=== PATIENT | male | born 1935 | race Caucasian/White ===

== ENCOUNTER 2019-04-10 10:23 | Inpatient (IN) | payer MEDICARE, SELFPAY ==
--- NOTE | ~2019-04-10 | CT_ITS ---
EXAMINATION: CT abdomen pelvis w con DATE: 04/10/2019 11:24 INDICATION: Recurrent acute pancreatitis. TECHNIQUE: Computed tomography (CT) of the abdomen and pelvis was performed with 100 mL Omnipaque-350 intravenous contrast. Automated exposure control and iterative reconstruction technique were employe d. The dose-length product was 642.22 mGy-cm. COMPARISON: 12/15/2018 FINDINGS: Mild dependent atelectasis in the bilateral lower lobes. Calcified left lower lobe nodule consistent with old granulomatous disease. Cardiomegaly. Atherosclerotic coronary artery calcification is. No pe ricardial or pleural effusion. Retained epicardial pacemaker leads. Median sternotomy wires which cou ld be related to prior coronary artery bypass grafting. Multiple small hepatic and splenic calcifications consistent with old granulomatous disease. Subcenti meter cyst in the small left hepatic lobe. Minimal intrahepatic biliary ductal dilation. Multiple sma ll calcified gallstones at the dependent aspect of the gallbladder. The gallbladder is distended to 4 cm with mild gallbladder wall thickening and small amount of pericholecystic fluid. There is more pr ominent peripancreatic inflammatory stranding and fluid consistent with acute interstitial pancreatit is. Aside from the edema the pancreatic parenchyma demonstrates relatively homogeneous enhancement wi th no evident hemorrhage, walled off necrosis or other organized loculated peripancreatic fluid colle ctions. Small low-attenuation likely splenic cyst. Bilateral adrenal glands are normal. Mild bilateral renal atrophy with scattered cortical scarring. 3.0 x 1.7 cm heterogeneously enhancing mass at the interpol ar region of the right kidney consistent with renal cell carcinoma. Bilateral nonobstructing renal st ones the largest on the left measuring up to 7 mm. No hydronephrosis. No abnormal bowel wall thickeni ng or obstruction. Appendix is normal. Diffuse mild bladder wall thickening likely related to partial ly decompressed state. No intraperitoneal abscess or free intraperitoneal gas. No pathologically enla rged abdominal or pelvic lymphadenopathy. There is calcified atherosclerosis of the aorta and many of the other arteries. Severe lumbar spondylosis. IMPRESSION: 1. Radiograph. Uncomplicated acute interstitial pancreatitis. 2. Cholelithiasis with mild wall gallbladder wall thickening and small amount of pericholecystic flui d but without significant inflammatory stranding. This could be related to acute pancreatitis or pote ntially reactive change related to the adjacent acute pancreatitis. 3. Minimal intrahepatic biliary ductal dilation but with normal caliber common bile duct. Correlate w ith liver function tests. No obstructing stones seen along the common bile duct or main pancreatic du ct. 4. 2.0 x 1.7 cm heterogeneously enhancing right renal mass consistent with renal cell carcinoma. 5. Cardiomegaly. Reviewed, dictated and finalized at location A. [facility] IMPRESSION: 1. Radiograph. Uncomplicated acute interstitial pancreatitis. 2. Cholelithiasis with mild wall gallbladder wall thickening and small amount o f pericholecystic fluid but without significant inflammatory stranding. This co uld be related to acute pancreatitis or potentially reactive change related to the adjacent acute pancreatitis. 3. Minimal intrahepatic biliary ductal dilation but with normal caliber common bile duct. Correlate with liver function tests. No obstructing stones seen anthony g the common bile duct or main pancreatic duct. 4. 2.0 x 1.7 cm heterogeneously enhancing right renal mass consistent with madeline l cell carcinoma. 5. Cardiomegaly.
--- NOTE | ~2019-04-10 | XR_ITS ---
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 13 seconds of fluoroscopy. 79 images. FINDINGS: There is cannulation and contrast administration into the cystic duct remnant. There is no discrete filling defect in the common bile duct to suggest common bile duct stone. Contrast flows fr eely into the duodenum. IMPRESSION: 1. Patent cystic duct remnant and common bile duct, without common bile duct stone. Reviewed, dictated and finalized at location A. MACHINE OPERATOR IMPRESSION: 1. Patent cystic duct remnant and common bile duct, without common bile duct s tone.
[2019-04-10 10:22] VITALS: BP 137/64; PULSE 68; RESP 16; TEMP 36.4; O2SAT 100
--- NOTE | 2019-04-10 10:31 | ED.ABDPAIN ---
HPI - Abdominal Pain General Chief Complaint: Abdominal Pain Stated Complaint: Abd Pain Time Seen by Provider: 04/10/19 10:28 Source: patient and family Mode of arrival: ambulatory Limitations: no limitations History of Present Illness HPI narrative: An 83 y/o male pt presents to the ED, with c/o RUQ ABD pain that woke him out of his sleep this morning. Pt reports having a hx of pancreatitis that he has been hospitalized for twice in the past year, and notes that the pain feels similar to previous episodes. He reports nausea and vomiting, but denies any fever, diarrhea or constipation. Pt denies a PSHx of any ABD surgeries. Family at bedside states that the pt was told he needed a cholecystecomy, but the pt refused to have this procedure done. Pt notes taking Warfarin as his anticoagulation therapy, but is unsure why he was prescribed this. MD elicited complaint: abdominal pain Pertinent past history: other (pancreatitis) Onset (ago): hour(s) Pain Consistency: constant Location: RUQ Context: confirms history of similar episodes (pancreatitis) Associated symptoms: nausea and vomiting Related Data Home Medications Medication Instructions Recorded Confirmed aspirin 81 mg tablet,delayed 81 mg PO DAILY 01/10/19 04/10/19 release blood sugar diagnostic #10 each 01/10/19 04/10/19 finasteride 5 mg tablet 5 mg PO DAILY 01/10/19 04/10/19 glipizide 5 mg tablet 5 mg PO DAILY 01/10/19 04/10/19 lancets 33 gauge #100 each 01/10/19 04/10/19 lisinopril 20 mg tablet 20 mg PO QPM 01/10/19 04/10/19 metoprolol tartrate 25 mg tablet 12.5 mg PO BID 01/10/19 04/10/19 pravastatin 40 mg tablet 40 mg PO DAILY 01/10/19 04/10/19 warfarin 4 mg PO 2XW 04/10/19 04/10/19 warfarin 6 mg PO 5XW 04/10/19 04/10/19 Allergies Allergy/AdvReac Type Severity Reaction Status Date / Time No Known Allergies Allergy Verified 04/13/19 13:36 Review of Systems Review of Systems: All systems reviewed & are unremarkable except as noted in HPI and below Constitutional: Constitutional: Denies fever(s) Gastrointestinal: Gastrointestinal: Reports abdominal pain (RUQ), Denies constipation, Denies diarrhea, Reports nausea and Reports vomiting PMFSH Past Medical History Medical History Anemia Atrial fibrillation Chronic kidney disease, stage 3 (moderate) Coronary artery disease Last Echocardiogram 12/2018 showed EF 56%, mild tricuspid regurgitation, mild pulmonary hypertension. Diabetes mellitus Home oral medications only. DM renal manif type II Enlarged prostate Hypercholesteremia Hypertension Kidney stones Left renal mass Pancreatitis In 2016, November 2018, and March 2019. With confirmed cholelithiasis. Pure hypercholesterolemia Surgical History Surgical History H/O removal of cyst Benign History of cardiac cath In 2013 prior to CABG. Hx of CABG 2-vessel CABG in 2012. Tracheostomy status When he is to in had diptheria. Family History Family History Mother Cerebrovascular accident, Onset Age: 80 Patient's mother is Sibling Family history of diabetes mellitus in first degree relative Father Family history of lung cancer Patient's father is Sibling Gallbladder disease His brother just a couple days after having gallbladder surgery Social History Social History Social History: He is to Aileen. She is a durable power bank reconciliator for healthcare. The patient is a full code. 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 He has 1 daughter. He is a smoker pack a cigarettes a day for 10 years. He quit 50 years ago. No alcohol or illicit drugs. Smoking status: Former smoker Tobacco type: cigarettes Smoking end date: 02/22/1960 Additional smoking
[2019-04-10 10:48] LABS: Basophils Percent Auto 0.3 % (0.2-1.2); Eosinophils Percent Auto 0.2 % (0-4.4); Hematocrit 33.4 % (42.0-52.0); Hemoglobin 10.5 g/dL (14.0-18.0); Immature Granulocyte Absolute 0.04 K/mm3 (0.00-0.031); Immature Granulocyte Percent A 0.4 % (0-0.5); Lymphocytes Absolute Auto 0.77 K/mm3 (0.9-3.2); Lymphocytes Percent Auto 6.9 % (18.3-44.2); Mean Corpuscular HGB Conc 31.4 g/dl (32-36); Mean Corpuscular Hemoglobin 27.1 pg (26-34); Mean Corpuscular Volume 86.1 fl (80-100); Mean Platelet Volume 8.9 fl (7.4-10.4); Neutrophils Absolute Auto 9.3 K/mm3 (1.3-6.7); Neutrophils Percent Auto 83.2 % (45.5-73.1); Platelet Count Result 347 k/mm3 (150-375); Red Blood Count 3.88 M/mm3 (4.6-6.20); White Blood Count 11.1 K/mm3 (4.5-10.0)
[2019-04-10] MEDS: SODIUM CHLORIDE 0.9% IV 1,000 ML 999 ML IV CONT (11:00)
[2019-04-10 11:01] LABS: Alanine Aminotransferase 47 U/L (4-50); Alkaline Phosphatase 147 U/L (38-126); Aspartate Amino Transferase 118 U/L (17-59); Bilirubin,Total 1.2 mg/dL (0.2-1.3); Blood Urea Nitrogen 25 mg/dL (9-20); Calcium 8.4 mg/dL (8.4-10.2); Carbon Dioxide 22 mmol/L (22-30); Chloride 105 mmol/L (98-107); Estimated CRCL calculation 32 ml/min; Estimated Glomerular Filt Rate 39; Glucose 204 mg/dL (75-110); Potassium 3.8 mmol/L (3.4-5.0); Sodium 139 mmol/L (137-145)
[2019-04-10] MEDS: ONDANSETRON INJ 4 MG/2 ML VIAL IV PUSH (11:01)
[2019-04-10] MEDS: HYDROMORPHONE HCL 1 MG/ML INJ 0.5 MG IV PUSH ×3 (11:03→15:28)
[2019-04-10 11:57] LABS: Add Urine Microscopic? YES; Appearance Urine Clear (Clear); Bacteria Urine Trace /hpf; Bilirubin Urine Negative (Negative); Blood Urine 1+ (Negative); Color Urine Yellow (Yellow); Glucose Urine UA Negative (Negative); Ketones Urine Negative (Negative); Leukocyte Esterase Ur Trace LEU/UL (Negative); Mucus Urine Rare /lpf; Nitrate Urine Negative (Negative); Protein Urine 1+ mg/dL (Negative); Specific Grav Ur 1.026 (1.001-1.035); Squamous Epithelial Cell Urine Few /hpf (Few)
[2019-04-10 13:00] VITALS: BP 142/71; PULSE 76; RESP 16; O2SAT 99
[2019-04-10 13:30] VITALS: BP 170/63; PULSE 70; RESP 16; TEMP 36.8; O2SAT 98
--- NOTE | 2019-04-10 14:03 | ADMGEN ---
This patient, Alex Baker, was admitted to [facility] Surg Room 302-01. Patient/family oriented to hospital policies and general routines including ID bracelet, bed and alarms, visiting hours, pain management, procedures, bathroom and other care routines, personal items, smoking policy, room service/diet, and visiting hours. Valuables list has been completed. Information on how to activate the Rapid Response Team has been discussed. Patient/Family are encouraged to report perceived risks to care and to ask questions if they do not understand what they are told or what they should do.
[2019-04-10] MEDS: LACTATED RINGERS 1,000 ML 250 ML IV CONT (14:46)
--- NOTE | 2019-04-10 15:07 | WPDGICN ---
Assessment and Plan Additional Plan This is an 83-year-old white male patient I am asked to see for acute pancreatitis. Patient in usual state of health till severe abdominal pain awoke him at 4:00 a.m. this morning. He states pain is diffuse across the mid abdomen. He denies back pain. He is only had some nausea no vomiting. He denies a fever. His bowel function has continued without difficulty. Patient presented to the emergency room. He was found to have markedly elevated lipase. CT scan consistent with gallstones and pancreatitis. Patient has had several prior episodes of pancreatitis. Most recent episode was November of 2018. Patient has previously refused surgical intervention. Patient's past medical history is significant for atherosclerotic heart disease. He has a history of coronary artery bypass grafting. He has been treated for hypertension hyperlipidemia. He is known to have a descending thoracic aortic aneurysm. Medications at home include aspirin, finasteride, glipizide, lisinopril, metoprolol, pravastatin, warfarin, Patient reports allergy to tamsulosin. Physical exam reveals patient to be alert. Vital signs stable. HEENT exam unremarkable. Lungs are clear to auscultation and percussion. Heart is without murmur or extra sounds. Abdominal exam bowel sounds are present soft he notes discomfort the midepigastric area. Minimal discomfort at this time having received recent pain injection. Laboratory work reveals CBC WBC 11.1, hemoglobin 10.5, BUN 25 creatinine 1.7. Glucose 204. Total bilirubin 1.2, AST of 118, ALT 47, alk-phos 147. Albumin 3.0. Lipase 52566. Urinalysis is negative for bilirubin. CT scan of the abdomen performed in the emergency room reveals gallstones and pancreatitis. Impression 1. Acute pancreatitis. [place] to be related to gallstones. This is recurrent. Plan is for supportive care present surgery consult for ultimate cholecystectomy is advised. Patient should initially start with liquid diet be advanced slowly. Pain control as required. 2. Gallstones. Plan is for surgical evaluation. This appears to be etiology of his recurrent pancreatitis. Surgery is strongly advised. 3. Atherosclerotic heart disease. GI Consult Note Consult date/time: 04/10/19 15:07 HPI: Alex Baker is a 83 year old male [facility] Past Medical History Medical History Atrial fibrillation Coronary artery disease Diabetes mellitus Enlarged prostate Hypercholesteremia Hypertension Kidney stones Pancreatitis Surgical History Surgical History (Updated 04/10/19 @ 11:34 by ROMAIN Bustamante) History of cardiac cath Hx of CABG Social History Social History Smoking status: Former smoker Smoking end date: 02/22/1960 Alcohol intake: never Substance use: never Substance use type: does not use Gender identity (if verbalized by the patient): Male Spiritual care concerns: No Agree to blood products: Yes Meds Home Medications and Allergies Home Medications Medication Instructions Recorded Confirmed Type aspirin 81 mg tablet,delayed 81 mg PO DAILY 01/10/19 04/10/19 History release blood sugar diagnostic #10 each 01/10/19 04/10/19 History finasteride 5 mg tablet 5 mg PO DAILY 01/10/19 04/10/19 History glipizide 5 mg tablet 5 mg PO DAILY 01/10/19 04/10/19 History lancets 33 gauge #100 each 01/10/19 04/10/19 History lisinopril 20 mg tablet 20 mg PO QPM 01/10/19 04/10/19 History metoprolol tartrate 25 mg tablet 12.5 mg PO BID 01/10/19 04/10/19 History pravastatin 40 mg tablet 40 mg PO DAILY 01/10/19 04/10/19 History warfarin 4 mg PO 2XW 04/10/19 04/10/19 History warfarin 6 mg PO 5XW 04/10/19 04/10/19 History Allergies Allergy/AdvReac Type Severity Reaction Status Date / Time tamsulosin Allergy Mild unknown Verified 04/10/19 12:54 Vital Signs Vital Signs -
--- NOTE | 2019-04-10 17:10 | PM.CNGS ---
Assessment and Plan Assessment and plan (1) Cholelithiasis: Qualifiers: Cholelithiasis location: gallbladder Cholecystitis presence: without cholecystitis Biliary obstruction: without biliary obstruction Qualified Code(s): K80.20 - Calculus of gallbladder without cholecystitis without obstruction Code(s): K80.20 - Calculus of gallbladder without cholecystitis without obstruction Status: Acute Assessment and Plan: CT scan reviewed and discussed with the patient. He has evidence of cholelithiasis and acute intersitial pancreatitis that is likely biliary. WBC 11,000, alk phos is barely elevated, and total bilirubin is normal. Gastroenterology has been consulted. Could consider MRCP if LFTs become elevated or patient is worsening. Would agree with continuing IV fluids, bowel rest, analgesics, and antiemetics. Continue to trend his lipase, which is currently 35,000, and monitor him clinically. The patient already has a significant improvement in his pain. This is the second occurrence of acute pancreatitis in the past 6 months. I discussed treatment options with the patient and the pathophysiology of gallbladder disease, pancreatitis, and possible complications that can arise with cholelithiasis. Considering the possible complications that could occur without having a cholecystectomy, we would recommend proceeding with a laparoscopic cholecystectomy, possible open, possible IOC, by Dr. Antoine, after resolution of the pancreatitis. Description of the procedure, risks, benefits, indications, and expected outcomes were discussed with the patient in detail, which includes the increased risk of surgery and general anesthesia due to his multiple co-morbidities including cardiovascular disease. I also discussed the expected recovery of surgery as well as low fat diet restrictions and provided the patient with our cholecystectomy information packet. All questions were answered and patient is agreeable with proceeding with surgery on this admission. Surgery will further be discussed with Dr. Antoine separately on his evaluation. We will continue to trend his labs and follow him with serial abdominal exams. Will also order PT/INR panel and hold his Coumadin at this time pending surgical plan. Depending on how the patient progresses and responds to current treatment, will decipher timing on surgery. Thank you for allowing me to evaluate the patient in consultation and we will continue to follow along with you. 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 (4) Right renal mass: Code(s): N28.89 - Other specified disorders of kidney and ureter Status: Acute Assessment and Plan: Newly found right renal mass concerning for renal cell carcinoma. I did discuss this finding on the CT scan with the patient. Management per Hospitalist. (5) Coronary artery disease: Code(s): I25.10 - Atherosclerotic heart disease of [place] coronary artery without angina pectoris Status: Acute Assessment and Plan: Increases risk for surgery. (6) Chronic kidney disease, stage 3 (moderate): Code(s): N18.3 - Chronic kidney disease, stage 3 (moderate) Status: Acute (7) Paroxysmal A-fib: Code(s): I48.0 - Paroxysmal atrial fibrillation Status: Acute (8) Type 2 diabetes mellitus with hyperglycemia: Code(s): E11.65 - Type 2 diabetes mellitus with hyperglycemia Status: Acute (9) Anemia: Code(s): D64.9 - Anemi
--- NOTE | 2019-04-10 17:57 | PM.IMHP ---
H&P: HPI History of Present Illness Chief complaint: Acute Pancreatitis/DARLEEN Narrative: Alex Baker is a 83 year old male who woke up this morning with severe abdominal pain. Patient tells me that he has been admitted to the hospital at least twice this past year and he had a similar episode. The patient was here in 2017 for pancreatitis and again here last year for pancreatitis. The patient would not undergo removal of the gallbladder for fear that he would because his brother shortly after his gallbladder was removed. The patient was here December 15, 2018 for cholecystitis and was treated back then. Patient stated this feels similar to that episode. He saw Dr. Weber back then and then saw Dr. Weber today as well. White count was noted to be 11.1 today's H&H 10.5 and 33.4. His creatinine is 1.7. CT of the abdomen shows acute interstitial pancreatitis. Minimal intrahepatic biliary duct dilatation but the normal caliber common bile duct. Correlate with liver function test. No obstructing stone seen along common bile duct our main pancreatic duct. 2.0 x 1.7 cm heterogenously enhancing right renal mass consistent with renal cell carcinoma. Cardiomegaly. Patient was started on IV fluids and given Dilaudid for discomfort. Surgery has been consulted and has seen the patient already. There is no current PT INR so I did order 1 now. Date of service 04/10/2019 Review of Systems Review of Systems: Narrative: Nausea and pain to the right upper quadrant tenderness. All systems reviewed & are unremarkable except as noted in HPI and below Constitutional: Constitutional: Reports as per HPI and Reports no additional constitutional complaints Eyes: Eyes: Reports as per HPI and Reports no additional eye complaints ENT: Reports system reviewed and no additional complaints, except as documented and Reports Normal hearing present Cardiovascular: Cardiovascular: Reports no additional cardiovascular complaints Respiratory: Respiratory: Reports no additional respiratory complaints and Reports no additional respiratory complaints Gastrointestinal: Gastrointestinal: Reports as per HPI and Reports no additional gastrointestinal complaints Musculoskeletal: Musculoskeletal: Reports no additional musculoskeletal complaints Integumentary/Breasts: Skin/Breast: Reports system reviewed and no additional complaints, except as docu and Reports as per HPI Neurologic: Reports system reviewed and no additional complaints, except as documented, Reports as per HPI and Reports Normal hearing present Psychiatric: Psychiatric: Reports no additional psychiatric complaints and Reports as per HPI Endocrine: Endocrine: Reports no additional endocrine complaints Hematologic/Lymphatic: Hematologic/Lymphatic: Reports no additional hematologic/lymphatic complaints Allergic/Immunologic: Allergic/Immunologic: Reports no additional allergic/immunologic complaints [facility] Past Medical History Medical History (Updated 04/10/19 @ 18:22 by Heidi Rosa NP) Anemia Atrial fibrillation Chronic kidney disease, stage 3 (moderate) Coronary artery disease Last Echocardiogram 12/2018 showed EF 56%, mild tricuspid regurgitation, mild pulmonary hypertension. Diabetes mellitus Home oral medications only. DM renal manif type II Enlarged prostate Hypercholesteremia Hypertension Kidney stones Left renal mass Pancreatitis In 2016, November 2018, and March 2019. With confirmed cholelithiasis. Pure hypercholesterolemia Surgical History Surgical History (Updated 04/10/19 @ 18:11 by Heidi Rosa NP) H/O removal of cyst Benign History of cardiac cath In 2012 prior to CABG. Hx of CABG 2-vessel CABG in 2012. Tracheostomy status When he is to in had diptheria. Family History Family History (Updated 04/10/19 @ 18:11 by Heidi Rosa NP) Mother Cerebrovascular accident, Onset Age: 80 Patient's mother is Sibling Family hist
[2019-04-10 18:35] LABS: INR 4.1; Prothrombin Time 39.1 Seconds (11.1-14.7)
[2019-04-10] MEDS: ACETAMINOPHEN 325 MG TABLET 650 MG PO (19:53)
[2019-04-10 19:58] VITALS: PULSE 80
[2019-04-10] MEDS: METOPROLOL TARTRATE INJ 5 MG/5 ML VIAL 2.5 MG IV PUSH (19:58)
[2019-04-10 22:00] VITALS: BP 134/77; PULSE 66; RESP 20; TEMP 36.9; O2SAT 99
[2019-04-10] MEDS: HYDROMORPHONE HCL 1 MG/ML INJ IV PUSH (22:00)
[2019-04-10 22:38] LABS: Glucose Point of Care 127 (65-105)
[2019-04-11] MEDS: LACTATED RINGERS 1,000 ML 125 ML IV CONT ×4 (00:01→16:00)
[2019-04-11 00:06] LABS: Glucose Point of Care 103 (65-105)
[2019-04-11] MEDS: HYDROMORPHONE HCL 1 MG/ML INJ IV PUSH ×3 (02:46→15:52)
[2019-04-11 02:48] VITALS: PULSE 80
[2019-04-11] MEDS: METOPROLOL TARTRATE INJ 5 MG/5 ML VIAL 2.5 MG IV PUSH ×3 (02:48→17:48)
[2019-04-11 06:00] VITALS: BP 131/84; PULSE 60; RESP 16; TEMP 36.2; O2SAT 97
[2019-04-11 06:28] LABS: Alanine Aminotransferase 38 U/L (4-50); Albumin Level 2.7 g/dL (3.5-5.1); Alkaline Phosphatase 109 U/L (38-126); Aspartate Amino Transferase 38 U/L (17-59); Bilirubin,Total 0.8 mg/dL (0.2-1.3)
[2019-04-11 06:31] LABS: Glucose Point of Care 84 (65-105)
[2019-04-11 06:33] LABS: Cholesterol 101 mg/dL (0-200); HDL Direct 19 mg/dL; Triglycerides 70 mg/dL (<150)
[2019-04-11 06:35] LABS: Hemoglobin A1C 7.1 % (<5.7)
[2019-04-11 06:36] LABS: LDL Cholesterol Direct 62 mg/dL
[2019-04-11 06:38] LABS: Lipase 2538 U/L (23-300)
[2019-04-11 08:00] VITALS: PULSE 60; RESP 16; O2SAT 97
--- NOTE | 2019-04-11 09:10 | WPDGIPROGNO ---
Progress Note: A&P Additional Plan Patient reports ongoing mid abdominal pain. Physical exam reveals him to be alert. Vital signs stable. HEENT exam is anicteric. Lungs are clear. Heart without murmur. Abdomen is modestly distended. Bowel sounds diminished. Tender predominantly in mid abdomen. No masses of appreciated. Laboratory work. Lipase 2538. LFTs now normal. Albumin 2.7. WBC 11.1, hemoglobin 10.5, Impression 1. Acute pancreatitis. 2. Cholelithiasis. Gallstones appear to be etiology for recurrent pancreatitis. LFTs are improving. Suggesting passage of common bile duct gallstone. Agree with cholecystectomy when pancreatitis Improves. On plan is to slowly allow liquid diet and advance slowly. He may not yet be able to maintain any significant liquid intake. Pain control to continue. Continue supportive care. Monitor labs. Subjective Date/time seen: 04/11/19 09:10 Objective Data Vital Signs Vital Signs: Vital Signs - 24 hr 04/10/19 10:22 04/10/19 13:00 04/10/19 13:30 Temperature 36.4 C 36.8 C Pulse Rate 68 76 70 Respiratory Rate 16 16 16 Blood Pressure 137/64 142/71 H 170/63 H Pulse Oximetry 100 99 98 04/10/19 19:58 04/10/19 22:00 04/11/19 02:48 Temperature 36.9 C Pulse Rate 80 66 80 Respiratory Rate 20 Blood Pressure 134/77 Pulse Oximetry 99 04/11/19 06:00 Temperature 36.2 C L Pulse Rate 60 Respiratory Rate 16 Blood Pressure 131/84 Pulse Oximetry 97 Intake/Output Intake/Output: Intake & Output 04/08/19 04/09/19 04/10/19 04/11/19 23:59 23:59 23:59 23:59 Intake Total 1000 1000 Output Total 200 Balance 1000 800 Meds/Results Medications: Active Medications Generic Name Dose Route Start Last Admin Trade Name Freq PRN Reason Stop Dose Admin Acetaminophen 650 mg 04/10/19 12:01 04/10/19 19:53 Tylenol Tablet PO 650 mg Q4H PRN Administration Mild Pain (1-3) or Fever Dextrose 12.5 gm 04/10/19 18:41 Dextrose 50% Syringe IV PUSH PRN PRN Hypoglycemia Protocol Glucagon 1 mg 04/10/19 18:41 Glucagon For Inj IM PRN PRN Hypoglycemia Protocol Glucose 15 gm 04/10/19 18:41 Glutose 15 PO PRN PRN Hypoglycemia Protocol Hydralazine HCl 10 mg 04/10/19 18:35 Apresoline Hcl Inj IV PUSH Q8H PRN Blood Pressure - High Hydromorphone HCl 1 mg 04/10/19 14:58 04/11/19 08:15 Dilaudid Inj IV PUSH 1 mg Q4H PRN Administration Pain Rated 7-10 Lactated Ringer's 1,000 mls @ 125 mls/hr 04/10/19 15:00 04/11/19 08:10 Lr - Lactated Ringers Iv IV CONT 125 mls/hr .Q8H SUSIE Administration Dextrose 1,000 mls @ 100 mls/hr 04/10/19 18:41 Dextrose 5% 1,000 Ml IVPB PRN PRN Hypoglycemia Protocol Insulin Aspart 2 - 5 units 04/10/19 18:00 04/11/19 06:36 Novolog SUB-Q Not Given Q6HR SUSIE Protocol Metoprolol Tartrate 2.5 mg 04/10/19 18:00 04/11/19 02:48 Lopressor Inj IV PUSH 2.5 mg Q8H SUSIE Administration Ondansetron HCl 4 mg 04/10/19 12:01 Zofran Inj IV PUSH Q4H PRN Nausea Radiology Results: ITS Impressions Abdomen/Pelvis CT 04/10/19 11:42 IMPRESSION: 1. Radiograph. Uncomplicated acute interstitial pancreatitis. 2. Cholelithiasis with mild wall gallbladder wall thickening and small amount of pericholecystic fluid but without significant inflammatory stranding. This could be related to acute pancreatitis or potentially reactive change related to the adjacent acute pancreatitis. 3. Minimal intrahepatic biliary ductal dilation but with normal caliber common bile duct. Correlate with liver function tests. No obstructing stones seen along the common bile duct or main pancreatic duct. 4. 2.0 x 1.7 cm heterogeneously enhancing right renal mass consistent with renal cell carcinoma. 5. Cardiomegaly. Labs Labs: Laboratory Results - last 24 hr 04/10/19 04/10/19 04/10/19 10:39 10:39 11:46 WBC 11.1
--- NOTE | 2019-04-11 10:08 | PM.PNGS ---
Progress Note: A&P Assessment and Plan (1) Cholelithiasis: Qualifiers: Biliary obstruction: without biliary obstruction Cholecystitis presence: without cholecystitis Cholelithiasis location: gallbladder Qualified Code(s): K80.20 - Calculus of gallbladder without cholecystitis without obstruction Code(s): K80.20 - Calculus of gallbladder without cholecystitis without obstruction Status: Acute Assessment and Plan: Lipase trending down to 2,538 today. LFTs normal. Patient is slowly improving. Continue IV fluids, bowel rest, and analgesics. May be able to try clear liquids if his pain improves more. Cholelithiasis is thought to be the cause of the recurrent pancreatitis. We will still plan for laparoscopic cholecystectomy, possible open, by Dr. Antoine once the Acute Pancreatitis has resolved. Continue to trend labs and follow him clinically. (2) Acute pancreatitis: Qualifiers: Acute pancreatitis complication: unspecified Pancreatitis type: unspecified pancreatitis type Qualified Code(s): K85.90 - Acute pancreatitis without necrosis or infection, unspecified Code(s): K85.90 - Acute pancreatitis without necrosis or infection, unspecified Status: Acute Assessment and Plan: See plan above. (3) Anticoagulated on warfarin: Code(s): Z79.01 - [employer] agent (current) use of anticoagulants Status: Acute Assessment and Plan: Coumadin on hold. INR 4.1 yesterday. Will continue to monitor. (4) Right renal mass: Code(s): N28.89 - Other specified disorders of kidney and ureter Status: Acute Assessment and Plan: Newly found right renal mass concerning for renal cell carcinoma. Management per Hospitalist. (5) Coronary artery disease: Code(s): I25.10 - Atherosclerotic heart disease of [place] coronary artery without angina pectoris Status: Chronic (6) Chronic kidney disease, stage 3 (moderate): Code(s): N18.3 - Chronic kidney disease, stage 3 (moderate) Status: Chronic (7) Paroxysmal A-fib: Code(s): I48.0 - Paroxysmal atrial fibrillation Status: Chronic (8) Type 2 diabetes mellitus with hyperglycemia: Code(s): E11.65 - Type 2 diabetes mellitus with hyperglycemia Status: Acute (9) Anemia: Code(s): D64.9 - Anemia, unspecified Status: Chronic (10) Enlarged prostate with lower urinary tract symptoms (LUTS): Code(s): N40.1 - Benign prostatic hyperplasia with lower urinary tract symptoms Status: Acute Additional Plan Discussed the patient's case and plan of care with Dr. Antoine. Subjective Subjective Date/Time Seen: 04/11/19 09:30 Patient reports: no new complaints and pain is less Interval history: Patient seen and examined. Reports pain has improved and is now intermittent. He reports it is still mid upper abdominal pain and it is currently being controlled with PRN pain medication. Denies nausea, vomiting, or bloating. No other complaints at this time. Review of Systems Review of Systems: All systems reviewed & are unremarkable except as noted in HPI and below Exam Const: General: comfortable, no acute distress, alert and awake GI: Inspection: normal to inspection and non-distended GI Palp: Yes Soft to palpation, Yes Tenderness to palpation present (GI) (upper abdomen and RLQ), No Guarding due to palpation present (GI), No Rigid due to palpation and No Rebound tenderness present Auscultation: normal bowel sounds Rectal Exam: deferred Neuro: General: no focal motor deficits Psych: Mental Status: mental status grossly normal Affect: normal affect Attitude: cooperative Objective Data Vital Signs Vital Signs: Vital Signs - 24 hr 04/10/19 10:22 04/10/19 13:00 04/10/19 13:30 Temperature 36.4 C 36.8 C Pulse Rate 68 76 70 Respiratory Rate 16 16 16 Blood Pressure 137/64 142/71 H 170/63 H Pulse Oximetry 100 99 98 04/10/19 19:58 04/10/19 22:00 04/11/19
[2019-04-11 11:27] LABS: Hematocrit 36.3 % (42.0-52.0); Hemoglobin 11.3 g/dL (14.0-18.0); Mean Corpuscular HGB Conc 31.1 g/dl (32-36); Mean Corpuscular Volume 86.6 fl (80-100); Mean Platelet Volume 8.8 fl (7.4-10.4); Platelet Count Result 286 k/mm3 (150-375); Red Blood Count 4.19 M/mm3 (4.6-6.20); Red Cell Distribution Width 14.1 % (11.5-14.5); White Blood Count 8.9 K/mm3 (4.5-10.0)
[2019-04-11 11:41] LABS: Blood Urea Nitrogen 30 mg/dL (9-20); Calcium 8.4 mg/dL (8.4-10.2); Carbon Dioxide 24 mmol/L (22-30); Chloride 105 mmol/L (98-107); Estimated CRCL calculation 36 ml/min; Estimated Glomerular Filt Rate 45; Glucose 89 mg/dL (75-110); Potassium 4.4 mmol/L (3.4-5.0); Sodium 141 mmol/L (137-145)
[2019-04-11 13:50] LABS: Prothrombin Time 47.5 Seconds (11.1-14.7)
[2019-04-11 14:18] LABS: INR 5.2
[2019-04-11 15:18] VITALS: BP 158/77; PULSE 75; RESP 16; TEMP 36.7; O2SAT 100
--- NOTE | 2019-04-11 16:44 | PM.IMPN ---
Progress Note: A&P Assessment and Plan (1) Pancreatitis: Code(s): K85.90 - Acute pancreatitis without necrosis or infection, unspecified Status: Chronic Assessment and Plan: ------The patient is NPO at this time and is still having pain. His lipase is trending done. Continue to monitor lipase. Most likely related to his gallstones. Liver enzymes are normal today--likely passed a stone. INR elevated today and spoke with Dr. Antoine who recommends some Vit K. Will monitor again tomorrow. Possible sx tuesday? (2) Cholelithiasis: Qualifiers: Cholelithiasis location: gallbladder Cholecystitis presence: without cholecystitis Biliary obstruction: without biliary obstruction Qualified Code(s): K80.20 - Calculus of gallbladder without cholecystitis without obstruction Code(s): K80.20 - Calculus of gallbladder without cholecystitis without obstruction Status: Acute Assessment and Plan: -----Likely cholecystecomy tuesday depending on pts symptoms and labs. await sx recommendations. EKG changes appear chronic and are present on EKG from 2017. Echo from 12/2018 reviewed. (3) Hypertension: Code(s): I10 - Essential (primary) hypertension Status: Chronic Assessment and Plan: -----Blood pressure 158/77. Continue lopressor IV scheduled with PRN hydralazine. (4) Right renal mass: Code(s): N28.89 - Other specified disorders of kidney and ureter Status: Acute Assessment and Plan: Will need to f/u with Dr. conley who he has seen before. Concerning for RCC. Family aware. (5) Anemia: Code(s): D64.9 - Anemia, unspecified Status: Chronic Assessment and Plan: -----Stable at baseline normocytic. (6) Paroxysmal A-fib: Code(s): I48.0 - Paroxysmal atrial fibrillation Status: Chronic Assessment and Plan: ------continue IV lopressor. Rate 75 today with NSR on EKG. (7) Type 2 diabetes mellitus with hyperglycemia: Code(s): E11.65 - Type 2 diabetes mellitus with hyperglycemia Status: Acute Assessment and Plan: -----last glucose 89. A1c is 7.1. monitor (8) DARLEEN (acute kidney injury): Code(s): N17.9 - Acute kidney failure, unspecified Status: Acute Assessment and Plan: ------unchanged today which is a bit surprising. continue IV fluids and redraw tomorrow. May need renal u/s if persistently abnormal. 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 Recheck INR tomorrow. Spoke with Dr. Antoine about heaprin after checking INR tomorrow. Small dose of vit k given today. (10) Renal cell carcinoma: Code(s): C64.9 - Malignant neoplasm of unspecified kidney, except renal pelvis Status: Acute Assessment and Plan: -----possible RCC on imaging. Needs to f/u with urology. Time Spent With Patient Time with patient: 25 - 35 minutes Subjective Date/time seen: 04/11/19 16:44 Interval history: Pt is a 83-year-old male here for pancreatitis. Patient was seen today with family at bedside and plan discussed. Patient states he still having epigastric pain and has not had anything to eat. He has not been passing gas nor has he had a bowel movement. He has occasional nausea but his complaint is mostly pain. Patient denies shortness of breath, chest pain, leg swelling, fevers or chills. He says that he has seen Dr. Conley in the past and he was told he had something on his kidney but not to worry about it. I encouraged him to follow-up with Dr. conley about his CT findings. Daughter at bedside understood. He says that he has right arm pain and was told he has osteoarthritis. The states that he mostly complains of pain all over. He has been on a statin medication for a long time and I told th
--- NOTE | 2019-04-11 17:37 | ECG_ITS ---
Measurements Intervals [place] Rate: 75 P: 20 AR: 156 QRS: -75 QRSD: 162 T: 20 QT: 437 QTc: 491 Interpretive Statements SINUS RHYTHM ATRIAL COUPLET AND ATRIAL PREMATURE COMPLEX RIGHT BUNDLE BRANCH BLOCK LEFT ANTERIOR FASCICULAR BLOCK BASELINE ARTIFACT- I, III, AVR, AVL, AVF, V3 ABNORMAL ECG Electronically Signed On 04-12-2019 15:20:17 [employer] by Beck Lopez D.O.
[2019-04-11] MEDS: PHYTONADIONE INJ 10 MG/ML AMP 5 MG SUB-Q (17:46)
[2019-04-11 18:21] LABS: Glucose Point of Care 74 (65-105)
[2019-04-11 21:46] VITALS: BP 154/77; PULSE 81; RESP 16; TEMP 37; O2SAT 97
[2019-04-12 00:33] LABS: Glucose Point of Care 72 (65-105)
[2019-04-12 02:37] VITALS: PULSE 81
[2019-04-12] MEDS: METOPROLOL TARTRATE INJ 5 MG/5 ML VIAL 2.5 MG IV PUSH (02:37)
[2019-04-12] MEDS: LACTATED RINGERS 1,000 ML 100 ML IV CONT ×3 (02:37→23:02)
[2019-04-12 06:00] VITALS: BP 175/94; PULSE 87; RESP 16; TEMP 36.8; O2SAT 97
[2019-04-12 06:08] LABS: Eosinophils Percent Auto 0.1 % (0-4.4); Hematocrit 32.3 % (42.0-52.0); Hemoglobin 10.3 g/dL (14.0-18.0); Immature Granulocyte Absolute 0.05 K/mm3 (0.00-0.031); Immature Granulocyte Percent A 0.6 % (0-0.5); Lymphocytes Absolute Auto 0.53 K/mm3 (0.9-3.2); Lymphocytes Percent Auto 6.4 % (18.3-44.2); Mean Corpuscular HGB Conc 31.9 g/dl (32-36); Mean Corpuscular Hemoglobin 27.3 pg (26-34); Mean Corpuscular Volume 85.7 fl (80-100); Mean Platelet Volume 8.9 fl (7.4-10.4); Monocytes Absolute Auto 0.7 K/mm3 (0.1-0.6); Monocytes Percent Auto 8.1 % (2.6-8.5); Neutrophils Percent Auto 84.8 % (45.5-73.1); Platelet Count Result 240 k/mm3 (150-375); Red Blood Count 3.77 M/mm3 (4.6-6.20); Red Cell Distribution Width 14.3 % (11.5-14.5); White Blood Count 8.2 K/mm3 (4.5-10.0)
[2019-04-12 06:35] LABS: Alanine Aminotransferase 23 U/L (4-50); Albumin Level 2.6 g/dL (3.5-5.1); Alkaline Phosphatase 99 U/L (38-126); Aspartate Amino Transferase 19 U/L (17-59); Bilirubin,Total 0.9 mg/dL (0.2-1.3); Blood Urea Nitrogen 28 mg/dL (9-20); Calcium 8.2 mg/dL (8.4-10.2); Carbon Dioxide 25 mmol/L (22-30); Chloride 107 mmol/L (98-107); Estimated CRCL calculation 38 ml/min; Estimated Glomerular Filt Rate 48; Glucose 77 mg/dL (75-110); Lipase 377 U/L (23-300); Potassium 4.2 mmol/L (3.4-5.0); Sodium 140 mmol/L (137-145)
[2019-04-12 06:36] LABS: Glucose Point of Care 73 (65-105)
[2019-04-12 07:04] LABS: Prostate Specific Antigen 4.3 ng/mL (< OR = 4.0)
--- NOTE | 2019-04-12 09:06 | WPDGIPROGNO ---
Progress Note: A&P Additional Plan Patient complains of ongoing abdominal pain. He states pain abdomen is tender, and reports basically the whole abdomen. He states he has had a bowel movement recently. Physical exam reveals him to be afebrile. Lungs are clear. Heart is irregularly irregular. Abdomen bowel sounds are present. Abdomen is soft. Mild tenderness in the mid abdomen appreciated. Labs reveal normal LFTs. Lipase has normalized. Currently 377. Protime 47.5, INR 5.2. Impression 1. Cholelithiasis. 2. Acute pancreatitis. Clinically improving. Gallstones appear to be the etiology of recurrent pancreatitis. Plan is for surgery when his condition allows. Continue pain control. May start diet as per Dr. Antoine. Advanced slowly to low-fat diet. 3. Coagulopathy. Patient has been treated with warfarin for atrial fibrillation. Protime will need to be lower prior to surgery. 4. Atrial fibrillation. Warfarin on hold at present time. Plan is for surgery over the next few days as pancreatitis improves. I discussed case with Dr. Antoine who agrees. Intraoperative cholangiogram anticipated. Subjective Date/time seen: 04/12/19 09:06 Objective Data Vital Signs Vital Signs: Vital Signs - 24 hr 04/11/19 15:18 04/11/19 21:46 04/12/19 02:37 Temperature 36.7 C 37.0 C Pulse Rate 75 81 81 Respiratory Rate 16 16 Blood Pressure 158/77 H 154/77 H Pulse Oximetry 100 97 04/12/19 06:00 Temperature 36.8 C Pulse Rate 87 Respiratory Rate 16 Blood Pressure 175/94 H Pulse Oximetry 97 Intake/Output Intake/Output: Intake & Output 04/09/19 04/10/19 04/11/19 04/12/19 23:59 23:59 23:59 23:59 Intake Total 1000 3000 1000 Output Total 1160 400 Balance 1000 1840 600 Meds/Results Medications: Active Medications Generic Name Dose Route Start Last Admin Trade Name Freq PRN Reason Stop Dose Admin Acetaminophen 650 mg 04/10/19 12:01 04/10/19 19:53 Tylenol Tablet PO 650 mg Q4H PRN Administration Mild Pain (1-3) or Fever Dextrose 12.5 gm 04/10/19 18:41 Dextrose 50% Syringe IV PUSH PRN PRN Hypoglycemia Protocol Glucagon 1 mg 04/10/19 18:41 Glucagon For Inj IM PRN PRN Hypoglycemia Protocol Glucose 15 gm 04/10/19 18:41 Glutose 15 PO PRN PRN Hypoglycemia Protocol Hydralazine HCl 10 mg 04/10/19 18:35 Apresoline Hcl Inj IV PUSH Q8H PRN Blood Pressure - High Hydromorphone HCl 1 mg 04/10/19 14:58 04/11/19 15:52 Dilaudid Inj IV PUSH 1 mg Q4H PRN Administration Pain Rated 7-10 Lactated Ringer's 1,000 mls @ 100 mls/hr 04/10/19 15:00 04/12/19 02:37 Lr - Lactated Ringers Iv IV CONT 100 mls/hr .Q10H SUSIE Administration Dextrose 1,000 mls @ 100 mls/hr 04/10/19 18:41 Dextrose 5% 1,000 Ml IVPB PRN PRN Hypoglycemia Protocol Insulin Aspart 2 - 5 units 04/10/19 18:00 04/12/19 06:51 Novolog SUB-Q Not Given Q6HR SUSIE Protocol Metoprolol Tartrate 5 mg 04/12/19 09:00 Lopressor Inj IV PUSH Q8H SUSIE Ondansetron HCl 4 mg 04/10/19 12:01 Zofran Inj IV PUSH Q4H PRN Nausea Radiology Results: ITS Impressions Abdomen/Pelvis CT 04/10/19 11:42 IMPRESSION: 1. Radiograph. Uncomplicated acute interstitial pancreatitis. 2. Cholelithiasis with mild wall gallbladder wall thickening and small amount of pericholecystic fluid but without significant inflammatory stranding. This could be related to acute pancreatitis or potentially reactive change related to the adjacent acute pancreatitis. 3. Minimal intrahepatic biliary ductal dilation but with normal caliber common bile duct. Correlate with liver function tests. No obstructing stones seen along the common bile duct or main pancreatic duct. 4. 2.0 x 1.7 cm heterogeneously enhancing right renal mass consistent with renal cell carcinoma. 5. Cardiomegaly. Labs Labs: Laboratory Results - last 24
[2019-04-12 09:50] LABS: INR 4.3; Prothrombin Time 40.7 Seconds (11.1-14.7)
--- NOTE | 2019-04-12 10:07 | PM.PNGS ---
Progress Note: A&P Assessment and Plan (1) Cholelithiasis: Qualifiers: Cholelithiasis location: gallbladder Cholecystitis presence: without cholecystitis Biliary obstruction: without biliary obstruction Qualified Code(s): K80.20 - Calculus of gallbladder without cholecystitis without obstruction Code(s): K80.20 - Calculus of gallbladder without cholecystitis without obstruction Status: Acute Assessment and Plan: Lipase trending down to 377 today. LFTs normal. Patient continues to clinically improve. Will allow clear liquids today and make him NPO at midnight. Ordered a dulcolax suppository to stimulate his bowels. With the lipase down to nearly normal and the patient showing overall improvement. We will schedule the patient for laparoscopic cholecystectomy, possible open, by Dr. Antoine tomorrow. Surgery has been discussed and no new questions today. INR 4.3 today. We discussed the patient's high INR with the Hospitalist today, who will be giving him Vitamin K to bring this down. (2) Acute pancreatitis: Qualifiers: Acute pancreatitis complication: unspecified Pancreatitis type: unspecified pancreatitis type Qualified Code(s): K85.90 - Acute pancreatitis without necrosis or infection, unspecified Code(s): K85.90 - Acute pancreatitis without necrosis or infection, unspecified Status: Acute Assessment and Plan: See plan above. (3) Anticoagulated on warfarin: Code(s): Z79.01 - [facility] (current) use of anticoagulants Status: Acute Assessment and Plan: Coumadin on hold. INR 4.3 today. Hospitalist giving Vitamin K today to bring this down. (4) Right renal mass: Code(s): N28.89 - Other specified disorders of kidney and ureter Status: Acute Assessment and Plan: Newly found right renal mass concerning for renal cell carcinoma. Management per Hospitalist. Planning outpatiet follow-up with Urology. (5) Coronary artery disease: Code(s): I25.10 - Atherosclerotic heart disease of [place] coronary artery without angina pectoris Status: Chronic (6) Chronic kidney disease, stage 3 (moderate): Code(s): N18.3 - Chronic kidney disease, stage 3 (moderate) Status: Chronic (7) Paroxysmal A-fib: Code(s): I48.0 - Paroxysmal atrial fibrillation Status: Chronic (8) Type 2 diabetes mellitus with hyperglycemia: Code(s): E11.65 - Type 2 diabetes mellitus with hyperglycemia Status: Acute (9) Anemia: Code(s): D64.9 - Anemia, unspecified Status: Chronic (10) Enlarged prostate with lower urinary tract symptoms (LUTS): Code(s): N40.1 - Benign prostatic hyperplasia with lower urinary tract symptoms Status: Acute Additional Plan Discussed the patient's case and plan of care with Dr. Antoine. Subjective Subjective Date/Time Seen: 04/12/19 10:07 Patient reports: no new complaints, feels better, pain is less and no bowel movement Interval history: Patient seen and examined. Denies nausea or vomiting. Reports some mild bloating but has not had a BM since prior to admission. Reports abdominal pain is less severe but still intermittent throughout the day in his mid upper abdomen. No other complaints at this time. Review of Systems Review of Systems: All systems reviewed & are unremarkable except as noted in HPI and below Exam Const: General: no acute distress, alert and awake GI: Inspection: normal to inspection and non-distended GI Palp: Yes Soft to palpation, Yes Tenderness to palpation present (GI) (mild lower abdominal tendernes and LUQ), No Guarding due to palpation present (GI) and No Rebound tenderness present Percussion: Yes normal to percussion Auscultation: normal bowel sounds Rectal Exam: deferred Skin: General skin exam: normal color Neuro: General: no focal motor deficits Psych: Mental Status: mental status grossly normal Attitude: cooperative Objective Data
[2019-04-12 10:59] VITALS: PULSE 88
[2019-04-12] MEDS: METOPROLOL TARTRATE INJ 5 MG/5 ML VIAL IV PUSH ×2 (10:59→17:49)
[2019-04-12] MEDS: PHYTONADIONE ADULT INJ 10 MG in DEXTROSE 5% IN WATER 50 ML 100 MG IVPB (11:06)
[2019-04-12 12:15] LABS: Glucose Point of Care 262 (65-105)
--- NOTE | 2019-04-12 12:25 | PM.IMPN ---
Progress Note: A&P Assessment and Plan (1) Pancreatitis: Code(s): K85.90 - Acute pancreatitis without necrosis or infection, unspecified Status: Chronic Assessment and Plan: ------Clear liquids were started today and will be NPO at midnight. His lipase is trending down and almost normal. Continue to monitor lipase. Most likely related to his gallstones. Liver enzymes are normal today--likely passed a stone. Plan to do sx tomorrow so we are working to get his INR down. Will redraw later today. May need FFP so I typed and crossed him. Elevated d/t not eating and since he is eating will give oral vit K as well. (2) Cholelithiasis: Qualifiers: Biliary obstruction: without biliary obstruction Cholecystitis presence: without cholecystitis Cholelithiasis location: gallbladder Qualified Code(s): K80.20 - Calculus of gallbladder without cholecystitis without obstruction Code(s): K80.20 - Calculus of gallbladder without cholecystitis without obstruction Status: Acute Assessment and Plan: -----Likely cholecystecomy tomorrow as discussed above. EKG changes appear chronic and are present on EKG from 2017. Echo from 12/2018 reviewed. (3) Hypertension: Code(s): I10 - Essential (primary) hypertension Status: Chronic Assessment and Plan: -----Blood pressure 175/94 this morning and his IV lopressor was increased. Awaiting new bp. PRN hydraliazine has been ordered for systolic >175 (4) Right renal mass: Code(s): N28.89 - Other specified disorders of kidney and ureter Status: Acute Assessment and Plan: Will need to f/u with Dr. conley who he has seen before for an abnormality on his kidney . Concerning for RCC on recent imaging. Family aware. (5) Anemia: Code(s): D64.9 - Anemia, unspecified Status: Chronic Assessment and Plan: -----Stable at baseline normocytic. (6) Paroxysmal A-fib: Code(s): I48.0 - Paroxysmal atrial fibrillation Status: Chronic Assessment and Plan: ------continue IV lopressor. Rate 88 today with NSR (7) Type 2 diabetes mellitus with hyperglycemia: Code(s): E11.65 - Type 2 diabetes mellitus with hyperglycemia Status: Acute Assessment and Plan: -----last glucose 262. Pt now eating. Continue SSI. A1c is 7.1. monitor (8) DARLEEN (acute kidney injury): Code(s): N17.9 - Acute kidney failure, unspecified Status: Acute Assessment and Plan: ------1.4 today and his baseline is 1.3. No acute problems. 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 5mg subq Vit K given yesterday but pt is not eating. gave 10mg IV today and since his diet was changed he was able to take 5mg oral. Recheck later today and early tomorrow. May need FFP if it does not come down. Type and screened. Discussed with Dr. Antoine. (10) Renal cell carcinoma: Code(s): C64.9 - Malignant neoplasm of unspecified kidney, except renal pelvis Status: Acute Assessment and Plan: -----possible RCC on imaging. Needs to f/u with urology. Subjective Date/time seen: 04/12/19 12:25 Interval history: Pt is a 83-year-old male here for pancreatitis. Patient was seen today and states that he has not eaten very much but has been trying some clear liquids. He does have some abdominal pain in the epigastric area but much better than yesterday. He said he got up and walked to the nurse and felt very weak which is not usual for him. He has not had any nausea, vomiting, fevers, chills, chest pain or shortness of breath. He denies any shortness of breath or chest pain on exertion prior to coming into the hospital. He is a bit nervous for the surgery but I reassured him that he is in good hands. Exam Narrative: Exam Narrative:
[2019-04-12] MEDS: INSULIN ASPART (*BKC) 100 UNITS/ML SUB-Q (12:56)
[2019-04-12 14:00] VITALS: BP 144/61; PULSE 71; RESP 18; TEMP 36.7; O2SAT 97
[2019-04-12] MEDS: PHYTONADIONE 5 MG TABLET PO (14:02)
[2019-04-12 16:40] LABS: Alanine Aminotransferase 23 U/L (4-50); Albumin Level 2.7 g/dL (3.5-5.1); Alkaline Phosphatase 94 U/L (38-126); Aspartate Amino Transferase 18 U/L (17-59); Bilirubin,Total 1.1 mg/dL (0.2-1.3)
[2019-04-12 16:42] LABS: INR 2.6; Prothrombin Time 27.7 Seconds (11.1-14.7)
[2019-04-12 17:49] VITALS: PULSE 72
[2019-04-12 18:24] LABS: Glucose Point of Care 166 (65-105)
[2019-04-12 22:00] VITALS: BP 156/93; PULSE 70; RESP 18; TEMP 36.9; O2SAT 98
[2019-04-13] VITALS (20 sets, daily range): BP systolic 122–185; BP diastolic 54–98; PULSE 58–112; RESP 16–20; TEMP 36.1–37.6; O2SAT 93–100
[2019-04-13] MEDS: METOPROLOL TARTRATE INJ 5 MG/5 ML VIAL IV PUSH ×3 (00:03→19:19)
[2019-04-13 01:51] LABS: Glucose Point of Care 159 (65-105)
[2019-04-13 06:12] LABS: Glucose Point of Care 126 (65-105)
[2019-04-13 06:28] LABS: INR 1.9; Prothrombin Time 21.2 Seconds (11.1-14.7)
[2019-04-13 06:37] LABS: Alanine Aminotransferase 17 U/L (4-50); Albumin Level 2.4 g/dL (3.5-5.1); Alkaline Phosphatase 88 U/L (38-126); Aspartate Amino Transferase 15 U/L (17-59); Bilirubin,Total 1.7 mg/dL (0.2-1.3); Blood Urea Nitrogen 25 mg/dL (9-20); Calcium 8.1 mg/dL (8.4-10.2); Carbon Dioxide 28 mmol/L (22-30); Chloride 104 mmol/L (98-107); Estimated CRCL calculation 44 ml/min; Estimated Glomerular Filt Rate 58; Glucose 126 mg/dL (75-110); Lipase 89 U/L (23-300); Potassium 3.9 mmol/L (3.4-5.0); Sodium 139 mmol/L (137-145)
[2019-04-13] MEDS: CHLORHEXIDINE GLUCONATE 4% SOL 120 ML BTL 1 APPLIC TOPICAL (08:56)
[2019-04-13] MEDS: SODIUM CHLORIDE 0.9% IV 250 ML 30 ML IV CONT (08:56)
--- NOTE | 2019-04-13 10:25 | PM.IMPN ---
Progress Note: A&P Assessment and Plan (1) Pancreatitis: Code(s): K85.90 - Acute pancreatitis without necrosis or infection, unspecified Status: Chronic Assessment and Plan: ------likely due to gallstones. Lipase is now normal. INR is 1.9 and he has been given FFP. Will check another INR after this is done. Likely going for a cholecystectomy today with possible intraoperative cholangiogram. Liver enzymes are normal today--but bilirubin increased to 1.7. (2) Cholelithiasis: Qualifiers: Cholelithiasis location: gallbladder Cholecystitis presence: without cholecystitis Biliary obstruction: without biliary obstruction Qualified Code(s): K80.20 - Calculus of gallbladder without cholecystitis without obstruction Code(s): K80.20 - Calculus of gallbladder without cholecystitis without obstruction Status: Acute Assessment and Plan: -----Likely cholecystecomy as stated above. EKG changes appear chronic and are present on EKG from 2017. Echo from 12/2018 reviewed. Okay to proceed with surgery. Low to moderate risk (3) Hypertension: Code(s): I10 - Essential (primary) hypertension Status: Chronic Assessment and Plan: -----Blood pressure 165/70 this morning and his IV lopressor was increased 2/20. PRN hydraliazine has been ordered for systolic >175 . Once he is eating again we can restart his home blood pressure medications. (4) Right renal mass: Code(s): N28.89 - Other specified disorders of kidney and ureter Status: Acute Assessment and Plan: Will need to f/u with Dr. conley who he has seen before for an abnormality on his kidney . Concerning for RCC on recent imaging. Family aware. (5) Anemia: Code(s): D64.9 - Anemia, unspecified Status: Chronic Assessment and Plan: -----Stable at baseline normocytic. (6) Paroxysmal A-fib: Code(s): I48.0 - Paroxysmal atrial fibrillation Status: Chronic Assessment and Plan: ------continue IV lopressor. Rate 64 today with NSR (7) Type 2 diabetes mellitus with hyperglycemia: Code(s): E11.65 - Type 2 diabetes mellitus with hyperglycemia Status: Acute Assessment and Plan: -----last glucose 126. Continue SSI. A1c is 7.1. monitor (8) DARLEEN (acute kidney injury): Code(s): N17.9 - Acute kidney failure, unspecified Status: Acute Assessment and Plan: ------1.2 today and his baseline is 1.3. No acute problems. (9) Anticoagulated on warfarin: Code(s): Z79.01 - halfway (current) use of anticoagulants Status: Acute Assessment and Plan: -----see above. FFP given. Awaiting that to be finished recheck INR. Goal INR is 1.5 or less (10) Renal cell carcinoma: Code(s): C64.9 - Malignant neoplasm of unspecified kidney, except renal pelvis Status: Acute Assessment and Plan: -----possible RCC on imaging. Needs to f/u with urology. Subjective Date/time seen: 04/13/19 10:25 Interval history: Patient is an 83-year-old male here for pancreatitis likely going for cholecystectomy today. Patient was seen today and states his abdominal pain has improved. He ate clear liquids yesterday without any issue. He had a bowel movement this morning which did not have any diarrhea or blood. He says he got out of bed twice yesterday and still feels a little weak. He has not had any nausea, vomiting, fevers, chills, chest pain or shortness of breath. Exam Narrative: Exam Narrative: General: Well developed well nourished patient resting comfortably in bed in NAD HEENT: normocephalic Neck: supple Neuro: Alert and oriented x4 CV:RRR on my exam Resp:CTA Abd: Soft, nondistended. No pain to palpation to the abdomen. Positive bowel sounds Extremities: No edema, erythema, pain to lower extremities. Objective Data Vital Signs Vital Signs: Vital Signs - 24 hr
--- NOTE | 2019-04-13 11:32 | WPDGIPROGNO ---
Progress Note: A&P Additional Plan Patient alert this morning. Mild residual diffuse abdominal discomfort. Tolerated diet yesterday. Physical exam reveals patient to be alert. He is anicteric. Lungs are clear. Heart without murmur. Abdomen is soft. Bowel sounds present. Mild diffuse mid abdominal tenderness noted. No masses evident. Labs reveal LFTs remain normal. Protime 21. INR 1.9. Now corrected. Impression 1. Cholelithiasis. 2. Acute pancreatitis. Clinically improving. Plan is for surgical cholecystectomy today. 3. Coagulopathy. Related to Coumadin anticoagulation for atrial fibrillation. Coumadin now on hold. 3. Four. Atrial fibrillation. Warfarin on hold Subjective Date/time seen: 04/13/19 11:32 Objective Data Vital Signs Vital Signs: Vital Signs - 24 hr 04/12/19 14:00 04/12/19 17:49 04/12/19 22:00 Temperature 36.7 C 36.9 C Pulse Rate 71 72 70 Respiratory Rate 18 18 Blood Pressure 144/61 H 156/93 H Pulse Oximetry 97 98 04/13/19 00:03 04/13/19 06:00 04/13/19 09:43 Temperature 36.8 C 36.1 C L Pulse Rate 70 71 66 Respiratory Rate 16 20 Blood Pressure 149/75 H 166/72 H Pulse Oximetry 97 96 04/13/19 10:02 Temperature 36.6 C Pulse Rate 64 Respiratory Rate 20 Blood Pressure 165/70 H Pulse Oximetry 98 Intake/Output Intake/Output: Intake & Output 04/10/19 04/11/19 04/12/19 04/13/19 23:59 23:59 23:59 23:59 Intake Total 1000 3000 3660 100 Output Total 1160 750 325 Balance 1000 1840 2910 -225 Meds/Results Medications: Active Medications Generic Name Dose Route Start Last Admin Trade Name Freq PRN Reason Stop Dose Admin Acetaminophen 650 mg 04/10/19 12:01 04/10/19 19:53 Tylenol Tablet PO 650 mg Q4H PRN Administration Mild Pain (1-3) or Fever Dextrose 12.5 gm 04/10/19 18:41 Dextrose 50% Syringe IV PUSH PRN PRN Hypoglycemia Protocol Glucagon 1 mg 04/10/19 18:41 Glucagon For Inj IM PRN PRN Hypoglycemia Protocol Glucose 15 gm 04/10/19 18:41 Glutose 15 PO PRN PRN Hypoglycemia Protocol Hydralazine HCl 10 mg 04/10/19 18:35 Apresoline Hcl Inj IV PUSH Q8H PRN Blood Pressure - High Hydromorphone HCl 1 mg 04/10/19 14:58 04/11/19 15:52 Dilaudid Inj IV PUSH 1 mg Q4H PRN Administration Pain Rated 7-10 Lactated Ringer's 1,000 mls @ 100 mls/hr 04/10/19 15:00 04/12/19 23:02 Lr - Lactated Ringers Iv IV CONT 100 mls/hr .Q10H SUSIE Administration Dextrose 1,000 mls @ 100 mls/hr 04/10/19 18:41 Dextrose 5% 1,000 Ml IVPB PRN PRN Hypoglycemia Protocol Sodium Chloride 250 mls @ 30 mls/hr 04/13/19 06:58 04/13/19 08:56 Normal Saline Iv IV CONT 04/13/19 15:17 30 mls/hr .Q8H20M STA Administration Insulin Aspart 2 - 5 units 04/10/19 18:00 04/13/19 06:09 Novolog SUB-Q Not Given Q6HR SUSIE Protocol Metoprolol Tartrate 5 mg 04/12/19 09:00 04/13/19 08:55 Lopressor Inj IV PUSH 5 mg Q8H SUSIE Administration Ondansetron HCl 4 mg 04/10/19 12:01 Zofran Inj IV PUSH Q4H PRN Nausea Radiology Results: ITS Impressions Abdomen/Pelvis CT 04/10/19 11:42 IMPRESSION: 1. Radiograph. Uncomplicated acute interstitial pancreatitis. 2. Cholelithiasis with mild wall gallbladder wall thickening and small amount of pericholecystic fluid but without significant inflammatory stranding. This could be related to acute pancreatitis or potentially reactive change related to the adjacent acute pancreatitis. 3. Minimal intrahepatic biliary ductal dilation but with normal caliber common bile duct. Correlate with liver function tests. No obstructing stones seen along the common bile duct or main pancreatic duct. 4. 2.0 x 1.7 cm heterogeneously enhancing right renal mass consistent with renal cell carcinoma. 5. Cardiomegaly. Labs Labs: Laboratory Results - last 24 hr 04/12/19 04/12/19 04/12/19 11:21 12:12 16:2
[2019-04-13] MEDS: TUBING, BLOOD PLUM PUMP TUBING 1 EACH XX (12:07)
[2019-04-13 12:46] LABS: INR 1.7; Prothrombin Time 19.3 Seconds (11.1-14.7)
--- NOTE | 2019-04-13 12:56 | WPDANESEPPF ---
Anes - Initial Pre Proc Eval Procedure: Operation Date: 04/13/19 13:00 Proposed Procedures p Laparoscopic Cholecystectomy With Intraoperative Cholangiograms,Possible Open - Julio Cesar Antoine MD Date/Time: 04/13/19 12:56 Surgeon: Yissel Hazel MD Pre Op Diagnosis: Acute Pancreatitis/DARLEEN Patient Data Age: 83 Gender: M Height: 5 ft 11 in Weight: 86.5 kg Last Vital Signs Temp 36.8 C 04/13/19 11:50 Pulse 78 04/13/19 11:50 Resp 18 04/13/19 11:50 BP 185/78 H 04/13/19 11:50 Pulse Ox 100 04/13/19 11:50 Allergies Allergy/AdvReac Type Severity Reaction Status Date / Time tamsulosin Allergy Mild unknown Verified 04/10/19 12:54 Home Medications Medication Instructions Recorded Confirmed Type aspirin 81 mg tablet,delayed 81 mg PO DAILY 01/10/19 04/10/19 History release blood sugar diagnostic #10 each 01/10/19 04/10/19 History finasteride 5 mg tablet 5 mg PO DAILY 01/10/19 04/10/19 History glipizide 5 mg tablet 5 mg PO DAILY 01/10/19 04/10/19 History lancets 33 gauge #100 each 01/10/19 04/10/19 History lisinopril 20 mg tablet 20 mg PO QPM 01/10/19 04/10/19 History metoprolol tartrate 25 mg tablet 12.5 mg PO BID 01/10/19 04/10/19 History pravastatin 40 mg tablet 40 mg PO DAILY 01/10/19 04/10/19 History warfarin 4 mg PO 2XW 04/10/19 04/10/19 History warfarin 6 mg PO 5XW 04/10/19 04/10/19 History Laboratory Tests 04/12/19 04/12/19 04/12/19 11:21 16:22 16:22 PT 27.7 Seconds H D Seconds (11.1-14.7) INR 2.6 Sodium Potassium Chloride Carbon Dioxide BUN Creatinine Estim Creat Clear Calc Estimated GFR Glucose POC Capillary Glucose Calcium Total Bilirubin 1.1 mg/dL mg/dL (0.2-1.3) Direct Bilirubin 0.0 mg/dL mg/dL (0-0.3) AST 18 U/L U/L (17-59) ALT 23 U/L U/L (4-50) Alkaline Phosphatase 94 U/L U/L (38-126) Total Protein 6.0 g/dL L g/dL (6.3-8.2) Albumin 2.7 g/dL L g/dL (3.5-5.1) Lipase Blood Type A Positive Antibody Screen Negative 04/12/19 04/13/19 04/13/19 17:52 00:04 05:45 PT 21.2 Seconds H D Seconds (11.1-14.7) INR 1.9 Sodium Potassium Chloride Carbon Dioxide BUN Creatinine Estim Creat Clear Calc Estimated GFR Glucose POC Capillary Glucose 166 mg/dl H mg/dl 159 mg/dl H mg/dl (65-105) (65-105) Calcium Total Bilirubin Direct Bilirubin AST ALT Alkaline Phosphatase Total Protein Albumin Lipase Blood Type Antibody Screen 04/13/19 04/13/19 04/13/19 05:45 06:08 12:27 PT 19.3 Seconds H Seconds (11.1-14.7) INR 1.7 Sodium 139 mmol/L mmol/L (137-145) Potassium 3.9 mmol/L mmol/L (3.4-5.0) Chloride 104 mmol/L mmol/L (98-107) Carbon Dioxide 28 mmol/L mmol/L (22-30) BUN 25 mg/dL H mg/dL (9-20) Creatinine 1.20 mg/dL mg/dL (0.7-1.3) Estim Creat Clear Calc 44 ml/min ml/min Estimated GFR 58 L (59 - ) Glucose 126 mg/dL H mg/dL (75-110) POC Capillary Glucose 126 mg/dl H mg/dl (65-105) Calcium 8.1 mg/dL L mg/dL (8.4-10.2) Total Bilirubin 1.7 mg/dL H mg/dL (0.2-1.3) Direct Bilirubin AST 15 U/L L U/L (17-59) ALT 17 U/L U/L (4-50) Alkaline Phosphatase 88 U/L U/L (38-126) Total Protein 6.0 g/dL L g/dL (6.3-8.2) Albumin 2.4 g/dL L g/dL (3.5-5.1) Lipase 89 U/L U/L (23-300) Blood Type Antibody
--- NOTE | 2019-04-13 13:08 | PCOTNOTE ---
Attempted OT evaluation, pt is currently off the unit for surgery, will attempt OT evaluation at later time.
[2019-04-13] MEDS: LACTATED RINGERS 1,000 ML 30 ML IV CONT (13:15)
[2019-04-13] MEDS: ceFAZolin 2 GM/D5W 50 ML 2 GM/50 ML BAG IVPB (13:34)
--- NOTE | 2019-04-13 13:38 | PC.NURSE ---
To OR per [ ], IV [ ]IV INFUSING WITHOUT DIFFICULTY INR 1.7 FAMILY AT [facility]
[2019-04-13] MEDS: BUPIVACAINE/EPINEPHRINE 0.5% 30 ML VIAL INFILTRATE (14:34)
--- NOTE | 2019-04-13 15:44 | P.OP_ITS ---
Procedure Note - Detailed Date of procedure: 04/13/19 Pre-op diagnosis: Acute Pancreatitis/DARLEEN 1. 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 Recent choledocholithiasis 3. Recent acute pancreatitis secondary to above (now resolved). Post-op diagnosis: other (Chronic cholecystitis with cholelithiasis) Procedure performed: Laparoscopic cholecystectomy with intraoperative cholangiogram. Description of procedure: Procedure Details: Patient was seen preoperatively in the holding area and risks, benefits and alternatives confirmed. Patient was taken to the operating room and general anesthesia was induced. A time out was then preformed with the surgery team confirming patient and site of surgery. The abdomen was prepped and draped in the usual sterile fashion. Incision was made just below the umbilicus. Two stay sutures of O- Vicryl were used to elevate the mid-line fascia beneath the umbilicus and a small incision was made under direct vision. The peritoneum was entered. The 12 mm James cannula was introduced under direct vision. First under low flow and then under high flow the abdomen was insufflated with carbon dioxide never exceeding a pressure of 14. Three 5 mm tro cars were then introduced under direct vision. The following trocars were introduced under direct vision: a 5 mm in the epigastrium and two 5 mm trocars along the right costal margin. Gallbladder appeared slightly edematous and CIS discolored toward the yellow spectrum. A few adhesions to the omentum were taken down so that we could see the triangle of colo. The gall bladder was grasped and the cystic duct and artery were dissected free and clipped with an 5 mm endo-clip corncob pipe supervisor. We did dissect enough to see a window of safety. Then a small hole was made in the cystic duct with endoshears and a cholagio-cath introduced. A cholangiogram was obtained revealing free flow into the cystic duct, common bile duct, common hepatic, right and left hepatic ducts with free flow into the duodenum with no filling defects in the intra nor extrahepatic biliary tree and no dilation. The catheter was removed and the cystic duct was clipped with a 5 mm endoclip-corncob pipe supervisor. The cystic duct was then transected. The cystic artery was also transected at this point. Along 1 edge of the liver we got into a bigger draining vein that bled about 20 cc. Cautery was able to be used to stop this bleeding. The liver was in generally slightly chaudhary in color perhaps due to age or mild cirrhosis. The gall bladder was removed using electrocautery and then removed using a large 10 mm grasper via the umbilical incision. The trocars were removed visualizing hemostasis and the remaining gas evacuated. The large trocar site at the umbilicus was closed with an 0 vicryl figure of 8 suture. The 2 stay sutures mentioned above on either side of the fascia were also tied together to help approximate this midline fascia. Further local anesthetic was placed into each incision for postop pain control. The skin incisions were closed with a subcuticular of 4-0 Monocryl. Surgical glue then was applied to all the incisions. Patient tolerated the procedure well was taken to the recovery room in good condition. Anesthesia: GETA Surgeon: Julio Cesar Antoine MD Sewing Teacher: SHAKEEL Mendoza, OR 1st assist Estimated blood loss (mL): 35 Urine output (mL): 250 Drains: No Packing: No Pathology: yes (The gallbladder) Complications: No immediate complications Condition: stable Disposition: PACU Findings: Gallbladder was quite large, distended and yellowish in color with edema and its wall. Cholangiogram showed good flow into the duodenum without any filling defects.
[2019-04-13 18:48] LABS: Glucose Point of Care 170 (65-105)
[2019-04-13] MEDS: LACTATED RINGERS 1,000 ML 100 ML IV CONT (19:21)
[2019-04-13 20:48] LABS: Glucose Point of Care 199 (65-105)
--- NOTE | 2019-04-13 21:27 | PC.NURSE ---
Returned from OR per BED AT 1730 INCISION LIVE OUT NANNY AND GLUED ABDOMEN IS SOFT AND DISTENDED DENIES THE NEED FOR PAIN MEDS AT PRESENT TIME FAMILY AT BEDSIDE IV INFUSING WITHOUT DIFFICUTLY. [ ]
[2019-04-14] VITALS (11 sets, daily range): BP systolic 153–176; BP diastolic 69–74; PULSE 55–73; RESP 16–18; TEMP 36.3–36.7; O2SAT 96–98
[2019-04-14] MEDS: METOPROLOL TARTRATE INJ 5 MG/5 ML VIAL IV PUSH ×2 (00:16→09:43)
[2019-04-14 00:23] LABS: Glucose Point of Care 193 (65-105)
[2019-04-14 06:29] LABS: Hematocrit 29.7 % (42.0-52.0); Hemoglobin 9.2 g/dL (14.0-18.0); Mean Corpuscular Hemoglobin 26.7 pg (26-34); Mean Corpuscular Volume 86.1 fl (80-100); Mean Platelet Volume 9.6 fl (7.4-10.4); Platelet Count Result 224 k/mm3 (150-375); Red Blood Count 3.45 M/mm3 (4.6-6.20); White Blood Count 7.2 K/mm3 (4.5-10.0)
[2019-04-14 06:44] LABS: INR 1.6; Prothrombin Time 18.7 Seconds (11.1-14.7)
[2019-04-14 06:45] LABS: Alanine Aminotransferase 19 U/L (4-50); Albumin Level 2.4 g/dL (3.5-5.1); Alkaline Phosphatase 82 U/L (38-126); Aspartate Amino Transferase 27 U/L (17-59); Bilirubin,Total 0.9 mg/dL (0.2-1.3); Blood Urea Nitrogen 23 mg/dL (9-20); Carbon Dioxide 26 mmol/L (22-30); Chloride 104 mmol/L (98-107); Estimated CRCL calculation 44 ml/min; Estimated Glomerular Filt Rate 58; Glucose 167 mg/dL (75-110); Lipase 41 U/L (23-300); Potassium 4.2 mmol/L (3.4-5.0); Sodium 139 mmol/L (137-145)
[2019-04-14 06:49] LABS: Glucose Point of Care 160 (65-105)
[2019-04-14] MEDS: ENOXAPARIN 40 MG/0.4 ML SYRINGE SUB-Q (09:39)
--- NOTE | 2019-04-14 10:06 | WPDANESPN ---
Anes - Prog Note Post-Op Date/Time: 04/14/19 10:06 Cardiovascular status: normal Respiratory status: normal Airway patency: baseline Mental status: baseline Post-Op hydration status: normal Vital Signs: Last Vital Signs Temp 36.3 C L 04/14/19 06:00 Pulse 73 04/14/19 08:00 Resp 16 04/14/19 08:00 BP 176/69 H 04/14/19 06:00 Pulse Ox 98 04/14/19 08:00 I/O: Intake & Output 04/13/19 04/14/19 04/14/19 23:59 07:59 15:59 Intake Total 50 340 Output Total 300 Balance 50 40 Laboratory Tests 04/14/19 05:53 04/14/19 05:53 04/13/19 04/13/19 04/13/19 12:27 18:25 20:46 WBC RBC Hgb Hct MCV MCH MCHC RDW Plt Count MPV PT 19.3 H INR 1.7 Sodium Potassium Chloride Carbon Dioxide BUN Creatinine Estim Creat Clear Calc Estimated GFR Glucose POC Capillary Glucose 170 H 199 H Calcium Total Bilirubin Direct Bilirubin AST ALT Alkaline Phosphatase Total Protein Albumin Lipase 04/14/19 04/14/19 04/14/19 00:20 05:53 05:53 WBC 7.2 RBC 3.45 L Hgb 9.2 L Hct 29.7 L MCV 86.1 MCH 26.7 MCHC 31.0 L RDW 14.0 Plt Count 224 MPV 9.6 PT 18.7 H INR 1.6 Sodium Potassium Chloride Carbon Dioxide BUN Creatinine Estim Creat Clear Calc Estimated GFR Glucose POC Capillary Glucose 193 H Calcium Total Bilirubin Direct Bilirubin AST ALT Alkaline Phosphatase Total Protein Albumin Lipase 04/14/19 04/14/19 05:53 06:20 WBC RBC Hgb Hct MCV MCH MCHC RDW Plt Count MPV PT INR Sodium 139 Potassium 4.2 Chloride 104 Carbon Dioxide 26 BUN 23 H Creatinine 1.20 Estim Creat Clear Calc 44 Estimated GFR 58 L Glucose 167 H POC Capillary Glucose 160 H Calcium 8.0 L Total Bilirubin 0.9 Direct Bilirubin 0.0 AST 27 ALT 19 Alkaline Phosphatase 82 Total Protein 6.0 L Albumin 2.4 L Lipase 41 Post-procedural complaints: none Patient Feedback: Patient satisfied with anesthetic care.
[2019-04-14 11:37] LABS: Glucose Point of Care 150 (65-105)
--- NOTE | 2019-04-14 15:14 | PM.PNGS ---
Progress Note: A&P Assessment and Plan (1) Cholelithiasis: Qualifiers: Cholelithiasis location: gallbladder Cholecystitis presence: without cholecystitis Biliary obstruction: without biliary obstruction Qualified Code(s): K80.20 - Calculus of gallbladder without cholecystitis without obstruction Code(s): K80.20 - Calculus of gallbladder without cholecystitis without obstruction Status: Acute Assessment and Plan: Increase activity as tolerated Advance diet to low fat As long as hear rate stays stable, could possibly discharge tomorrow (2) Acute pancreatitis: Qualifiers: Acute pancreatitis complication: unspecified Pancreatitis type: unspecified pancreatitis type Qualified Code(s): K85.90 - Acute pancreatitis without necrosis or infection, unspecified Code(s): K85.90 - Acute pancreatitis without necrosis or infection, unspecified Status: Acute (3) Paroxysmal A-fib: Code(s): I48.0 - Paroxysmal atrial fibrillation Status: Chronic Subjective Subjective Date/Time Seen: 04/14/19 15:14 Doing well on POD#1. Feeling short of breath, but pain controlled and tolerating diet. HR seems to be controlled so far after surgery. Exam GI: Inspection: incision (C/D/I) GI Palp: Yes Soft to palpation and Yes Tenderness to palpation present (GI) (incisional) Auscultation: normal bowel sounds Objective Data Vital Signs Vital Signs: Vital Signs - 24 hr 04/13/19 15:45 04/13/19 16:00 04/13/19 16:15 Temperature 36.4 C Pulse Rate 112 H 75 58 L Respiratory Rate 18 18 18 Blood Pressure 142/98 H 147/71 H 128/54 L Pulse Oximetry 100 96 98 04/13/19 16:30 04/13/19 16:45 04/13/19 17:00 Temperature Pulse Rate 58 L 60 65 Respiratory Rate 18 18 18 Blood Pressure 122/61 138/62 132/63 Pulse Oximetry 93 93 94 04/13/19 17:15 04/13/19 17:30 04/13/19 17:45 Temperature Pulse Rate 59 L 62 63 Respiratory Rate 18 16 16 Blood Pressure 142/68 H 140/62 144/60 H Pulse Oximetry 96 93 95 04/13/19 18:15 04/13/19 22:00 04/14/19 00:00 Temperature 36.6 C Pulse Rate 60 61 63 Respiratory Rate 18 16 Blood Pressure 140/57 L 162/65 H Pulse Oximetry 96 97 04/14/19 00:16 04/14/19 02:07 04/14/19 04:00 Temperature 36.3 C L Pulse Rate 70 59 L 55 L Respiratory Rate 18 Blood Pressure 156/73 H Pulse Oximetry 96 04/14/19 06:00 04/14/19 08:00 Temperature 36.3 C L Pulse Rate 59 L 73 Respiratory Rate 16 16 Blood Pressure 176/69 H Pulse Oximetry 98 98 Intake/Output Intake/Output: Intake & Output 04/11/19 04/12/19 04/13/19 04/14/19 23:59 23:59 23:59 23:59 Intake Total 3000 3660 606 340 Output Total 1160 750 575 300 Balance 1840 2910 31 40 Meds/Results Medications: Active Medications Generic Name Dose Route Start Last Admin Trade Name Freq PRN Reason Stop Dose Admin Acetaminophen 500 mg 04/13/19 17:22 Tylenol Tablet PO Q6H PRN Mild Pain (1-3) or Fever Hydrocodone Bitart/Acetaminophen 1 tab 04/13/19 17:22 [place] 7.5-325 Mg PO Q6H PRN Pain Rated 7-10 Hydrocodone Bitart/Acetaminophen 1 tab 04/13/19 17:22 [place] 5-325 Mg PO Q6H PRN Pain Rated 4-6 Dextrose 12.5 gm 04/10/19 18:41 Dextrose 50% Syringe IV PUSH PRN PRN Hypoglycemia Protocol Enoxaparin Sodium 40 mg 04/14/19 09:00 04/14/19 09:39 Lovenox SUB-Q 40 mg DAILY SUSIE Administration Glucagon 1 mg 04/10/19 18:41 Glucagon For Inj IM PRN PRN Hypoglycemia Protocol Glucose 15 gm 04/10/19 18:41 Glutose 15 PO PRN PRN Hypoglycemia Protocol Hydralazine HCl 10 mg 04/10/19 18:35 Apresoline Hcl Inj IV PUSH Q8H PRN Blood Pressure - High Dextrose 1,000 mls @ 100 mls/hr 04/10/19 18:41 Dextrose 5% 1,000 Ml IVPB PRN PRN Hypoglycemia Protocol Insulin Aspart 2 - 5 units 04/10/19 18:00 04/14/19 06:21 Novolog SUB-Q Not Given Q6HR S
--- NOTE | 2019-04-14 15:43 | PM.IMPN ---
Progress Note: A&P Assessment and Plan (1) Pancreatitis: Code(s): K85.90 - Acute pancreatitis without necrosis or infection, unspecified Status: Chronic Assessment and Plan: ------Resolved. likely due to gallstones. Lipase is now normal and pt is eating. S/P cholecystectomy POD 1 and doing well. (2) Cholelithiasis: Qualifiers: Cholelithiasis location: gallbladder Cholecystitis presence: without cholecystitis Biliary obstruction: without biliary obstruction Qualified Code(s): K80.20 - Calculus of gallbladder without cholecystitis without obstruction Code(s): K80.20 - Calculus of gallbladder without cholecystitis without obstruction Status: Acute Assessment and Plan: -----S/P cholecystecomy as stated above. (3) Hypertension: Code(s): I10 - Essential (primary) hypertension Status: Chronic Assessment and Plan: -----Blood pressure 171/74 this afternoon. Will restart home medications and follow. Adjust as needed. PRN hydraliazine has been ordered for systolic >175 (4) Right renal mass: Code(s): N28.89 - Other specified disorders of kidney and ureter Status: Acute Assessment and Plan: Will need to f/u with Dr. conley who he has seen before for an abnormality on his kidney . Concerning for RCC on recent imaging. Family aware. (5) Anemia: Code(s): D64.9 - Anemia, unspecified Status: Chronic Assessment and Plan: -----Stable at baseline normocytic. (6) Paroxysmal A-fib: Code(s): I48.0 - Paroxysmal atrial fibrillation Status: Chronic Assessment and Plan: ------continue IV lopressor. Rate 64 today with NSR . Patient will need an INR check on Tuesday. Dr. Martin follows this (7) Type 2 diabetes mellitus with hyperglycemia: Code(s): E11.65 - Type 2 diabetes mellitus with hyperglycemia Status: Acute Assessment and Plan: -----last glucose 150 Continue SSI. A1c is 7.1. monitor (8) DARLEEN (acute kidney injury): Code(s): N17.9 - Acute kidney failure, unspecified Status: Acute Assessment and Plan: ------1.2 today and his baseline is 1.3. No acute problems. (9) Anticoagulated on warfarin: Code(s): Z79.01 - longterm (current) use of anticoagulants Status: Acute Assessment and Plan: -----see above. (10) Renal cell carcinoma: Code(s): C64.9 - Malignant neoplasm of unspecified kidney, except renal pelvis Status: Acute Assessment and Plan: -----possible RCC on imaging. Needs to f/u with urology. Subjective Date/time seen: 04/14/19 15:43 Interval history: Patient is an 83-year-old male here for pancreatitis s/p cholecystectomy. Patient was seen today and states his pain is well controlled. He has had a bowel movement today. He has been eating and drinking okay and had a big breakfast but no lunch yet. He said that he feels like he can't take very big breaths at times and that he is not necessarily short of breath but feels little uncomfortable. Once we got him to the chair he said he was feeling little better. He denies chest pain, fevers, chills, leg swelling, nausea or vomiting at this time. Abdominal pain has improved. Exam Narrative: Exam Narrative: General: Well developed well nourished patient resting comfortably in bed in NAD. Patient transfered to the chair and did just fine HEENT: normocephalic Neck: supple Neuro: Alert and oriented x4 CV:RRR on my exam. Telemetry reviewed which showed normal sinus rhythm with occasional bradycardia around 60 Resp:CTA--some decreased breath sounds in the lower bases Abd: Soft, mildly distended. Some mild pain to palpation around the incision sites. Incision sites clean and dry without significant discharge. No pain to palpation to the abdomen. Positive bowel sounds Extremities: No edema, erythema, pain to lower extremiti
[2019-04-14] MEDS: WARFARIN (*PBKC) 3 MG TABLET 6 MG PO (16:58)
[2019-04-14 18:53] LABS: Glucose Point of Care 168 (65-105)
[2019-04-14] MEDS: METOPROLOL TARTRATE 12.5 MG TABLET PO (20:20)
[2019-04-14 21:31] LABS: Glucose Point of Care 184 (65-105)
[2019-04-15] VITALS: PULSE 70
[2019-04-15 04:00] VITALS: PULSE 65
[2019-04-15 06:00] VITALS: BP 166/65; PULSE 71; RESP 18; TEMP 36.4; O2SAT 96
[2019-04-15 06:17] LABS: Hematocrit 29.8 % (42.0-52.0); Hemoglobin 9.5 g/dL (14.0-18.0); Mean Corpuscular HGB Conc 31.9 g/dl (32-36); Mean Corpuscular Hemoglobin 26.9 pg (26-34); Mean Corpuscular Volume 84.4 fl (80-100); Mean Platelet Volume 9.5 fl (7.4-10.4); Platelet Count Result 245 k/mm3 (150-375); Red Blood Count 3.53 M/mm3 (4.6-6.20); Red Cell Distribution Width 14.1 % (11.5-14.5); White Blood Count 6.2 K/mm3 (4.5-10.0)
[2019-04-15 06:27] LABS: INR 1.4; Prothrombin Time 16.8 Seconds (11.1-14.7)
[2019-04-15 06:34] LABS: Alanine Aminotransferase 19 U/L (4-50); Albumin Level 2.5 g/dL (3.5-5.1); Alkaline Phosphatase 90 U/L (38-126); Aspartate Amino Transferase 23 U/L (17-59); Bilirubin,Total 0.8 mg/dL (0.2-1.3); Blood Urea Nitrogen 20 mg/dL (9-20); Calcium 7.6 mg/dL (8.4-10.2); Carbon Dioxide 26 mmol/L (22-30); Chloride 103 mmol/L (98-107); Estimated CRCL calculation 44 ml/min; Estimated Glomerular Filt Rate 58; Glucose 153 mg/dL (75-110); Potassium 3.8 mmol/L (3.4-5.0); Sodium 138 mmol/L (137-145)
[2019-04-15 07:43] LABS: Glucose Point of Care 151 (65-105)
[2019-04-15 07:50] VITALS: O2SAT 96
[2019-04-15 07:51] VITALS: PULSE 71; PULSE 84; RESP 18; O2SAT 96
[2019-04-15 08:00] VITALS: PULSE 84
[2019-04-15] MEDS: ENOXAPARIN 40 MG/0.4 ML SYRINGE SUB-Q (09:51)
[2019-04-15] MEDS: lisinopriL 20 MG TABLET PO (09:51)
[2019-04-15] MEDS: ASPIRIN 81 MG ENTERIC TABLET PO (09:51)
[2019-04-15] MEDS: METOPROLOL TARTRATE 12.5 MG TABLET PO (09:52)
--- NOTE | 2019-04-15 11:11 | PM.DS ---
DS: Diagnosis Admitting Diagnosis Admitting Diagnosis: Calculus of gallbladder without cholecystitis without obstruction Discharge Diagnosis (1) Pancreatitis: Code(s): K85.90 - Acute pancreatitis without necrosis or infection, unspecified Status: Chronic Assessment and Plan: ------Resolved. likely due to gallstones. Lipase is now normal and pt is eating. S/P cholecystectomy and doing well. (2) Cholelithiasis: Qualifiers: Cholelithiasis location: gallbladder Cholecystitis presence: without cholecystitis Biliary obstruction: without biliary obstruction Qualified Code(s): K80.20 - Calculus of gallbladder without cholecystitis without obstruction Code(s): K80.20 - Calculus of gallbladder without cholecystitis without obstruction Status: Acute Assessment and Plan: -----S/P cholecystecomy as stated above. (3) Hypertension: Code(s): I10 - Essential (primary) hypertension Status: Chronic Assessment and Plan: -----Blood pressure 166/65 this afternoon. restart home meds at discharge. (4) Right renal mass: Code(s): N28.89 - Other specified disorders of kidney and ureter Status: Acute Assessment and Plan: Will need to f/u with Dr. conley who he has seen before for an abnormality on his kidney . Concerning for RCC on recent imaging. Family aware. (5) Anemia: Code(s): D64.9 - Anemia, unspecified Status: Chronic Assessment and Plan: -----Stable at baseline normocytic. (6) Paroxysmal A-fib: Code(s): I48.0 - Paroxysmal atrial fibrillation Status: Chronic Assessment and Plan: ------rate controlled in NSR. Patient will need an INR check on Tuesday. Dr. Martin follows this (7) Type 2 diabetes mellitus with hyperglycemia: Code(s): E11.65 - Type 2 diabetes mellitus with hyperglycemia Status: Acute Assessment and Plan: -----last glucose 180 Continue SSI. A1c is 7.1. monitor (8) DARLEEN (acute kidney injury): Code(s): N17.9 - Acute kidney failure, unspecified Status: Acute Assessment and Plan: ------1.2 today and his baseline is 1.3. No acute problems. (9) Anticoagulated on warfarin: Code(s): Z79.01 - exterminator helper termite (current) use of anticoagulants Status: Acute Assessment and Plan: -----see above. (10) Renal cell carcinoma: Code(s): C64.9 - Malignant neoplasm of unspecified kidney, except renal pelvis Status: Acute Assessment and Plan: -----possible RCC on imaging. Needs to f/u with urology. Spoke to pt and family about this. DS: Summary Hospital Course Reason for hospitalization: Acute pancreatitis Hospital Course: Patient is an 83-year-old male who presented emergency room for severe abdominal pain found to have pancreatitis secondary to cholelithiasis. Temp 36.4, pulse 68, rr 16, bp 137/64, pulse o2 100 on RA in the ER. Inital WBC 11.[address] showed acute pancreatitis with cholelithasis and mild gallbladder thickening. There was also an incidental finding of a 2.0 x 1.7 heterogneously enhancing right renal mass consistent with renal cell carcinoma. Pt was admitted to the hospitalist service and was made NPO. His liver enzymes and lipase improved. He was on coumadi and his INR peaked at 5.2 so this was reversed before sx. He underwent a cholecystectomy and did well with the procedure. After the procedure the pt was able to eat and drink without pain. he did go into rapid afib during the roosevelt-operative but improved with medication. I had a long talk with the patient and family about the possible RCC finding on his imaging and he sees dr. conley and is going to f/u with him. he is also going to follow up with his INR on tuesday. The patient was educated on the worrisome signs and symptoms to come back to the ER for and was discharged in stable condition. Status at Discharge [facility]
--- NOTE | 2019-04-15 11:59 | PM.PNGS ---
Progress Note: A&P Assessment and Plan (1) Acute pancreatitis: Qualifiers: Acute pancreatitis complication: unspecified Pancreatitis type: unspecified pancreatitis type Qualified Code(s): K85.90 - Acute pancreatitis without necrosis or infection, unspecified Code(s): K85.90 - Acute pancreatitis without necrosis or infection, unspecified Status: Acute Assessment and Plan: OK to discharge today D/C instructions discussed with patient and granddaughter Follow up with Dr. Antoine in 2 weeks (2) Cholelithiasis: Qualifiers: Cholelithiasis location: gallbladder Cholecystitis presence: without cholecystitis Biliary obstruction: without biliary obstruction Qualified Code(s): K80.20 - Calculus of gallbladder without cholecystitis without obstruction Code(s): K80.20 - Calculus of gallbladder without cholecystitis without obstruction Status: Acute Subjective Subjective Date/Time Seen: 04/15/19 11:59 Doing well today. Tolerating low fat diet. Ambulating well. No more tachycardia. Exam GI: Inspection: incision (C/D/I) GI Palp: Yes Soft to palpation and No Tenderness to palpation present (GI) Objective Data Vital Signs Vital Signs: Vital Signs - 24 hr 04/14/19 15:18 04/14/19 16:00 04/14/19 20:00 Temperature 36.7 C Pulse Rate 64 65 69 Respiratory Rate 18 Blood Pressure 171/74 H Pulse Oximetry 98 04/14/19 20:20 04/14/19 21:51 04/15/19 00:00 Temperature 36.6 C Pulse Rate 69 66 70 Respiratory Rate 16 Blood Pressure 153/73 H Pulse Oximetry 97 04/15/19 04:00 04/15/19 06:00 04/15/19 07:50 Temperature 36.4 C Pulse Rate 65 71 Respiratory Rate 18 Blood Pressure 166/65 H Pulse Oximetry 96 96 04/15/19 07:51 04/15/19 08:00 Temperature Pulse Rate 71 84 Respiratory Rate 18 Blood Pressure Pulse Oximetry 96 Intake/Output Intake/Output: Intake & Output 04/12/19 04/13/19 04/14/19 04/15/19 23:59 23:59 23:59 23:59 Intake Total 3660 606 940 620 Output Total 750 575 300 200 Balance 2910 31 640 420 Meds/Results Medications: Active Medications Generic Name Dose Route Start Last Admin Trade Name Freq PRN Reason Stop Dose Admin Acetaminophen 500 mg 04/13/19 17:22 Tylenol Tablet PO Q6H PRN Mild Pain (1-3) or Fever Hydrocodone Bitart/Acetaminophen 1 tab 04/13/19 17:22 [place] 7.5-325 Mg PO Q6H PRN Pain Rated 7-10 Hydrocodone Bitart/Acetaminophen 1 tab 04/13/19 17:22 04/15/19 05:13 [place] 5-325 Mg PO 1 tab Q6H PRN Administration Pain Rated 4-6 Aspirin 81 mg 04/15/19 09:00 04/15/19 09:51 Aspirin Ec PO 81 mg QAM SUSIE Administration Dextrose 12.5 gm 04/10/19 18:41 Dextrose 50% Syringe IV PUSH PRN PRN Hypoglycemia Protocol Enoxaparin Sodium 40 mg 04/14/19 09:00 04/15/19 09:51 Lovenox SUB-Q 40 mg DAILY SUSIE Administration Glucagon 1 mg 04/10/19 18:41 Glucagon For Inj IM PRN PRN Hypoglycemia Protocol Glucose 15 gm 04/10/19 18:41 Glutose 15 PO PRN PRN Hypoglycemia Protocol Hydralazine HCl 10 mg 04/10/19 18:35 Apresoline Hcl Inj IV PUSH Q8H PRN Blood Pressure - High Dextrose 1,000 mls @ 100 mls/hr 04/10/19 18:41 Dextrose 5% 1,000 Ml IVPB PRN PRN Hypoglycemia Protocol Insulin Aspart 2 - 5 units 04/14/19 17:00 04/15/19 09:49 Novolog SUB-Q Not Given [facility] Protocol Lisinopril 20 mg 04/15/19 09:00 04/15/19 09:51 Prinivil PO 20 mg QAM SUSIE Administration Metoprolol Tartrate 12.5 mg 04/14/19 21:00 04/15/19 09:52 Lopressor PO 12.5 mg Q12HR SUSIE Administration Morphine Sulfate 2 mg 04/13/19 17:22 Morphine Sulfate Inj IV PUSH Q2H PRN Pain Rated 4-6 Warfarin Sodium 6 mg 04/14/19 17:00 04/14/19 16:58 Coumadin PO 6 mg [id number] SUSIE Administration Warfarin Sodium 4 mg 04/17/19 17:00
[2019-04-15 12:00] LABS: Glucose Point of Care 180 (65-105)
--- NOTE | 2019-04-15 14:11 | PC.NURSE ---
TALIKED WITH DR SIMS STATES THAT PT CAN SEE DR MEJIA ON A NEEDED BASES OTHERWISE CAN GO HOME
== END 2019-04-15 13:05 | disposition home or self-care (01) | DRG 418 ==
LOC: ANHED 12:03 → ANH3MEDSUR 13:57
PROVIDERS: Nurse Practitioner; Nurse Practitioner Family; Physician Assistant; Surgery; Admitting Provider Family Medicine; Emergency Provider Emergency Medicine; PCP Family Medicine; Visit Provider Internal Medicine
PROC: 0FT44ZZ Resection of Gallbladder, Percutaneous Endoscopic Approach (ICD-10-PCS; CPT 47562; principal; 2019-04-13 13:00)
DX: K85.10 Biliary acute pancreatitis without necrosis or infection (principal); N17.9 Acute kidney failure, unspecified; K80.11 Calculus of gallbladder with chronic cholecystitis with obstruction; N18.3 Chronic kidney disease, stage 3 (moderate); I25.10 Atherosclerotic heart disease of native coronary artery without angina pectoris; E78.00 Pure hypercholesterolemia, unspecified; I12.9 Hypertensive chronic kidney disease with stage 1 through stage 4 chronic kidney disease, or unspecified chronic kidney disease; I48.0 Paroxysmal atrial fibrillation; E11.65 Type 2 diabetes mellitus with hyperglycemia; Z79.01 Long term (current) use of anticoagulants; Z95.1 Presence of aortocoronary bypass graft; N28.89 Other specified disorders of kidney and ureter; N40.1 Benign prostatic hyperplasia with lower urinary tract symptoms; E78.5 Hyperlipidemia, unspecified; E11.22 Type 2 diabetes mellitus with diabetic chronic kidney disease; Z87.891 Personal history of nicotine dependence
CPT/HCPCS: 36415; 36430; 74177; 74300; 80048; 80053; 80061; 80076; 81001; 83036; 83690; 83735; 84153; 85025; 85027; 85610; 86850; 86900; 86901; 88304; 93005; 96361; 96374; 96375; 96376; 97161; 97165; 99285; A9270; G0103; G0378; J0131; J0690; J1100; J1170; J1650; J1815; J2370; J2405; J2704; J2710; J3010; J3430; J7030; J7050; J7120; P9017; Q9966; Q9967

== ENCOUNTER 2019-10-20 10:59 | Observation (INO) | payer MEDICARE, SELFPAY ==
[2019-10-20] VITALS (9 sets, daily range): BP systolic 147–165; BP diastolic 79–101; PULSE 65–84; RESP 16–20; TEMP 36.2–36.7; O2SAT 95–100; BMI 25.9
--- NOTE | ~2019-10-20 | XR_ITS ---
EXAMINATION: XR chest 1V portable DATE: 10/20/2019 11:17 INDICATION: Shortness of breath TECHNIQUE: frontal view of the chest was obtained. COMPARISON: Chest radiograph dated 05/13/2013 FINDINGS: Increased interstitial pattern with peripheral Ang B-lines in the bilateral mid to lower lung zone s. Additional airspace opacities in the bilateral lower lung zones. Small bilateral pleural effusions . No pneumothorax. Cardiomegaly. Median sternotomy wires and mediastinal surgical clips are seen, lik yadiel from prior coronary artery bypass grafting. Retained epicardial pacemaker lead along the base of the right heart. IMPRESSION: 1. Congestive heart failure with cardiomegaly, central pulmonary edema and small bilateral pleural ef fusions. 2. Mild airspace opacities in the bilateral lower lung zones most likely related to more focal alveol ar edema although differential includes pneumonia. Reviewed, dictated and finalized at location A. IMPRESSION: 1. Congestive heart failure with cardiomegaly, central pulmonary edema and smal l bilateral pleural effusions. 2. Mild airspace opacities in the bilateral lower lung zones most likely relate d to more focal alveolar edema although differential includes pneumonia.
--- NOTE | ~2019-10-20 | US_ITS ---
US renal BI 10/21/2019 09:31 Procedure: Realtime transabdominal ultrasound of the kidneys and bladder. Indication: Follow-up renal mass Comparison: CT dated 04/10/2019 Findings: There is a stable solid vascular right renal mass measuring 1.6 x 1.2 x 1.6 cm without sign ificant change allowing for differences of technique or this mass must be presumed malignant until pr oven otherwise. There is bilateral renal cortical thinning. There is a 3.6 cm left renal cyst. Bladde r not visualized. Spleen enlarged measuring 14.5 cm. The right kidney measures 11.3 cm and left kidne y measures 11.3 cm. Bladder within normal limits. Impression: 1: No significant change to solid vascular 1.6 cm right renal mass allowing for differences of techni que, presumably renal cell carcinoma until proven otherwise. 2: Bilateral renal cortical thinning with increased cortical echogenicity, consistent with chronic re nal disease. 3: Splenomegaly. Reviewed, dictated and finalized at location A. Impression: 1: No significant change to solid vascular 1.6 cm right renal mass allowing for differences of technique, presumably renal cell carcinoma until proven otherwi se. 2: Bilateral renal cortical thinning with increased cortical echogenicity, cons istent with chronic renal disease. 3: Splenomegaly.
--- NOTE | 2019-10-20 11:04 | ECG_ITS ---
Measurements Intervals Mason Rate: 74 P: 41 VT: 150 QRS: -73 QRSD: 162 T: 65 QT: 455 QTc: 506 Interpretive Statements SINUS RHYTHM ATRIAL PREMATURE COMPLEXES RIGHT BUNDLE BRANCH BLOCK LEFT ANTERIOR FASCICULAR BLOCK ABNORMAL ECG Electronically Signed On 10-20-2019 11:58:01 CDT by Beck Lopez D.O.
--- NOTE | 2019-10-20 11:17 | ED.SOB ---
HPI - SOB/Dyspnea General Chief Complaint: Shortness of Breath/Dyspnea Stated Complaint: sob Time Seen by Provider: 10/20/19 11:09 Source: patient, family and EMS Mode of arrival: EMS Limitations: no limitations History of Present Illness HPI Narrative: Patient is an 84-year-old male with a history of hypertension, hyperlipidemia, two-vessel CABG who presents for evaluation of shortness of breath. Patient reports worsening shortness of breath with exertion over the past 2 weeks, patient had increased difficulty breathing this morning thus called an ambulance. Patient also reports a 2-week history of increased bilateral lower extremity edema. No redness or calf pain. Patient denies recent surgery. He states he is quite mobile at home, no history of blood clot. Patient's metal slitter is Dr. Martin. He denies any chest pain. Patient denies any fever, cough, rhinorrhea, congestion, loss of taste of sense or smell. No recent sick contacts. Related Data Home Medications Medication Instructions Recorded Confirmed aspirin 81 mg tablet,delayed 81 mg PO DAILY 01/10/19 04/10/19 release blood sugar diagnostic #10 each 01/10/19 04/10/19 lancets 33 gauge #100 each 01/10/19 04/10/19 metoprolol tartrate 25 mg tablet 12.5 mg PO BID 01/10/19 04/10/19 hydrochlorothiazide 12.5 mg capsule 12.5 mg PO DAILY 08/31/19 warfarin 4 mg PO DAILY 10/20/19 Allergies Allergy/AdvReac Type Severity Reaction Status Date / Time No Known Allergies Allergy Verified 10/20/19 11:02 Review of Systems Review of Systems: Narrative: CONSTITUTIONAL: Denies fever, chills, or sweats. EYES: Denies visual changes, redness, or discharge. ENT: Denies rhinorrhea, congestion, sore throat, or otalgia. CARDIOVASCULAR: Denies chest pain, palpitations, reports bilateral lower extremity edema RESPIRATORY: Denies cough, reports shortness of breath GASTROINTESTINAL: Denies abdominal pain, nausea, vomiting, or diarrhea. GENITOURINARY: Denies dysuria or hematuria. SKIN: Denies rash or itching. MUSCULOSKELETAL: Denies back pain, joint pain, or myalgia. NEUROLOGIC: Denies headache, numbness, or weakness. [facility] Past Medical History Medical History Anemia Arthritis Atrial fibrillation Chronic kidney disease, stage 3 (moderate) Coronary artery disease Last Echocardiogram 12/2018 showed EF 56%, mild tricuspid regurgitation, mild pulmonary hypertension. Diabetes mellitus Home oral medications only. DM renal manif type II Enlarged prostate Hypercholesteremia Hypertension Kidney stones Left renal mass Pancreatitis In 2016, November 2018, and March 2019. With confirmed cholelithiasis. Pure hypercholesterolemia Shortness of breath Urinary frequency Vision abnormalities Weight loss Surgical History Surgical History H/O removal of cyst Benign History of cardiac cath In 2013 prior to CABG. Hx of CABG 2-vessel CABG in 2012. Tracheostomy status When he is to in had diptheria. Family History Family History Mother Cerebrovascular accident, Onset Age: 80 Patient's mother is Sibling Family history of diabetes mellitus in first degree relative Father Family history of lung cancer Patient's father is Sibling Gallbladder disease His brother just a couple days after having gallbladder surgery Social History Social History Social History: He is to Aileen. She is a durable power smearer for healthcare. The patient is a full code. 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 He has 1 daughter. He is a smoker pack a cigarettes a day for 10 years. He quit 50 years ago. No alcohol or illicit drugs. Smoking status: Former smoker Tobacco type: cigarettes Smoking end raheem
[2019-10-20 11:25] LABS: Basophils Percent Auto 0.4 % (0.2-1.2); Eosinophils Percent Auto 0.4 % (0-4.4); Hemoglobin 8.7 g/dL (14.0-18.0); Immature Granulocyte Absolute 0.01 K/mm3 (0.00-0.031); Immature Granulocyte Percent A 0.2 % (0-0.5); Lymphocytes Absolute Auto 0.65 K/mm3 (0.9-3.2); Lymphocytes Percent Auto 13.8 % (18.3-44.2); Mean Corpuscular Hemoglobin 23.8 pg (26-34); Mean Corpuscular Volume 79.2 fl (80-100); Mean Platelet Volume 9.4 fl (7.4-10.4); Monocytes Absolute Auto 0.4 K/mm3 (0.1-0.6); Monocytes Percent Auto 8.7 % (2.6-8.5); Neutrophils Absolute Auto 3.6 K/mm3 (1.3-6.7); Neutrophils Percent Auto 76.5 % (45.5-73.1); Platelet Count Result 317 k/mm3 (150-375); Red Blood Count 3.66 M/mm3 (4.6-6.20); Red Cell Distribution Width 18.6 % (11.5-14.5); White Blood Count 4.7 K/mm3 (4.5-10.0)
[2019-10-20 11:36] LABS: INR 4.2; Prothrombin Time 39.9 Seconds (11.1-14.7)
[2019-10-20 11:37] LABS: Partial Thromboplastin Time 61.5 SECONDS (22.3-36.8)
[2019-10-20 11:43] LABS: Anion Gap 6 mmol/L (8-16); Blood Urea Nitrogen 21 mg/dL (9-20); Calcium 8.1 mg/dL (8.4-10.2); Carbon Dioxide 25 mmol/L (22-30); Chloride 108 mmol/L (98-107); Estimated CRCL calculation 52 ml/min; Estimated Glomerular Filt Rate > 60; Glucose 119 mg/dL (75-110); Potassium 4.5 mmol/L (3.4-5.0); Sodium 139 mmol/L (137-145)
[2019-10-20 11:51] LABS: NT Pro B Type Natriuretic Pept 28400 PG/ML (5-100); Troponin I < 0.012 ng/mL (0.000-0.034)
[2019-10-20 12:03] LABS: Alveolar/Arterial O2 Gradient 36.6 mmHg; Base Excess ABG -0.2 mEq/l (+/-2.0); Carboxyhemoglobin 0.7 % THb (0-2.0); Fractional Inspired Oxygen 21 %; HCO3 ABG 23.2 mEq/l (22.0-26.0); Oxygen Saturation ABG 95.8 % (95.0-100.0); Oxyhemoglobin 93.3 % THb (90.0-100.0); PCO2 ABG 32.8 mmHg (35.0-45.0); PO2 ABG 73.9 mmHg (80.0-100.0); PO2 FiO2 Ratio Arterial Blood 3.52 %; Total Hemoglobin 9.1 g/dL (12.0-18.0); pH ABG 7.467 (7.350-7.450)
[2019-10-20 12:04] LABS: Device ROOM AIR; Modified Allen's Test Pass; Site Drawn RIGHT RADIAL
[2019-10-20] MEDS: FUROSEMIDE INJ 40 MG/4 ML VIAL IV PUSH (13:15)
--- NOTE | 2019-10-20 14:45 | ADMGEN ---
This patient, Alex Baker, was admitted to Medical Room 349-01. Patient/family oriented to hospital policies and general routines including ID bracelet, bed and alarms, visiting hours, pain management, procedures, bathroom and other care routines, personal items, smoking policy, room service/diet, and visiting hours. Valuables list has been completed. Information on how to activate the Rapid Response Team has been discussed. Patient/Family are encouraged to report perceived risks to care and to ask questions if they do not understand what they are told or what they should do.
[2019-10-20 16:40] LABS: Glucose Point of Care 147 (65-105)
--- NOTE | 2019-10-20 17:06 | WPDCN ---
Assessment and Plan Assessment and plan (1) Congestive heart failure: Qualifiers: Heart failure type: other Qualified Code(s): I50.9 - Heart failure, unspecified Code(s): I50.9 - Heart failure, unspecified Status: Acute Assessment and Plan: New onset of CHF, not requiring O2. Probably diastolic although he does have cardiomegaly on his chest x-ray. Echo 1 year ago showed EF 56% with mild valve disease. Will evaluate further with an echo either inpatient or outpatient, to see if there has been a change. Continue IV Lasix Patient already on metoprolol 12.5 mg b.i.d.; was taking lisinopril 20 mg daily which is no longer on his medication list. We will resume a low dose of lisinopril. Patient is eager to get home to his who has early Alzheimer's. Hopefully can be discharged in the next 1-2 days and continue with outpatient diuresis using oral furosemide. (2) CAD (coronary artery disease): Code(s): I25.10 - Atherosclerotic heart disease of [place] coronary artery without angina pectoris Status: Acute Assessment and Plan: CAD, history of CABG, no angina and no ischemic changes. Troponin negative. Appears stable. (3) Paroxysmal A-fib: Code(s): I48.0 - Paroxysmal atrial fibrillation Status: Chronic Assessment and Plan: History of paroxysmal AFib, in normal sinus rhythm currently. Patient does note occasionally his heart rate will jump up to 100-120 beats per minute so he may be having episodes of AFib at home. However it appears controlled and he is on warfarin (4) Over-anticoagulated: Status: Acute Assessment and Plan: INR was 4.2; he may have become over anticoagulated as a result of his CHF and change in hepatic metabolism. Holding warfarin, recheck INR tomorrow. (5) Microcytic anemia: Code(s): D50.9 - Iron deficiency anemia, unspecified Status: Acute Assessment and Plan: Patient has a A mild anemia for while, but getting progressively microcytic. May have occult blood loss secondary to warfarin. Check iron studies (6) Hypertension: Code(s): I10 - Essential (primary) hypertension Status: Chronic Assessment and Plan: Blood pressure a bit high but will need to be cautious since he has a history of orthostasis. (7) Renal cell carcinoma: Code(s): C64.9 - Malignant neoplasm of unspecified kidney, except renal pelvis Status: Acute Assessment and Plan: Has a right renal mass consistent with carcinoma; was supposed to follow-up with Dr. Hutchison as read did not ask him if he had done this. HPI Data of Consult Date/Time: 10/20/19 17:06 Requesting Physician: Yissel Hazel MD Primary Care Provider: Ernst Stinson MD Consult Narrative Narrative: Date of service 10/20/2019 Alex Baker is a 84 year old male we were asked to see at the request of the hospitalist for advice and opinion regarding his new onset of heart failure, in consultation. He has history of some CAD and CABG as well as paroxysmal atrial fibrillation. The patient reports he has had edema for the past 2 months and shortness of breath for the past 2 weeks. he had orthopnea and PND last night so this morning that he called an ambulance and came to our ER. He appeared to be in heart failure, with a chest x-ray showing bilateral pleural effusions and pulmonary edema, and a proBNP of 28,400. He has been started on IV Lasix, and is feeling better. Sometimes at rest the patient notes his heart rate is 100-120 beats per minute but he has not felt any palpitations. He denies any chest pain or anginal symptoms. The patient has not had any new medications. He
--- NOTE | 2019-10-20 18:18 | PM.IMHP ---
H&P: HPI History of Present Illness Date/Time: 10/20/19 18:18 Chief complaint: CHF exacerbation Narrative: Alex Baker is a 84 year old male who resides at home along. Patient a past medical history of having diastolic congestive heart failure with his last echo being on 01/03/2019 he was found to have an ejection fraction of 56 %. Patient had mild pulmonary hypertension on his last echo. Mild tricuspid regurgitation. The patient stated that he has just been having some edema and shortness of breath over the last couple weeks however the patient's daughters at the bedside she states it has been couple months since he has had this edema and shortness of breath with exertion. Patient has a history of paroxysmal atrial fibrillation. He is chronically on warfarin. His INR is 4.2 today. His heart rates 70s. The patient denies any chest pain. The patient stated that he believes it was late last year when he saw his unit manager Dr. garcias and has been unable to follow-up with his unit manager since COVID started. He was said that he was supposed to have seen his unit manager March of this year. Chest x-ray today was read per radiologist as congestive heart failure with cardiomegaly, central pulmonary edema and small bilateral pleural effusions. Mild airspace opacities in the zones most likely related to or focal alveolar edema although differential includes pneumonia. The patient has not had any fever or chills. He is not a posterior COVID-19. The patient has had increased edema to his lower extremities as well. He has not had any history of any DVTs and is currently supratherapeutic with his Coumadin. The patient was given IV Lasix in the emergency room and he states that he is feeling much better now. The patient was seen by Cardiology. He also has chronic anemia. However his hemoglobin is lower today at 8.7 than his baseline is somewhere between 9.2 and 12.1. The patient has not noticed any bleeding in his stool or any excessive bleeding anywhere else. Date of service 10/20/2019 Review of Systems Review of Systems: All systems reviewed & are unremarkable except as noted in HPI and below Constitutional: Constitutional: Reports as per HPI and Reports no additional constitutional complaints Eyes: Eyes: Reports as per HPI and Reports no additional eye complaints ENT: Reports system reviewed and no additional complaints, except as documented and Reports Normal hearing present Cardiovascular: Cardiovascular: Reports no additional cardiovascular complaints Respiratory: Respiratory: Reports no additional respiratory complaints and Reports no additional respiratory complaints Gastrointestinal: Gastrointestinal: Reports as per HPI and Reports no additional gastrointestinal complaints Musculoskeletal: Musculoskeletal: Reports no additional musculoskeletal complaints Integumentary/Breasts: Skin/Breast: Reports system reviewed and no additional complaints, except as docu and Reports as per HPI Neurologic: Reports system reviewed and no additional complaints, except as documented, Reports as per HPI and Reports Normal hearing present Psychiatric: Psychiatric: Reports no additional psychiatric complaints and Reports as per HPI Endocrine: Endocrine: Reports no additional endocrine complaints Hematologic/Lymphatic: Hematologic/Lymphatic: Reports no additional hematologic/lymphatic complaints Allergic/Immunologic: Allergic/Immunologic: Reports no additional allergic/immunologic complaints [facility] Past Medical History Medical History (Updated 10/20/19 @ 18:36 by Heidi Rosa NP) Acute pancreatitis DARLEEN (acute kidney injury) Anemia Arthritis Atrial fibrillation paroxysmal Cholelithiasis Chronic kidney disease, stage 3 (moderate) Coronary artery disease Last Echocardiogram 12/2018 showed EF 56%, mild tricuspid regurgitation, mild pulmonary hypertension. Diabetes mellitus Home oral medications only. DM renal manif type II En
[2019-10-20] MEDS: METOPROLOL TARTRATE 12.5 MG TABLET PO (21:20)
[2019-10-20 21:23] LABS: Glucose Point of Care 167 (65-105)
[2019-10-21] VITALS (11 sets, daily range): BP systolic 148–155; BP diastolic 69–92; PULSE 62–90; RESP 14–18; TEMP 36.4–36.6; O2SAT 97–99
[2019-10-21 07:21] LABS: INR 3.5; Prothrombin Time 34.2 Seconds (11.1-14.7)
[2019-10-21 07:38] LABS: Alanine Aminotransferase 9 U/L (4-50); Albumin Level 2.7 g/dL (3.5-5.1); Alkaline Phosphatase 98 U/L (38-126); Anion Gap 6 mmol/L (8-16); Aspartate Amino Transferase 14 U/L (17-59); Bilirubin,Total 0.8 mg/dL (0.2-1.3); Blood Urea Nitrogen 21 mg/dL (9-20); Calcium 8.1 mg/dL (8.4-10.2); Carbon Dioxide 29 mmol/L (22-30); Chloride 105 mmol/L (98-107); Estimated CRCL calculation 44 ml/min; Estimated Glomerular Filt Rate 58; Glucose 121 mg/dL (75-110); Potassium 4.1 mmol/L (3.4-5.0); Sodium 140 mmol/L (137-145)
[2019-10-21 07:43] LABS: Basophils Percent Auto 0.5 % (0.2-1.2); Eosinophils Absolute Auto 0.1 K/mm3 (0-0.3); Eosinophils Percent Auto 1.1 % (0-4.4); Hematocrit 29.6 % (42.0-52.0); Hemoglobin 8.9 g/dL (14.0-18.0); Immature Granulocyte Absolute 0.02 K/mm3 (0.00-0.031); Immature Granulocyte Percent A 0.3 % (0-0.5); Lymphocytes Absolute Auto 0.94 K/mm3 (0.9-3.2); Lymphocytes Percent Auto 14.9 % (18.3-44.2); Mean Corpuscular HGB Conc 30.1 g/dl (32-36); Mean Corpuscular Hemoglobin 23.5 pg (26-34); Mean Corpuscular Volume 78.3 fl (80-100); Mean Platelet Volume 9.4 fl (7.4-10.4); Monocytes Absolute Auto 0.6 K/mm3 (0.1-0.6); Monocytes Percent Auto 9.7 % (2.6-8.5); Neutrophils Absolute Auto 4.6 K/mm3 (1.3-6.7); Neutrophils Percent Auto 73.5 % (45.5-73.1); Platelet Count Result 360 k/mm3 (150-375); Red Blood Count 3.78 M/mm3 (4.6-6.20); Red Cell Distribution Width 18.5 % (11.5-14.5); White Blood Count 6.3 K/mm3 (4.5-10.0)
[2019-10-21 07:47] LABS: Glucose Point of Care 115 (65-105)
[2019-10-21] MEDS: POTASSIUM CHLORIDE 20 MEQ TABLET.ER PO (07:54)
[2019-10-21] MEDS: glipiZIDE 5 MG TABLET PO (07:55)
[2019-10-21] MEDS: lisinopriL 10 MG TABLET PO (09:31)
[2019-10-21] MEDS: FUROSEMIDE INJ 40 MG/4 ML VIAL IV PUSH (09:31)
[2019-10-21] MEDS: PRAVASTATIN SODIUM 20 MG TABLET 40 MG PO (09:32)
[2019-10-21] MEDS: METOPROLOL TARTRATE 12.5 MG TABLET PO ×2 (09:32→20:41)
[2019-10-21] MEDS: FINASTERIDE 5 MG TABLET PO (09:33)
[2019-10-21] MEDS: ASPIRIN 81 MG ENTERIC TABLET PO (09:33)
[2019-10-21 10:10] LABS: Iron 34 ug/dL (49-181)
[2019-10-21 10:20] LABS: Percent Iron Saturation 15 % (20-50)
--- NOTE | 2019-10-21 10:20 | P.PNIM_ITS ---
Progress Note: A&P Assessment and Plan (1) Congestive heart failure: Qualifiers: Heart failure type: other Qualified Code(s): I50.9 - Heart failure, unspecified Code(s): I50.9 - Heart failure, unspecified Status: Chronic Assessment and Plan: Exacerbation of CHF. Echo ordered but awaiting to be done. Cardiology consulted and appreciate recommendation. Patient notes improvement from yesterday since diuretics were initiated. * Await further rec from Cardiology * Continue metoprolol, lisinopril and lasix per Cardiology rec * Monitor for clinical improvement * Anticipate Echo to be done Tuesday (2) Paroxysmal A-fib: Code(s): I48.0 - Paroxysmal atrial fibrillation Status: Chronic Assessment and Plan: On a/c with warfarin with supratherapeutic INR. Cardiology following. Warfarin held. INR 3.5 today; improvement. On metoprolol as well. HR into 120s at times. Patient asymptomatic * Continue metoprolol for now * Warfarin held; will defer to Cardiology on when to resume * Monitor (3) Type 2 diabetes mellitus with hyperglycemia: Code(s): E11.65 - Type 2 diabetes mellitus with hyperglycemia Status: Acute Assessment and Plan: BGL 100s today * Accuchecks ACHS, hypoglycemia protocol, correctional insulin, diabetic diet * Hold glipizide while inpatient. (4) Enlarged prostate with lower urinary tract symptoms (LUTS): Code(s): N40.1 - Benign prostatic hyperplasia with lower urinary tract symptoms Status: Acute Assessment and Plan: Patient unaware of diagnosis but is on finasteride at home * Continue home medication for now * f/u with Urology as op (5) Atherosclerotic heart disease of [place] coronary artery with angina pectoris: Code(s): I25.119 - Atherosclerotic heart disease of [place] coronary artery with unspecified angina pectoris Status: Acute Assessment and Plan: No acute issues. Cardiology following. Asymptomatic. Negative troponin * Continue home medications. 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 INR 3.5 today. * Continue holding warfarin for now; will defer to cardiology on when to resume * Monitor INR daily (7) Microcytic anemia: Code(s): D50.9 - Iron deficiency anemia, unspecified Status: Acute Assessment and Plan: Iron panel low iron/TIBC/%sat. Hgb stable. Suspect anemia of chronic disease, possible iron deficiency component * IV venofer once now * Will add ferritin lab * Continue to monitor H&H (8) Pure hypercholesterolemia: Code(s): E78.00 - Pure hypercholesterolemia, unspecified Status: Chronic Assessment and Plan: LFTs WNL * continue with pravastatin. (9) Renal mass: Code(s): N28.89 - Other specified disorders of kidney and ureter Status: Acute Assessment and Plan: Patient unable to follow up with Urology given COVID pandemic; he believes this was benign. Renal US ordered for reassessment; pending results * F/u with Urology as op Subjective Date/time seen: 10/21/19 10:20 Interval history: Patient is a 84 yo M with his
--- NOTE | 2019-10-21 10:20 | PM.IMPN ---
Progress Note: A&P Assessment and Plan (1) Congestive heart failure: Qualifiers: Heart failure type: other Qualified Code(s): I50.9 - Heart failure, unspecified Code(s): I50.9 - Heart failure, unspecified Status: Chronic Assessment and Plan: Exacerbation of CHF. Echo ordered but awaiting to be done. Cardiology consulted and appreciate recommendation. Patient notes improvement from yesterday since diuretics were initiated. Await further rec from Cardiology Continue metoprolol, lisinopril and lasix per Cardiology rec Monitor for clinical improvement Anticipate Echo to be done Tuesday (2) Paroxysmal A-fib: Code(s): I48.0 - Paroxysmal atrial fibrillation Status: Chronic Assessment and Plan: On a/c with warfarin with supratherapeutic INR. Cardiology following. Warfarin held. INR 3.5 today; improvement. On metoprolol as well. HR into 120s at times. Patient asymptomatic Continue metoprolol for now Warfarin held; will defer to Cardiology on when to resume Monitor (3) Type 2 diabetes mellitus with hyperglycemia: Code(s): E11.65 - Type 2 diabetes mellitus with hyperglycemia Status: Acute Assessment and Plan: BGL 100s today Accuchecks ACHS, hypoglycemia protocol, correctional insulin, diabetic diet Hold glipizide while inpatient. (4) Enlarged prostate with lower urinary tract symptoms (LUTS): Code(s): N40.1 - Benign prostatic hyperplasia with lower urinary tract symptoms Status: Acute Assessment and Plan: Patient unaware of diagnosis but is on finasteride at home Continue home medication for now f/u with Urology as op (5) Atherosclerotic heart disease of [place] coronary artery with angina pectoris: Code(s): I25.119 - Atherosclerotic heart disease of [place] coronary artery with unspecified angina pectoris Status: Acute Assessment and Plan: No acute issues. Cardiology following. Asymptomatic. Negative troponin Continue home medications. (6) Anticoagulated on warfarin: Code(s): Z79.01 - FDC (current) use of anticoagulants Status: Acute Assessment and Plan: Supratherapeutic. INR 3.5 today. Continue holding warfarin for now; will defer to cardiology on when to resume Monitor INR daily (7) Microcytic anemia: Code(s): D50.9 - Iron deficiency anemia, unspecified Status: Acute Assessment and Plan: Iron panel low iron/TIBC/%sat. Hgb stable. Suspect anemia of chronic disease, possible iron deficiency component IV venofer once now Will add ferritin lab Continue to monitor H&H (8) Pure hypercholesterolemia: Code(s): E78.00 - Pure hypercholesterolemia, unspecified Status: Chronic Assessment and Plan: LFTs WNL continue with pravastatin. (9) Renal mass: Code(s): N28.89 - Other specified disorders of kidney and ureter Status: Acute Assessment and Plan: Patient unable to follow up with Urology given COVID pandemic; he believes this was benign. Renal US ordered for reassessment; pending results F/u with Urology as op Subjective Date/time seen: 10/21/19 10:20 Interval history: Patient is a 84 yo M with history of paroxysmal a. fib (on a/c, metoprolol), CKDIII, CAD, DMII, HTN among other comorbid conditions who is here for treatment/management of likely CHF exacerbation. Patient notes that his SOB and LE swelling are still present, but much improved since yesterday. He has no other complaints other than frequent urination from diuretics. Denies f/c/s, headaches, dizziness, lightheadedness, cp/palpitations, cou
[2019-10-21] MEDS: IRON SUCROSE COMPLEX 100 MG in SODIUM CHLORIDE 0.9% IV 50 ML 220 MG IVPB (10:58)
[2019-10-21 11:35] LABS: Glucose Point of Care 175 (65-105)
--- NOTE | 2019-10-21 14:38 | PM.PNCARD ---
Progress Note: A&P Assessment and Plan (1) Congestive heart failure: Qualifiers: Heart failure type: other Qualified Code(s): I50.9 - Heart failure, unspecified Code(s): I50.9 - Heart failure, unspecified Status: Chronic Assessment and Plan: New onset of CHF, not requiring O2. Probably diastolic although he does have cardiomegaly on his chest x-ray. Echo 1 year ago showed EF 56% with mild valve disease. Echo on Tuesday Continue IV Lasix Patient already on metoprolol 12.5 mg b.i.d.; resumed his lisinopril at a low dose Hopefully can be discharged Tuesday and continue with outpatient diuresis using oral furosemide. (2) CAD (coronary artery disease): Code(s): I25.10 - Atherosclerotic heart disease of [place] coronary artery without angina pectoris Status: Acute Assessment and Plan: CAD, history of CABG, no angina and no ischemic changes. Troponin negative. Appears stable. (3) Paroxysmal A-fib: Code(s): I48.0 - Paroxysmal atrial fibrillation Status: Chronic Assessment and Plan: History of paroxysmal AFib, in normal sinus rhythm currently. Patient does note occasionally his heart rate will jump up to 100-120 beats per minute so he may be having episodes of AFib at home. However it appears controlled and he is on warfarin (4) Over-anticoagulated: Status: Acute Assessment and Plan: INR was 4.2 on Tuesday, 3.5 on Tuesday. Was taking warfarin 4 mg daily at home He may have become over anticoagulated as a result of his CHF and change in hepatic metabolism. Holding warfarin, recheck INR tomorrow. Will give 2 mg today; prob increase tmr. (5) Microcytic anemia: Code(s): D50.9 - Iron deficiency anemia, unspecified Status: Acute Assessment and Plan: Patient has a mild anemia for while, but getting progressively microcytic. May have occult blood loss secondary to warfarin. Irons studies showed Fe+-deficient. Will get an iron infusion. (6) Hypertension: Code(s): I10 - Essential (primary) hypertension Status: Chronic Assessment and Plan: Blood pressure a bit high but will need to be cautious since he has a history of orthostasis. Lisinopril resumed. (7) Renal cell carcinoma: Code(s): C64.9 - Malignant neoplasm of unspecified kidney, except renal pelvis Status: Acute Assessment and Plan: Has a right renal mass consistent with carcinoma; was supposed to follow-up with Dr. Hutchison, has not done so. Repeat renal US pending. Subjective Date/time seen: 10/21/19 14:38 Interval history: Follow-up for new onset of diastolic CHF. History of CAD and CABG, paroxysmal atrial fibrillation, normally followed by Dr. Martin in our office. Date of service: 10/21/2019 Diuresing, feeling better, The still breathless at times. Edema is improving. Eager to get home to his who has early Alzheimer's. Review of Systems Constitutional: Constitutional: Reports no additional constitutional complaints ENT: Denies nasal congestion Cardiovascular: Cardiovascular: Denies chest pain, Reports pedal edema, Reports leg edema and Denies lightheadedness Respiratory: Respiratory: Denies cough and Reports dyspnea on exertion Gastrointestinal: Gastrointestinal: Denies abdominal pain Genitourinary: Genitourinary: Denies dysuria Musculoskeletal: Musculoskeletal: Reports no additional musculoskeletal complaints Integumentary/Breasts: Skin/Breast: Denies rash Neurologic: Reports system reviewed and no additional complaints, except as documented Psychiatric: Psychiatric: Reports no additional psychiatric complaints Objective Data Vital Signs
[2019-10-21 16:35] LABS: Glucose Point of Care 177 (65-105)
[2019-10-21] MEDS: WARFARIN (*PBKC) 2 MG TABLET PO (17:22)
[2019-10-21 22:12] LABS: Glucose Point of Care 204 (65-105)
[2019-10-22] VITALS (7 sets, daily range): BP systolic 137–144; BP diastolic 77–79; PULSE 58–79; RESP 14–16; TEMP 36.2–36.5; O2SAT 98–99
--- NOTE | 2019-10-22 | ECHO_ITS ---
Patient Info Name: Alex Baker Age: 84 years : 1935 Gender: Male Ht: 71 in Wt: 184 lbs BSA: 2.05 m2 HR: 80 bpm BP: 144 / 77 mmHg Heart Rhythm: Atrial Fibrillation Technical Quality: Good Exam Date: 10/22/2019 9:50 AM Exam Location: [facility] Patient Status: Inpatient Admit Date: 10/20/2019 Staff Ordering Physician: Doris Cline MD [employer] Insulation Helper: David Palafox RDCS Attending Provider: Lino Vasquez PA-C Referring Physician: Son FORTE; Exam Type: CA echo doppler color flow Study Info Indications I50.22 - Chronic systolic (congestive) heart failure Complete two-dimensional, color flow and Doppler transthoracic echocardiogram is performed. History/Risk Factors CHF; Afib, CKD3, DM2, HTN, SOB, cardiomegaly, CAD/CABG/. Summary 1. Complete two-dimensional, color flow and Doppler transthoracic echocardiogram is performed. 2. Left ventricular chamber dimension is moderately enlarged. 3. Left ventricular systolic function is moderately reduced, estimated at 30-35%. 4. Left atrial chamber dimension is moderately enlarged. 5. There is moderate aortic valve sclerosis. 6. The mitral valve has thickened leaflets. 7. The mitral valve annulus is moderately calcified. 8. The aortic valve is sclerotic but leaflet excursion appears to be adequate. 9. Compared with examination from 2012 left ventricular systolic function has declined. Left Ventricle Left ventricular chamber dimension is moderately enlarged. Left ventricular systolic function is moderately reduced, estimated at 30-35%. The left ventricular diastolic function is grade II diastolic dysfunction. Right Ventricle Right ventricular chamber dimension is normal. Left Atria Left atrial chamber dimension is moderately enlarged. Right Atria Right atrial chamber dimension is mildly enlarged. Aortic Valve The aortic valve is trileaflet. There is moderate aortic valve sclerosis. The aortic valve is sclerotic but leaflet excursion appears to be adequate. Pulmonic Valve The pulmonic valve is not well visualized. Mitral Valve The mitral valve has thickened leaflets. There is trace mitral valve regurgitation. The mitral valve annulus is moderately calcified. Tricuspid Valve The tricuspid valve leaflets are normal. There is no tricuspid valve regurgitation. Pericardium/Pleural The pericardium appears normal. Aorta The aortic root size at the sinus of Valsalva is normal. Left Ventricular Outflow Tract Name Value Normal LVOT 2D LVOT Diameter 2.3 cm LVOT Doppler LVOT Peak Gradient 3 mmHg LVOT Mean Gradient 2 mmHg LVOT VTI 17 cm LVOT VTI/AV VTI Ratio 0.6 LVOT Stroke Volume 72 ml LVOT CO 4.4 l/min LVOT CI 2.1 l/min/m2 Mitral Valve Name Value Normal
[2019-10-22 06:26] LABS: Basophils Percent Auto 0.5 % (0.2-1.2); Eosinophils Absolute Auto 0.1 K/mm3 (0-0.3); Eosinophils Percent Auto 1.8 % (0-4.4); Hematocrit 28.7 % (42.0-52.0); Hemoglobin 8.6 g/dL (14.0-18.0); Immature Granulocyte Absolute 0.02 K/mm3 (0.00-0.031); Immature Granulocyte Percent A 0.4 % (0-0.5); Lymphocytes Absolute Auto 0.77 K/mm3 (0.9-3.2); Lymphocytes Percent Auto 13.5 % (18.3-44.2); Mean Corpuscular Hemoglobin 23.6 pg (26-34); Mean Corpuscular Volume 78.6 fl (80-100); Mean Platelet Volume 9.4 fl (7.4-10.4); Monocytes Absolute Auto 0.7 K/mm3 (0.1-0.6); Monocytes Percent Auto 11.6 % (2.6-8.5); Neutrophils Absolute Auto 4.1 K/mm3 (1.3-6.7); Neutrophils Percent Auto 72.2 % (45.5-73.1); Platelet Count Result 307 k/mm3 (150-375); Red Blood Count 3.65 M/mm3 (4.6-6.20); Red Cell Distribution Width 18.4 % (11.5-14.5); White Blood Count 5.7 K/mm3 (4.5-10.0)
[2019-10-22 06:33] LABS: Potassium 4.3 mmol/L (3.4-5.0)
[2019-10-22 06:34] LABS: INR 2.9; Prothrombin Time 29.7 Seconds (11.1-14.7)
[2019-10-22 06:38] LABS: Anion Gap 4 mmol/L (8-16); Blood Urea Nitrogen 24 mg/dL (9-20); Calcium 7.8 mg/dL (8.4-10.2); Carbon Dioxide 30 mmol/L (22-30); Chloride 102 mmol/L (98-107); Estimated CRCL calculation 40 ml/min; Estimated Glomerular Filt Rate 53; Glucose 127 mg/dL (75-110); Magnesium 1.8 mg/dL (1.6-2.3); Potassium 4.1 mmol/L (3.4-5.0); Sodium 136 mmol/L (137-145)
[2019-10-22 07:45] LABS: Glucose Point of Care 130 (65-105)
[2019-10-22] MEDS: ASPIRIN 81 MG ENTERIC TABLET PO (08:20)
[2019-10-22] MEDS: POTASSIUM CHLORIDE 20 MEQ TABLET.ER PO (08:20)
[2019-10-22] MEDS: lisinopriL 10 MG TABLET PO (08:20)
[2019-10-22] MEDS: METOPROLOL TARTRATE 12.5 MG TABLET PO (08:20)
[2019-10-22] MEDS: FINASTERIDE 5 MG TABLET PO (08:20)
[2019-10-22] MEDS: FUROSEMIDE INJ 40 MG/4 ML VIAL IV PUSH (08:22)
[2019-10-22] MEDS: PRAVASTATIN SODIUM 20 MG TABLET 40 MG PO (08:22)
--- NOTE | 2019-10-22 09:28 | PM.PNCARD ---
Progress Note: A&P Additional Plan elderly white male with underlying coronary disease history of atrial fibrillation presenting with CHF patient is now asymptomatic still has some peripheral edema but no chest congestion this morning. He would like to go home as soon as possible so he can attend to his who is needing care with dementia. I believe we can shift him to oral furosemide and anticipate discharge today. Severiano Garcia MD [facility] Subjective Date/time seen: Date of service:10/22/19 09:28 Interval history: 84-year-old man with suspected diastolic heart failure patient has a history of coronary artery bypass grafting in the past as well as that of atrial fibrillation. He feels much better this morning he has been diuresed with intravenous furosemide for the last couple of days. Believes his breathing is essentially back to baseline. Review of Systems Constitutional: Constitutional: Reports no additional constitutional complaints Eyes: Eyes: Reports no additional eye complaints ENT: Reports system reviewed and no additional complaints, except as documented Cardiovascular: Cardiovascular: Reports as per HPI Respiratory: Respiratory: Reports as per HPI Gastrointestinal: Gastrointestinal: Reports no additional gastrointestinal complaints Musculoskeletal: Musculoskeletal: Reports arthralgias Comments: Chronic shoulder pain Neurologic: Reports system reviewed and no additional complaints, except as documented Psychiatric: Psychiatric: Reports no additional psychiatric complaints Exam Const: General: comfortable and no acute distress Other: pleasant elderly gentleman comfortable supine in bed watching television HENMT: Mouth: Yes moist mucous membranes Eyes: Sclera: sclerae normal Pupils: Equal, round and reactive pupils present Neck: Neck: supple and no JVD Thyroid: thyroid normal Other: normal carotid pulses bilaterally with no audible bruits Resp: Effort & Inspection: normal respiratory effort Auscultation: clear to auscultation bilaterally Other: no pulmonary rales audible this morning Cardio: Rate: regular rate Rhythm: regular rhythm GI: Auscultation: normal bowel sounds Skin: General skin exam: normal color Neuro: Cognition (Neuro): normal cognition Extrem: Other: patient continues to have moderate soft pitting lower extremity edema Objective Data Vital Signs Vital Signs: Vital Signs - 24 hr 10/21/19 09:32 10/21/19 12:00 10/21/19 13:41 Temperature 36.4 C L Pulse Rate 80 90 68 Respiratory Rate 16 Blood Pressure 148/82 H Pulse Oximetry 98 10/21/19 16:00 10/21/19 20:00 10/21/19 20:41 Temperature Pulse Rate 62 69 64 Respiratory Rate Blood Pressure Pulse Oximetry 10/21/19 20:43 10/22/19 00:00 10/22/19 04:00 Temperature 36.4 C Pulse Rate 64 61 71 Respiratory Rate 18 Blood Pressure 155/69 H Pulse Oximetry 99 10/22/19 06:26 10/22/19 08:20 Temperature 36.2 C L Pulse Rate 79 78 Respiratory Rate 14 Blood Pressure 144/77 H Pulse Oximetry 98 Intake/Output Intake/Output: Intake & Output 10/19/19 10/20/19 10/21/19 10/22/19 23:59 23:59 23:59 23:59 Intake Total 840 1715 240 Output Total 600 2425 350 Balance 174 -865 -774 Meds/Results Medications: Active Medications Generic Name Dose Route Start Last Admin Trade Name Freq PRN Reason Stop Dose Admin Aspirin 81 mg 10/21/19 09:00 10/22/19 08:20 Aspirin Ec PO 81 mg DAILY SUSIE Administration Dextrose 12.5 gm 10/20/19 18:16 Dextrose 50% Syringe IV PUSH PRN PRN Hypoglycemia Protocol Finasteride 5 mg 10/21/19 09:00 10/22/19 08:20 Proscar PO 5 mg DAILY SUSIE Administration Furosemide 40 mg 10/21/19 09:00 10/22/19 08:22 Lasix Inj IV PUSH 40 mg DAILY SUSIE Administration Glipizide 5 mg 10/21/19 07:30 10/21/19 07:55 Glucotrol PO 5 mg DAILY@0730 SUSIE Administration Glucagon 1 mg 10/20/19 1
[2019-10-22 11:36] LABS: Glucose Point of Care 170 (65-105)
--- NOTE | 2019-10-22 18:27 | P.DS_ITS ---
DS: Admitting Diagnosis Admitting Diagnosis Admitting Diagnosis: CHF exacerbation DS: Discharge Diagnosis Discharge Diagnosis (1) Congestive heart failure: Qualifiers: Heart failure type: other Qualified Code(s): I50.9 - Heart failure, unspecified Code(s): I50.9 - Heart failure, unspecified Status: Chronic Assessment and Plan: Echo shows EF significantly decreased from previous Echo. Acute systolic CHF exacerbation. Cardiology consulted and appreciate recommendation. Patient notes significant improvement in his breathing today. Exam shows no rales on lungs, although still significant LE edema. Okay for discharge per Cardiology standpoint * Await further rec from Cardiology * Continue metoprolol, lisinopril and lasix at discharge per Cardiology rec * F/u with PCP and cardiology (2) Paroxysmal A-fib: Code(s): I48.0 - Paroxysmal atrial fibrillation Status: Chronic Assessment and Plan: On a/c with warfarin with supratherapeutic INR. Cardiology following. Warfarin held. INR 2.9 today; improvement. On metoprolol as well. HR into 120s at times. Patient asymptomatic. * Cardiology recommends discharging on warfarin 3 mg daily. Will recheck INR on 10/24 * F/u with Cardiology for further management (3) Type 2 diabetes mellitus with hyperglycemia: Code(s): E11.65 - Type 2 diabetes mellitus with hyperglycemia Status: Acute Assessment and Plan: BGL 100s today * Accuchecks ACHS, hypoglycemia protocol, correctional insulin, diabetic diet * Hold glipizide while inpatient. (4) Enlarged prostate with lower urinary tract symptoms (LUTS): Code(s): N40.1 - Benign prostatic hyperplasia with lower urinary tract symptoms Status: Acute Assessment and Plan: Patient unaware of diagnosis but is on finasteride at home * Continue home medication * f/u with Urology as op (5) Atherosclerotic heart disease of [place] coronary artery with angina pectoris: Code(s): I25.119 - Atherosclerotic heart disease of [place] coronary artery with unspeci fied angina pectoris Status: Acute Assessment and Plan: No acute issues. Cardiology following. Asymptomatic. Negative troponin * Continue home medications. (6) Anticoagulated on warfarin: Code(s): Z79.01 - intermediate manager (current) use of anticoagulants Status: Acute Assessment and Plan: Supratherapeutic. INR 2.9 today. * Warfarin resumed yesterday per Cardiology; rec discharging on 3 mg daily. * INR on 10/24 * Cardiology to manage as outpatient (7) Microcytic anemia: Code(s): D50.9 - Iron deficiency anemia, unspecified Status: Acute Assessment and Plan: Iron panel low iron/TIBC/%sat, ferritin normal. Hgb stable. Likely anemia of chronic disease * IV venofer during stay * f/u with PCP (8) Pure hypercholesterolemia: Code(s): E78.00 - Pure hypercholesterolemia, unspecified Status: Chronic Assessment and Plan: LFTs WNL * continue with pravastatin. (9) Renal mass: Code(s): N28.89 - Other specified disorders of kidney and ureter Status: Acute Assessment and Plan: Patient unable to follow up with Urology given COVID pandemic; he believes this was benign. Renal US ordered
--- NOTE | 2019-10-22 18:27 | PM.DS ---
DS: Admitting Diagnosis Admitting Diagnosis Admitting Diagnosis: CHF exacerbation DS: Discharge Diagnosis Discharge Diagnosis (1) Congestive heart failure: Qualifiers: Heart failure type: other Qualified Code(s): I50.9 - Heart failure, unspecified Code(s): I50.9 - Heart failure, unspecified Status: Chronic Assessment and Plan: Echo shows EF significantly decreased from previous Echo. Acute systolic CHF exacerbation. Cardiology consulted and appreciate recommendation. Patient notes significant improvement in his breathing today. Exam shows no rales on lungs, although still significant LE edema. Okay for discharge per Cardiology standpoint Await further rec from Cardiology Continue metoprolol, lisinopril and lasix at discharge per Cardiology rec F/u with PCP and cardiology (2) Paroxysmal A-fib: Code(s): I48.0 - Paroxysmal atrial fibrillation Status: Chronic Assessment and Plan: On a/c with warfarin with supratherapeutic INR. Cardiology following. Warfarin held. INR 2.9 today; improvement. On metoprolol as well. HR into 120s at times. Patient asymptomatic. Cardiology recommends discharging on warfarin 3 mg daily. Will recheck INR on 10/24 F/u with Cardiology for further management (3) Type 2 diabetes mellitus with hyperglycemia: Code(s): E11.65 - Type 2 diabetes mellitus with hyperglycemia Status: Acute Assessment and Plan: BGL 100s today Accuchecks ACHS, hypoglycemia protocol, correctional insulin, diabetic diet Hold glipizide while inpatient. (4) Enlarged prostate with lower urinary tract symptoms (LUTS): Code(s): N40.1 - Benign prostatic hyperplasia with lower urinary tract symptoms Status: Acute Assessment and Plan: Patient unaware of diagnosis but is on finasteride at home Continue home medication f/u with Urology as op (5) Atherosclerotic heart disease of [place] coronary artery with angina pectoris: Code(s): I25.119 - Atherosclerotic heart disease of [place] coronary artery with unspecified angina pectoris Status: Acute Assessment and Plan: No acute issues. Cardiology following. Asymptomatic. Negative troponin Continue home medications. (6) Anticoagulated on warfarin: Code(s): Z79.01 - intermediate (current) use of anticoagulants Status: Acute Assessment and Plan: Supratherapeutic. INR 2.9 today. Warfarin resumed yesterday per Cardiology; rec discharging on 3 mg daily. INR on 10/24 Cardiology to manage as outpatient (7) Microcytic anemia: Code(s): D50.9 - Iron deficiency anemia, unspecified Status: Acute Assessment and Plan: Iron panel low iron/TIBC/%sat, ferritin normal. Hgb stable. Likely anemia of chronic disease IV venofer during stay f/u with PCP (8) Pure hypercholesterolemia: Code(s): E78.00 - Pure hypercholesterolemia, unspecified Status: Chronic Assessment and Plan: LFTs WNL continue with pravastatin. (9) Renal mass: Code(s): N28.89 - Other specified disorders of kidney and ureter Status: Acute Assessment and Plan: Patient unable to follow up with Urology given COVID pandemic; he believes this was benign. Renal US ordered for reassessment; Results above F/u with Urology as op DS: Summary Hospital Course Reason for hospitalization: Acute systolic CHF with newly found decreased LVEF; supratherapeutic INR Hospital Course: Patient is a 84 yo M with history of CAD s/p CABG, a. fib, HTN, HLD and known renal mass consistent with renal cell carcinoma who presented to the ED on 10/19 wi
== END 2019-10-22 15:30 | disposition home or self-care (01) ==
LOC: ANHED 13:36 → ANH3MED 13:57
PROVIDERS: Internal Medicine Cardiovascular Disease; Nurse Practitioner; Physician Assistant; Admitting Provider Family Medicine; Emergency Provider Emergency Medicine; PCP Family Medicine; Visit Provider Internal Medicine
DX: I13.0 Hypertensive heart and chronic kidney disease with heart failure and stage 1 through stage 4 chronic kidney disease, or unspecified chronic kidney disease (principal); I50.21 Acute systolic (congestive) heart failure; E11.22 Type 2 diabetes mellitus with diabetic chronic kidney disease; N18.3 Chronic kidney disease, stage 3 (moderate); E11.65 Type 2 diabetes mellitus with hyperglycemia; I48.0 Paroxysmal atrial fibrillation; E78.00 Pure hypercholesterolemia, unspecified; N40.1 Benign prostatic hyperplasia with lower urinary tract symptoms; R35.0 Frequency of micturition; R79.1 Abnormal coagulation profile; D50.9 Iron deficiency anemia, unspecified; N28.89 Other specified disorders of kidney and ureter; I25.10 Atherosclerotic heart disease of native coronary artery without angina pectoris; I07.1 Rheumatic tricuspid insufficiency; I27.20 Pulmonary hypertension, unspecified; Z79.01 Long term (current) use of anticoagulants; Z79.84 Long term (current) use of oral hypoglycemic drugs; Z87.891 Personal history of nicotine dependence; Z95.1 Presence of aortocoronary bypass graft
CPT/HCPCS: 36415; 36600; 71045; 76775; 80048; 80053; 82375; 82728; 82805; 83050; 83540; 83550; 83735; 83880; 84132; 84443; 84484; 85025; 85610; 85730; 93005; 93306; 96365; 96375; 96376; 99285; A9270; G0378; J1756; J1940

== ENCOUNTER 2019-12-28 12:42 | Emergency (ER) | payer MEDICARE, SELFPAY ==
[2019-12-28] VITALS (19 sets, daily range): BP systolic 120–166; BP diastolic 70–119; PULSE 70–84; RESP 18–30; O2SAT 96–100
--- NOTE | ~2019-12-28 | XR_ITS ---
EXAMINATION: XR chest 2V EXAM DATE: 12/28/2019 14:07 INDICATION: Shortness of breath. Weakness. TECHNIQUE: Frontal and lateral projections of the chest obtained and reviewed. There is no prior joao dy for comparison. FINDINGS: Cardiomegaly, congestion, small bilateral pleural effusions. Sternotomy wires are present without findings to suggest sternal dehiscence. Some linear basilar atelectasis. No sizable consolida tion. There is no pneumothorax suspected. There is aortic arteriosclerosis. There are bony degenerati ve changes. IMPRESSION: 1. Possible mild CHF exacerbation. Small effusions. 2. Subsegmental atelectasis. Reviewed, dictated and finalized at location B. DIRECTOR
--- NOTE | 2019-12-28 12:48 | ECG_ITS ---
Measurements Intervals [place] Rate: 75 P: [place]: 0 QRS: -65 QRSD: 162 T: 105 QT: 455 QTc: 510 Interpretive Statements SINUS OR ECTOPIC ATRIAL RHYTHM ATRIAL AND VENTRICULAR PREMATURE COMPLEXES RIGHT BUNDLE BRANCH BLOCK LEFT ANTERIOR FASCICULAR BLOCK VOLTAGE CRITERIA FOR LVH BASELINE ARTIFACT- III, V1-V2 ABNORMAL ECG Electronically Signed On 12-28-2019 13:04:45 TALCER by Beck Lopez D.O.
[2019-12-28 13:33] LABS: Basophils Percent Auto 0.5 % (0.2-1.2); Eosinophils Percent Auto 0.3 % (0-4.4); Hematocrit 29.2 % (42.0-52.0); Hemoglobin 8.5 g/dL (14.0-18.0); Immature Granulocyte Absolute 0.02 K/mm3 (0.00-0.031); Immature Granulocyte Percent A 0.5 % (0-0.5); Lymphocytes Absolute Auto 0.59 K/mm3 (0.9-3.2); Lymphocytes Percent Auto 14.8 % (18.3-44.2); Mean Corpuscular HGB Conc 29.1 g/dl (32-36); Mean Corpuscular Hemoglobin 23.9 pg (26-34); Monocytes Absolute Auto 0.3 K/mm3 (0.1-0.6); Monocytes Percent Auto 8.5 % (2.6-8.5); Neutrophils Percent Auto 75.4 % (45.5-73.1); Platelet Count Result 260 k/mm3 (150-375); Red Blood Count 3.56 M/mm3 (4.6-6.20)
[2019-12-28 13:41] LABS: INR 3.8; Prothrombin Time 38.1 Seconds (11.1-14.7)
[2019-12-28 13:42] LABS: Partial Thromboplastin Time 59.5 SECONDS (22.3-36.8)
[2019-12-28 13:46] LABS: Anion Gap 5 mmol/L (8-16); Blood Urea Nitrogen 21 mg/dL (9-20); Calcium 8.1 mg/dL (8.4-10.2); Carbon Dioxide 29 mmol/L (22-30); Chloride 108 mmol/L (98-107); Estimated CRCL calculation 40 ml/min; Estimated Glomerular Filt Rate 53; Glucose 186 mg/dL (75-110); Potassium 4.5 mmol/L (3.4-5.0); Sodium 142 mmol/L (137-145)
[2019-12-28 13:49] LABS: Hypochromasia 1+ (NORMAL); Microcytosis 1+ (NORMAL); Platelet Estimate Adequate (Adequate)
[2019-12-28 13:55] LABS: NT Pro B Type Natriuretic Pept 30500 PG/ML (5-100)
[2019-12-28] MEDS: FUROSEMIDE INJ 40 MG/4 ML VIAL IV PUSH (14:44)
--- NOTE | 2019-12-28 15:33 | ED.SOB ---
HPI - SOB/Dyspnea General Chief Complaint: Shortness of Breath/Dyspnea Stated Complaint: sob Time Seen by Provider: 12/28/19 12:52 History of Present Illness HPI Narrative: Patient is an 84-year-old male who presents ER with shortness of breath. Reports last night he was unable to sleep and kept waking up due to his inability to breathe. Reports increased edema to the lower extremities over the last 2 days. Has history of CHF. No fevers or chills or sweats. No productive cough. No change medication. Reports compliance with his furosemide. Related Data Home Medications Medication Instructions Recorded Confirmed aspirin 81 mg tablet,delayed 81 mg PO DAILY 01/10/19 10/20/19 release blood sugar diagnostic #10 each 01/10/19 10/20/19 lancets 33 gauge #100 each 01/10/19 10/20/19 metoprolol tartrate 25 mg tablet 12.5 mg PO BID 01/10/19 10/20/19 Allergies Allergy/AdvReac Type Severity Reaction Status Date / Time No Known Allergies Allergy Verified 10/20/19 11:02 Review of Systems Review of Systems: All systems reviewed & are unremarkable except as noted in HPI and below Constitutional: Constitutional: Denies chills, Denies fever(s) and Denies weakness ENT: Denies nasal congestion and Denies sore throat Cardiovascular: Cardiovascular: Denies chest pain, Denies rapid heart rate and Denies radiating jaw, neck or arm pain Comments: Increased lower extremity edema Respiratory: Respiratory: Denies cough, Reports dyspnea and Denies wheezing Gastrointestinal: Gastrointestinal: Denies abdominal pain, Denies nausea and Denies vomiting [facility] Past Medical History Medical History (Updated 12/28/19 @ 16:38 by Alex Prajapati MD) Acute pancreatitis DARLEEN (acute kidney injury) Anemia Arthritis Atrial fibrillation paroxysmal Cholelithiasis Chronic kidney disease, stage 3 (moderate) Coronary artery disease Last Echocardiogram 12/2018 showed EF 56%, mild tricuspid regurgitation, mild pulmonary hypertension. Diabetes mellitus Home oral medications only. DM renal manif type II Enlarged prostate Hypercholesteremia Hypertension Kidney stones Left renal mass Orthostatic hypotension Pancreatitis In 2016, November 2018, and March 2019. With confirmed cholelithiasis. Pure hypercholesterolemia Renal mass Shortness of breath Urinary frequency Vision abnormalities Weight loss Surgical History Surgical History (Updated 10/20/19 @ 18:26 by Heidi Rosa NP) H/O removal of cyst Benign History of cardiac cath In 2013 prior to CABG. Hx laparoscopic cholecystectomy Hx of CABG 2-vessel CABG in 2013. RODRÍGUEZ to the Left anterior descending and radial artery to the OM Tracheostomy status When he is to in had diptheria. Family History Family History Mother Cerebrovascular accident, Onset Age: 80 Patient's mother is Sibling Family history of diabetes mellitus in first degree relative Father Family history of lung cancer Patient's father is Sibling Gallbladder disease His brother just a couple days after having gallbladder surgery Social History Social History (Updated 10/20/19 @ 18:30 by Heidi Rosa NP) Social History: He is to Aileen. He has nodurable power divorce attorney for healthcare. his also has early Alzheimer's dz and can no longer be the durable power divorce attorney for health care for him. The patient is a full code. 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 He has 1 daughter. He was a smoker ,pack a cigarettes a day for 10 years. He quit 50 years ago. No alcohol or illicit drugs. Smoking status: Former smoker Tobacco type: cigarettes Smoking end date: 02/22/1960 Additional smoking assessment comments: Quit smoking 50 years ago. Started smoking at age 18. Alcohol intake: never Substance use: never Substance use type: does not use Additional ashley
--- NOTE | 2019-12-28 15:47 | PC.NURSE ---
patient ambulated approximatley approx 20 feet on RA. sat >94%. tolerated well. denies shortness of breath or dizziness. provider updated.
== END 2019-12-28 16:55 | disposition home or self-care (01) ==
PROVIDERS: Emergency Provider Emergency Medicine; PCP Family Medicine
DX: I13.0 Hypertensive heart and chronic kidney disease with heart failure and stage 1 through stage 4 chronic kidney disease, or unspecified chronic kidney disease (principal); I50.9 Heart failure, unspecified; Z79.82 Long term (current) use of aspirin; I48.0 Paroxysmal atrial fibrillation; E11.22 Type 2 diabetes mellitus with diabetic chronic kidney disease; N18.30 Chronic kidney disease, stage 3 unspecified; Z87.891 Personal history of nicotine dependence; N40.0 Benign prostatic hyperplasia without lower urinary tract symptoms; I25.10 Atherosclerotic heart disease of native coronary artery without angina pectoris; E78.00 Pure hypercholesterolemia, unspecified; M19.90 Unspecified osteoarthritis, unspecified site; Z95.1 Presence of aortocoronary bypass graft; Z87.442 Personal history of urinary calculi; Z79.01 Long term (current) use of anticoagulants; Z79.84 Long term (current) use of oral hypoglycemic drugs
CPT/HCPCS: 36415; 71046; 80048; 83880; 85025; 85610; 85730; 93005; 96374; 99284; J1940

== ENCOUNTER 2020-02-01 12:44 | Inpatient (IN) | payer MEDICARE, SELFPAY ==
[2020-02-01] VITALS (9 sets, daily range): BP systolic 97–125; BP diastolic 69–81; PULSE 93–138; RESP 18; TEMP 36.1; O2SAT 95–100; BMI 24.5
--- NOTE | 2020-02-01 13:21 | PC.NURSE ---
This patient, Alex Baker, was admitted to IMU Room 206-01. Patient/family oriented to hospital policies and general routines including ID bracelet, bed and alarms, visiting hours, pain management, procedures, bathroom and other care routines, personal items, smoking policy, room service/diet, and visiting hours. Information on how to activate the Rapid Response Team has been discussed. Patient/Family are encouraged to report perceived risks to care and to ask questions if they do not understand what they are told or what they should do.
[2020-02-01 15:21] LABS: Hematocrit 28.9 % (42.0-52.0); Hemoglobin 8.6 g/dL (14.0-18.0); Mean Corpuscular HGB Conc 29.8 g/dl (32-36); Mean Corpuscular Hemoglobin 24.6 pg (26-34); Mean Corpuscular Volume 82.8 fl (80-100); Mean Platelet Volume 9.2 fl (7.4-10.4); Platelet Count Result 244 k/mm3 (150-375); Red Blood Count 3.49 M/mm3 (4.6-6.20); Red Cell Distribution Width 18.5 % (11.5-14.5); White Blood Count 3.7 K/mm3 (4.5-10.0)
[2020-02-01 15:23] LABS: Alanine Aminotransferase 13 U/L (4-50); Albumin Level 2.9 g/dL (3.5-5.1); Alkaline Phosphatase 88 U/L (38-126); Anion Gap 3 mmol/L (8-16); Aspartate Amino Transferase 17 U/L (17-59); Bilirubin,Total 0.8 mg/dL (0.2-1.3); Blood Urea Nitrogen 40 mg/dL (9-20); Calcium 8.4 mg/dL (8.4-10.2); Carbon Dioxide 31 mmol/L (22-30); Chloride 107 mmol/L (98-107); Estimated CRCL calculation 32 ml/min; Estimated Glomerular Filt Rate 41; Glucose 104 mg/dL (75-110); Potassium 4.6 mmol/L (3.4-5.0); Sodium 141 mmol/L (137-145)
[2020-02-01 15:25] LABS: INR 2.2; Prothrombin Time 25.3 Seconds (11.1-14.7)
[2020-02-01 15:32] LABS: NT Pro B Type Natriuretic Pept 25600 PG/ML (5-100)
--- NOTE | 2020-02-01 15:38 | ECG_ITS ---
Measurements Intervals [place] Rate: 136 P: [place]: 0 QRS: -82 QRSD: 164 T: 75 QT: 342 QTc: 516 Interpretive Statements ATRIAL FLUTTER/TACHYCARDIA WITH RAPID VENTRICULAR RESPONSE RIGHT BUNDLE BRANCH BLOCK LEFT ANTERIOR FASCICULAR BLOCK ABNORMAL ECG Electronically Signed On 02-01-2020 16:17:03 TUBE CUTTER OPERATOR by Beck Lopez D.O.
--- NOTE | 2020-02-01 15:59 | PM.IMHP ---
H&P: HPI History of Present Illness Date/Time: 02/01/20 15:59 Chief complaint: Atrial flutter RVR Narrative: Alex Baker is a 84 year old male who is not known to me but is known to Dr. Martin of our practice admitted from the office because of atrial flutter with rapid ventricular response with which he appears to be minimally symptomatic. The patient is known to have coronary artery disease as well as a history of atrial arrhythmias. Apparently he initially presented in 2016 with ischemic chest pain and atrial fibrillation. Patient converted to sinus rhythm with medication but then underwent catheterization demonstrating severe left main coronary artery disease. He underwent surgical revascularization with an internal mammary graft to the LAD and a radial artery graft to the obtuse marginal branch of the circumflex. He did well following surgery and has been followed in the office since then. He recently had admission to the hospital in the summer of 2019 with some shortness of breath and was felt to have some congestive heart failure he was treated with diuretics he improved clinically and wanted to go home from the hospital relatively quickly to care for his who is unfortunately dealing with dementia. In follow-up after that he has had some noninvasive studies done in with an echocardiogram demonstrating moderate left ventricular systolic dysfunction with an ejection fraction of 30-35%. He had a nuclear stress test done in our office last month which demonstrates left ventricular enlargement a global ejection fraction of 41% and evidence of anterior ischemia. The patient is not reporting any symptoms of exertional chest pain pressure or heaviness. He is not experiencing any orthopnea PND or edema he does have some symptoms of chronic STEVENS. He went to his primary care physician today for a scheduled visit and was found to be tachycardic. An EKG demonstrated evidence of atrial flutter with 2-1 conduction heart rate was about 140 and he was for that reason admitted to the hospital. He appears to be quite comfortable at the time of this interview and does not offer any other complaints. His cardiac medical regimen consists of aspirin, furosemide, lisinopril, metoprolol and warfarin as well as pravastatin. Review of Systems Constitutional: Constitutional: Reports weakness Eyes: Eyes: Reports no additional eye complaints ENT: Reports system reviewed and no additional complaints, except as documented Cardiovascular: Cardiovascular: Reports pedal edema Respiratory: Respiratory: Reports dyspnea on exertion Gastrointestinal: Gastrointestinal: Reports no additional gastrointestinal complaints Musculoskeletal: Musculoskeletal: Reports myalgias Integumentary/Breasts: Skin/Breast: Reports system reviewed and no additional complaints, except as docu Neurologic: Reports system reviewed and no additional complaints, except as documented [facility] Past Medical History Medical History (Updated 12/29/19 @ 00:00 by Malick Daemon) Acute pancreatitis DARLEEN (acute kidney injury) Anemia Arthritis Atrial fibrillation paroxysmal Cholelithiasis Chronic kidney disease, stage 3 (moderate) Coronary artery disease Last Echocardiogram 12/2018 showed EF 56%, mild tricuspid regurgitation, mild pulmonary hypertension. Diabetes mellitus Home oral medications only. DM renal manif type II Enlarged prostate Hypercholesteremia Hypertension Kidney stones Left renal mass Orthostatic hypotension Pancreatitis In 2016, November 2018, and March 2019. With confirmed cholelithiasis. Pure hypercholesterolemia Renal mass Shortness of breath Urinary frequency Vision abnormalities Weight loss Surgical History Surgical History (Updated 10/20/19 @ 18:26 by Heidi Rosa NP) H/O removal of cyst Benign History of cardiac cath In 2012 prior to CABG. Hx laparoscopic cholecystectomy Hx of CABG 2-vessel CABG in 2012. RODRÍGUEZ to the Left anterior de
[2020-02-01 17:29] LABS: Glucose Point of Care 72 (65-105)
[2020-02-01] MEDS: WARFARIN (*PBKC) 4 MG TABLET PO (18:22)
[2020-02-01] MEDS: FERROUS SULFATE 324 MG TABLET PO (18:22)
[2020-02-01 20:56] LABS: Glucose Point of Care 123 (65-105)
[2020-02-01] MEDS: SOTALOL HCL 80 MG TABLET PO (21:03)
[2020-02-02] VITALS (19 sets, daily range): BP systolic 102–119; BP diastolic 75–91; PULSE 92–133; RESP 16–20; TEMP 35.7–36.3; O2SAT 92–100
[2020-02-02 05:11] LABS: INR 2.2
[2020-02-02 08:22] LABS: Glucose Point of Care 84 (65-105)
[2020-02-02] MEDS: PRAVASTATIN SODIUM 20 MG TABLET 40 MG PO (08:37)
[2020-02-02] MEDS: FERROUS SULFATE 324 MG TABLET PO ×2 (08:37→17:23)
[2020-02-02] MEDS: FINASTERIDE 5 MG TABLET PO (08:37)
[2020-02-02] MEDS: glipiZIDE 5 MG TABLET PO (08:37)
[2020-02-02] MEDS: lisinopriL 10 MG TABLET PO (08:37)
[2020-02-02] MEDS: SOTALOL HCL 80 MG TABLET PO ×2 (08:37→21:32)
[2020-02-02] MEDS: ASPIRIN 81 MG ENTERIC TABLET PO (08:38)
--- NOTE | 2020-02-02 10:40 | ECG_ITS ---
Measurements Intervals [place] Rate: 97 P: [place]: 0 QRS: -78 QRSD: 178 T: 119 QT: 391 QTc: 497 Interpretive Statements ATRIAL FLUTTER/TACHYCARDIA RIGHT BUNDLE BRANCH BLOCK LEFT ANTERIOR FASCICULAR BLOCK ABNORMAL ECG Electronically Signed On 02-02-2020 13:46:42 JAVA J2EE TECHNICAL LEAD by Beck Lopez D.O.
[2020-02-02 12:10] LABS: Glucose Point of Care 122 (65-105)
--- NOTE | 2020-02-02 12:20 | PM.PNCARD ---
Progress Note: A&P Additional Plan 84 yo man with: Persistent A Flutter prompting admission yesterday . Underlying CAD with ischemic LV dysfunction Started Sotalol yesterday Plan is for DC CV Tuesday if he remains in AF [place] Subjective Date/time seen: Date of service: 02/02/20 12:20 Interval history: Follow-up visit in this 84-year-old man with Coronary artery disease status post bypass surgery for left main disease several years ago. He does have mild LV systolic dysfunction following surgery and does have a history of PAFib in the past. He now is admitted with an episode of sustained atrial flutter with which he is minimally symptomatic. He is been started on sotalol yesterday and he is systemically anticoagulated with warfarin. This morning he feels relatively well he is eating his lunch sitting up in bed and does not have any complaints Exam Const: General: comfortable and no acute distress HENMT: Mouth: Yes moist mucous membranes Eyes: Sclera: sclerae normal Pupils: Equal, round and reactive pupils present Neck: Neck: supple and no JVD Resp: Effort & Inspection: normal respiratory effort Other: Scant crackles at the right base Cardio: Rate: tachycardic Rhythm: abnormal rhythm GI: GI Palp: Yes Soft to palpation Auscultation: normal bowel sounds Skin: General skin exam: normal color Neuro: Cognition (Neuro): normal cognition Extrem: General: normal to inspection Objective Data Vital Signs Vital Signs: Vital Signs - 24 hr 02/01/20 13:44 02/01/20 14:00 02/01/20 16:00 Temperature 36.1 C L 36.1 C L Pulse Rate 137 H 110 H 126 H Respiratory Rate 18 18 Blood Pressure 97/69 L 114/81 Pulse Oximetry 95 100 02/01/20 18:45 02/01/20 19:38 02/01/20 20:00 Temperature 36.1 C L Pulse Rate 103 H 137 H 118 H Respiratory Rate 18 Blood Pressure 110/79 Pulse Oximetry 100 100 02/01/20 21:03 02/01/20 22:00 02/01/20 23:39 Temperature 36.1 C L Pulse Rate 137 H 93 107 H Respiratory Rate 18 Blood Pressure 125/81 Pulse Oximetry 99 02/02/20 00:00 02/02/20 02:00 02/02/20 03:54 Temperature 36.1 C L Pulse Rate 106 H 93 92 Respiratory Rate 18 Blood Pressure 119/75 Pulse Oximetry 99 99 02/02/20 04:00 02/02/20 06:00 02/02/20 08:00 Temperature 35.7 C L Pulse Rate 99 101 H 131 H Respiratory Rate 20 Blood Pressure 102/77 Pulse Oximetry 99 92 02/02/20 08:37 02/02/20 08:40 02/02/20 10:00 Temperature Pulse Rate 133 H 104 H Respiratory Rate Blood Pressure Pulse Oximetry 92 Intake/Output Intake/Output: Intake & Output 01/30/20 01/31/20 02/01/20 02/02/20 23:59 23:59 23:59 23:59 Intake Total 480 780 Output Total 100 400 Balance 380 380 Meds/Results Medications: Active Medications Generic Name Dose Route Start Last Admin Trade Name Freq PRN Reason Stop Dose Admin Aspirin 81 mg 02/02/20 09:00 02/02/20 08:38 Aspirin 81 Mg Enteric Tablet PO 81 mg DAILY SUSIE Administration Dextrose 12.5 gm 02/01/20 14:35 Dextrose 50% 25 Gm/50 Ml Syringe IV PUSH PRN PRN Hypoglycemia Protocol Ferrous Sulfate 324 mg 02/01/20 17:00 02/02/20 08:37 Ferrous Sulfate 324 Mg Tablet PO 324 mg BID SUSIE Administration Finasteride 5 mg 02/02/20 09:00 02/02/20 08:37 Finasteride 5 Mg Tablet PO 5 mg DAILY SUSIE Administration Glipizide 5 mg 02/02/20 09:00 02/02/20 08:37 Glipizide 5 Mg Tablet PO 5 mg DAILY SUSIE Administration Glucagon 1 mg 02/01/20 14:35 Glucagon For Inj 1 Mg Vial IM PRN PRN Hypoglycemia Protocol Glucose 15 gm 02/01/20 14:35 Glucose Oral Gel 15 Gm Of Glucse In 37.5 Gm Tube PO PRN PRN Hypoglycemia Protocol Dextrose 1,000 mls @ 100 mls/hr 02/01/20 14:35 Dextrose 5% 1,000 Ml IVPB PRN PRN Hypoglycemia Protocol Lisinopril 10 mg 02/02/20 09:00 02/02/20 08:37 Lisinopril 10 Mg Tablet PO 10 mg DAILY SUSIE
[2020-02-02 17:10] LABS: Glucose Point of Care 99 (65-105)
[2020-02-02] MEDS: WARFARIN (*PBKC) 4 MG TABLET PO (17:23)
[2020-02-03] VITALS (19 sets, daily range): BP systolic 104–132; BP diastolic 64–85; PULSE 45–119; RESP 16–20; TEMP 36.1–36.6; O2SAT 99–100
[2020-02-03 02:09] LABS: Glucose Point of Care 125 (65-105)
[2020-02-03 05:59] LABS: INR 2.3; Prothrombin Time 25.7 Seconds (11.1-14.7)
[2020-02-03 08:28] LABS: Glucose Point of Care 95 (65-105)
[2020-02-03] MEDS: SOTALOL HCL 80 MG TABLET PO ×2 (08:37→20:14)
[2020-02-03] MEDS: PRAVASTATIN SODIUM 20 MG TABLET 40 MG PO (08:37)
[2020-02-03] MEDS: FINASTERIDE 5 MG TABLET PO (08:38)
[2020-02-03] MEDS: glipiZIDE 5 MG TABLET PO (08:38)
[2020-02-03] MEDS: ASPIRIN 81 MG ENTERIC TABLET PO (08:38)
[2020-02-03] MEDS: lisinopriL 10 MG TABLET PO (08:38)
[2020-02-03] MEDS: FERROUS SULFATE 324 MG TABLET PO ×2 (08:38→17:55)
--- NOTE | 2020-02-03 10:40 | ECG_ITS ---
Measurements Intervals [place] Rate: 111 P: [place]: 0 QRS: -79 QRSD: 173 T: 84 QT: 414 QTc: 563 Interpretive Statements ATRIAL FLUTTER/TACHYCARDIA WITH RAPID VENTRICULAR RESPONSE LEFT AXIS DEVIATION RIGHT BUNDLE BRANCH BLOCK ABNORMAL ECG Electronically Signed On 02-03-2020 13:37:17 BUDGET CLERK by Beck Lopez D.O.
[2020-02-03] MEDS: FUROSEMIDE 40 MG TABLET PO (11:32)
[2020-02-03 12:51] LABS: Glucose Point of Care 153 (65-105)
--- NOTE | 2020-02-03 14:47 | ECG_ITS ---
Measurements Intervals [place] Rate: 46 P: 33 SC: 170 QRS: -77 QRSD: 165 T: 120 QT: 539 QTc: 472 Interpretive Statements SINUS BRADYCARDIA RIGHT BUNDLE BRANCH BLOCK LEFT ANTERIOR FASCICULAR BLOCK BASELINE ARTIFACT- I, II, III, AVL, AVF ABNORMAL ECG Electronically Signed On 02-04-2020 6:53:33 INSIDE SALES ADMINISTRATOR by Beck Lopez D.O.
[2020-02-03 16:44] LABS: Glucose Point of Care 158 (65-105)
[2020-02-03] MEDS: WARFARIN (*PBKC) 4 MG TABLET PO (17:55)
[2020-02-03 20:16] LABS: Glucose Point of Care 174 (65-105)
[2020-02-04] VITALS (17 sets, daily range): BP systolic 123–137; BP diastolic 62–75; PULSE 44–73; RESP 16–20; TEMP 35.9–36.6; O2SAT 97–100
[2020-02-04 04:58] LABS: INR 2.3; Prothrombin Time 25.9 Seconds (11.1-14.7)
[2020-02-04 05:19] LABS: Anion Gap 6 mmol/L (8-16); Blood Urea Nitrogen 51 mg/dL (9-20); Calcium 8.3 mg/dL (8.4-10.2); Carbon Dioxide 27 mmol/L (22-30); Chloride 106 mmol/L (98-107); Estimated CRCL calculation 29 ml/min; Estimated Glomerular Filt Rate 39; Glucose 119 mg/dL (75-110); Potassium 4.2 mmol/L (3.4-5.0); Sodium 139 mmol/L (137-145)
--- NOTE | 2020-02-04 07:00 | ECG_ITS ---
Measurements Intervals [place] Rate: 50 P: 15 DE: 175 QRS: -74 QRSD: 179 T: 92 QT: 549 QTc: 505 Interpretive Statements SINUS BRADYCARDIA ATRIAL PREMATURE COMPLEX RIGHT BUNDLE BRANCH BLOCK LEFT ANTERIOR FASCICULAR BLOCK ABNORMAL ECG Electronically Signed On 02-04-2020 10:17:31 DELTA SYSTEM FREIGHT CAR CLEANER by Beck Lopez D.O.
[2020-02-04] MEDS: glipiZIDE 5 MG TABLET PO (08:39)
[2020-02-04] MEDS: FINASTERIDE 5 MG TABLET PO (08:39)
[2020-02-04] MEDS: lisinopriL 10 MG TABLET PO (08:39)
[2020-02-04] MEDS: PRAVASTATIN SODIUM 20 MG TABLET 40 MG PO (08:39)
[2020-02-04] MEDS: ASPIRIN 81 MG ENTERIC TABLET PO (08:39)
[2020-02-04] MEDS: FERROUS SULFATE 324 MG TABLET PO ×2 (08:40→16:29)
[2020-02-04 08:48] LABS: Glucose Point of Care 121 (65-105)
[2020-02-04] MEDS: SOTALOL HCL 80 MG TABLET PO (09:12)
[2020-02-04] MEDS: FUROSEMIDE 40 MG TABLET PO (09:12)
--- NOTE | 2020-02-04 10:18 | PM.PNCARD ---
Progress Note: A&P Assessment and Plan (1) Paroxysmal A-fib: Code(s): I48.0 - Paroxysmal atrial fibrillation Status: Chronic Assessment and Plan: Reverted back to sinus rhythm from atrial flutter/fibrillation yesterday. He is bradycardic though and will reduce his sotalol to 40 mg p.o. b.i.d.. QTC is nearly 500 milliseconds also. Given his renal insufficiency, this further supports reducing a sotalol. (2) Coronary artery disease: Code(s): I25.10 - Atherosclerotic heart disease of [place] coronary artery without angina pectoris Status: Chronic Assessment and Plan: Decreased EF and abnormal perfusion study as outpatient. Continue current medical regimen but it is advised that he have a coronary angiogram but he still continues to wish to hold off on this at this point. (3) Hypertension: Code(s): I10 - Essential (primary) hypertension Status: Chronic Assessment and Plan: At goal (4) Systolic congestive heart failure: Code(s): I50.20 - Unspecified systolic (congestive) heart failure Status: Acute Assessment and Plan: Will give a dose of IV furosemide 20 mg x 1. EF has significantly declined from previous ejection fraction with an abnormal perfusion study as an outpatient. Subjective Date/time seen: 02/04/20 10:18 Interval history: Reason for admission: Atrial flutter shortness breath Date of service 01/25/2020: He is still complaining of shortness of breath. He did revert back to sinus rhythm/sinus bradycardia yesterday. Heart rate is slow though in the 40s 50s. No chest pain. Mild swelling Review of Systems Constitutional: Constitutional: Reports weakness Eyes: Eyes: Reports no additional eye complaints ENT: Reports system reviewed and no additional complaints, except as documented Cardiovascular: Cardiovascular: Reports pedal edema and Reports dyspnea on exertion Respiratory: Respiratory: Reports dyspnea on exertion Gastrointestinal: Gastrointestinal: Reports no additional gastrointestinal complaints Musculoskeletal: Musculoskeletal: Reports myalgias Integumentary/Breasts: Skin/Breast: Reports system reviewed and no additional complaints, except as docu Neurologic: Reports system reviewed and no additional complaints, except as documented and Reports weakness Psychiatric: Psychiatric: Denies anxiety Endocrine: Endocrine: Reports fatigue Hematologic/Lymphatic: Hematologic/Lymphatic: Denies easy bleeding Allergic/Immunologic: Allergic/Immunologic: Denies GI upset with certain foods Exam Const: General: comfortable and no acute distress Other: Pleasant elderly man appears to be his stated age in no distress of any kind HENMT: Mouth: Yes moist mucous membranes Eyes: Sclera: sclerae normal Pupils: Equal, round and reactive pupils present Neck: Neck: supple and no JVD Thyroid: thyroid normal Resp: Effort & Inspection: normal respiratory effort Auscultation: clear to auscultation bilaterally Other: Scant crackles at the right base Cardio: Rate: bradycardic Rhythm: regular rhythm GI: Auscultation: normal bowel sounds Skin: General skin exam: normal color Neuro: Cranial nerves: Yes Equal, round and reactive pupils present Cognition (Neuro): normal cognition Extrem: General: normal to inspection Other: Mild bipedal edema good arterial pulses Objective Data Vital Signs Vital Signs: Vital Signs - 24 hr 02/03/20 12:00 02/03/20 12:20 02/03/20 14:00 Temperature 36.4 C Pulse Rate 90 96 46 L Respiratory Rate 16 Blood Pressure 117/76 Pulse Oximetry 100 02/03/20 16:00 02/03/20 18:00 02/03/20 19:47 Temperature 36.5 C 36.5 C Pulse Rate 48 L 46 L 47 L Respiratory Rate 16 20 Blood Pressure 123/64 121/64 Pulse Oximetry 100 100 02/03/20 20:00 02/03/20 20:02 02/03/20 20:14 Temperature Pulse Rate 50 L 45 L 53 L Respiratory Rate 20 Blood Pressure 121/64 Pulse Oximetry 99
[2020-02-04] MEDS: FUROSEMIDE INJ 40 MG/4 ML VIAL 20 MG IV PUSH (11:06)
[2020-02-04 12:04] LABS: Glucose Point of Care 82 (65-105)
--- NOTE | 2020-02-04 14:19 | PCDIET ---
Nutrition Follow-Up Complete: Nutrition Diagnosis: Involuntary weight loss related to etiology unknown as evidenced by reported and documented weight loss. Nutrition Goal: Patient to meet estimated nutritional needs. Goal met. Patient consuming 100% of most meals on heart healthy diet which is appropriate. Last recorded weight is 69 kg which is decreased from last review. Noted past three weights have been relatively stable. Bowel Motility: Last documented BM on 02/02/20 x 1. Labs Reviewed: Glu (119), BUN (51), Cr (1.7), Ca (8.3) Meds Noted: Lisinopril, Pravastatin, Ferrous Sulfate, Lasix, Glipizide, Coumadin, Lasix Additional Notes: No documented skin breakdown. Will continue to monitor with same goal. Nutrition Monitoring and Evaluation: Follow up in 7 days.
[2020-02-04] MEDS: WARFARIN (*PBKC) 4 MG TABLET PO (16:29)
[2020-02-04 17:00] LABS: Glucose Point of Care 146 (65-105)
[2020-02-04] MEDS: SOTALOL HCL 40 MG TABLET PO (20:16)
[2020-02-04 20:29] LABS: Glucose Point of Care 155 (65-105)
--- NOTE | 2020-02-04 22:07 | ECG_ITS ---
Measurements Intervals [place] Rate: 45 P: 4 MD: 175 QRS: -73 QRSD: 181 T: 46 QT: 578 QTc: 505 Interpretive Statements SINUS BRADYCARDIA ATRIAL PREMATURE COMPLEX RIGHT BUNDLE BRANCH BLOCK LEFT ANTERIOR FASCICULAR BLOCK BASELINE ARTIFACT- II, III, AVF, V1 ABNORMAL ECG Electronically Signed On 02-05-2020 7:15:40 DIESEL ENGINE I PIPE FITTER by Beck Lopez D.O.
[2020-02-05] VITALS (17 sets, daily range): BP systolic 111–140; BP diastolic 56–69; PULSE 40–53; RESP 14–20; TEMP 35.8–36.6; O2SAT 97–100
[2020-02-05 05:32] LABS: INR 2.6
--- NOTE | 2020-02-05 08:24 | ECG_ITS ---
Measurements Intervals [place] Rate: 45 P: -14 CT: 118 QRS: -72 QRSD: 177 T: 94 QT: 562 QTc: 489 Interpretive Statements SINUS BRADYCARDIA WITH SINUS ARRHYTHMIA WITH SHORT CT INTERVAL RIGHT BUNDLE BRANCH BLOCK LEFT ANTERIOR FASCICULAR BLOCK ABNORMAL ECG Electronically Signed On 02-05-2020 9:07:53 HARP MAKER by Beck Lopez D.O.
[2020-02-05 08:34] LABS: Glucose Point of Care 71 (65-105)
[2020-02-05] MEDS: FERROUS SULFATE 324 MG TABLET PO ×2 (09:28→17:15)
[2020-02-05] MEDS: SOTALOL HCL 40 MG TABLET PO (09:28)
[2020-02-05] MEDS: ASPIRIN 81 MG ENTERIC TABLET PO (09:28)
[2020-02-05] MEDS: lisinopriL 10 MG TABLET PO (09:28)
[2020-02-05] MEDS: FUROSEMIDE 40 MG TABLET PO (09:28)
[2020-02-05] MEDS: glipiZIDE 5 MG TABLET PO (09:28)
[2020-02-05] MEDS: FINASTERIDE 5 MG TABLET PO (09:28)
[2020-02-05] MEDS: PRAVASTATIN SODIUM 20 MG TABLET 40 MG PO (09:28)
--- NOTE | 2020-02-05 10:55 | PM.PNCARD ---
Progress Note: A&P Assessment and Plan (1) Paroxysmal A-fib: Code(s): I48.0 - Paroxysmal atrial fibrillation Status: Chronic Assessment and Plan: Reverted back to sinus rhythm from atrial flutter/fibrillation yesterday. Will discontinue his sotalol completely. His QTC is 517 milliseconds and he remains markedly bradycardic and symptomatic due to weakness. (2) Coronary artery disease: Code(s): I25.10 - Atherosclerotic heart disease of [place] coronary artery without angina pectoris Status: Chronic Assessment and Plan: Decreased EF and abnormal perfusion study as outpatient. Continue current medical regimen but it is advised that he have a coronary angiogram but he still continues to wish to hold off on this at this point. (3) Hypertension: Code(s): I10 - Essential (primary) hypertension Status: Chronic Assessment and Plan: At goal (4) Systolic congestive heart failure: Code(s): I50.20 - Unspecified systolic (congestive) heart failure Status: Acute Assessment and Plan: Furosemide 40 mg IV x1. Basic metabolic panel in morning. EF has significantly declined from previous ejection fraction with an abnormal perfusion study as an outpatient. PT/OT eval and treat Subjective Date/time seen: 02/05/20 10:55 Interval history: Reason for admission: Atrial flutter shortness breath Date of service 02/05/2020: Shortness of breath is better. Edema is worse. He feels wiped out and tired. No chest pain Review of Systems Constitutional: Constitutional: Reports fatigue and Reports weakness Eyes: Eyes: Reports no additional eye complaints ENT: Reports system reviewed and no additional complaints, except as documented Cardiovascular: Cardiovascular: Reports pedal edema and Reports dyspnea on exertion Respiratory: Respiratory: Reports dyspnea on exertion Gastrointestinal: Gastrointestinal: Reports no additional gastrointestinal complaints Musculoskeletal: Musculoskeletal: Reports myalgias Integumentary/Breasts: Skin/Breast: Reports system reviewed and no additional complaints, except as docu Neurologic: Reports system reviewed and no additional complaints, except as documented and Reports weakness Psychiatric: Psychiatric: Denies anxiety Endocrine: Endocrine: Reports fatigue Hematologic/Lymphatic: Hematologic/Lymphatic: Denies easy bleeding Allergic/Immunologic: Allergic/Immunologic: Denies GI upset with certain foods Exam Const: General: comfortable and no acute distress Other: Pleasant elderly man appears to be his stated age in no distress of any kind HENMT: Mouth: Yes moist mucous membranes Eyes: Sclera: sclerae normal Pupils: Equal, round and reactive pupils present Neck: Neck: supple and no JVD Thyroid: thyroid normal Other: Flutter waves are noted in the jugular venous pressure wave Resp: Effort & Inspection: normal respiratory effort Auscultation: clear to auscultation bilaterally Other: Scant crackles at the right base Cardio: Rate: bradycardic Rhythm: regular rhythm GI: Auscultation: normal bowel sounds Skin: General skin exam: normal color Neuro: Cranial nerves: Yes Equal, round and reactive pupils present Cognition (Neuro): normal cognition Extrem: General: normal to inspection Other: Mild bipedal edema good arterial pulses Objective Data Vital Signs Vital Signs: Vital Signs - 24 hr 02/04/20 12:00 02/04/20 14:00 02/04/20 16:00 Temperature 36.5 C 35.9 C L Pulse Rate 47 L 52 L 48 L Respiratory Rate 16 18 Blood Pressure 137/75 131/62 Pulse Oximetry 98 99 02/04/20 17:55 02/04/20 19:51 02/04/20 20:00 Temperature 36.6 C Pulse Rate 47 L 48 L 51 L Respiratory Rate 18 18 Blood Pressure 123/68 Pulse Oximetry 100 99 02/04/20 20:16 02/04/20 22:00 02/04/20 23:07 Temperature 36.5 C Pulse Rate 52 L 45 L 44 L Respiratory Rate 20 Blood Pressure 137/74 Pulse Oximetry 97
[2020-02-05] MEDS: FUROSEMIDE INJ 40 MG/4 ML VIAL IV PUSH (12:13)
[2020-02-05 12:21] LABS: Glucose Point of Care 127 (65-105)
[2020-02-05 17:00] LABS: Glucose Point of Care 124 (65-105)
[2020-02-05] MEDS: WARFARIN (*PBKC) 4 MG TABLET PO (17:15)
[2020-02-05 20:37] LABS: Glucose Point of Care 125 (65-105)
[2020-02-06] VITALS (8 sets, daily range): BP systolic 134–137; BP diastolic 66–67; PULSE 47–55; RESP 18–20; TEMP 36–36.6; O2SAT 97–100
[2020-02-06 05:16] LABS: INR 2.7; Prothrombin Time 29.3 Seconds (11.1-14.7)
[2020-02-06 05:34] LABS: Anion Gap 4 mmol/L (8-16); Blood Urea Nitrogen 47 mg/dL (9-20); Calcium 8.2 mg/dL (8.4-10.2); Carbon Dioxide 31 mmol/L (22-30); Chloride 104 mmol/L (98-107); Estimated CRCL calculation 32 ml/min; Estimated Glomerular Filt Rate 45; Glucose 92 mg/dL (75-110); Potassium 3.9 mmol/L (3.4-5.0); Sodium 139 mmol/L (137-145)
[2020-02-06 08:50] LABS: Glucose Point of Care 76 (65-105)
[2020-02-06] MEDS: FUROSEMIDE 40 MG TABLET PO (09:46)
[2020-02-06] MEDS: FINASTERIDE 5 MG TABLET PO (09:46)
[2020-02-06] MEDS: glipiZIDE 5 MG TABLET PO (09:46)
[2020-02-06] MEDS: ASPIRIN 81 MG ENTERIC TABLET PO (09:46)
[2020-02-06] MEDS: FERROUS SULFATE 324 MG TABLET PO (09:46)
[2020-02-06] MEDS: lisinopriL 10 MG TABLET PO (09:47)
[2020-02-06] MEDS: PRAVASTATIN SODIUM 20 MG TABLET 40 MG PO (09:47)
[2020-02-06 12:19] LABS: Glucose Point of Care 101 (65-105)
--- NOTE | 2020-02-06 14:52 | PM.DS ---
DS: Admitting Diagnosis Admitting Diagnosis Admitting Diagnosis: Atrial flutter with rapid ventricular response DS: Discharge Diagnosis Discharge Diagnosis (1) Paroxysmal A-fib: Code(s): I48.0 - Paroxysmal atrial fibrillation Status: Chronic Assessment and Plan: He was started on sotalol. He reverted back to sinus rhythm from atrial flutter/fibrillation 02/03/2020. He was significantly bradycardic even though sotalol was decreased to 40 mg p.o. b.i.d.. QTC was 517 milliseconds. Due to bradycardia and weakness sotalol was discontinued. Heart rate improved into the 50s with no further drops into the 30s. He maintained sinus rhythm/sinus bradycardia. Anticoagulated with warfarin. Has been therapeutic through the entire hospital stay. (2) Coronary artery disease: Code(s): I25.10 - Atherosclerotic heart disease of [place] coronary artery without angina pectoris Status: Chronic Assessment and Plan: Decreased EF and abnormal perfusion study as outpatient. Continue current medical regimen but it is advised that he have a coronary angiogram but he still continues to wish to hold off on this at this point. (3) Hypertension: Code(s): I10 - Essential (primary) hypertension Status: Chronic Assessment and Plan: At goal (4) Systolic congestive heart failure: Code(s): I50.20 - Unspecified systolic (congestive) heart failure Status: Acute Assessment and Plan: EF has significantly declined from previous ejection fraction with an abnormal perfusion study as an outpatient. He diuresed well with furosemide doses that were given. Renal function was stable. DS: Summary Hospital Course Reason for hospitalization: Atrial flutter with rapid ventricular response. LV dysfunction an abnormal stress test Hospital Course: 84-year-old male known to Dr. Martin that was admitted from the office because of atrial flutter with rapid ventricular response. Known to have coronary artery disease as well as a history of atrial arrhythmias. Cardiac catheterization in 2015 revealed severe left main disease. He underwent surgical revascularization with an internal mammary graft to the LAD and a radial graft to the obtuse marginal branch of circumflex. Over the summer of 2019 he had shortness of breath and was felt has some congestive heart failure treated with diuretics. Improved clinically. Noninvasive studies done in follow-up with an echocardiogram demonstrating LV systolic dysfunction with the ejection fraction 30-35%. Nuclear stress test had evidence of anterior ischemia. He is reluctant to repeat and angiography at this time. EKG done on the day of admission revealed atrial flutter with a 2-1 conduction at a rate of 140 beats per minute. He was started on sotalol in hopes of restoring normal sinus rhythm. He converted to sinus bradycardia at a rate of 46 beats per minute on 02/03/2020. He remained significantly bradycardiac even though his sotalol was decreased to 40 mg b.i.d. and subsequently discontinued due to complaints of weakness and QTc of 505 ms. His bradycardia improved. He was feeling better and discharged home without sotalol or Metoprolol. Will check an EKG and BMP next week. He will follow-up with Evelin Villela NP in the office in the beginning of February. Status at Discharge Functional status at discharge: independent ambulation Overall status at discharge: patient is progressing back to baseline Time Spent with Patient Time attestation: Total time spent providing and/or coordinating discharge services: 15 minutes to do discharge summary 10 minutes to do discharge orders. Seen by Dr. Martin on day of discharge. Exam Const: General: comfortable and no acute distress Other: Pleasant elderly man appears to be his stated age in no distre
== END 2020-02-06 14:39 | disposition home or self-care (01) | DRG 308 ==
PROVIDERS: Internal Medicine Cardiovascular Disease; Admitting Provider Specialist; PCP Family Medicine; Visit Provider Nurse Practitioner Adult Health
DX: I48.92 Unspecified atrial flutter (principal); I50.21 Acute systolic (congestive) heart failure; I13.0 Hypertensive heart and chronic kidney disease with heart failure and stage 1 through stage 4 chronic kidney disease, or unspecified chronic kidney disease; I48.20 Chronic atrial fibrillation, unspecified; E11.22 Type 2 diabetes mellitus with diabetic chronic kidney disease; N18.30 Chronic kidney disease, stage 3 unspecified; I25.10 Atherosclerotic heart disease of native coronary artery without angina pectoris; M19.90 Unspecified osteoarthritis, unspecified site; D64.9 Anemia, unspecified; Z90.49 Acquired absence of other specified parts of digestive tract; Z95.1 Presence of aortocoronary bypass graft; Z87.891 Personal history of nicotine dependence; I48.0 Paroxysmal atrial fibrillation
CPT/HCPCS: 36415; 80048; 80053; 83880; 85027; 85610; 93005; 97161; 97165; A9270; G0378; G0379; J1940

== ENCOUNTER 2020-02-18 12:32 | Inpatient (IN) | payer MEDICARE, SELFPAY ==
[2020-02-18] VITALS (29 sets, daily range): BP systolic 113–166; BP diastolic 63–91; PULSE 64–130; RESP 16–23; TEMP 36.5–36.9; O2SAT 95–98; BMI 22.2
--- NOTE | ~2020-02-18 | XR_ITS ---
EXAMINATION: XR chest 1V portable EXAM DATE: 02/18/2020 13:12 INDICATION: Weakness. TECHNIQUE: Portable AP frontal chest x-ray was obtained. Comparison is made to prior examination from 12/28/2019. FINDINGS: Mild cardiomegaly and pulmonary vascular congestion. There is indistinct reticulation with a bibasal predominance which may indicate pulmonary edema. Infection not excludable. There is no pneu mothorax suspected. There are no pleural effusions. Sternotomy wires are present without findings to suggest sternal dehiscence. The bones are osteopenic. There are bony degenerative changes. Compared to prior exam, some improvement in the congestion and heart size. IMPRESSION: Findings consistent with mild CHF exacerbation but please clinically correlate. Reviewed, dictated and finalized at location B. RWRITING ANALYST IMPRESSION: Findings consistent with mild CHF exacerbation but please clinicall y correlate.
--- NOTE | 2020-02-18 12:34 | ECG_ITS ---
Measurements Intervals [place] Rate: 128 P: [place]: 0 QRS: -85 QRSD: 162 T: 81 QT: 350 QTc: 511 Interpretive Statements ATRIAL FIBRILLATION WITH RAPID VENTRICULAR RESPONSE VENTRICULAR PREMATURE COMPLEXES RIGHT BUNDLE BRANCH BLOCK LEFT ANTERIOR FASCICULAR BLOCK BASELINE ARTIFACT- I, III, AVL, AVF, V2-V3 ABNORMAL ECG Electronically Signed On 02-18-2020 13:03:39 CIVIL GEOTECHNICAL ENGINEER by Beck Lopez D.O.
--- NOTE | 2020-02-18 12:40 | PC.NURSE ---
patient here with weakness and possible CHF. see initial nursing notes. alert. oriented x 3-4. does appear pale and weak. EKG done. SL inserted by EMS. on equipment monitor phototypesetting.
--- NOTE | 2020-02-18 12:54 | ED.GENADULT ---
HPI - General Adult General Chief complaint: Weakness Stated complaint: WEAKNESS Source: patient History of Present Illness HPI narrative: Patient is a 84 y/o male complaining of severe generalized weakness for several days. There is no alleviating or exacerbating factor. He states that he feels like he is going to pass out, but did not actually pass out. He also feels slightly SOB. He denies any chest pain. Related Data Home Medications Medication Instructions Recorded Confirmed blood sugar diagnostic #10 each 01/10/19 02/01/20 lancets 33 gauge #100 each 01/10/19 02/01/20 aspirin 81 mg PO DAILY 02/01/20 02/01/20 finasteride 5 mg PO DAILY 02/01/20 02/01/20 glipizide 5 mg PO DAILY 02/01/20 02/01/20 lisinopril 10 mg PO DAILY 02/01/20 02/01/20 nitroglycerin 0.4 mg sublingual 0.4 mg SUBLINGUAL Q5M PRN 02/01/20 02/01/20 tablet warfarin 4 mg PO DAILY 02/01/20 02/01/20 Allergies Allergy/AdvReac Type Severity Reaction Status Date / Time No Known Allergies Allergy Verified 02/01/20 10:16 Review of Systems Constitutional: Constitutional: Denies chills, Denies fever(s), Denies headache(s) and Reports weakness Eyes: Eyes: Denies blurry vision ENT: Denies headache(s) and Denies neck pain Cardiovascular: Cardiovascular: Denies chest pain and Reports dyspnea Respiratory: Respiratory: Denies cough and Reports dyspnea Gastrointestinal: Gastrointestinal: Denies abdominal pain, Denies diarrhea, Denies nausea and Denies vomiting Genitourinary: Genitourinary: Denies hematuria and Denies dysuria Musculoskeletal: Musculoskeletal: Denies back pain and Denies neck pain Neurologic: Denies headache(s) and Reports weakness [facility] Past Medical History Medical History Acute pancreatitis DARLEEN (acute kidney injury) Anemia Arthritis Atrial fibrillation paroxysmal Cholelithiasis Chronic kidney disease, stage 3 (moderate) Coronary artery disease Last Echocardiogram 12/2018 showed EF 56%, mild tricuspid regurgitation, mild pulmonary hypertension. Diabetes mellitus Home oral medications only. DM renal manif type II Encounter for monitoring sotalol therapy Enlarged prostate Hypercholesteremia Hypertension Kidney stones Left renal mass Orthostatic hypotension Pancreatitis In 2016, November 2018, and March 2019. With confirmed cholelithiasis. Pure hypercholesterolemia Renal mass Shortness of breath Systolic congestive heart failure Urinary frequency Vision abnormalities Weight loss Surgical History Surgical History H/O removal of cyst Benign History of cardiac cath In 2013 prior to CABG. Hx laparoscopic cholecystectomy Hx of CABG 2-vessel CABG in 2012. RODRÍGUEZ to the Left anterior descending and radial artery to the OM Tracheostomy status When he is to in had diptheria. Family History Family History Mother Cerebrovascular accident, Onset Age: 80 Patient's mother is Sibling Family history of diabetes mellitus in first degree relative Father Family history of lung cancer Patient's father is Sibling Gallbladder disease His brother just a couple days after having gallbladder surgery Social History Social History Social History: He is to Aileen. He has nodurable power commercial attorney for healthcare. his also has early Alzheimer's dz and can no longer be the durable power commercial attorney for health care for him. The patient is a full code. 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 He has 1 daughter. He was a smoker ,pack a cigarettes a day for 10 years. He quit 50 years ago. No alcohol or illicit drugs. Smoking status: Former smoker Tobacco type: cigarettes Second hand tobacco smoke exposure: Yes Smoking end date: 02/22/1960
[2020-02-18 13:01] LABS: Hematocrit 35.7 % (42.0-52.0); Immature Granulocyte Absolute 0.01 K/mm3 (0.00-0.031); Immature Granulocyte Percent A 0.5 % (0-0.5); Lymphocytes Absolute Auto 0.38 K/mm3 (0.9-3.2); Lymphocytes Percent Auto 17.7 % (18.3-44.2); Mean Corpuscular HGB Conc 30.8 g/dl (32-36); Mean Corpuscular Hemoglobin 24.7 pg (26-34); Mean Platelet Volume 8.6 fl (7.4-10.4); Monocytes Absolute Auto 0.2 K/mm3 (0.1-0.6); Monocytes Percent Auto 11.2 % (2.6-8.5); Neutrophils Absolute Auto 1.5 K/mm3 (1.3-6.7); Neutrophils Percent Auto 70.6 % (45.5-73.1); Platelet Count Result 136 k/mm3 (150-375); Red Blood Count 4.46 M/mm3 (4.6-6.20); Red Cell Distribution Width 19.3 % (11.5-14.5); White Blood Count 2.2 K/mm3 (4.5-10.0)
--- NOTE | 2020-02-18 13:05 | PC.NURSE ---
patient here with probable CHF. waiting for all test results. on RA with good sats. no distress. denies needs.
[2020-02-18 13:14] LABS: Alanine Aminotransferase 14 U/L (4-50); Alkaline Phosphatase 106 U/L (38-126); Anion Gap 7 mmol/L (8-16); Aspartate Amino Transferase 25 U/L (17-59); Blood Urea Nitrogen 29 mg/dL (9-20); Calcium 8.1 mg/dL (8.4-10.2); Carbon Dioxide 27 mmol/L (22-30); Chloride 105 mmol/L (98-107); Estimated CRCL calculation 34 ml/min; Estimated Glomerular Filt Rate 45; Glucose 151 mg/dL (75-110); Potassium 4.2 mmol/L (3.4-5.0); Sodium 139 mmol/L (137-145)
[2020-02-18 13:16] LABS: INR 2.1
[2020-02-18 13:17] LABS: Partial Thromboplastin Time 45.9 SECONDS (22.3-36.8)
[2020-02-18 13:25] LABS: Troponin I 0.021 ng/mL (0.000-0.034)
--- NOTE | 2020-02-18 14:10 | PC.NURSE ---
resting on stretcher. denies needs. aware of current treatment plan. aware of lab results so far. has call light in hand.
[2020-02-18 14:40] LABS: NT Pro B Type Natriuretic Pept 23900 PG/ML (5-100)
--- NOTE | 2020-02-18 14:53 | ECG_ITS ---
Measurements Intervals [place] Rate: 68 P: 24 [place]: 141 QRS: -79 QRSD: 165 T: 100 QT: 497 QTc: 531 Interpretive Statements SINUS RHYTHM ATRIAL AND VENTRICULAR PREMATURE COMPLEXES RIGHT BUNDLE BRANCH BLOCK LEFT ANTERIOR FASCICULAR BLOCK POSSIBLE LEFT VENTRICULAR HYPERTROPHY ABNORMAL ECG Electronically Signed On 02-18-2020 16:01:09 MANAGING PARTNER by Beck Lopez D.O.
--- NOTE | 2020-02-18 14:55 | PC.NURSE ---
resting on stretcher. denies needs. patient reminded a few times of planned admission based on symptoms and labs. alert and oriented but forgetful. denies needs. has call light in reach. on hammer smith.
[2020-02-18] MEDS: FUROSEMIDE INJ 40 MG/4 ML VIAL IV PUSH (15:49)
--- NOTE | 2020-02-18 15:56 | PC.NURSE ---
resting on stretcher. alert and oriented x 3-4 but appears pale and weak. patient advised of current treatment plan and expected wait time. on cardiac cath technician. side rails up x 2. call light in reach.
--- NOTE | 2020-02-18 15:56 | PC.NURSE ---
lasix given IV. patient has urinal at bedside. provider in room. reviewed treatment plan with patient. planning to admit upstairs.
--- NOTE | 2020-02-18 16:33 | PC.NURSE ---
patient assisted to stand at bedside and use urinal. patient is steady but has trouble with dribbling on floor and clothing. patient aware again to not stand alone. call light in reach. patient aware that bed assigned upstairs. will transfer yasmeen.
[2020-02-18 16:34] LABS: Troponin I 0.021 ng/mL (0.000-0.034)
--- NOTE | 2020-02-18 17:03 | PC.NURSE ---
report given to RN on . will transfer patient to [facility] via tech and drapery hanger.
--- NOTE | 2020-02-18 17:10 | ADMGEN ---
This patient, Alex Baker, was admitted to Medical Room 348-01. Patient/family oriented to hospital policies and general routines including ID bracelet, bed and alarms, visiting hours, pain management, procedures, bathroom and other care routines, personal items, smoking policy, room service/diet, and visiting hours. Information on how to activate the Rapid Response Team has been discussed. Patient/Family are encouraged to report perceived risks to care and to ask questions if they do not understand what they are told or what they should do.
--- NOTE | 2020-02-18 18:00 | PM.IMHP ---
H&P: HPI History of Present Illness Date/Time: 02/18/20 18:00 Chief Complaint: Weakness and near-syncope. Narrative: Alex Baker is an 84-year-old male with systolic congestive heart failure and most recent ejection fraction of 30 to 35%, paroxysmal atrial fibrillation and atrial flutter on long-term anticoagulation, coronary artery disease, hypertension, chronic kidney disease, and type 2 diabetes mellitus who presented to the emergency department earlier today via EMS from home with complaints of generalized weakness. He was recently admitted to the hospital under the Cardiology Service from 02/02/2020 to 02/06/2020. The morning of his admission he was seen by his primary care provider with complaints of significant weakness and at that time he was found to be in atrial flutter with rapid ventricular response. Aside from the weakness he was not really symptomatic with that and specifically reports never having experienced feelings of racing heart or palpitations. He was started on sotalol and converted to a sinus bradycardia prompting a decrease in the sotalol dose however the bradycardia persisted and sotalol was discontinued. He was discharged home and felt better for a week or so however over the last couple of days he notes increasing weakness, fatigue, and fact had a near syncopal episode this morning. On occasion he does have some shortness of breath but goes on to say that he has chronic, mild dyspnea on exertion. He frequently has edema which tends the common go but has been much better since his most recent hospitalization in which he was diuresed. Today on arrival to the hospital he was once again found to be in atrial fibrillation with rapid ventricular response and is being admitted in this setting. He is currently back in a sinus bradycardia and does not feel as weak as he did earlier today. He denies fever, chills, sweats, chest pain, pleuritic pain, palpitations, orthopnea, and PND. No nausea, vomiting, diarrhea, or dysuria. Review of Systems Review of Systems: Narrative: Twelve systems were reviewed with pertinent positives and negatives as per HPI. No recent change in weight however he reportedly has lost about 50 lb in the last 1 year. No headache or neck ache. He denies fever, chills, and sweats. No cough. He denies exposure to those positive for COVID-19. No cold or flu symptoms. He is not good about checking his glucose at home but this morning he was 190 per EMS. No blurry vision, polydipsia, or polyuria. Except as documented, all other systems were reviewed and are negative. [facility] Past Medical History Medical History (Updated 02/18/20 @ 23:06 by Ivonne Tinsley PA-C) Anemia Arthritis Benign prostatic hyperplasia Cholelithiasis Chronic kidney disease, stage 3 Baseline creatinine is between 1.2 and 1.30. Coronary artery disease Status post bypass. Current use of intermediate project manager anticoagulation Essential tremor Gastroesophageal reflux Hyperlipidemia Hypertension Kidney stones Left renal mass Pancreatitis In 2016, November 2018, and March 2019. Paroxysmal atrial fibrillation Renal mass Stable on imaging as of 2016. Systolic congestive heart failure Echocardiogram in January 2020 showed a moderately enlarged left ventricular chamber with moderately reduced systolic function and an estimated ejection fraction of 30 to 35%. Type 2 diabetes mellitus Hemoglobin A1c was 6.8% in 10/2019. Surgical History Surgical History (Updated 02/18/20 @ 23:00 by Ivonne Tinsley PA-C) History of cardiac cath In 2012 prior to CABG. History of coronary artery bypass graft x 2 (~2012) RODRÍGUEZ to the left anterior descending and radial artery to the OM. History of laparoscopic cholecystectomy History of removal of cyst Tracheostomy status As a young child when he had diptheria at the age of 2. Family History Family History Mother Cerebrovascular
[2020-02-19] VITALS (19 sets, daily range): BP systolic 80–136; BP diastolic 42–80; PULSE 59–131; RESP 16–18; TEMP 36.4–36.9; O2SAT 95–99; BMI 22.1
[2020-02-19 00:10] LABS: Glucose Point of Care 206 (65-105)
[2020-02-19] MEDS: WARFARIN (*PBKC) 2 MG TABLET 4 MG PO (00:38)
[2020-02-19 05:38] LABS: Hematocrit 35.5 % (42.0-52.0); Hemoglobin 10.7 g/dL (14.0-18.0); Mean Corpuscular HGB Conc 30.1 g/dl (32-36); Mean Corpuscular Hemoglobin 24.3 pg (26-34); Mean Corpuscular Volume 80.7 fl (80-100); Mean Platelet Volume 9.4 fl (7.4-10.4); Platelet Count Result 153 k/mm3 (150-375); Red Cell Distribution Width 19.1 % (11.5-14.5); White Blood Count 2.3 K/mm3 (4.5-10.0)
[2020-02-19 05:48] LABS: Hemoglobin A1C 6.4 % (<5.7)
[2020-02-19 05:54] LABS: Alanine Aminotransferase 15 U/L (4-50); Albumin Level 2.9 g/dL (3.5-5.1); Alkaline Phosphatase 101 U/L (38-126); Anion Gap 4 mmol/L (8-16); Aspartate Amino Transferase 25 U/L (17-59); Blood Urea Nitrogen 29 mg/dL (9-20); Calcium 8.1 mg/dL (8.4-10.2); Carbon Dioxide 30 mmol/L (22-30); Chloride 104 mmol/L (98-107); Estimated CRCL calculation 33 ml/min; Estimated Glomerular Filt Rate 45; Glucose 135 mg/dL (75-110); Magnesium 1.9 mg/dL (1.6-2.3); Potassium 3.8 mmol/L (3.4-5.0); Sodium 138 mmol/L (137-145)
[2020-02-19 07:27] LABS: Glucose Point of Care 137 (65-105)
--- NOTE | 2020-02-19 08:36 | PM.CNCAR ---
Assessment and Plan Assessment and plan (1) Atrial fibrillation with rapid ventricular response: Code(s): I48.91 - Unspecified atrial fibrillation Status: Resolved Assessment and Plan: 84-year-old male with CAD, history of CABG x2; ischemic cardiomyopathy with recent LVEF 30-35% from 10/22/2019 echocardiogram; atrial fibrillation/flutter on chronic anticoagulation with warfarin, CKD. Patient admitted with denies fatigue and weakness, found to be in atrial fibrillation with RVR. He had spontaneous mandaen to sinus rhythm with improvement in his symptoms. Patient's symptomatology appears to correlate with episodes of AFib with RVR. He also has underlying CHF with reduced ejection fraction, chronic microcytic anemia. - An attempt on rhythm control would be reasonable given correlation of episodes of atrial fibrillation/flutter with patient's decompensation, generalized weakness. He was recently unable to tolerate sotalol due to significant bradycardia and QT prolongation. At this time, given patient's underlying CHF with reduced ejection fraction, amiodarone would be reasonable option. As regards patient's anticoagulation, would change warfarin to apixaban 2.5 mg p.o. b.i.d. based on patient's age and renal function. Start apixaban when INR less than 2. warfarin has been discontinued today. - patient has worsening LV systolic function, ischemia plus minus tachycardia induced. His recent MPI was positive for ischemia. He will need invasive ischemic workup with coronary angiogram in near future. I spoke with the patient, and he is willing for further evaluation. Due to his generalized weakness at present, I would recommend inpatient rehab for next few days, while attempting to optimize his medical treatment including rhythm control. Continue to monitor renal function. - patient has chronic microcytic anemia. He has been on iron supplementation. Recommend further evaluation as per primary team. Check FOBT. - Continue to monitor on telemetry. - I spoke with the nursing staff and PT OT and recommend rehab. (2) Chronic systolic CHF (congestive heart failure): Code(s): I50.22 - Chronic systolic (congestive) heart failure Status: Acute Assessment and Plan: See above (3) CAD (coronary artery disease): Code(s): I25.10 - Atherosclerotic heart disease of [place] coronary artery without angina pectoris Status: Acute Assessment and Plan: see above aspirin, statin (4) Anemia: Code(s): D64.9 - Anemia, unspecified Status: Chronic Assessment and Plan: Check FOBT History of Present Illness History of Present Illness Consult date/time: 02/19/20 08:36 Date of consult: 02/19/2020 Reason for consult: CHF, paroxysmal atrial fib Requesting physician:Dr. Solis GIRARD Chief complaint: HPI: 84-year-old male with CAD, history of CABG x2; ischemic cardiomyopathy with recent LVEF 30-35% from 10/22/2019 echocardiogram; atrial fibrillation/flutter on chronic anticoagulation with warfarin, CKD. Patient was recently hospitalized on 02/01/2020 with atrial flutter with RVR. Apparently, he was given sotalol for rhythm control. Due to significant bradycardia and QT prolongation, sotalol was discontinued.He returns to the hospital with complaints of generalized fatigue and weakness. Patient has dyspnea on mild exertion -NYHA functional class 3 symptoms. He denies chest pain, palpitation, dizziness or syncope. His EKG on admission which I personally evaluated showed atrial fibrillation with RVR. Subsequent EKG showed sinus rhythm, PACs, PVCs, right bundle-branch block, left anterior fascicular block. On telemetry, patient has been in sinus rhythm. serial troponins are negative. INR is therapeutic at 2.2. Patient recently had MPI done on 01/24/2020 which reportedly showed LVEF 41%, severe LV enlargement, ischemia in mid inferior, apical anterior and apical segments. Coronary analilia
[2020-02-19 08:40] LABS: INR 2.2; Prothrombin Time 24.6 Seconds (11.1-14.7)
[2020-02-19] MEDS: lisinopriL 10 MG TABLET PO (08:59)
[2020-02-19] MEDS: EUCERIN CREAM 120 GM JAR 1 APPLIC TOPICAL (09:00)
[2020-02-19] MEDS: ASPIRIN 81 MG ENTERIC TABLET PO (09:00)
[2020-02-19] MEDS: FERROUS SULFATE 324 MG TABLET PO ×2 (09:00→17:22)
[2020-02-19] MEDS: PRAVASTATIN SODIUM 20 MG TABLET 40 MG PO (09:00)
[2020-02-19] MEDS: FUROSEMIDE 40 MG TABLET PO (09:00)
[2020-02-19] MEDS: POTASSIUM CHLORIDE 20 MEQ TABLET.ER PO (09:00)
[2020-02-19] MEDS: FINASTERIDE 5 MG TABLET PO (09:00)
[2020-02-19] MEDS: AMIODARONE HCL 200 MG TABLET PO ×2 (09:38→21:45)
[2020-02-19 12:11] LABS: Glucose Point of Care 190 (65-105)
--- NOTE | 2020-02-19 12:14 | PM.IMPN ---
Progress Note: A&P Assessment and Plan (1) Atrial fibrillation with rapid ventricular response: Code(s): I48.91 - Unspecified atrial fibrillation Status: Resolved Assessment and Plan: Spontaneous conversion now sinus rhythm with some intermittent bradycardia. A few short runs of NSVT are noted on telemetry with which he was asymptomatic. Management per cardiology - appreciate recommendations. He was recently admitted for same, unable to tolerate new sotalol last admission due to bradycardia and was taken off. Noted Dr Forrester's plan to start amiodarone today and monitor telemetry, possible LHC was discussed. Anticoagulated with warfarin, INR 2.[address] Forrester discontinued warfarin and noted plan to start Eliquis once INR < 2.0. Care coordination checked Eliquis pricing and he can afford. (2) Systolic congestive heart failure: Qualifiers: Heart failure chronicity: chronic Qualified Code(s): I50.22 - Chronic systolic (congestive) heart failure Code(s): I50.20 - Unspecified systolic (congestive) heart failure Status: Chronic Assessment and Plan: Chronic systolic CHF with known EF 30-35%. Recent stress demonstrated ischemia. Appreciate cardiology input. Not on beta blockade due to bradycardia. Maintained on his home lisinopril. Cardiac cath in near future has been discussed; inpatient vs outpatient. (3) Generalized weakness: Code(s): R53.1 - Weakness Status: Acute Assessment and Plan: Suspect secondary to above. PT/OT. Did well, walked 40' contact guard in room with therapy. Home health recommended by PT. (4) Type 2 diabetes mellitus: Qualifiers: Diabetes mellitus detention insulin use: without detention use Diabetes mellitus complication status: without complication Qualified Code(s): E11.9 - Type 2 diabetes mellitus without complications Code(s): E11.9 - Type 2 diabetes mellitus without complications Status: Chronic Assessment and Plan: A1c 6.4%. Continue to monitor with accu-cheks and adjust treatment as needed, cover with SSI. (5) Current use of long term acute care registered nurse anticoagulation: Code(s): Z79.01 - penitentiary (current) use of anticoagulants Status: Chronic Assessment and Plan: INR 2.2 this morning on long-term anticoagulation with warfarin. Cardiology has stopped warfarin and noted plans to start Eliquis 2.5 BID once INR < 2.0. (6) Orthostatic hypotension: Code(s): I95.1 - Orthostatic hypotension Status: Acute Assessment and Plan: May have contributed to his symptoms at home. May be related to mild dehydration, hesitant to add any more fluids given his heart failure and actually BUN is improved since last admission. Will monitor at this time, appreciate cardiology input. Subjective Date/time seen: 02/19/20 1100 Interval history: Mr. Baker is an 84yo M presents with general weakness and a near syncopal episode and admitted for monitoring of rhythm control after being found again to be in a fib RVR on arrival. Recent hospital admission for same. He tells me he feels weak this morning. He denies chest pain, palpitations, dizziness or shortness of breath at present. He tolerated some breakfast without nausea or vomiting. Review of Systems Review of Systems: All systems reviewed & are unremarkable except as noted in HPI and below Exam Narrative: Exam Narrative: General: Well-developed elderly male resting comfortably in bed in no acute distress. HEENT: Normocephalic, EOMI. Oral mucosa tacky. Neck: Supple. No JVD. Respiratory: Respirations are even and nonlabored. Lungs are clear to auscultation JOVITA. Cardiovascular: Rate and rhythm regular
[2020-02-19 14:00] LABS: IFOB Positive Control Positive; Immunochemical Fecal Occult Bl Negative (N)
[2020-02-19 16:56] LABS: Glucose Point of Care 161 (65-105)
[2020-02-19 20:26] LABS: Glucose Point of Care 164 (65-105)
[2020-02-20] VITALS (28 sets, daily range): BP systolic 82–144; BP diastolic 52–96; PULSE 52–124; RESP 16–20; TEMP 36.1–36.6; O2SAT 94–100
--- NOTE | 2020-02-20 00:37 | ECG_ITS ---
Measurements Intervals [place] Rate: 120 P: [place]: 0 QRS: -85 QRSD: 163 T: 86 QT: 341 QTc: 482 Interpretive Statements ATRIAL FIBRILLATION WITH RAPID VENTRICULAR RESPONSE VENTRICULAR PREMATURE COMPLEXES RIGHT BUNDLE BRANCH BLOCK LEFT ANTERIOR FASCICULAR BLOCK ABNORMAL ECG Electronically Signed On 02-20-2020 14:16:04 HAT BRUSHER MACHINE by Beck Lopez D.O.
[2020-02-20 01:08] LABS: Glucose Point of Care 147 (65-105)
--- NOTE | 2020-02-20 01:08 | PC.NURSE ---
This patient, Alex Baker, was transferred to [[facility] [id number]] on 02/20/20 at 0108. Personal belongings sent with patient. Report given to [Gladys BECKFORD]. Appropriate documentation sent with patient.
[2020-02-20] MEDS: AMIODARONE 360 MG/D5W 200 ML 360 MG/200 ML BAG 33.33 MG IV CONT ×2 (01:33→13:41)
--- NOTE | 2020-02-20 02:04 | PC.NURSE ---
This patient, Alex De La Cruzrobin, was received from [[id number] ] on 02/20/20 at 0110. Patient/family oriented to unit policies and routines
[2020-02-20 05:40] LABS: Hematocrit 32.3 % (42.0-52.0); Hemoglobin 9.8 g/dL (14.0-18.0); Lymphocytes Absolute Auto 0.53 K/mm3 (0.9-3.2); Lymphocytes Percent Auto 23.3 % (18.3-44.2); Mean Corpuscular HGB Conc 30.3 g/dl (32-36); Mean Corpuscular Hemoglobin 23.9 pg (26-34); Mean Corpuscular Volume 78.8 fl (80-100); Mean Platelet Volume 9.6 fl (7.4-10.4); Monocytes Absolute Auto 0.2 K/mm3 (0.1-0.6); Monocytes Percent Auto 10.1 % (2.6-8.5); Neutrophils Absolute Auto 1.5 K/mm3 (1.3-6.7); Neutrophils Percent Auto 66.6 % (45.5-73.1); Platelet Count Result 136 k/mm3 (150-375); Red Cell Distribution Width 18.9 % (11.5-14.5); White Blood Count 2.3 K/mm3 (4.5-10.0)
[2020-02-20 05:42] LABS: INR 2.2; Prothrombin Time 24.9 Seconds (11.1-14.7)
[2020-02-20 05:50] LABS: Anion Gap 8 mmol/L (8-16); Blood Urea Nitrogen 33 mg/dL (9-20); Calcium 7.8 mg/dL (8.4-10.2); Carbon Dioxide 28 mmol/L (22-30); Chloride 102 mmol/L (98-107); Estimated CRCL calculation 35 ml/min; Estimated Glomerular Filt Rate 48; Glucose 149 mg/dL (75-110); Potassium 3.7 mmol/L (3.4-5.0); Sodium 138 mmol/L (137-145)
[2020-02-20 06:08] LABS: Anisocytosis 1+ (NORMAL); Ovalocytes 1+ (NORMAL)
--- NOTE | 2020-02-20 08:00 | ECG_ITS ---
Measurements Intervals [place] Rate: 105 P: [place]: 0 QRS: -84 QRSD: 168 T: 89 QT: 368 QTc: 487 Interpretive Statements ATRIAL FIBRILLATION WITH RAPID VENTRICULAR RESPONSE FREQUENT VENTRICULAR PREMATURE COMPLEXES RIGHT BUNDLE BRANCH BLOCK LEFT ANTERIOR FASCICULAR BLOCK VOLTAGE CRITERIA FOR LVH ABNORMAL ECG Electronically Signed On 02-20-2020 14:21:33 [employer]MICAL [employer] by Beck Lopez D.O.
[2020-02-20 08:12] LABS: Glucose Point of Care 155 (65-105)
[2020-02-20] MEDS: POTASSIUM CHLORIDE 20 MEQ TABLET.ER PO (08:24)
[2020-02-20] MEDS: FERROUS SULFATE 324 MG TABLET PO ×2 (08:24→18:20)
[2020-02-20] MEDS: EUCERIN CREAM 120 GM JAR 1 APPLIC TOPICAL (08:25)
[2020-02-20] MEDS: ASPIRIN 81 MG ENTERIC TABLET PO (08:25)
[2020-02-20] MEDS: PRAVASTATIN SODIUM 20 MG TABLET 40 MG PO (08:25)
[2020-02-20] MEDS: FINASTERIDE 5 MG TABLET PO (08:25)
--- NOTE | 2020-02-20 10:01 | PM.PNCARD ---
Progress Note: A&P Assessment and Plan (1) Atrial fibrillation with rapid ventricular response: Code(s): I48.91 - Unspecified atrial fibrillation Status: Resolved Assessment and Plan: 84-year-old male with CAD, history of CABG x2; ischemic cardiomyopathy with recent LVEF 30-35% from 10/22/2019 echocardiogram; atrial fibrillation/flutter on chronic anticoagulation with warfarin, CKD. Admitted with fatigue and weakness, found to be in atrial fibrillation with RVR. He had spontaneous yazidi to sinus rhythm with improvement in his symptoms. His symptomatology appears to correlate with episodes of AFib with RVR. He also has underlying CHF with reduced ejection fraction, chronic microcytic anemia. Attempting rhythm control given correlation of episodes of atrial fibrillation/flutter with his decompensation and generalized weakness. Admitted 02/01/2020 with atrial fibrillation with rapid ventricular response. Unable to tolerate sotalol due to significant bradycardia and QT prolongation. Started on amiodarone 02/19/2020 with yazidi of sinus rhythm. Overnight he went back into atrial fibrillation with rapid ventricular response. He had some respiratory distress. A rapid was called. He was transfer to IMU and started on amiodarone drip. He converted to normal sinus rhythm at 0324. At 0832 he went back in atrial fibrillation with heart rates between 104 and 122. Converted again at 1033 to sinus rhythm. Continue Amiodarone at 1 mg/min for now. Dr Forrester recommended changing warfarin to apixaban 2.5 mg p.o. b.i.d. based on his age and renal function. Start apixaban when INR less than 2. Warfarin discontinued 02/19/2020 His worsening LV systolic function, ischemia plus minus tachycardia induced. His recent MPI was positive for ischemia. He will need invasive ischemic workup with coronary angiogram in near future. Dr Forrester spoke with him and he is willing for further evaluation. Dr Forrester felt that he could be done as an outpatient if his heart rate can get under control. He is not opposed to doing the cardiac catheterization during this hospitalization. Due to his generalized weakness at present, inpatient rehab was recommended. Was seen by PT 02/19/2020. He states today he is so weak that he does not feel like he would be able to participate with physical therapy. He has been found to be orthostatic. Furosemide and lisinopril are on hold at this time. Chronic microcytic anemia. He has been on iron supplementation. Recommend further evaluation as per primary team. IFOB negative. (2) Chronic systolic CHF (congestive heart failure): Code(s): I50.22 - Chronic systolic (congestive) heart failure Status: Acute Assessment and Plan: See above (3) CAD (coronary artery disease): Code(s): I25.10 - Atherosclerotic heart disease of [place] coronary artery without angina pectoris Status: Acute Assessment and Plan: see above aspirin, statin (4) Anemia: Code(s): D64.9 - Anemia, unspecified Status: Chronic Assessment and Plan: IFOB negative Subjective Date/time seen: 02/20/20 10:01 Interval history: Follow-up for: Atrial fibrillation with rapid ventricular response, generalized weakness, near syncopal episode, orthostatic hypotension, coronary artery disease with abnormal stress test. Date of service: 02/20/2020 Subjective: Not feeling well today. Feels very weak and at this time short of breath. He describes his shortness of breath is in inability to get in a deep breath. He was very short of breath, as if he ran a race, when he went to the bathroom this morning. No chest discomfort. Dizzy when he got up to the bathroom today. Review of Systems Constitutional: Constitutional: Reports fatigue and Reports weakness
[2020-02-20] MEDS: INSULIN ASPART (*BKC) 100 UNITS/ML SUB-Q (12:00)
[2020-02-20 12:13] LABS: Glucose Point of Care 247 (65-105)
--- NOTE | 2020-02-20 14:47 | PM.IMPN ---
Progress Note: A&P Assessment and Plan (1) Atrial fibrillation with rapid ventricular response: Code(s): I48.91 - Unspecified atrial fibrillation Status: Resolved Assessment and Plan: In and out of a fib RVR. Another recurrence earlier this morning. Management per cardiology - appreciate recommendations. He was recently admitted for same, unable to tolerate new sotalol last admission due to bradycardia and was taken off. Amiodarone initiated yesterday 02/18, now remains on amiodarone drip; possible LHC was discussed. Anticoagulated with warfarin, INR 2.2 today. Warfarin discontinued 02/18 and noted plan to start Eliquis once INR < 2.0. Care coordination checked Eliquis pricing and he can afford. (2) Systolic congestive heart failure: Qualifiers: Heart failure chronicity: chronic Qualified Code(s): I50.22 - Chronic systolic (congestive) heart failure Code(s): I50.20 - Unspecified systolic (congestive) heart failure Status: Chronic Assessment and Plan: Chronic systolic CHF with known EF 30-35%. Recent stress testing demonstrated ischemia. Appreciate cardiology input. Was not on beta blockade due to bradycardia. Home lisinopril held secondary to orthostasis. Cardiac cath in near future has been discussed; inpatient vs outpatient. (3) Generalized weakness: Code(s): R53.1 - Weakness Status: Acute Assessment and Plan: Suspect secondary to above. PT/OT. (4) Type 2 diabetes mellitus: Qualifiers: Diabetes mellitus complication status: without complication Diabetes mellitus terminologist insulin use: without fdc use Qualified Code(s): E11.9 - Type 2 diabetes mellitus without complications Code(s): E11.9 - Type 2 diabetes mellitus without complications Status: Chronic Assessment and Plan: A1c 6.4%. Continue to monitor with accu-cheks and adjust treatment as needed, cover with SSI. (5) Current use of terminologist anticoagulation: Code(s): Z79.01 - [facility] (current) use of anticoagulants Status: Chronic Assessment and Plan: INR 2.2 this morning; on long-term anticoagulation previously with warfarin. Cardiology has stopped warfarin 02/18 and noted plans to start Eliquis 2.5 BID once INR < 2.0. (6) Orthostatic hypotension: Code(s): I95.1 - Orthostatic hypotension Status: Acute Assessment and Plan: May have contributed to his symptoms at home. May be related to mild dehydration, hesitant to add any more fluids given his heart failure and actually BUN is improved since last admission. Lasix and lisinopril held. Will monitor at this time, appreciate cardiology input. (7) Microcytic anemia: Code(s): D50.9 - Iron deficiency anemia, unspecified Status: Chronic Assessment and Plan: A chronic microcytic anemia is noted. Hgb low but stable. Iron studies 1 month ago demonstrate iron deficiency and possible component of anemia of chronic disease given low TIBC. He has no evidence of acute bleeding. Stool occult blood is negative. Monitor CBC and continue his iron supplementation. Subjective Date/time seen: 02/20/20 1100 Interval history: Mr. Baker is an 84yo M admitted for a fib RVR, orthostatic hypotension. He feels worse than yesterday. He feels short of breath, denies chest pain. Feels weak and tired. Shortness of breath and dizziness walking to bathroom this morning. He denies nausea or vomiting. Review of Systems Review of Systems: All systems reviewed & are unremarkable except as noted in HPI and below Exam Narrative: Exam Narrative: General: Well-developed elderly male resti
[2020-02-20 17:11] LABS: Glucose Point of Care 172 (65-105)
[2020-02-20 19:48] LABS: Glucose Point of Care 193 (65-105)
[2020-02-21] VITALS (26 sets, daily range): BP systolic 85–133; BP diastolic 51–73; PULSE 56–81; RESP 16–22; TEMP 35.6–36.9; O2SAT 94–100
[2020-02-21 05:39] LABS: Eosinophils Percent Auto 0.4 % (0-4.4); Hemoglobin 10.4 g/dL (14.0-18.0); Immature Granulocyte Absolute 0.01 K/mm3 (0.00-0.031); Immature Granulocyte Percent A 0.4 % (0-0.5); Lymphocytes Absolute Auto 0.47 K/mm3 (0.9-3.2); Lymphocytes Percent Auto 20.8 % (18.3-44.2); Mean Corpuscular HGB Conc 30.6 g/dl (32-36); Mean Corpuscular Hemoglobin 24.4 pg (26-34); Mean Corpuscular Volume 79.8 fl (80-100); Mean Platelet Volume 9.5 fl (7.4-10.4); Monocytes Absolute Auto 0.2 K/mm3 (0.1-0.6); Monocytes Percent Auto 9.3 % (2.6-8.5); Neutrophils Absolute Auto 1.6 K/mm3 (1.3-6.7); Neutrophils Percent Auto 69.1 % (45.5-73.1); Platelet Count Result 133 k/mm3 (150-375); Red Blood Count 4.26 M/mm3 (4.6-6.20); Red Cell Distribution Width 18.9 % (11.5-14.5); White Blood Count 2.3 K/mm3 (4.5-10.0)
[2020-02-21 05:58] LABS: Anion Gap 6 mmol/L (8-16); Blood Urea Nitrogen 34 mg/dL (9-20); Calcium 8.1 mg/dL (8.4-10.2); Carbon Dioxide 29 mmol/L (22-30); Chloride 103 mmol/L (98-107); Estimated CRCL calculation 38 ml/min; Estimated Glomerular Filt Rate 53; Glucose 133 mg/dL (75-110); Magnesium 2.1 mg/dL (1.6-2.3); Potassium 4.1 mmol/L (3.4-5.0); Sodium 138 mmol/L (137-145)
[2020-02-21 06:25] LABS: Anisocytosis 1+ (NORMAL); Hypochromasia 1+ (NORMAL); Platelet Estimate Adequate (Adequate); Poikilocytosis 1+ (NORMAL); Tear Drop Cells 1+ (NORMAL)
--- NOTE | 2020-02-21 08:00 | ECG_ITS ---
Measurements Intervals [place] Rate: 62 P: 72 [place]: 163 QRS: -79 QRSD: 164 T: 109 QT: 493 QTc: 501 Interpretive Statements SINUS RHYTHM VENTRICULAR PREMATURE COMPLEXES RIGHT BUNDLE BRANCH BLOCK LEFT ANTERIOR FASCICULAR BLOCK PROLONGED QT INTERVAL BASELINE ARTIFACT- II, III, AVF ABNORMAL ECG Electronically Signed On 02-21-2020 16:46:01 [employer] by Beck Lopez D.O.
[2020-02-21] MEDS: PRAVASTATIN SODIUM 20 MG TABLET 40 MG PO (08:13)
[2020-02-21] MEDS: ASPIRIN 81 MG ENTERIC TABLET PO (08:13)
[2020-02-21] MEDS: FINASTERIDE 5 MG TABLET PO (08:13)
[2020-02-21] MEDS: EUCERIN CREAM 120 GM JAR 1 APPLIC TOPICAL (08:13)
[2020-02-21] MEDS: FERROUS SULFATE 324 MG TABLET PO ×2 (08:14→16:52)
[2020-02-21 09:26] LABS: Glucose Point of Care 135 (65-105)
--- NOTE | 2020-02-21 10:44 | PM.PNCARD ---
Progress Note: A&P Assessment and Plan (1) Atrial fibrillation with rapid ventricular response: Code(s): I48.91 - Unspecified atrial fibrillation Status: Resolved Assessment and Plan: 84-year-old male with CAD, history of CABG x2; ischemic cardiomyopathy with recent LVEF 30-35% from 10/22/2019 echocardiogram; atrial fibrillation/flutter on chronic anticoagulation with warfarin, CKD. Admitted with fatigue and weakness, found to be in atrial fibrillation with RVR. He had spontaneous yazdanism to sinus rhythm with improvement in his symptoms. His symptomatology appears to correlate with episodes of AFib with RVR. He also has underlying CHF with reduced ejection fraction, chronic microcytic anemia. Attempting rhythm control given correlation of episodes of atrial fibrillation/flutter with his decompensation and generalized weakness. Admitted 02/01/2020 with atrial fibrillation with rapid ventricular response. Unable to tolerate sotalol due to significant bradycardia and QT prolongation. Started on amiodarone 02/19/2020 with yazdanism of sinus rhythm. IV amiodarone was discontinued. Add amiodarone p.o.[address] Forrester recommended changing warfarin to apixaban 2.5 mg p.o. b.i.d. based on his age and renal function. Start apixaban when INR less than 2. Warfarin discontinued 02/19/2020 His worsening LV systolic function, ischemia plus minus tachycardia induced. His recent MPI was positive for ischemia. He will need invasive ischemic workup with coronary angiogram in near future. Dr Forrester spoke with him and he is willing for further evaluation. Dr Forrester felt that he could be done as an outpatient if his heart rate can get under control. Due to his generalized weakness at present, inpatient rehab was recommended. Was seen by PT 02/19/2020. He states today he is so weak that he does not feel like he would be able to participate with physical therapy. He has been found to be orthostatic. Furosemide and lisinopril are on hold at this time. Chronic microcytic anemia. He has been on iron supplementation. Recommend further evaluation as per primary team. IFOB negative. (2) Chronic systolic CHF (congestive heart failure): Code(s): I50.22 - Chronic systolic (congestive) heart failure Status: Acute Assessment and Plan: See above (3) CAD (coronary artery disease): Code(s): I25.10 - Atherosclerotic heart disease of [place] coronary artery without angina pectoris Status: Acute Assessment and Plan: see above aspirin, statin (4) Anemia: Code(s): D64.9 - Anemia, unspecified Status: Chronic Assessment and Plan: IFOB negative Subjective Date/time seen: date of service 02/21/20 10:44 Interval history: Mr. Baker is an 84yo M admitted for a fib RVR, orthostatic hypotension. He feels worse than yesterday. He feels short of breath, denies chest pain. Feels weak and tired. Shortness of breath and dizziness walking to bathroom this morning. He denies nausea or vomiting. 02/21/2020- feels short of breath. remains in sinus rhythm with frequent premature atrial contractions. Denies chest pain. Review of Systems Constitutional: Constitutional: Denies excessive sweating, Reports fatigue and Reports weakness Eyes: Eyes: Denies blurry vision ENT: Reports Normal hearing present Cardiovascular: Cardiovascular: Denies chest pain, Reports lightheadedness, Denies palpitations, Reports dyspnea and Reports dyspnea on exertion Respiratory: Respiratory: Denies cough, Reports dyspnea and Reports dyspnea on exertion Gastrointestinal: Gastrointestinal: Denies bloating, Denies nausea and Denies vomiting Genitourinary: Genitourinary: Denies hematuria Musculoskeletal: Musculoskeletal: Denies back pain and Denies arthralgias Integumentary/Breasts: S
[2020-02-21 12:05] LABS: Glucose Point of Care 196 (65-105)
--- NOTE | 2020-02-21 12:54 | PCDIET ---
Nutrition Follow-Up Complete: Nutrition Diagnosis: Inadequate oral intake related to less food availability as evidence by +34lb wt loss over the last year Nutrition Goal: PO intake of 75% of meals and supplements while here to maintain wt Goal in progress. Average intake since 02/20/20 has been 66% of recorded meals on heart healthy diet. Patient reports taking Ensure Enlive supplement twice daily, but requests alternate flavor. Only c/o being tired after therapy. Last recorded weight is 71.6 kg which is increased from last review. Bowel Motility: Last documented BM on 02/20/20 x 1. Labs Reviewed: Hgb (10.4), Hct (34.0), Glu (133), BUN (34), Ca (8.1) Meds Noted: Ferrous Sulfate, Lasix, Lisinopril, KCl, Pravastatin Additional Notes: No documented pressure ulcers. Will continue to monitor with same goal. Nutrition Monitoring and Evaluation: Follow up every 5 days.
--- NOTE | 2020-02-21 14:30 | PM.IMPN ---
Progress Note: A&P Assessment and Plan (1) Atrial fibrillation with rapid ventricular response: Code(s): I48.91 - Unspecified atrial fibrillation Status: Resolved Assessment and Plan: In and out of A fib RVR however today he remains in sinus rhythm so far. Management per cardiology - appreciate recommendations. He was recently admitted for same, unable to tolerate new sotalol last admission due to bradycardia and was taken off. Was treated with oral and IV amiodarone. Now back on oral amio today, possible LHC was discussed. Anticoagulated with warfarin previously, INR 2.0 today. Warfarin discontinued 02/18 and noted plan to start Eliquis once INR < 2.0. Care coordination checked Eliquis pricing and he can afford. (2) Systolic congestive heart failure: Qualifiers: Heart failure chronicity: chronic Qualified Code(s): I50.22 - Chronic systolic (congestive) heart failure Code(s): I50.20 - Unspecified systolic (congestive) heart failure Status: Chronic Assessment and Plan: Chronic systolic CHF with known EF 30-35%. Recent stress testing demonstrated ischemia. Appreciate cardiology input. Was not on beta blockade due to bradycardia. Home lisinopril held secondary to orthostasis. Cardiac cath in near future has been discussed; inpatient vs outpatient. (3) Generalized weakness: Code(s): R53.1 - Weakness Status: Acute Assessment and Plan: Suspect secondary to above. PT/OT. (4) Type 2 diabetes mellitus: Qualifiers: Diabetes mellitus usp insulin use: without usp use Diabetes mellitus complication status: without complication Qualified Code(s): E11.9 - Type 2 diabetes mellitus without complications Code(s): E11.9 - Type 2 diabetes mellitus without complications Status: Chronic Assessment and Plan: A1c 6.4%. BGs are stable. Continue to monitor with accu-cheks and adjust treatment as needed, cover with SSI. (5) Current use of usp anticoagulation: Code(s): Z79.01 - [facility] (current) use of anticoagulants Status: Chronic Assessment and Plan: INR 2.0 this morning; on long-term anticoagulation previously with warfarin. Cardiology has stopped warfarin 02/18 and noted plans to start Eliquis 2.5 BID once INR < 2.0. (6) Orthostatic hypotension: Code(s): I95.1 - Orthostatic hypotension Status: Acute Assessment and Plan: Still orthostatic today. May have contributed to his symptoms at home. May be related to mild dehydration, hesitant to add any more fluids given his heart failure and actually BUN is improved since last admission. Lasix and lisinopril held. Will monitor at this time, appreciate cardiology input. (7) Microcytic anemia: Code(s): D50.9 - Iron deficiency anemia, unspecified Status: Chronic Assessment and Plan: A chronic microcytic anemia is noted, now pancytopenia. Hgb low but stable. Iron studies 1 month ago demonstrate iron deficiency and possible component of anemia of chronic disease given low TIBC. He has no evidence of acute bleeding. Stool occult blood is negative. Monitor CBC and continue his iron supplementation. Low WBC also noted in Dec 2019, may consider outpatient hematology referral at discharge. Subjective Date/time seen: 02/21/20 0845 Interval history: Mr. Baker is an 84yo M admitted for a fib RVR, orthostatic hypotension. He reports feeling about the same as yesterday, still short of breath. Denies chest pain or palpitations. He feels weak and tired. He denies nausea or vomiting, bowel movement this morning. Review of Systems Review of Systems:
[2020-02-21] MEDS: AMIODARONE HCL 200 MG TABLET PO (16:51)
[2020-02-21 16:58] LABS: Glucose Point of Care 180 (65-105)
[2020-02-21 20:40] LABS: Glucose Point of Care 261 (65-105)
[2020-02-22] VITALS (23 sets, daily range): BP systolic 85–153; BP diastolic 53–115; PULSE 54–106; RESP 18–20; TEMP 35.7–36.6; O2SAT 98–100
[2020-02-22 04:51] LABS: Glucose Point of Care 131 (65-105)
[2020-02-22 05:05] LABS: Eosinophils Percent Auto 1.2 % (0-4.4); Hematocrit 33.8 % (42.0-52.0); Hemoglobin 10.3 g/dL (14.0-18.0); Immature Granulocyte Absolute 0.01 K/mm3 (0.00-0.031); Immature Granulocyte Percent A 0.4 % (0-0.5); Lymphocytes Absolute Auto 0.56 K/mm3 (0.9-3.2); Lymphocytes Percent Auto 22.3 % (18.3-44.2); Mean Corpuscular HGB Conc 30.5 g/dl (32-36); Mean Corpuscular Hemoglobin 24.3 pg (26-34); Mean Corpuscular Volume 79.7 fl (80-100); Mean Platelet Volume 9.6 fl (7.4-10.4); Monocytes Absolute Auto 0.3 K/mm3 (0.1-0.6); Neutrophils Absolute Auto 1.7 K/mm3 (1.3-6.7); Neutrophils Percent Auto 66.1 % (45.5-73.1); Platelet Count Result 137 k/mm3 (150-375); Red Blood Count 4.24 M/mm3 (4.6-6.20); Red Cell Distribution Width 18.6 % (11.5-14.5); White Blood Count 2.5 K/mm3 (4.5-10.0)
[2020-02-22 05:18] LABS: INR 1.9
[2020-02-22 05:19] LABS: Anion Gap 2 mmol/L (8-16); Blood Urea Nitrogen 33 mg/dL (9-20); Calcium 8.1 mg/dL (8.4-10.2); Carbon Dioxide 32 mmol/L (22-30); Chloride 103 mmol/L (98-107); Estimated CRCL calculation 38 ml/min; Estimated Glomerular Filt Rate 53; Glucose 136 mg/dL (75-110); Magnesium 2.2 mg/dL (1.6-2.3); Potassium 4.2 mmol/L (3.4-5.0); Sodium 137 mmol/L (137-145)
[2020-02-22 06:03] LABS: Anisocytosis 1+ (NORMAL); Microcytosis 1+ (NORMAL); Platelet Estimate Adequate (Adequate)
[2020-02-22 07:37] LABS: Glucose Point of Care 151 (65-105)
[2020-02-22] MEDS: EUCERIN CREAM 120 GM JAR 1 APPLIC TOPICAL (08:42)
[2020-02-22] MEDS: FINASTERIDE 5 MG TABLET PO (08:43)
[2020-02-22] MEDS: AMIODARONE HCL 200 MG TABLET PO ×2 (08:43→17:19)
[2020-02-22] MEDS: ASPIRIN 81 MG ENTERIC TABLET PO (08:43)
[2020-02-22] MEDS: FERROUS SULFATE 324 MG TABLET PO ×2 (08:43→17:20)
[2020-02-22] MEDS: PRAVASTATIN SODIUM 20 MG TABLET 40 MG PO (08:44)
[2020-02-22] MEDS: APIXABAN 2.5 MG TABLET PO ×2 (08:46→20:42)
--- NOTE | 2020-02-22 11:22 | PM.PNCARD ---
Progress Note: A&P Assessment and Plan (1) Atrial fibrillation with rapid ventricular response: Code(s): I48.91 - Unspecified atrial fibrillation Status: Resolved Assessment and Plan: 84-year-old male with CAD, history of CABG x2; ischemic cardiomyopathy with recent LVEF 30-35% from 10/22/2019 echocardiogram; atrial fibrillation/flutter on chronic anticoagulation with warfarin, CKD. Admitted with fatigue and weakness, found to be in atrial fibrillation with RVR. He had spontaneous confucianism to sinus rhythm with improvement in his symptoms. His symptomatology appears to correlate with episodes of AFib with RVR. He also has underlying CHF with reduced ejection fraction, chronic microcytic anemia. Attempting rhythm control given correlation of episodes of atrial fibrillation/flutter with his decompensation and generalized weakness. Admitted 02/01/2020 with atrial fibrillation with rapid ventricular response. Unable to tolerate sotalol due to significant bradycardia and QT prolongation. Started on amiodarone 02/19/2020 with confucianism of sinus rhythm. IV amiodarone was discontinued. Amiodarone p.o.200 mg b.i.d. controlling A.Fib thus far. Warfarin changed to apixaban 2.5 mg p.o. b.i.d. based on his age and renal function, started this morning by primary service. Warfarin discontinued 02/19/2020 Due to his generalized weakness at present, inpatient rehab was recommended. Was seen by PT 02/19/2020. He states today he is so weak that he does not feel like he would be able to participate with physical therapy. Furosemide and lisinopril are on hold at this time due to orthostasis and relative hypotension. (2) Chronic systolic CHF (congestive heart failure): Code(s): I50.22 - Chronic systolic (congestive) heart failure Status: Acute Assessment and Plan: Reasonably compensated at present. EF 30-35% by echo September 2019, 41% by nuclear stress test 01/24/2020 with Anterior ischemia. His worsening LV systolic function, ischemia +/- tachycardia induced. His recent MPI 01/24/20 was positive for anterior ischemia. He will need invasive ischemic workup with coronary angiogram in near future. Dr Forrester felt that he could be done as an outpatient if his heart rate can get under control. PT in agreement with angiography. He will discuss with family pursuing now or near future. Concern re [place] and weakness ischemic in nature. Would need to hold Apixaban as of tomorrow morning if [facility] Tuesday. Discussed interventional availability due to family emergency, potential need for intervention, optimization of medical management as tolerated and/or transfer to outside facility for higher level care depending upon results. (3) CAD (coronary artery disease): Code(s): I25.10 - Atherosclerotic heart disease of [place] coronary artery without angina pectoris Status: Acute Assessment and Plan: History of CABG. See above Continue aspirin, statin (4) Anemia: Code(s): D64.9 - Anemia, unspecified Status: Chronic Assessment and Plan: IFOB negative Subjective Date/time seen: Date of service: 02/22/20 11:22 Interval history: Mr. Baker is an 84yo M admitted for a fib RVR, orthostatic hypotension. He feels worse than yesterday. He feels short of breath, denies chest pain. Feels weak and tired. Shortness of breath and dizziness walking to bathroom this morning. He denies nausea or vomiting. 02/22/2020- feels short of breath intermittently and with any activity. Denies chest pain or palpitations. Still feels weak and fatigued in general otherwise okay. Remains in sinus rhythm with frequent premature atrial contractions. Review of Systems Constitutional: Constitutional: Denies excessive sweating, Reports fatigue and Reports weakness Eyes: Eyes: Denies blurry vision
--- NOTE | 2020-02-22 12:30 | P.PNIM_ITS ---
Progress Note: A&P Assessment and Plan (1) Atrial fibrillation with rapid ventricular response: Code(s): I48.91 - Unspecified atrial fibrillation Status: Resolved Assessment and Plan: * In and out of A fib RVR however today he remains in sinus rhythm so far. * Management per cardiology - appreciate recommendations. He was recently admitted for same, unable to tolerate new sotalol last admission due to bradycardia and was taken off. Here he has been treated with oral and IV amiodarone. Now remains on oral amio today with controlled rates. * Discussed with Dr Alejandro; discussed possibility of [facility] Tuesday pending clinical course this weekend and interventionalist coverage. * Anticoagulated with warfarin previously. Warfarin discontinued 02/18; INR 1.9 today and Eliquis 2.5 BID started this AM. Will hold Eliquis tomorrow AM in case he proceeds with [facility] Tuesday. Care coordination checked Eliquis pricing and he can afford. (2) Systolic congestive heart failure: Qualifiers: Heart failure chronicity: chronic Qualified Code(s): I50.22 - Chronic systolic (congestive) heart failure Code(s): I50.20 - Unspecified systolic (congestive) heart failure Status: Chronic Assessment and Plan: * Chronic systolic CHF with known EF 30-35%. Recent stress testing demonstrated ischemia. * Appreciate cardiology input. Was not on beta blockade due to bradycardia. Home lisinopril held secondary to orthostasis. Cardiac cath in near future has been discussed; inpatient vs outpatient. (3) Generalized weakness: Code(s): R53.1 - Weakness Status: Acute Assessment and Plan: * Suspect secondary to above. PT/OT. (4) Type 2 diabetes mellitus: Qualifiers: Diabetes mellitus residential insulin use: without long term care phlebotomist use Diabetes mellitus complication status: without complication Qualified Code(s): E11.9 - Type 2 diabetes mellitus without complications Code(s): E11.9 - Type 2 diabetes mellitus without complications Status: Chronic Assessment and Plan: * A1c 6.4%. BGs are stable. Continue to monitor with accu-cheks and adjust treatment as needed, cover with SSI. (5) Current use of long term care phlebotomist anticoagulation: Code(s): Z79.01 - terminologist (current) use of anticoagulants Status: Chronic Assessment and Plan: * INR 1.9 this morning; on long-term anticoagulation previously with warfarin. Cardiology has stopped warfarin 02/18, started Eliquis this morning, see above. (6) Orthostatic hypotension: Code(s): I95.1 - Orthostatic hypotension Status: Acute Assessment and Plan: * Still orthostatic. May have contributed to his symptoms at home. May be related to mild dehydration, hesitant to add any more fluids given his heart failure and actually BUN is improved since last admission. * Lasix and lisinopril held. Will monitor at this time, appreciate cardiology input. (7) Microcytic anemia: Code(s): D50.9 - Iron deficiency anemia, unspecified Status: Chronic Assessment and Plan: * A chronic microcytic anemia is noted, now pancytopenia. Hgb low but stable. Iron studies 1 month ago demonstrate iron deficiency and possible component of anemia of chronic disease given low TIBC. He has no evidence of acute bleeding at this time. Stool occult blood is negative.
--- NOTE | 2020-02-22 12:30 | PM.IMPN ---
Progress Note: A&P Assessment and Plan (1) Atrial fibrillation with rapid ventricular response: Code(s): I48.91 - Unspecified atrial fibrillation Status: Resolved Assessment and Plan: In and out of A fib RVR however today he remains in sinus rhythm so far. Management per cardiology - appreciate recommendations. He was recently admitted for same, unable to tolerate new sotalol last admission due to bradycardia and was taken off. Here he has been treated with oral and IV amiodarone. Now remains on oral amio today with controlled rates. Discussed with Dr Aleajndro; discussed possibility of [facility] Tuesday pending clinical course this weekend and interventionalist coverage. Anticoagulated with warfarin previously. Warfarin discontinued 02/18; INR 1.9 today and Eliquis 2.5 BID started this AM. Will hold Eliquis tomorrow AM in case he proceeds with [facility] Tuesday. Care coordination checked Eliquis pricing and he can afford. (2) Systolic congestive heart failure: Qualifiers: Heart failure chronicity: chronic Qualified Code(s): I50.22 - Chronic systolic (congestive) heart failure Code(s): I50.20 - Unspecified systolic (congestive) heart failure Status: Chronic Assessment and Plan: Chronic systolic CHF with known EF 30-35%. Recent stress testing demonstrated ischemia. Appreciate cardiology input. Was not on beta blockade due to bradycardia. Home lisinopril held secondary to orthostasis. Cardiac cath in near future has been discussed; inpatient vs outpatient. (3) Generalized weakness: Code(s): R53.1 - Weakness Status: Acute Assessment and Plan: Suspect secondary to above. PT/OT. (4) Type 2 diabetes mellitus: Qualifiers: Diabetes mellitus oil heaterman insulin use: without jail use Diabetes mellitus complication status: without complication Qualified Code(s): E11.9 - Type 2 diabetes mellitus without complications Code(s): E11.9 - Type 2 diabetes mellitus without complications Status: Chronic Assessment and Plan: A1c 6.4%. BGs are stable. Continue to monitor with accu-cheks and adjust treatment as needed, cover with SSI. (5) Current use of oil heaterman anticoagulation: Code(s): Z79.01 - superintendent terminal (current) use of anticoagulants Status: Chronic Assessment and Plan: INR 1.9 this morning; on long-term anticoagulation previously with warfarin. Cardiology has stopped warfarin 02/18, started Eliquis this morning, see above. (6) Orthostatic hypotension: Code(s): I95.1 - Orthostatic hypotension Status: Acute Assessment and Plan: Still orthostatic. May have contributed to his symptoms at home. May be related to mild dehydration, hesitant to add any more fluids given his heart failure and actually BUN is improved since last admission. Lasix and lisinopril held. Will monitor at this time, appreciate cardiology input. (7) Microcytic anemia: Code(s): D50.9 - Iron deficiency anemia, unspecified Status: Chronic Assessment and Plan: A chronic microcytic anemia is noted, now pancytopenia. Hgb low but stable. Iron studies 1 month ago demonstrate iron deficiency and possible component of anemia of chronic disease given low TIBC. He has no evidence of acute bleeding at this time. Stool occult blood is negative. Monitor CBC and continue his iron supplementation. Low WBC also noted in Dec 2019, may consider outpatient hematology referral at discharge. Subjective Date/time seen: 02/22/20 0900 Interval history: Mr. Baker is an 84yo M admitted for a fib RVR, orthostatic hypotension. He feels about the same as yesterday, ge
[2020-02-22 12:53] LABS: Glucose Point of Care 170 (65-105)
[2020-02-22] MEDS: INSULIN ASPART (*BKC) 100 UNITS/ML SUB-Q (17:21)
[2020-02-22 17:43] LABS: Glucose Point of Care 248 (65-105)
[2020-02-22 20:25] LABS: Glucose Point of Care 237 (65-105)
[2020-02-23] VITALS (21 sets, daily range): BP systolic 92–153; BP diastolic 55–76; PULSE 55–67; RESP 16–18; TEMP 35.9–36.3; O2SAT 96–100
[2020-02-23 04:50] LABS: Basophils Percent Auto 0.4 % (0.2-1.2); Eosinophils Percent Auto 1.4 % (0-4.4); Hemoglobin 10.3 g/dL (14.0-18.0); Immature Granulocyte Absolute 0.02 K/mm3 (0.00-0.031); Immature Granulocyte Percent A 0.7 % (0-0.5); Lymphocytes Absolute Auto 0.63 K/mm3 (0.9-3.2); Lymphocytes Percent Auto 22.3 % (18.3-44.2); Mean Corpuscular HGB Conc 30.3 g/dl (32-36); Mean Corpuscular Hemoglobin 24.3 pg (26-34); Mean Corpuscular Volume 80.4 fl (80-100); Mean Platelet Volume 9.2 fl (7.4-10.4); Monocytes Absolute Auto 0.3 K/mm3 (0.1-0.6); Monocytes Percent Auto 8.9 % (2.6-8.5); Neutrophils Absolute Auto 1.9 K/mm3 (1.3-6.7); Neutrophils Percent Auto 66.3 % (45.5-73.1); Platelet Count Result 145 k/mm3 (150-375); Red Blood Count 4.23 M/mm3 (4.6-6.20); Red Cell Distribution Width 18.4 % (11.5-14.5); White Blood Count 2.8 K/mm3 (4.5-10.0)
[2020-02-23 05:01] LABS: Prothrombin Time 22.9 Seconds (11.1-14.7)
[2020-02-23 05:02] LABS: Potassium 4.4 mmol/L (3.4-5.0)
[2020-02-23 05:11] LABS: Anion Gap 1 mmol/L (8-16); Blood Urea Nitrogen 31 mg/dL (9-20); Calcium 8.1 mg/dL (8.4-10.2); Carbon Dioxide 30 mmol/L (22-30); Chloride 103 mmol/L (98-107); Estimated CRCL calculation 46 ml/min; Estimated Glomerular Filt Rate > 60; Glucose 148 mg/dL (75-110); Sodium 134 mmol/L (137-145)
[2020-02-23 05:48] LABS: Hypochromasia 1+ (NORMAL); Platelet Estimate Adequate (Adequate)
[2020-02-23 05:49] LABS: Anisocytosis 1+ (NORMAL)
[2020-02-23] MEDS: PRAVASTATIN SODIUM 20 MG TABLET 40 MG PO (08:49)
[2020-02-23] MEDS: ASPIRIN 81 MG ENTERIC TABLET PO (08:49)
[2020-02-23] MEDS: AMIODARONE HCL 200 MG TABLET PO ×2 (08:49→17:06)
[2020-02-23] MEDS: FINASTERIDE 5 MG TABLET PO (08:49)
[2020-02-23] MEDS: FERROUS SULFATE 324 MG TABLET PO ×2 (08:50→17:07)
[2020-02-23] MEDS: EUCERIN CREAM 120 GM JAR 1 APPLIC TOPICAL (08:50)
--- NOTE | 2020-02-23 09:06 | PCOTNOTE ---
Multiple attempts were made to have patient participate in therapy this date, but patient refused each time. Will attempt therapy at a later date.
[2020-02-23 10:27] LABS: Glucose Point of Care 134 (65-105)
[2020-02-23 12:06] LABS: Glucose Point of Care 199 (65-105)
--- NOTE | 2020-02-23 13:25 | P.PNIM_ITS ---
Progress Note: A&P Assessment and Plan (1) Atrial fibrillation with rapid ventricular response: Code(s): I48.91 - Unspecified atrial fibrillation Status: Resolved Assessment and Plan: * In and out of A fib RVR however today rates remain stable. * Management per cardiology - appreciate recommendations. He was recently admitted for same, unable to tolerate new sotalol last admission due to bradycardia and was taken off. Here he has been treated with oral and IV amiodarone. Now remains on oral amio today with controlled rates. * Discussed with Dr Alejandro yesterday; discussed possibility of [facility] Tuesday pending clinical course this weekend and interventionalist coverage Tue. * Anticoagulated with warfarin previously. Warfarin discontinued 02/18; INR 2.0 today and Eliquis 2.5 BID started 02/21; held Eliquis today in light of possible [facility] Tuesday. Care coordination checked Eliquis pricing and he can afford. (2) Systolic congestive heart failure: Qualifiers: Heart failure chronicity: chronic Qualified Code(s): I50.22 - Chronic systolic (congestive) heart failure Code(s): I50.20 - Unspecified systolic (congestive) heart failure Status: Chronic Assessment and Plan: * Chronic systolic CHF with known EF 30-35%. Recent stress testing demonstrated ischemia. * Appreciate cardiology input. Was not on beta blockade due to bradycardia. Home lisinopril held secondary to orthostasis. * Cardiac cath in near future has been discussed; inpatient vs outpatient. (3) Generalized weakness: Code(s): R53.1 - Weakness Status: Acute Assessment and Plan: * Suspect secondary to above. Doing well with PT/OT actually walked 80' standby assistance today. * Care coordination working on arranging home health and providing information for private duty ( also at home with dementia). (4) Type 2 diabetes mellitus: Qualifiers: Diabetes mellitus long chain beamer insulin use: without long chain beamer use Diabetes mellitus complication status: without complication Qualified Code(s): E11.9 - Type 2 diabetes mellitus without complications Code(s): E11.9 - Type 2 diabetes mellitus without complications Status: Chronic Assessment and Plan: * A1c 6.4%. BGs are stable. Continue to monitor with accu-cheks and adjust treatment as needed, cover with SSI. (5) Current use of long chain beamer anticoagulation: Code(s): Z79.01 - skilled nursing (current) use of anticoagulants Status: Chronic Assessment and Plan: * INR 2.0 this morning; on long-term anticoagulation previously with warfarin. * Cardiology has stopped warfarin 02/18, started Eliquis 02/21 which is now held in light of possible LHC, see above. (6) Orthostatic hypotension: Code(s): I95.1 - Orthostatic hypotension Status: Acute Assessment and Plan: * Still orthostatic but symptoms improved. May have contributed to his symptoms at home. May be related to mild dehydration, hesitant to add any more fluids given his heart failure and actually BUN is improved since last admission. * Lasix and lisinopril held. Will monitor at this time, appreciate cardiology input. (7) Microcytic anemia: Code(s): D50.9 - Iron deficiency anemia, unspecified Status: Chronic Assessment and Plan: * A chronic microcytic anemia is noted, now pancytopenia. H
--- NOTE | 2020-02-23 13:25 | PM.IMPN ---
Progress Note: A&P Assessment and Plan (1) Atrial fibrillation with rapid ventricular response: Code(s): I48.91 - Unspecified atrial fibrillation Status: Resolved Assessment and Plan: In and out of A fib RVR however today rates remain stable. Management per cardiology - appreciate recommendations. He was recently admitted for same, unable to tolerate new sotalol last admission due to bradycardia and was taken off. Here he has been treated with oral and IV amiodarone. Now remains on oral amio today with controlled rates. Discussed with Dr Alejandro yesterday; discussed possibility of [facility] Tuesday pending clinical course this weekend and interventionalist coverage Tue. Anticoagulated with warfarin previously. Warfarin discontinued 02/18; INR 2.0 today and Eliquis 2.5 BID started 02/21; held Eliquis today in light of possible C Tuesday. Care coordination checked Eliquis pricing and he can afford. (2) Systolic congestive heart failure: Qualifiers: Heart failure chronicity: chronic Qualified Code(s): I50.22 - Chronic systolic (congestive) heart failure Code(s): I50.20 - Unspecified systolic (congestive) heart failure Status: Chronic Assessment and Plan: Chronic systolic CHF with known EF 30-35%. Recent stress testing demonstrated ischemia. Appreciate cardiology input. Was not on beta blockade due to bradycardia. Home lisinopril held secondary to orthostasis. Cardiac cath in near future has been discussed; inpatient vs outpatient. (3) Generalized weakness: Code(s): R53.1 - Weakness Status: Acute Assessment and Plan: Suspect secondary to above. Doing well with PT/OT actually walked 80' standby assistance today. Care coordination working on arranging home health and providing information for private duty ( also at home with dementia). (4) Type 2 diabetes mellitus: Qualifiers: Diabetes mellitus residential insulin use: without tank terminal gauger use Diabetes mellitus complication status: without complication Qualified Code(s): E11.9 - Type 2 diabetes mellitus without complications Code(s): E11.9 - Type 2 diabetes mellitus without complications Status: Chronic Assessment and Plan: A1c 6.4%. BGs are stable. Continue to monitor with accu-cheks and adjust treatment as needed, cover with SSI. (5) Current use of residential anticoagulation: Code(s): Z79.01 - longterm (current) use of anticoagulants Status: Chronic Assessment and Plan: INR 2.0 this morning; on long-term anticoagulation previously with warfarin. Cardiology has stopped warfarin 02/18, started Eliquis 02/21 which is now held in light of possible LHC, see above. (6) Orthostatic hypotension: Code(s): I95.1 - Orthostatic hypotension Status: Acute Assessment and Plan: Still orthostatic but symptoms improved. May have contributed to his symptoms at home. May be related to mild dehydration, hesitant to add any more fluids given his heart failure and actually BUN is improved since last admission. Lasix and lisinopril held. Will monitor at this time, appreciate cardiology input. (7) Microcytic anemia: Code(s): D50.9 - Iron deficiency anemia, unspecified Status: Chronic Assessment and Plan: A chronic microcytic anemia is noted, now pancytopenia. Hgb low but stable. Iron studies 1 month ago demonstrate iron deficiency and possible component of anemia of chronic disease given low TIBC. He has no evidence of acute bleeding at this time. Stool occult blood is negative. Monitor CBC and continue his iron supplementation. Low WBC also noted in Dec 2019, may consider outpatient hematology referral at
[2020-02-23 16:44] LABS: Glucose Point of Care 204 (65-105)
[2020-02-23] MEDS: INSULIN ASPART (*BKC) 100 UNITS/ML SUB-Q (17:07)
[2020-02-23 21:48] LABS: Glucose Point of Care 203 (65-105)
[2020-02-24] VITALS (21 sets, daily range): BP systolic 70–148; BP diastolic 44–76; PULSE 56–65; RESP 16–18; TEMP 35.6–36.6; O2SAT 96–100
[2020-02-24 06:06] LABS: Anion Gap 4 mmol/L (8-16); Blood Urea Nitrogen 29 mg/dL (9-20); Calcium 8.2 mg/dL (8.4-10.2); Carbon Dioxide 30 mmol/L (22-30); Chloride 102 mmol/L (98-107); Estimated CRCL calculation 39 ml/min; Estimated Glomerular Filt Rate 53; Glucose 157 mg/dL (75-110); Magnesium 1.9 mg/dL (1.6-2.3); Potassium 4.6 mmol/L (3.4-5.0); Sodium 136 mmol/L (137-145)
[2020-02-24 06:09] LABS: INR 1.7; Prothrombin Time 20.9 Seconds (11.1-14.7)
[2020-02-24 07:26] LABS: Glucose Point of Care 138 (65-105)
[2020-02-24] MEDS: FERROUS SULFATE 324 MG TABLET PO ×2 (08:40→16:14)
[2020-02-24] MEDS: FINASTERIDE 5 MG TABLET PO (08:40)
[2020-02-24] MEDS: EUCERIN CREAM 120 GM JAR 1 APPLIC TOPICAL (08:40)
[2020-02-24] MEDS: ASPIRIN 81 MG ENTERIC TABLET PO (08:40)
[2020-02-24] MEDS: PRAVASTATIN SODIUM 20 MG TABLET 40 MG PO (08:40)
[2020-02-24] MEDS: AMIODARONE HCL 200 MG TABLET PO ×2 (08:40→16:14)
[2020-02-24 12:43] LABS: Glucose Point of Care 169 (65-105)
--- NOTE | 2020-02-24 13:36 | P.PNIM_ITS ---
Progress Note: A&P Assessment and Plan (1) Atrial fibrillation with rapid ventricular response: Code(s): I48.91 - Unspecified atrial fibrillation Status: Resolved Assessment and Plan: * A Fib RVR on arrival; rates have been stable over the weekend * Management per cardiology - appreciate recommendations. Remains on oral amio today with controlled rates. * Discussed with Dr Alejandro earlier this ; discussed possibility of [facility] Tuesday pending clinical course this and interventionalist coverage. * Anticoagulated with warfarin previously. Warfarin discontinued 02/18; INR 1.7 today and Eliquis 2.5 BID started 02/21; held Eliquis today in light of possible [facility] Tuesday. Care coordination checked Eliquis pricing and he can afford. (2) Systolic congestive heart failure: Qualifiers: Heart failure chronicity: chronic Qualified Code(s): I50.22 - Chronic systolic (congestive) heart failure Code(s): I50.20 - Unspecified systolic (congestive) heart failure Status: Chronic Assessment and Plan: * Chronic systolic CHF with known EF 30-35%. Recent stress testing demonstrated ischemia. * Appreciate cardiology input. Home lisinopril and lasix are held secondary to orthostasis. * Cardiac cath in near future has been discussed; inpatient vs outpatient. See above. (3) Generalized weakness: Code(s): R53.1 - Weakness Status: Acute Assessment and Plan: * Suspect secondary to above. Doing well with PT/OT actually walked 120' standby assistance today. * Care coordination working on arranging home health and providing information for private duty ( also at home with dementia). (4) Type 2 diabetes mellitus: Qualifiers: Diabetes mellitus manager terminal insulin use: without manager terminal use Diabetes mellitus complication status: without complication Qualified Code(s): E11.9 - Type 2 diabetes mellitus without complications Code(s): E11.9 - Type 2 diabetes mellitus without complications Status: Chronic Assessment and Plan: * A1c 6.4%. BGs are stable. Continue to monitor with accu-cheks and adjust treatment as needed, cover with SSI. (5) Current use of manager terminal anticoagulation: Code(s): Z79.01 - [facility] (current) use of anticoagulants Status: Chronic Assessment and Plan: * INR 1.7 this morning; on long-term anticoagulation previously with warfarin. * Cardiology has stopped warfarin 02/18, started Eliquis 02/21 which is now held in light of possible LHC, see above. (6) Orthostatic hypotension: Code(s): I95.1 - Orthostatic hypotension Status: Acute Assessment and Plan: * Still orthostatic but symptoms improved. May have contributed to his symptoms at home. May be related to mild dehydration, hesitant to add any more fluids given his heart failure and actually BUN is improved since last admission. * Lasix and lisinopril held. Will monitor at this time, appreciate cardiology input. (7) Microcytic anemia: Code(s): D50.9 - Iron deficiency anemia, unspecified Status: Chronic Assessment and Plan: * A chronic microcytic anemia is noted, now pancytopenia. Hgb low but stable. Iron studies 1 month ago demonstrate iron deficiency and possible component of anemia of chronic disease given low TIBC. He has no evidence of acute bleeding a
--- NOTE | 2020-02-24 13:36 | PM.IMPN ---
Progress Note: A&P Assessment and Plan (1) Atrial fibrillation with rapid ventricular response: Code(s): I48.91 - Unspecified atrial fibrillation Status: Resolved Assessment and Plan: A Fib RVR on arrival; rates have been stable over the weekend Management per cardiology - appreciate recommendations. Remains on oral amio today with controlled rates. Discussed with Dr Alejandro earlier this ; discussed possibility of C Tuesday pending clinical course this and interventionalist coverage. Anticoagulated with warfarin previously. Warfarin discontinued 02/18; INR 1.7 today and Eliquis 2.5 BID started 02/21; held Eliquis today in light of possible [facility] Tuesday. Care coordination checked Eliquis pricing and he can afford. (2) Systolic congestive heart failure: Qualifiers: Heart failure chronicity: chronic Qualified Code(s): I50.22 - Chronic systolic (congestive) heart failure Code(s): I50.20 - Unspecified systolic (congestive) heart failure Status: Chronic Assessment and Plan: Chronic systolic CHF with known EF 30-35%. Recent stress testing demonstrated ischemia. Appreciate cardiology input. Home lisinopril and lasix are held secondary to orthostasis. Cardiac cath in near future has been discussed; inpatient vs outpatient. See above. (3) Generalized weakness: Code(s): R53.1 - Weakness Status: Acute Assessment and Plan: Suspect secondary to above. Doing well with PT/OT actually walked 120' standby assistance today. Care coordination working on arranging home health and providing information for private duty ( also at home with dementia). (4) Type 2 diabetes mellitus: Qualifiers: Diabetes mellitus skilled nursing insulin use: without long term acute care registered nurse use Diabetes mellitus complication status: without complication Qualified Code(s): E11.9 - Type 2 diabetes mellitus without complications Code(s): E11.9 - Type 2 diabetes mellitus without complications Status: Chronic Assessment and Plan: A1c 6.4%. BGs are stable. Continue to monitor with accu-cheks and adjust treatment as needed, cover with SSI. (5) Current use of long term acute care registered nurse anticoagulation: Code(s): Z79.01 - [facility] (current) use of anticoagulants Status: Chronic Assessment and Plan: INR 1.7 this morning; on long-term anticoagulation previously with warfarin. Cardiology has stopped warfarin 02/18, started Eliquis 02/21 which is now held in light of possible LHC, see above. (6) Orthostatic hypotension: Code(s): I95.1 - Orthostatic hypotension Status: Acute Assessment and Plan: Still orthostatic but symptoms improved. May have contributed to his symptoms at home. May be related to mild dehydration, hesitant to add any more fluids given his heart failure and actually BUN is improved since last admission. Lasix and lisinopril held. Will monitor at this time, appreciate cardiology input. (7) Microcytic anemia: Code(s): D50.9 - Iron deficiency anemia, unspecified Status: Chronic Assessment and Plan: A chronic microcytic anemia is noted, now pancytopenia. Hgb low but stable. Iron studies 1 month ago demonstrate iron deficiency and possible component of anemia of chronic disease given low TIBC. He has no evidence of acute bleeding at this time. Stool occult blood is negative. Monitor CBC and continue his iron supplementation. Low WBC also noted in Dec 2019, may consider outpatient hematology referral at discharge. Subjective Date/time seen: 02/24/20 0900 Interval history: Mr. Baker is an 84yo M admitted for a fib RVR, orthostatic hypot
--- NOTE | 2020-02-24 13:39 | PM.PNCARD ---
Progress Note: A&P Assessment and Plan (1) Atrial fibrillation with rapid ventricular response: Code(s): I48.91 - Unspecified atrial fibrillation Status: Resolved Assessment and Plan: 84-year-old male with CAD, history of CABG x2; ischemic cardiomyopathy with recent LVEF 30-35% from 10/22/2019 echocardiogram; atrial fibrillation/flutter on chronic anticoagulation with warfarin, CKD. Admitted with fatigue and weakness, found to be in atrial fibrillation with RVR. He had spontaneous hindu to sinus rhythm with improvement in his symptoms. His symptomatology appears to correlate with episodes of AFib with RVR. He also has underlying CHF with reduced ejection fraction, chronic microcytic anemia. Attempting rhythm control given correlation of episodes of atrial fibrillation/flutter with his decompensation and generalized weakness. Admitted 02/01/2020 with atrial fibrillation with rapid ventricular response. Unable to tolerate sotalol due to significant bradycardia and QT prolongation. Started on amiodarone 02/19/2020 with hindu of sinus rhythm. IV amiodarone was discontinued. Amiodarone p.o.200 mg b.i.d. controlling A.Fib thus far. Warfarin changed to apixaban 2.5 mg p.o. b.i.d. based on his age and renal function, started this morning by primary service. Warfarin discontinued 02/19/2020 Due to his generalized weakness at present, inpatient rehab was recommended. Was seen by PT 02/19/2020. Furosemide and lisinopril are on hold at this time due to orthostasis and relative hypotension. (2) Chronic systolic CHF (congestive heart failure): Code(s): I50.22 - Chronic systolic (congestive) heart failure Status: Acute Assessment and Plan: Reasonably compensated at present. EF 30-35% by echo September 2019, 41% by nuclear stress test 01/24/2020 with Anterior ischemia. His worsening LV systolic function, ischemia +/- tachycardia induced. His recent MPI 01/24/20 was positive for anterior ischemia. He will need invasive ischemic workup with coronary angiogram in near future. Dr Forrester felt that he could be done as an outpatient if his heart rate can get under control. PT in agreement with angiography. Creatinine stable 1.3 today. INR 1.7. Patient discussed with his family and wish to proceed with coronary angiography Tuesday if possible. Will keep patient NPO. Continue to hold systemic anticoagulation. Discussed interventional availability due to family emergency, potential need for intervention, optimization of medical management as tolerated and/or transfer to outside facility for higher level care depending upon results. (3) CAD (coronary artery disease): Code(s): I25.10 - Atherosclerotic heart disease of [place] coronary artery without angina pectoris Status: Acute Assessment and Plan: History of CABG. See above Continue aspirin, statin Coronary angiography anticipated Tuesday morning. (4) Anemia: Code(s): D64.9 - Anemia, unspecified Status: Chronic Assessment and Plan: IFOB negative Subjective Date/time seen: Date of service: 02/24/20 13:39 Follow-up for atrial fibrillation, CAD, cardiomyopathy Interval history: Mr. Baker is an 84yo M admitted for a fib RVR, orthostatic hypotension. He feels worse than yesterday. He feels short of breath, denies chest pain. Feels weak and tired. Shortness of breath and dizziness walking to bathroom this morning. He denies nausea or vomiting. Feels better overall. Still quite fatigued with any activity. Denies shortness of breath at rest minimal with exertion. No chest pain palpitations. Maintaining sinus rhythm. Patient states he has not yet discussed with his family or made a final decision with regard to coronary angiography. He will let us know. He is concerned about his ongoing weakne
[2020-02-24 17:28] LABS: Glucose Point of Care 168 (65-105)
[2020-02-24 20:09] LABS: Glucose Point of Care 234 (65-105)
[2020-02-25] VITALS (30 sets, daily range): BP systolic 101–150; BP diastolic 53–77; PULSE 53–68; RESP 12–20; TEMP 36–36.6; O2SAT 94–100
[2020-02-25 04:56] LABS: Hematocrit 34.6 % (42.0-52.0); Hemoglobin 10.6 g/dL (14.0-18.0); Mean Corpuscular HGB Conc 30.6 g/dl (32-36); Mean Corpuscular Hemoglobin 23.9 pg (26-34); Mean Corpuscular Volume 77.9 fl (80-100); Mean Platelet Volume 9.5 fl (7.4-10.4); Platelet Count Result 203 k/mm3 (150-375); Red Blood Count 4.44 M/mm3 (4.6-6.20); White Blood Count 2.5 K/mm3 (4.5-10.0)
[2020-02-25 05:08] LABS: INR 1.7; Prothrombin Time 20.4 Seconds (11.1-14.7)
[2020-02-25 05:19] LABS: Anion Gap 2 mmol/L (8-16); Blood Urea Nitrogen 24 mg/dL (9-20); Calcium 8.2 mg/dL (8.4-10.2); Carbon Dioxide 28 mmol/L (22-30); Chloride 104 mmol/L (98-107); Estimated CRCL calculation 42 ml/min; Estimated Glomerular Filt Rate 58; Glucose 161 mg/dL (75-110); Magnesium 1.9 mg/dL (1.6-2.3); Potassium 4.7 mmol/L (3.4-5.0); Sodium 134 mmol/L (137-145)
[2020-02-25 07:22] LABS: Anisocytosis 1+ (NORMAL); Eosinophils Absolute Manual 0.02 K/mm3 (0.02-0.5); Eosinophils Percent Manual 1 % (0-4); Monocytes Percent Manual 12 % (3-9); Neutrophils Percent Manual 63 % (46-73); Platelet Estimate Adequate (Adequate); Poikilocytosis 1+ (NORMAL); Total Cells Counted 100
[2020-02-25 07:59] LABS: Glucose Point of Care 135 (65-105)
--- NOTE | 2020-02-25 08:51 | WPDMODSED ---
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 Paroxysmal atrial flutter Left ventricular systolic dysfunction Present Complaint: Generalized weakness otherwise no complaints this morning Procedure to be performed/Plan: Left heart catheterization with left ventriculography, coronary angiography, internal mammary graft angiography and radial artery graft angiography Allergies Allergy/AdvReac Type Severity Reaction Status Date / Time No Known Allergies Allergy Verified 02/18/20 17:58 Home Medications Medication Instructions Recorded Confirmed Type blood sugar diagnostic #10 each 01/10/19 02/18/20 History lancets 33 gauge #100 each 01/10/19 02/18/20 History potassium chloride [K-Tab] 20 meq PO DAILY@0800 #30 tablet 10/22/19 02/18/20 Rx ferrous sulfate 325 mg (65 mg 325 mg PO BID #60 tablet 12/13/19 02/18/20 Rx iron) tablet furosemide [Lasix] 40 mg PO DAILY #30 tablet 12/28/19 02/18/20 Rx pravastatin 40 mg tablet 40 mg PO DAILY #90 tablet 01/02/20 02/18/20 Rx aspirin 81 mg PO DAILY 02/01/20 02/18/20 History finasteride 5 mg PO DAILY 02/01/20 02/18/20 History glipizide 5 mg PO DAILY 02/01/20 02/18/20 History lisinopril 10 mg PO DAILY 02/01/20 02/18/20 History nitroglycerin 0.4 mg sublingual 0.4 mg SUBLINGUAL Q5M PRN 02/01/20 02/18/20 History tablet warfarin 4 mg PO DAILY 02/01/20 02/18/20 History Current Medications: Active Medications Amiodarone HCl (Amiodarone Hcl 200 Mg Tablet) 200 mg PO BID [facility] [place] Last Admin: 02/24/20 16:14 Dose: 200 mg Documented by: Apixaban (Apixaban 2.5 Mg Tablet) 2.5 mg PO Q12HR [facility] Last Admin: 02/22/20 20:42 Dose: 2.5 mg Documented by: Aspirin (Aspirin 81 Mg Enteric Tablet) 81 mg PO DAILY [facility] Last Admin: 02/24/20 08:40 Dose: 81 mg Documented by: Dextrose (Dextrose 50% 25 Gm/50 Ml Syringe) 12.5 gm IV PUSH PRN PRN; Protocol PRN Reason: Hypoglycemia Ferrous Sulfate (Ferrous Sulfate 324 Mg Tablet) 324 mg PO BIDWM [facility] [place] [place] Last Admin: 02/24/20 16:14 Dose: 324 mg Documented by: Finasteride (Finasteride 5 Mg Tablet) 5 mg PO DAILY [facility] Last Admin: 02/24/20 08:40 Dose: 5 mg Documented by: Furosemide (Furosemide 40 Mg Tablet) 40 mg PO DAILY [facility] [place] Last Admin: 02/19/20 09:00 Dose: 40 mg Documented by: Glucagon (Glucagon For Inj 1 Mg Vial) 1 mg IM PRN PRN; Protocol PRN Reason: Hypoglycemia Glucose (Glucose Oral Gel 15 Gm Of Glucse In 37.5 Gm Tube) 15 gm PO PRN PRN; Protocol PRN Reason: Hypoglycemia Dextrose (Dextrose 5% 1,000 Ml) 1,000 mls @ 100 mls/hr IVPB PRN PRN; Protocol PRN Reason: Hypoglycemia Insulin Aspart (Insulin Aspart (*Bkc) 100 Units/Ml) 2 - 5 units SUB-Q TIDWM [facility] [place]; Protocol Last Admin: 02/25/20 07:54 Dose: Not Given Documented by: Lisinopril (Lisinopril 10 Mg Tablet) 10 mg PO DAILY [facility] [place] Last Admin: 02/19/20 08:59 Dose: 10 mg Documented by: Multi-Ingred Cream/Lotion/Oil/Oint (Eucerin Cream 120 Gm Jar) 1 applic TOPICAL QAM [facility] Last Admin: 02/24/20 08:40 Dose: 1 applic Documented by: Nitroglycerin (Nitroglycerin Sl 0.4 Mg Tablet) 0.4 mg SUBLINGUAL Q5M PRN PRN Reason: Chest Pain Potassium Chloride (Potassium Chloride 20 Meq Tablet.Er) 20 meq PO DAILY@0800 [facility] Last Admin: 02/20/20 08:24 Dose: 20 meq Documented by: Pravastatin Sodium (Pravastatin Sodium 20 Mg Tablet) 40 mg PO DAILY [facility] [place] Last Admin: 02/24/20 08:40 Dose: 40 mg Documented by: Sedation/Anesthesia: No previous sedation/anesthesia problems (including family history). [facility] Past Medical History Medical History Anemia Arthritis Benign prostatic hyperplasia Cholelithiasis Chronic kidney disease, stage 3 Baseline creatinine is between 1.2 and 1.30. Coronary artery disease Status post bypass. Current use of [facility] anticoagulation Essential tremor Gastroesophageal reflux Hyperlipidemia Hypertension Kidney stones Left renal mass Pancreatitis
[2020-02-25] MEDS: PRAVASTATIN SODIUM 20 MG TABLET 40 MG PO (09:47)
[2020-02-25] MEDS: FERROUS SULFATE 324 MG TABLET PO ×2 (09:47→17:06)
[2020-02-25] MEDS: AMIODARONE HCL 200 MG TABLET PO ×2 (09:47→17:05)
[2020-02-25] MEDS: FINASTERIDE 5 MG TABLET PO (09:47)
[2020-02-25] MEDS: ASPIRIN 81 MG ENTERIC TABLET PO (09:47)
--- NOTE | 2020-02-25 11:43 | PCPTNOTE ---
Patient refused treatment this session 02-25-2020 at 11:15 due to feeling tired this date and wanted to rest before his test.
--- NOTE | 2020-02-25 12:45 | PC.NURSE ---
Pt to Cardiac Destination Sign Repairer via stretcher. IV intact.
--- NOTE | 2020-02-25 12:57 | PCOTNOTE ---
Attempted to see, Patient out of the room. Per RN, Patient went down for a Cardiac Cath.
--- NOTE | 2020-02-25 13:13 | P.PNIM_ITS ---
Progress Note: A&P Assessment and Plan (1) Atrial fibrillation with rapid ventricular response: Code(s): I48.91 - Unspecified atrial fibrillation Status: Resolved Assessment and Plan: * A Fib RVR on arrival; rates remain stable in 60s now on oral amiodarone. * Management per cardiology - appreciate recommendations. * Anticoagulated with warfarin previously. Warfarin discontinued 02/18; INR 1.7 today. Eliquis 2.5 BID started 02/21; held Eliquis today in light of [facility]. Care coordination checked Eliquis pricing and he can afford. (2) Systolic congestive heart failure: Qualifiers: Heart failure chronicity: chronic Qualified Code(s): I50.22 - Chronic systolic (congestive) heart failure Code(s): I50.20 - Unspecified systolic (congestive) heart failure Status: Chronic Assessment and Plan: * Chronic systolic CHF with known EF 30-35%. Recent stress testing demonstrated ischemia. * Appreciate cardiology input. Home lisinopril and lasix are held secondary to orthostasis. * Plan is for cardiac catheterization today. (3) Generalized weakness: Code(s): R53.1 - Weakness Status: Acute Assessment and Plan: * Suspect secondary to above. Doing well with PT/OT actually walked 120' standby assistance yesterday. * Care coordination working on arranging home health and providing information for private duty ( also at home with dementia). (4) Type 2 diabetes mellitus: Qualifiers: Diabetes mellitus usp insulin use: without adjunct faculty for medical terminology use Diabetes mellitus complication status: without complication Qualified Code(s): E11.9 - Type 2 diabetes mellitus without complications Code(s): E11.9 - Type 2 diabetes mellitus without complications Status: Chronic Assessment and Plan: * A1c 6.4%. BGs are appropriate so far today. Continue to monitor with accu- cheks and adjust treatment as needed, cover with SSI. 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 * Cardiology has stopped warfarin 02/18, started Eliquis 02/21 which is now held in light of cardiac cath today, see above. (6) Orthostatic hypotension: Code(s): I95.1 - Orthostatic hypotension Status: Acute Assessment and Plan: * Still orthostatic but symptoms improved. May be related to mild dehydration, hesitant to add any more fluids given his heart failure and actually BUN is improved since last admission. * Lasix and lisinopril held. Will monitor at this time, appreciate cardiology input. (7) Microcytic anemia: Code(s): D50.9 - Iron deficiency anemia, unspecified Status: Chronic Assessment and Plan: * A chronic microcytic anemia is noted, now pancytopenia. Hgb low but stable, WBC low. * Iron studies 1 month ago demonstrate iron deficiency and possible component of anemia of chronic disease given low TIBC. He has no evidence of acute bleeding at this time. Stool occult blood is negative. * Monitor CBC and continue his iron supplementation. Low WBC also noted in Dec 2019, may consider outpatient hematology referral at discharge for further evaluation.
--- NOTE | 2020-02-25 13:13 | PM.IMPN ---
Progress Note: A&P Assessment and Plan (1) Atrial fibrillation with rapid ventricular response: Code(s): I48.91 - Unspecified atrial fibrillation Status: Resolved Assessment and Plan: A Fib RVR on arrival; rates remain stable in 60s now on oral amiodarone. Management per cardiology - appreciate recommendations. Anticoagulated with warfarin previously. Warfarin discontinued 02/18; INR 1.7 today. Eliquis 2.5 BID started 02/21; held Eliquis today in light of [facility]. Care coordination checked Eliquis pricing and he can afford. (2) Systolic congestive heart failure: Qualifiers: Heart failure chronicity: chronic Qualified Code(s): I50.22 - Chronic systolic (congestive) heart failure Code(s): I50.20 - Unspecified systolic (congestive) heart failure Status: Chronic Assessment and Plan: Chronic systolic CHF with known EF 30-35%. Recent stress testing demonstrated ischemia. Appreciate cardiology input. Home lisinopril and lasix are held secondary to orthostasis. Plan is for cardiac catheterization today. (3) Generalized weakness: Code(s): R53.1 - Weakness Status: Acute Assessment and Plan: Suspect secondary to above. Doing well with PT/OT actually walked 120' standby assistance yesterday. Care coordination working on arranging home health and providing information for private duty ( also at home with dementia). (4) Type 2 diabetes mellitus: Qualifiers: Diabetes mellitus intermediate project manager insulin use: without intermediate project manager use Diabetes mellitus complication status: without complication Qualified Code(s): E11.9 - Type 2 diabetes mellitus without complications Code(s): E11.9 - Type 2 diabetes mellitus without complications Status: Chronic Assessment and Plan: A1c 6.4%. BGs are appropriate so far today. Continue to monitor with accu-cheks and adjust treatment as needed, cover with SSI. (5) Current use of intermediate project manager anticoagulation: Code(s): Z79.01 - half-way (current) use of anticoagulants Status: Chronic Assessment and Plan: INR 1.7 this morning; on long-term anticoagulation previously with warfarin. Cardiology has stopped warfarin 02/18, started Eliquis 02/21 which is now held in light of cardiac cath today, see above. (6) Orthostatic hypotension: Code(s): I95.1 - Orthostatic hypotension Status: Acute Assessment and Plan: Still orthostatic but symptoms improved. May be related to mild dehydration, hesitant to add any more fluids given his heart failure and actually BUN is improved since last admission. Lasix and lisinopril held. Will monitor at this time, appreciate cardiology input. (7) Microcytic anemia: Code(s): D50.9 - Iron deficiency anemia, unspecified Status: Chronic Assessment and Plan: A chronic microcytic anemia is noted, now pancytopenia. Hgb low but stable, WBC low. Iron studies 1 month ago demonstrate iron deficiency and possible component of anemia of chronic disease given low TIBC. He has no evidence of acute bleeding at this time. Stool occult blood is negative. Monitor CBC and continue his iron supplementation. Low WBC also noted in Dec 2019, may consider outpatient hematology referral at discharge for further evaluation. Subjective Date/time seen: 02/25/20 0930 Interval history: Mr. Baker is an 84yo M admitted for a fib RVR, orthostatic hypotension. He reports feeling okay today, feels a little stronger than days prior. He feels short of breath at times but in no acute distress at present. He denies chest pain this morning. He denies any dizziness so far this morning as we
--- NOTE | 2020-02-25 13:46 | WPDCARDPROC ---
Cardiac Cath Procedure Note Date of procedure:: 02/25/20 Performing physician:: Severiano Garcia MD Indication:: Coronary artery disease with previous surgical revascularization paroxysmal atrial fibrillation decline in LV systolic function abnormal nuclear stress test Brief clinical history:: this is an 84-year-old man with known left main, proximal LAD and proximal circumflex coronary disease who underwent bypass grafting several years ago. He has been found to have paroxysmal atrial fibrillation and a decline in left ventricular systolic function. A nuclear stress test was interpreted as showing some ischemia in the anterior wall prompting recommendation for a follow-up angiogram today. Procedure Procedure performed:: Left heart catheterization with left ventriculography, coronary angiography, radial artery graft angiography, internal mammary graft angiography. Sedation/Medication given:: Fentanyl 25 mg Versed 2 mg case start time 12:57 p.m. case end time 1:41 p.m. sedation provided by Jessica Appiah RN, trained observer Access site:: right femoral artery Estimated blood loss:: 15-20 cc Procedure note:: patient was brought to the cardiac catheterization lab in the postabsorptive state the right femoral triangle was prepared in the usual fashion. Anesthesia was given with 1% lidocaine infiltrated locally. Following this the femoral artery was punctured using the modified Seldinger technique and a 5 [place]i vascular sheath was placed. I 1st utilized a JR4 catheter to attempt to engage the [place] right coronary artery. This was not done successfully there was a tortuous segment of the iliac artery above the catheter sheath resulting in some challenge maneuvering the catheter. I was able to engage the right coronary artery using a 5 [place] Aldo no torque right catheter. Following this I attempted to engage the left coronary artery using standard Greyson catheters unsuccessfully at this point I elected to replace the 5 [place]i sheath for a 5 [place] long sheath at which time catheter manipulation was much better. The [place] left coronary artery was then engaged and injected using a 5 [place]i FL4 catheter. The radial artery graft was engaged and injected using the 5 [place] JR4 catheter. The HANNY was non selectively injected using a 5 [place]i HANNY catheter. Access of the left subclavian artery was somewhat challenging and after I engaged with a JR4 catheter I placed a long Claudy wire out into the left upper extremity and exchanged over this a HANNY catheter and was able to approach the HANNY ostium and injected non selectively. Following this the pigtail catheter was placed into the left ventricle and a left ventriculogram was done in the WOODS projection and as well as measuring left-sided hemodynamics. The case was then terminated. The patient was taken to the holding area for sheath removal with direct manual compression without any complication he left the cardiac catheterization technologist with no evidence of a groin hematoma. Findings:: Hemodynamics: Central aortic pressure is 128/48, left ventricle 128/0 end-diastolic of 7. No gradient on pullback across the aortic valve. Left ventricle: The LV is moderately enlarged there is significant global systolic hypo contractility identified with an ejection fraction that I would visually estimate to be 25-30%. The left main coronary artery is short with about 50-60% stenosis in the midportion of the left main angiographically not much change compared to previous exam the left anterior descending is a moderate caliber artery extending down to and around the apex there is an ostial stenosis of 90-95% in the LAD. There was competitive flow in the segment of the mid LAD coming from the HANNY graft. The circumflex is a large caliber artery giving rise to a large mid OM branch and several smaller marginal branches as well as a posterior branch. There is 95-99% stenosis in the proximal segment of the circumflex analilia
--- NOTE | 2020-02-25 14:00 | PCPTNOTE ---
Patient out of room for procedure, unable to be seen for PT this afternoon. PT will continue to follow per plan of care.
--- NOTE | 2020-02-25 16:14 | PC.NURSE ---
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 Report from SHAKEEL Torre. IV intact, site dry and without hematoma.
[2020-02-25 17:01] LABS: Glucose Point of Care 143 (65-105)
[2020-02-25] MEDS: SODIUM CHLORIDE 0.9% IV 1,000 ML 125 ML IV CONT (17:05)
[2020-02-25 20:31] LABS: Glucose Point of Care 200 (65-105)
[2020-02-26] VITALS (13 sets, daily range): BP systolic 63–137; BP diastolic 42–78; PULSE 56–72; RESP 12–20; TEMP 36.1–36.6; O2SAT 97–100
[2020-02-26 05:06] LABS: Basophils Percent Auto 0.3 % (0.2-1.2); Eosinophils Absolute Auto 0.1 K/mm3 (0-0.3); Hematocrit 34.8 % (42.0-52.0); Hemoglobin 10.8 g/dL (14.0-18.0); Immature Granulocyte Absolute 0.01 K/mm3 (0.00-0.031); Immature Granulocyte Percent A 0.3 % (0-0.5); Lymphocytes Absolute Auto 0.92 K/mm3 (0.9-3.2); Lymphocytes Percent Auto 26.2 % (18.3-44.2); Mean Corpuscular Hemoglobin 24.4 pg (26-34); Mean Corpuscular Volume 78.6 fl (80-100); Mean Platelet Volume 9.3 fl (7.4-10.4); Monocytes Absolute Auto 0.3 K/mm3 (0.1-0.6); Monocytes Percent Auto 9.7 % (2.6-8.5); Neutrophils Absolute Auto 2.2 K/mm3 (1.3-6.7); Neutrophils Percent Auto 61.5 % (45.5-73.1); Platelet Count Result 228 k/mm3 (150-375); Red Blood Count 4.43 M/mm3 (4.6-6.20); White Blood Count 3.5 K/mm3 (4.5-10.0)
[2020-02-26 05:14] LABS: INR 1.5; Prothrombin Time 19.1 Seconds (11.1-14.7)
[2020-02-26 05:21] LABS: Alanine Aminotransferase 25 U/L (4-50); Albumin Level 2.6 g/dL (3.5-5.1); Alkaline Phosphatase 100 U/L (38-126); Anion Gap 2 mmol/L (8-16); Aspartate Amino Transferase 27 U/L (17-59); Bilirubin,Total 0.9 mg/dL (0.2-1.3); Blood Urea Nitrogen 22 mg/dL (9-20); Calcium 8.1 mg/dL (8.4-10.2); Carbon Dioxide 29 mmol/L (22-30); Chloride 104 mmol/L (98-107); Estimated CRCL calculation 42 ml/min; Estimated Glomerular Filt Rate 58; Glucose 112 mg/dL (75-110); Potassium 4.4 mmol/L (3.4-5.0); Sodium 135 mmol/L (137-145)
[2020-02-26 07:13] LABS: Platelet Estimate Adequate (Adequate)
[2020-02-26 07:14] LABS: Anisocytosis 1+ (NORMAL); Ovalocytes 1+ (NORMAL)
[2020-02-26 08:26] LABS: Glucose Point of Care 104 (65-105)
--- NOTE | 2020-02-26 09:41 | PCDIET ---
Nutrition Follow-Up Complete: Nutrition Diagnosis: Inadequate oral intake related to less food availability as evidenced by +34lb wt loss over the last year. Nutrition Goal: Intake of 75% of meals and supplements while here to maintain wt Goal met. Patient with average intake of nearly 90% of meals since last review on heart healthy diet. Patient reports appetite is not the best, but did eat cereal, applesauce and Ensure for breakfast today. Recommend continuing Ensure Enlive BID, as patient reports consistently taking it. Last recorded weight is 73 kg which is increased from last review. +I/O. Bowel Motility: Last documented BM on 02/23/20 x 2. Labs Reviewed: Hgb (10.8), Hct (34.8), Glu (112), BUN (22), Na (135), Alb (2.6), Scott Ca (9.22) Meds Noted: Ferrous Sulfate, Lasix, Prinivil, KCl, Pravastatin Additional Notes: No documented pressure sores. Will continue to monitor with same goal. Nutrition Monitoring and Evaluation: Follow up every 5 days.
[2020-02-26] MEDS: ASPIRIN 81 MG ENTERIC TABLET PO (10:00)
[2020-02-26] MEDS: FINASTERIDE 5 MG TABLET PO (10:00)
[2020-02-26] MEDS: PRAVASTATIN SODIUM 20 MG TABLET 40 MG PO (10:00)
[2020-02-26] MEDS: FERROUS SULFATE 324 MG TABLET PO ×2 (10:00→17:45)
[2020-02-26] MEDS: AMIODARONE HCL 200 MG TABLET PO ×2 (10:00→17:44)
[2020-02-26] MEDS: EUCERIN CREAM 120 GM JAR 1 APPLIC TOPICAL (10:01)
--- NOTE | 2020-02-26 10:27 | PM.PNCARD ---
Progress Note: A&P Assessment and Plan (1) Atrial fibrillation with rapid ventricular response: Code(s): I48.91 - Unspecified atrial fibrillation Status: Resolved Assessment and Plan: 84-year-old male with CAD, history of CABG x2; ischemic cardiomyopathy with recent LVEF 30-35% from 10/22/2019 echocardiogram; atrial fibrillation/flutter on chronic anticoagulation with warfarin, CKD. Admitted with fatigue and weakness, found to be in atrial fibrillation with RVR. He had spontaneous congregational to sinus rhythm with improvement in his symptoms. His symptomatology appears to correlate with episodes of AFib with RVR. He also has underlying CHF with reduced ejection fraction, chronic microcytic anemia. Attempting rhythm control given correlation of episodes of atrial fibrillation/flutter with his decompensation and generalized weakness. Admitted 02/01/2020 with atrial fibrillation with rapid ventricular response. Unable to tolerate sotalol due to significant bradycardia and QT prolongation. Started on amiodarone 02/19/2020 with congregational of sinus rhythm. IV amiodarone was discontinued. Amiodarone p.o.200 mg b.i.d. controlling A.Fib thus far. Warfarin changed to apixaban 2.5 mg p.o. b.i.d. based on his age and renal function, started this morning by primary service. Warfarin discontinued 02/19/2020 On amiodarone and will resume anticoagulation tomorrow (2) Chronic systolic CHF (congestive heart failure): Code(s): I50.22 - Chronic systolic (congestive) heart failure Status: Acute Assessment and Plan: Reasonably compensated at present. EF 30-35% by echo September 2019, 41% by nuclear stress test 01/24/2020 with Anterior ischemia. His worsening LV systolic function, ischemia +/- tachycardia induced. His recent MPI 01/24/20 was positive for anterior ischemia. He will need invasive ischemic workup with coronary angiogram in near future. Dr Forrester felt that he could be done as an outpatient if his heart rate can get under control. PT in agreement with angiography. Creatinine stable 1.3 today. INR 1.7. (3) CAD (coronary artery disease): Code(s): I25.10 - Atherosclerotic heart disease of [place] coronary artery without angina pectoris Status: Acute Assessment and Plan: History of CABG. See above Continue aspirin, statin Angiogram showing patent bypass grafts. (4) Anemia: Code(s): D64.9 - Anemia, unspecified Status: Chronic Assessment and Plan: IFOB negative (5) Orthostatic hypotension: Code(s): I95.1 - Orthostatic hypotension Status: Acute Assessment and Plan: He is markedly orthostatic today. Hold furosemide. Will give a L of normal saline over the next 10 hours. Subjective Date/time seen: 02/26/20 10:27 Interval history: Mr. Baker is an 84yo M admitted for a fib RVR, orthostatic hypotension. He feels worse than yesterday. He feels short of breath, denies chest pain. Feels weak and tired. Shortness of breath and dizziness walking to bathroom this morning. He denies nausea or vomiting. Date of service 02/26/20 Does not feel very well today. Dizzy upon standing. Markedly orthostatic when standing up. No chest pain or shortness of breath and no groin pain Review of Systems Review of Systems: All systems reviewed & are unremarkable except as noted in HPI and below Constitutional: Constitutional: Reports as per HPI, Denies excessive sweating, Reports fatigue and Reports weakness Eyes: Eyes: Reports as per HPI and Denies blurry vision ENT: Reports as per HPI and Reports Normal hearing present Cardiovascular: Cardiovascular: Reports as per HPI, Denies chest pain, Denies lightheadedness, Denies palpitations, Denies dyspnea and Reports dyspnea on exertion Respiratory: Respiratory: Reports as per HPI, Denies
[2020-02-26] MEDS: SODIUM CHLORIDE 0.9% IV 1,000 ML 100 ML IV CONT ×2 (12:13→17:46)
[2020-02-26 12:28] LABS: Glucose Point of Care 206 (65-105)
[2020-02-26] MEDS: INSULIN ASPART (*BKC) 100 UNITS/ML SUB-Q (12:58)
--- NOTE | 2020-02-26 14:42 | PCOTNOTE ---
OT treatment attempted. Patient declining participation this date stating that they are too tired and have been up all day. Will attempt OT treatment at later time.
--- NOTE | 2020-02-26 15:42 | PM.IMPN ---
Progress Note: A&P Assessment and Plan (1) Orthostatic hypotension: Code(s): I95.1 - Orthostatic hypotension Status: Acute Assessment and Plan: Patient is feeling worse today and he is significantly orthostatic with a systolic in the 60s -cardiology on board and recommended slow infusion of a L of fluid -will add Parminder hose -Lasix and lisinopril held -patient is likely just hypovolemic but is at risk for over-correction due to his systolic heart failure. Monitor closely (2) Atrial fibrillation with rapid ventricular response: Code(s): I48.91 - Unspecified atrial fibrillation Status: Resolved Assessment and Plan: Patient had A Fib RVR on arrival which has now spontaneously resolved to normal sinus rhythm Continue amiodarone 200 mg b.i.d. -Anticoagulated with warfarin previously. Warfarin discontinued 02/18 -INR 1.5 today. Eliquis 2.5 BID started 02/21 and held for cardiac catheterization which will be resumed tomorrow -left heart catheterization shows stable disease, no intervention performed (3) Systolic congestive heart failure: Qualifiers: Heart failure chronicity: chronic Qualified Code(s): I50.22 - Chronic systolic (congestive) heart failure Code(s): I50.20 - Unspecified systolic (congestive) heart failure Status: Chronic Assessment and Plan: Chronic systolic CHF with known EF 30-35%. Recent stress testing demonstrated ischemia. -Home lisinopril and lasix are held secondary to orthostasis. (4) Generalized weakness: Code(s): R53.1 - Weakness Status: Acute Assessment and Plan: Suspect secondary to above and orthostatics. -Doing well with PT/OT actually walked 120' standby assistance but declined working with them today -Care coordination working on arranging home health and providing information for private duty ( also at home with dementia). (5) Type 2 diabetes mellitus: Qualifiers: Diabetes mellitus parts counterman insulin use: without parts counterman use Diabetes mellitus complication status: without complication Qualified Code(s): E11.9 - Type 2 diabetes mellitus without complications Code(s): E11.9 - Type 2 diabetes mellitus without complications Status: Chronic Assessment and Plan: Last glucose 206 - A1c 6.4% - Continue to monitor with accu-cheks and adjust treatment as needed, cover with SSI. (6) Current use of shelter anticoagulation: Code(s): Z79.01 - medical terminologist (current) use of anticoagulants Status: Chronic Assessment and Plan: INR 1.5 this morning; on long-term anticoagulation previously with warfarin. -Cardiology has stopped warfarin 02/18, started Eliquis 02/21 which is now held in light of cardiac cath, resuming tomorrow (7) Microcytic anemia: Code(s): D50.9 - Iron deficiency anemia, unspecified Status: Chronic Assessment and Plan: A chronic microcytic anemia is noted, now pancytopenia. Hgb low but stable, WBC low. -Iron studies 1 month ago demonstrate iron deficiency and possible component of anemia of chronic disease given low TIBC. He has no evidence of acute bleeding at this time. Stool occult blood is negative. -Monitor CBC and continue his iron supplementation. Low WBC also noted in Dec 2019, recommend outpatient hematology referral at discharge for further evaluation. -viral etiology seems less likely Time Spent With Patient Time with patient: 25 - 35 minutes Subjective Date/time seen: 02/26/20 15:42 Interval history: Pt is a 84-year-old male here for atrial fibrillation and orthostatic hypotension. Patient was seen today and states he feels crummy. He does okay when he is laying down but when he gets up he feels lightheaded, dizzy and very weak. He is eating and drinking okay. He denies chest pain, shortness of breath, fevers, chills, abdominal pain or leg swelling. Review of Systems Review of Systems:
[2020-02-26 16:54] LABS: Glucose Point of Care 179 (65-105)
--- NOTE | 2020-02-26 18:23 | PC.NURSE ---
02/26/20 1823 Patient received from IMU to room 247. Patient oriented to the room.
--- NOTE | 2020-02-26 18:32 | PC.NURSE ---
This patient, Alex Baker, was transferred to [facility] on 02/26/20 at 1832. Personal belongings sent with patient. Report given to SHAKEEL Johnson. Appropriate documentation sent with patient.
[2020-02-26 20:50] LABS: Glucose Point of Care 182 (65-105)
[2020-02-27] VITALS (15 sets, daily range): BP systolic 77–148; BP diastolic 47–77; PULSE 55–95; RESP 16–20; TEMP 36–36.6; O2SAT 98–100
[2020-02-27 06:20] LABS: Basophils Percent Auto 0.3 % (0.2-1.2); Eosinophils Absolute Auto 0.1 K/mm3 (0-0.3); Eosinophils Percent Auto 1.7 % (0-4.4); Hematocrit 34.5 % (42.0-52.0); Hemoglobin 10.5 g/dL (14.0-18.0); Immature Granulocyte Absolute 0.01 K/mm3 (0.00-0.031); Immature Granulocyte Percent A 0.3 % (0-0.5); Lymphocytes Absolute Auto 0.99 K/mm3 (0.9-3.2); Lymphocytes Percent Auto 27.8 % (18.3-44.2); Mean Corpuscular HGB Conc 30.4 g/dl (32-36); Mean Corpuscular Hemoglobin 24.1 pg (26-34); Mean Corpuscular Volume 79.3 fl (80-100); Mean Platelet Volume 9.4 fl (7.4-10.4); Monocytes Absolute Auto 0.4 K/mm3 (0.1-0.6); Monocytes Percent Auto 9.8 % (2.6-8.5); Neutrophils Absolute Auto 2.1 K/mm3 (1.3-6.7); Neutrophils Percent Auto 60.1 % (45.5-73.1); Platelet Count Result 263 k/mm3 (150-375); Red Blood Count 4.35 M/mm3 (4.6-6.20); Red Cell Distribution Width 18.3 % (11.5-14.5); White Blood Count 3.6 K/mm3 (4.5-10.0)
[2020-02-27 06:29] LABS: INR 1.5; Prothrombin Time 18.4 Seconds (11.1-14.7)
[2020-02-27 06:43] LABS: Alanine Aminotransferase 22 U/L (4-50); Albumin Level 2.7 g/dL (3.5-5.1); Alkaline Phosphatase 96 U/L (38-126); Anion Gap 0 mmol/L (8-16); Aspartate Amino Transferase 22 U/L (17-59); Bilirubin,Total 0.7 mg/dL (0.2-1.3); Blood Urea Nitrogen 23 mg/dL (9-20); CRP 1.7 mg/dL (<1.0); Calcium 8.3 mg/dL (8.4-10.2); Carbon Dioxide 31 mmol/L (22-30); Chloride 105 mmol/L (98-107); Estimated CRCL calculation 39 ml/min; Estimated Glomerular Filt Rate 53; Glucose 130 mg/dL (75-110); Potassium 4.8 mmol/L (3.4-5.0); Sodium 136 mmol/L (137-145)
[2020-02-27 07:47] LABS: Glucose Point of Care 145 (65-105)
[2020-02-27 08:23] LABS: Hypochromasia 2+ (NORMAL); Large Platelets Present; Ovalocytes 2+ (NORMAL); Platelet Estimate Adequate (Adequate)
[2020-02-27] MEDS: AMIODARONE HCL 200 MG TABLET PO ×2 (09:06→17:36)
[2020-02-27] MEDS: FERROUS SULFATE 324 MG TABLET PO ×2 (09:06→17:37)
[2020-02-27] MEDS: ASPIRIN 81 MG ENTERIC TABLET PO (09:06)
[2020-02-27] MEDS: PRAVASTATIN SODIUM 20 MG TABLET 40 MG PO (09:06)
[2020-02-27] MEDS: FINASTERIDE 5 MG TABLET PO (09:06)
[2020-02-27] MEDS: EUCERIN CREAM 120 GM JAR 1 APPLIC TOPICAL (09:08)
--- NOTE | 2020-02-27 10:29 | PCPTNOTE ---
Patient declined PT treatment at this time stating I feel weak from sitting up earlier and felt lightheaded. PT will attempt treatment later today.
--- NOTE | 2020-02-27 10:51 | PM.PNCARD ---
Progress Note: A&P Assessment and Plan (1) Atrial fibrillation with rapid ventricular response: Code(s): I48.91 - Unspecified atrial fibrillation Status: Resolved Assessment and Plan: 84-year-old male with CAD, history of CABG x2; ischemic cardiomyopathy with recent LVEF 30-35% from 10/22/2019 echocardiogram; atrial fibrillation/flutter on chronic anticoagulation with warfarin, CKD. Admitted with fatigue and weakness, found to be in atrial fibrillation with RVR. He had spontaneous orthodoxy to sinus rhythm with improvement in his symptoms. His symptomatology appears to correlate with episodes of AFib with RVR. He also has underlying CHF with reduced ejection fraction, chronic microcytic anemia. Attempting rhythm control given correlation of episodes of atrial fibrillation/flutter with his decompensation and generalized weakness. Admitted 02/01/2020 with atrial fibrillation with rapid ventricular response. Unable to tolerate sotalol due to significant bradycardia and QT prolongation. Started on amiodarone 02/19/2020 with orthodoxy of sinus rhythm. IV amiodarone was discontinued. Amiodarone p.o.200 mg b.i.d. controlling A.Fib thus far. Continue apixaban On amiodarone and will resume anticoagulation tomorrow (2) Chronic systolic CHF (congestive heart failure): Code(s): I50.22 - Chronic systolic (congestive) heart failure Status: Acute Assessment and Plan: Reasonably compensated at present. EF 30-35% by echo September 2019, 41% by nuclear stress test 01/24/2020 with Anterior ischemia. His worsening LV systolic function, ischemia +/- tachycardia induced. His recent MPI 01/24/20 was positive for anterior ischemia. He will need invasive ischemic workup with coronary angiogram in near future. Dr Forrester felt that he could be done as an outpatient if his heart rate can get under control. PT in agreement with angiography. Creatinine stable 1.3 today. INR 1.7. Markedly orthostatic and unable to start CHF medications. Will resume low-dose furosemide 20 mg daily. Stop potassium supplementation completely. (3) CAD (coronary artery disease): Code(s): I25.10 - Atherosclerotic heart disease of [place] coronary artery without angina pectoris Status: Acute Assessment and Plan: History of CABG. See above Continue aspirin, statin Angiogram showing patent bypass grafts. (4) Anemia: Code(s): D64.9 - Anemia, unspecified Status: Chronic Assessment and Plan: IFOB negative (5) Orthostatic hypotension: Code(s): I95.1 - Orthostatic hypotension Status: Acute Assessment and Plan: He is markedly orthostatic today. Will start midodrine 2.5 mg p.o. t.i.d.. Will hold Proscar as this can be causing his orthostasis Subjective Date/time seen: 02/27/20 10:51 Interval history: Mr. Baker is an 84yo M admitted for a fib RVR, orthostatic hypotension. He feels worse than yesterday. He feels short of breath, denies chest pain. Feels weak and tired. Shortness of breath and dizziness walking to bathroom this morning. He denies nausea or vomiting. Date of service 02/27/20 Still markedly orthostatic. No chest pain or shortness breath. Generally feels weak. Review of Systems Review of Systems: All systems reviewed & are unremarkable except as noted in HPI and below Constitutional: Constitutional: Reports as per HPI, Denies excessive sweating, Reports fatigue and Reports weakness Eyes: Eyes: Reports as per HPI and Denies blurry vision ENT: Reports as per HPI and Reports Normal hearing present Cardiovascular: Cardiovascular: Reports as per HPI, Denies chest pain, Denies lightheadedness, Denies palpitations, Denies dyspnea and Reports dyspnea on exertion Respiratory: Respiratory: Reports as per HPI, Denies cough, Denies dyspnea and Rep
[2020-02-27] MEDS: APIXABAN 2.5 MG TABLET PO ×2 (10:59→20:22)
[2020-02-27 11:25] LABS: Glucose Point of Care 272 (65-105)
[2020-02-27] MEDS: INSULIN ASPART (*BKC) 100 UNITS/ML SUB-Q (11:45)
[2020-02-27] MEDS: MIDODRINE HCL 2.5 MG TABLET PO ×2 (13:07→17:37)
--- NOTE | 2020-02-27 15:47 | PM.IMPN ---
Progress Note: A&P Assessment and Plan (1) Orthostatic hypotension: Code(s): I95.1 - Orthostatic hypotension Status: Acute Assessment and Plan: Patient continues to be orthostatic but is feeling better this afternoon -cardiology on board and started midodrine -continue Parminder hose -lisinopril held -Lasix continued -appears euvolemic (2) Atrial fibrillation with rapid ventricular response: Code(s): I48.91 - Unspecified atrial fibrillation Status: Resolved Assessment and Plan: Patient had A Fib RVR on arrival which has now spontaneously resolved to normal sinus rhythm Continue amiodarone 200 mg b.i.d. -warfarin transition to Eliquis -left heart catheterization shows stable disease, no intervention performed (3) Systolic congestive heart failure: Qualifiers: Heart failure chronicity: chronic Qualified Code(s): I50.22 - Chronic systolic (congestive) heart failure Code(s): I50.20 - Unspecified systolic (congestive) heart failure Status: Chronic Assessment and Plan: Chronic systolic CHF with known EF 30-35%. Recent stress testing demonstrated ischemia. -continue Lasix (4) Generalized weakness: Code(s): R53.1 - Weakness Status: Acute Assessment and Plan: Suspect secondary to above and orthostatics. -Doing well with PT/OT today -Care coordination working on arranging home health and providing information for private duty ( also at home with dementia). (5) Type 2 diabetes mellitus: Qualifiers: Diabetes mellitus long line teamster insulin use: without long line teamster use Diabetes mellitus complication status: without complication Qualified Code(s): E11.9 - Type 2 diabetes mellitus without complications Code(s): E11.9 - Type 2 diabetes mellitus without complications Status: Chronic Assessment and Plan: Last glucose 272 - A1c 6.4% - Continue to monitor with accu-cheks and adjust treatment as needed, cover with SSI. (6) Current use of snf anticoagulation: Code(s): Z79.01 - exterminator (current) use of anticoagulants Status: Chronic Assessment and Plan: INR 1.5 this morning; on long-term anticoagulation previously with warfarin. -Cardiology has stopped warfarin 02/18, started Eliquis (7) Microcytic anemia: Code(s): D50.9 - Iron deficiency anemia, unspecified Status: Chronic Assessment and Plan: A chronic microcytic anemia is noted, now pancytopenia. Hgb low but stable, WBC low. -Iron studies 1 month ago demonstrate iron deficiency and possible component of anemia of chronic disease given low TIBC. He has no evidence of acute bleeding at this time. Stool occult blood is negative. -Monitor CBC and continue his iron supplementation. Low WBC also noted in Dec 2019, recommend outpatient hematology referral at discharge for further evaluation. -viral etiology seems less likely Additional Plan . Subjective Date/time seen: 02/27/20 15:47 Interval history: Pt is a 84-year-old male here for atrial fibrillation and orthostatic hypotension. Patient was seen today and states he felt dizzy and lightheaded this morning but when he worked with physical therapy this afternoon he did not have these symptoms. He says he is feeling better this afternoon and he has not felt like this a couple days. He is eating and drinking okay. He has not had a bowel movement in about 3 days but does not want any MiraLax. He denies chest pain, shortness of breath, fevers, chills, abdominal pain or leg swelling. Exam Narrative: Exam Narrative: General: Well developed well nourished patient in NAD HEENT: normocephalic Neck: supple Neuro: Alert and oriented x4 CV:RRR on exam today with systolic murmur. Telemetry shows intermittent bigeminy and occasional PVCs Resp: CTA Abd: Soft, non distended. No pain to palpation. Positive bowel sounds Extremities: No swelling, eryt
[2020-02-27 17:24] LABS: Glucose Point of Care 103 (65-105)
[2020-02-27 20:18] LABS: Glucose Point of Care 186 (65-105)
[2020-02-28] VITALS (11 sets, daily range): BP systolic 91–154; BP diastolic 41–99; PULSE 59–87; RESP 16–18; TEMP 35.6–36.4; O2SAT 98–100
[2020-02-28 05:58] LABS: Hematocrit 33.6 % (42.0-52.0); Hemoglobin 10.4 g/dL (14.0-18.0)
[2020-02-28 06:17] LABS: Anion Gap 1 mmol/L (8-16); Blood Urea Nitrogen 22 mg/dL (9-20); Calcium 8.4 mg/dL (8.4-10.2); Carbon Dioxide 31 mmol/L (22-30); Chloride 104 mmol/L (98-107); Estimated CRCL calculation 39 ml/min; Estimated Glomerular Filt Rate 53; Glucose 117 mg/dL (75-110); Potassium 4.6 mmol/L (3.4-5.0); Sodium 136 mmol/L (137-145)
[2020-02-28 07:40] LABS: Glucose Point of Care 103 (65-105)
[2020-02-28] MEDS: FERROUS SULFATE 324 MG TABLET PO ×2 (08:00→17:32)
[2020-02-28] MEDS: ASPIRIN 81 MG ENTERIC TABLET PO (08:00)
[2020-02-28] MEDS: AMIODARONE HCL 200 MG TABLET PO ×2 (08:01→17:32)
[2020-02-28] MEDS: APIXABAN 2.5 MG TABLET PO ×2 (08:02→21:17)
[2020-02-28] MEDS: PRAVASTATIN SODIUM 20 MG TABLET 40 MG PO (08:02)
[2020-02-28] MEDS: MIDODRINE HCL 2.5 MG TABLET PO ×3 (08:02→14:37)
[2020-02-28] MEDS: EUCERIN CREAM 120 GM JAR 1 APPLIC TOPICAL (08:03)
[2020-02-28 11:49] LABS: Glucose Point of Care 223 (65-105)
[2020-02-28] MEDS: INSULIN ASPART (*BKC) 100 UNITS/ML SUB-Q (12:32)
--- NOTE | 2020-02-28 12:48 | PM.PNCARD ---
Progress Note: A&P Assessment and Plan (1) Atrial fibrillation with rapid ventricular response: Code(s): I48.91 - Unspecified atrial fibrillation Status: Resolved Assessment and Plan: 84-year-old male with CAD, history of CABG x2; ischemic cardiomyopathy with recent LVEF 30-35% from 10/22/2019 echocardiogram; atrial fibrillation/flutter on chronic anticoagulation with warfarin, CKD. Admitted with fatigue and weakness, found to be in atrial fibrillation with RVR. He had spontaneous cheondoism to sinus rhythm with improvement in his symptoms. His symptomatology appears to correlate with episodes of AFib with RVR. He also has underlying CHF with reduced ejection fraction, chronic microcytic anemia. Attempting rhythm control given correlation of episodes of atrial fibrillation/flutter with his decompensation and generalized weakness. Admitted 02/01/2020 with atrial fibrillation with rapid ventricular response. Unable to tolerate sotalol due to significant bradycardia and QT prolongation. Started on amiodarone 02/19/2020 with cheondoism of sinus rhythm. IV amiodarone was discontinued. Amiodarone p.o.200 mg b.i.d. controlling A.Fib thus far. Continue apixaban On anticoagulation (2) Chronic systolic CHF (congestive heart failure): Code(s): I50.22 - Chronic systolic (congestive) heart failure Status: Acute Assessment and Plan: Reasonably compensated at present. EF 30-35% by echo September 2019, 41% by nuclear stress test 01/24/2020 with Anterior ischemia. His worsening LV systolic function, ischemia +/- tachycardia induced. His recent MPI 01/24/20 was positive for anterior ischemia. He will need invasive ischemic workup with coronary angiogram in near future. Dr Forrester felt that he could be done as an outpatient if his heart rate can get under control. PT in agreement with angiography. Creatinine stable 1.3 today. INR 1.7. Markedly orthostatic and unable to start CHF medications. continue low-dose furosemide 20 mg daily. Stop potassium supplementation completely. (3) CAD (coronary artery disease): Code(s): I25.10 - Atherosclerotic heart disease of [place] coronary artery without angina pectoris Status: Acute Assessment and Plan: History of CABG. See above Continue aspirin, statin Angiogram showing patent bypass grafts. (4) Anemia: Code(s): D64.9 - Anemia, unspecified Status: Chronic Assessment and Plan: IFOB negative (5) Orthostatic hypotension: Code(s): I95.1 - Orthostatic hypotension Status: Acute Assessment and Plan: will increase his midodrine to 5 mg p.o. t.i.d. Subjective Date/time seen: 02/28/20 12:48 Interval history: Mr. Baker is an 84yo M admitted for a fib RVR, orthostatic hypotension. He feels worse than yesterday. He feels short of breath, denies chest pain. Feels weak and tired. Shortness of breath and dizziness walking to bathroom this morning. He denies nausea or vomiting. Date of service 02/28/20 less symptomatic. No chest pain or shortness breath. Generally feels weak. Review of Systems Review of Systems: All systems reviewed & are unremarkable except as noted in HPI and below Constitutional: Constitutional: Reports as per HPI, Denies excessive sweating, Reports fatigue and Reports weakness Eyes: Eyes: Reports as per HPI and Denies blurry vision ENT: Reports as per HPI and Reports Normal hearing present Cardiovascular: Cardiovascular: Reports as per HPI, Denies chest pain, Denies lightheadedness, Denies palpitations, Denies dyspnea and Reports dyspnea on exertion Respiratory: Respiratory: Reports as per HPI, Denies cough, Denies dyspnea and Reports dyspnea on exertion Gastrointestinal: Gastrointestinal: Reports as per HPI, Denies bloating, Denies nausea and Denies vomiti
--- NOTE | 2020-02-28 16:34 | PM.IMPN ---
Progress Note: A&P Assessment and Plan (1) Orthostatic hypotension: Code(s): I95.1 - Orthostatic hypotension Status: Acute Assessment and Plan: Patient's orthostatics are better today with the increase in midodrine -he was up with therapy today and states he had no dizziness but did feel weak in the legs. He has a walker at home that he plans to use. 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 and I spoke extensively about this with the patient -continue Parminder hose -lisinopril held -appears euvolemic (2) Atrial fibrillation with rapid ventricular response: Code(s): I48.91 - Unspecified atrial fibrillation Status: Resolved Assessment and Plan: Patient had A Fib RVR on arrival which has now spontaneously resolved to normal sinus rhythm Continue amiodarone 200 mg b.i.d. -warfarin transitioned to Eliquis -left heart catheterization shows stable disease, no intervention performed (3) Systolic congestive heart failure: Qualifiers: Heart failure chronicity: chronic Qualified Code(s): I50.22 - Chronic systolic (congestive) heart failure Code(s): I50.20 - Unspecified systolic (congestive) heart failure Status: Chronic Assessment and Plan: Chronic systolic CHF with known EF 30-35%. Recent stress testing demonstrated ischemia. -continue Lasix (4) Generalized weakness: Code(s): R53.1 - Weakness Status: Acute Assessment and Plan: Suspect secondary to above and orthostatics. -Doing well with PT/OT today -Care coordination working on arranging home health and providing information for private duty ( also at home with dementia). (5) Type 2 diabetes mellitus: Qualifiers: Diabetes mellitus skilled nursing insulin use: without filler leaf cutter long use Diabetes mellitus complication status: without complication Qualified Code(s): E11.9 - Type 2 diabetes mellitus without complications Code(s): E11.9 - Type 2 diabetes mellitus without complications Status: Chronic Assessment and Plan: Last glucose 223 - A1c 6.4% - Continue to monitor with accu-cheks and adjust treatment as needed, cover with SSI. (6) Current use of filler leaf cutter long anticoagulation: Code(s): Z79.01 - FPC (current) use of anticoagulants Status: Chronic Assessment and Plan: INR 1.5 1/6 on long-term anticoagulation previously with warfarin. -Cardiology has stopped warfarin 02/18, started Eliquis (7) Microcytic anemia: Code(s): D50.9 - Iron deficiency anemia, unspecified Status: Chronic Assessment and Plan: A chronic microcytic anemia is noted, now pancytopenia. Hgb low but stable, WBC low. -Iron studies 1 month ago demonstrate iron deficiency and possible component of anemia of chronic disease given low TIBC. He has no evidence of acute bleeding at this time. Stool occult blood is negative. -Monitor CBC and continue his iron supplementation. Low WBC also noted in Dec 2019, recommend outpatient hematology referral at discharge for further evaluation. -viral etiology seems less likely Subjective Date/time seen: 02/28/20 16:34 Interval history: Pt is a 84-year-old male here for atrial fibrillation and orthostatic hypotension. Patient was seen today and originally told me he was feeling much better. He was able to walk with physical therapy and got weak in the legs but claimed he had absolutely no dizziness. We talked about discharge and he was okay with this. He denies chest pain, shortness of breath, fevers, chills, nausea, vomiting, diarrhea or constipation. He was all set for discharge when he told the nurse that he felt weak and wanted 1 more day. I offered him to go to a care home and he declined. Plan to discharge tomorrow morning Exam Narrative:
[2020-02-28 17:06] LABS: Glucose Point of Care 177 (65-105)
[2020-02-28] MEDS: MIDODRINE HCL 2.5 MG TABLET 5 MG PO (17:32)
[2020-02-28 20:28] LABS: Glucose Point of Care 334 (65-105)
[2020-02-29] VITALS: BP 131/71; PULSE 62; PULSE 64; RESP 20; TEMP 36.1; O2SAT 98
[2020-02-29 04:00] VITALS: BP 156/68; PULSE 59; PULSE 64; RESP 18; TEMP 36.3; O2SAT 97
[2020-02-29 07:59] LABS: Glucose Point of Care 125 (65-105)
[2020-02-29 08:00] VITALS: PULSE 66
[2020-02-29 08:30] VITALS: PULSE 76
[2020-02-29] MEDS: APIXABAN 2.5 MG TABLET PO (08:30)
[2020-02-29] MEDS: ASPIRIN 81 MG ENTERIC TABLET PO (08:30)
[2020-02-29] MEDS: FERROUS SULFATE 324 MG TABLET PO (08:30)
[2020-02-29] MEDS: AMIODARONE HCL 200 MG TABLET PO (08:30)
[2020-02-29] MEDS: MIDODRINE HCL 2.5 MG TABLET 5 MG PO (08:30)
[2020-02-29] MEDS: PRAVASTATIN SODIUM 20 MG TABLET 40 MG PO (08:30)
[2020-02-29] MEDS: EUCERIN CREAM 120 GM JAR 1 APPLIC TOPICAL (08:35)
[2020-02-29 10:00] VITALS: BP 123/60; PULSE 63; RESP 16; TEMP 36.1; O2SAT 98
--- NOTE | 2020-02-29 10:49 | PM.PNCARD ---
Progress Note: A&P Additional Plan 84-year-old man with: Paroxysmal atrial fibrillation symptomatic with palpitations and dyspnea also problematic with orthostatic hypotension. Patient is now in a stable sinus rhythm on amiodarone and is no longer demonstrably hypotensive according to vital signs. Told the patient that his current symptoms I do not believe are cardiac in nature given the fact that his rhythm and blood pressure are appear to be fine. He can be discharged any time from the cardiac perspective. He may or may not be comfortable going home with the symptoms. No need to adjust his rhythm management however at this time. Severiano Garcia MD [facility] Subjective Date/time seen: 02/29/20 10:49 Interval history: Mr. Baker is an 84yo M admitted for a fib RVR, orthostatic hypotension. He feels worse than yesterday. He feels short of breath, denies chest pain. Feels weak and tired. Shortness of breath and dizziness walking to bathroom this morning. He denies nausea or vomiting. Date of service 02/29/2020: Patient appears to be quite comfortable laying flat in bed. He says that he was lightheaded after breakfast. Telemetry shows no rhythm disturbance he is in a stable sinus rhythm. Vital signs on the flow sheet show no evidence of hypotension. Exam Narrative: Exam Narrative: PHYSICAL EXAMINATION: GENERAL: pale, ill-appearing male, alert, oriented MENTAL STATUS: anxious EYES: Extraocular movements intact, no pallor EARS: External ears appear normal, hearing grossly normal NOSE: Normal and patent, no discharge MOUTH: Mucous membranes moist, tongue normal NECK: Supple, no JVD CHEST: CTA bilaterally HEART: Normal rate, regular rhythm S1/S2 soft early systolic murmur ABDOMEN: Soft, nontender. Bowel sounds positive x4 quadrants. NEUROLOGICAL: Alert, oriented, normal speech MUSCULOSKELETAL: No major deformity, no amputation EXTREMITIES: No pedal edema, no clubbing, no cyanosis SKIN: no rash on the exposed area, no cyanosis PSYCHIATRIC: mildly anxious Const: General: No confusion Orientation/consciousness: No confusion Neuro: General: No confusion Cranial nerves: Yes Normal hearing present Speech: No Abnormal speech present Objective Data Vital Signs Vital Signs: Vital Signs - 24 hr 02/28/20 12:00 02/28/20 16:00 02/28/20 17:32 Temperature 35.7 C L 35.7 C L Pulse Rate 66 64 66 Respiratory Rate 16 16 Blood Pressure 92/41 L 145/67 H Pulse Oximetry 98 99 02/28/20 20:00 02/29/20 00:00 02/29/20 04:00 Temperature 36.1 C L 36.1 C L 36.3 C L Pulse Rate 60 62 64 Respiratory Rate 18 20 18 Blood Pressure 154/66 H 131/71 156/68 H Pulse Oximetry 100 98 97 02/29/20 08:00 02/29/20 08:30 Temperature Pulse Rate 66 76 Respiratory Rate Blood Pressure Pulse Oximetry Intake/Output Intake/Output: Intake & Output 02/26/20 02/27/20 02/28/20 02/29/20 23:59 23:59 23:59 23:59 Intake Total 3146 920 1390 600 Output Total 529 626 6378 900 Balance 2596 120 290 -300 Meds/Results Medications: Active Medications Generic Name Dose Route Start Last Admin Trade Name Freq PRN Reason Stop Dose Admin Amiodarone HCl 200 mg 02/21/20 17:00 02/29/20 08:30 Amiodarone Hcl 200 Mg Tablet PO 200 mg BID SUSIE Administration Apixaban 2.5 mg 02/22/20 09:00 02/29/20 08:30 Apixaban 2.5 Mg Tablet PO 2.5 mg Q12HR SUSIE Administration Aspirin 81 mg 02/19/20 09:00 02/29/20 08:30 Aspirin 81 Mg Enteric Tablet PO 81 mg DAILY SUSIE Administration Dextrose 12.5 gm 02/18/20 23:11 Dextrose 50% 25 Gm/50 Ml Syringe IV PUSH PRN PRN Hypoglycemia Protocol Ferrous Sulfate 324 mg 02/19/20 08:00 02/29/20 08:30 Ferrous Sulfate 324 Mg Tablet PO 324 mg BIDWM SUSIE Administration Finasteride 5 mg 02/19/20 09:00 02/27/20 09:06 Finasteride 5 Mg Tablet PO 5 mg DAILY SUSIE Administration Furosemide 20 mg 02/28/20 09:00 Furosemide 20 Mg Tablet
--- NOTE | 2020-02-29 14:59 | PM.DS ---
DS: Admitting Diagnosis Admitting Diagnosis Admitting Diagnosis: weakness, afib rvr DS: Discharge Diagnosis Discharge Diagnosis (1) Orthostatic hypotension: Code(s): I95.1 - Orthostatic hypotension Status: Acute Assessment and Plan: Patient's orthostatics are better today with the increase in midodrine -he is still intermittently dizzy but is feeling better than admission. He does not want to go to SNF as he has an elderly demented at home. He does well with physical therapy with his walker. Educated to use his walker and rise slowly from a seated position. Sit down and he starts to have dizziness -continue midodrine -Lasix will now be p.r.n. and I spoke extensively about this with the patient -continue Parminder hose -lisinopril held -appears euvolemic (2) Atrial fibrillation with rapid ventricular response: Code(s): I48.91 - Unspecified atrial fibrillation Status: Resolved Assessment and Plan: Patient had A Fib RVR on arrival which has now spontaneously resolved to normal sinus rhythm Continue amiodarone 200 mg b.i.d. -warfarin transitioned to Eliquis -left heart catheterization shows stable disease, no intervention performed (3) Systolic congestive heart failure: Qualifiers: Heart failure chronicity: chronic Qualified Code(s): I50.22 - Chronic systolic (congestive) heart failure Code(s): I50.20 - Unspecified systolic (congestive) heart failure Status: Chronic Assessment and Plan: Chronic systolic CHF with known EF 30-35%. -continue Lasix p.r.n. (4) Generalized weakness: Code(s): R53.1 - Weakness Status: Acute Assessment and Plan: Suspect secondary to above and orthostatics. -Doing well with PT/OT -home with home health and walker (5) Type 2 diabetes mellitus: Qualifiers: Diabetes mellitus tank terminal gauger insulin use: without custodial use Diabetes mellitus complication status: without complication Qualified Code(s): E11.9 - Type 2 diabetes mellitus without complications Code(s): E11.9 - Type 2 diabetes mellitus without complications Status: Chronic Assessment and Plan: Last glucose 125 - A1c 6.4% - Continue to monitor with accu-cheks and adjust treatment as needed, cover with SSI. (6) Current use of tank terminal gauger anticoagulation: Code(s): Z79.01 - jail (current) use of anticoagulants Status: Chronic Assessment and Plan: INR 1.5 1/6 on long-term anticoagulation previously with warfarin. -Cardiology has stopped warfarin 02/18, started Eliquis (7) Microcytic anemia: Code(s): D50.9 - Iron deficiency anemia, unspecified Status: Chronic Assessment and Plan: A chronic microcytic anemia is noted, now pancytopenia. Hgb low but stable, WBC low. -Iron studies 1 month ago demonstrate iron deficiency and possible component of anemia of chronic disease given low TIBC. He has no evidence of acute bleeding at this time. Stool occult blood is negative. - Low WBC also noted in Dec 2019, recommend outpatient hematology referral at discharge for further evaluation. -viral etiology seems less likely DS: Summary Hospital Course Hospital Course: Patient is an 84-year-old male who presented to the emergency room on 02/18/20 for generalized weakness and dizziness feeling like he is going to pass out. He was found to be orthostatic. Vitals in the ER were temperature 36.5 degree C, pulse 130, respiratory rate 18, blood pressure 113/86, pulse ox 95 on room air. Patient appeared pancytopenic with a white blood cell count of 2.2, hemoglobin 11.0, hematocrit 35.7, platelets 136. Creatinine slightly elevated 1.5. EKG showed atrial fibrillation with RVR. Troponins were negative x3. Chest x-ray showed findings consistent with mild CHF exacerbation. No urinary symptoms or fevers so no UA was done. Because of his AFib RVR, Cardiology was consulted and
== END 2020-02-29 12:40 | disposition home health service (06) | DRG 287 ==
LOC: ANHED 12:58 → ANH3MED 16:30 → ANHIMU 02-20 00:50 → ANH2MED 02-27 08:07 → ANHIMU 03-03 16:40
PROVIDERS: Internal Medicine Cardiovascular Disease; Nurse Practitioner Adult Health; Physician Assistant; Specialist; Admitting Provider Family Medicine; Emergency Provider Emergency Medicine; PCP Family Medicine; Visit Provider Internal Medicine
PROC: 4A023N7 Measurement of Cardiac Sampling and Pressure, Left Heart, Percutaneous Approach (ICD-10-PCS; CPT 93459; principal; 2020-02-25 13:00)
DX: I95.1 Orthostatic hypotension (principal); I50.22 Chronic systolic (congestive) heart failure; D61.818 Other pancytopenia; I48.20 Chronic atrial fibrillation, unspecified; I48.92 Unspecified atrial flutter; I25.10 Atherosclerotic heart disease of native coronary artery without angina pectoris; E11.9 Type 2 diabetes mellitus without complications; D50.9 Iron deficiency anemia, unspecified; D63.8 Anemia in other chronic diseases classified elsewhere; E11.22 Type 2 diabetes mellitus with diabetic chronic kidney disease; I12.9 Hypertensive chronic kidney disease with stage 1 through stage 4 chronic kidney disease, or unspecified chronic kidney disease; N18.30 Chronic kidney disease, stage 3 unspecified; N40.0 Benign prostatic hyperplasia without lower urinary tract symptoms; E86.0 Dehydration; K21.9 Gastro-esophageal reflux disease without esophagitis; I25.5 Ischemic cardiomyopathy; M19.90 Unspecified osteoarthritis, unspecified site; Z79.01 Long term (current) use of anticoagulants; Z90.49 Acquired absence of other specified parts of digestive tract; Z95.1 Presence of aortocoronary bypass graft; Z87.891 Personal history of nicotine dependence
CPT/HCPCS: 36415; 71045; 80048; 80053; 80076; 82274; 83036; 83735; 83880; 84443; 84484; 85014; 85018; 85025; 85027; 85610; 85730; 86140; 93005; 93459; 96374; 97110; 97116; 97161; 97165; 97530; 97535; 99285; A9270; C1769; C1887; C1894; G0378; J0282; J1644; J1815; J1940; J2250; J3010; J7030; J7040

== ENCOUNTER 2020-03-01 10:49 | Inpatient (IN) | payer MEDICARE, SELFPAY ==
[2020-03-01] VITALS (11 sets, daily range): BP systolic 81–141; BP diastolic 53–78; PULSE 58–95; RESP 16–20; TEMP 36.6–36.9; O2SAT 96–100; BMI 21.7
--- NOTE | ~2020-03-01 | US_ITS ---
EXAMINATION: US venous doppler [facility] DATE: 03/05/2020 15:27 INDICATION: Left lower limb pain TECHNIQUE: Grayscale ultrasound images without and with compression and Doppler ultrasound images of the bilateral lower extremity veins were obtained. COMPARISON: None. FINDINGS: The visualized portions of right common femoral vein, profunda (deep) femoral vein, femoral vein, pop liteal vein, posterior tibial veins, peroneal veins, gastrocnemius vein and greater saphenous vein ou tflow are patent. There is a central nonocclusive echogenic filling defect within the partially compressible left dista l popliteal vein. The more proximal left popliteal vein along with the visualized portions of left co mmon femoral vein, profunda femoral vein, femoral vein, posterior tibial veins, peroneal veins, gastr ocnemius vein and greater saphenous vein outflow are patent. IMPRESSION: 1. Small amount of nonocclusive deep venous thrombosis in the distal left popliteal vein. 2. No deep venous thrombosis in the right lower limb. Reviewed, dictated and finalized at location A. GROUND OPERATOR IMPRESSION: 1. Small amount of nonocclusive deep venous thrombosis in the distal left popl iteal vein. 2. No deep venous thrombosis in the right lower limb.
--- NOTE | ~2020-03-01 | XR_ITS ---
[XR ribs LT 2V w CXR 2V ] INDICATION: Left lower rib pain TECHNIQUE: Frontal projection of the upper left ribs, frontal projection of the lower left ribs, obli que projection of all the left ribs, frontal inspiratory chest x-ray for interpretation. FINDINGS: There are no displaced rib fractures identified. There are no soft tissue abnormality see n. There is patchy consolidation of the lower lungs which may represent atelectasis and/or pneumonia. There is a healing left 10th rib fracture with callus formation. No acute rib fractures identified. No pneumothorax. There is atherosclerosis. There are cholecystectomy clips. There are patchy infiltra kojo of the right mid and upper lung zone. IMPRESSION: 1: Healing left 10th rib fracture. 2: Patchy bilateral infiltrates predominantly basilar, suspicious for pneumonia. 3: Cardiomegaly. Reviewed, dictated and finalized at location A. FISHER IMPRESSION: 1: Healing left 10th rib fracture. 2: Patchy bilateral infiltrates predominantly basilar, suspicious for pneumonia . 3: Cardiomegaly.
--- NOTE | ~2020-03-01 | CT_ITS ---
EXAMINATION: CT brain wo con DATE: 03/01/2020 11:50 INDICATION: Dizziness. Recent fall. TECHNIQUE: Computed tomography (CT) of the head was performed without intravenous contrast. The dose- length product was 605.33 mGy-cm. The mA was adjusted according to patient size. Iterative reconstruc tion technique was employed. COMPARISON: None FINDINGS: Mild generalized atrophy. There are scattered mild periventricular and subcortical white ma tter changes, most likely related to small vessel ischemic disease (microangiopathy). No ventriculome lorelei or midline shift. Basilar cisterns are patent. There is intracranial atherosclerosis. Paranasal sinuses and mastoids are pneumatized. No depressed skull fractures. IMPRESSION: 1. No acute intracranial abnormality. 2: Chronic age-related findings. Reviewed, dictated and finalized at location A. NIGHT CASHIER
--- NOTE | 2020-03-01 10:57 | ECG_ITS ---
Measurements Intervals [place] Rate: 67 P: 41 WA: 179 QRS: -83 QRSD: 191 T: 91 QT: 505 QTc: 535 Interpretive Statements SINUS RHYTHM SUPRAVENTRICULAR TRIGEMINY RIGHT BUNDLE BRANCH BLOCK LEFT ANTERIOR FASCICULAR BLOCK BASELINE ARTIFACT- II, III, AVF ABNORMAL ECG Electronically Signed On 03-01-2020 14:25:11 IMPLANT COORDINATOR by Beck Lopez D.O.
[2020-03-01 11:20] LABS: Basophils Percent Auto 0.2 % (0.2-1.2); Eosinophils Absolute Auto 0.1 K/mm3 (0-0.3); Eosinophils Percent Auto 1.3 % (0-4.4); Hematocrit 34.5 % (42.0-52.0); Hemoglobin 10.7 g/dL (14.0-18.0); Immature Granulocyte Absolute 0.02 K/mm3 (0.00-0.031); Immature Granulocyte Percent A 0.4 % (0-0.5); Lymphocytes Absolute Auto 0.74 K/mm3 (0.9-3.2); Lymphocytes Percent Auto 16.2 % (18.3-44.2); Mean Corpuscular Hemoglobin 25.1 pg (26-34); Mean Corpuscular Volume 80.8 fl (80-100); Mean Platelet Volume 8.9 fl (7.4-10.4); Monocytes Absolute Auto 0.3 K/mm3 (0.1-0.6); Monocytes Percent Auto 6.8 % (2.6-8.5); Neutrophils Absolute Auto 3.4 K/mm3 (1.3-6.7); Neutrophils Percent Auto 75.1 % (45.5-73.1); Platelet Count Result 287 k/mm3 (150-375); Red Blood Count 4.27 M/mm3 (4.6-6.20); White Blood Count 4.6 K/mm3 (4.5-10.0)
[2020-03-01 11:32] LABS: Anion Gap 3 mmol/L (8-16); Blood Urea Nitrogen 26 mg/dL (9-20); Calcium 8.5 mg/dL (8.4-10.2); Carbon Dioxide 29 mmol/L (22-30); Chloride 104 mmol/L (98-107); Estimated CRCL calculation 33 ml/min; Estimated Glomerular Filt Rate 41; Glucose 128 mg/dL (75-110); Potassium 4.6 mmol/L (3.4-5.0); Sodium 136 mmol/L (137-145)
[2020-03-01 12:17] LABS: Magnesium 1.9 mg/dL (1.6-2.3)
[2020-03-01 12:22] LABS: INR 1.6; Prothrombin Time 19.8 Seconds (11.1-14.7)
[2020-03-01 12:23] LABS: Partial Thromboplastin Time 35.8 SECONDS (22.3-36.8)
[2020-03-01 12:30] LABS: NT Pro B Type Natriuretic Pept 8520 PG/ML (5-100); Troponin I < 0.012 ng/mL (0.000-0.034)
[2020-03-01 12:38] LABS: Add Urine Microscopic? YES; Appearance Urine Clear (Clear); Bacteria Urine Trace /hpf; Bilirubin Urine Negative (Negative); Blood Urine 1+ (Negative); Color Urine Yellow (Yellow); Glucose Urine UA Negative (Negative); Ketones Urine Negative (Negative); Leukocyte Esterase Ur 2+ LEU/UL (Negative); Mucus Urine Rare /lpf; Nitrate Urine Negative (Negative); Protein Urine Negative (Negative); RBC Urine 51-75 /hpf (0-2); Specific Grav Ur 1.015 (1.001-1.035); Squamous Epithelial Cell Urine Few /hpf (Few); WBC Urine 31-50 /hpf
--- NOTE | 2020-03-01 12:59 | ED.DIZZY ---
HPI - Dizziness General Chief Complaint: Dizziness Stated Complaint: DIZZY/FALL Time Seen by Provider: 03/01/20 11:10 Source: patient Mode of arrival: ambulatory Limitations: no limitations History of Present Illness HPI Narrative: Patient is an 84-year-old male who presents to emergency department for evaluation of syncopal episode that occurred this morning while getting out of bed had been up many times throughout the night urinating is on a diuretic and attributes the frequency to diuretic use patient weight RVR, Cardizem presents per EMS from home was just discharged from the hospital yesterday after being fluid overloaded and having orthostatic hypotension with fall risk patient is thinking that he likely had syncope or blacked out briefly family was able to get him back into the bed. Patient notes left rib pain that is a mild aching pain denies other complaints . Related Data Home Medications Medication Instructions Recorded Confirmed blood sugar diagnostic #10 each 01/10/19 02/18/20 lancets 33 gauge #100 each 01/10/19 02/18/20 aspirin 81 mg PO DAILY 02/01/20 02/18/20 finasteride 5 mg PO DAILY 02/01/20 02/18/20 glipizide 5 mg PO DAILY 02/01/20 02/18/20 nitroglycerin 0.4 mg sublingual 0.4 mg SUBLINGUAL Q5M PRN 02/01/20 02/18/20 tablet Allergies Allergy/AdvReac Type Severity Reaction Status Date / Time No Known Allergies Allergy Verified 03/01/20 12:43 Review of Systems Review of Systems: All systems reviewed & are unremarkable except as noted in HPI and below PMFSH Past Medical History Medical History Anemia Arthritis Benign prostatic hyperplasia Cholelithiasis Chronic kidney disease, stage 3 Baseline creatinine is between 1.2 and 1.30. Coronary artery disease Status post bypass. Current use of watermelon inspector anticoagulation Essential tremor Gastroesophageal reflux Hyperlipidemia Hypertension Kidney stones Left renal mass Pancreatitis In 2016, November 2018, and March 2019. Paroxysmal atrial fibrillation Renal mass Stable on imaging as of 2016. Systolic congestive heart failure Echocardiogram in January 2020 showed a moderately enlarged left ventricular chamber with moderately reduced systolic function and an estimated ejection fraction of 30 to 35%. Type 2 diabetes mellitus Hemoglobin A1c was 6.8% in 10/2019. Surgical History Surgical History History of cardiac cath In 2013 prior to CABG. History of coronary artery bypass graft x 2 (~2012) RODRÍGUEZ to the left anterior descending and radial artery to the OM. History of laparoscopic cholecystectomy History of removal of cyst Tracheostomy status As a young child when he had diptheria at the age of 2. Family History Family History Mother Cerebrovascular accident, Onset Age: 80 Patient's mother is Sibling Family history of diabetes mellitus in first degree relative Father Family history of lung cancer Patient's father is Sibling Gallbladder disease His brother just a couple days after having gallbladder surgery Social History Social History Social History: the patient lives with his , Aileen, in [place]. 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 They have a daughter who lives nearby and she helps out a lot at home. Retired from [employer]. He has a 10 pack year smoking history and quit greater than 50 years ago. No alcohol or illicit substance abuse. His daughter, Deb Baker, is his healthcare power of document review attorney and he wishes to be a do not resuscitate. Smoking status: Former smoker Tobacco type: cigarettes Second hand tobacco smoke exposure: Yes Smoking end date: 02/22/1960 Additional smoking assessment comment
[2020-03-01 13:36] LABS: Creatine Kinase 21 U/L (55-170)
--- NOTE | 2020-03-01 14:20 | ADMGEN ---
This patient, Alex Baker, was admitted to [facility] Surg Room 323-01. Patient/family oriented to hospital policies and general routines including ID bracelet, bed and alarms, visiting hours, pain management, procedures, bathroom and other care routines, personal items, smoking policy, room service/diet, and visiting hours. Information on how to activate the Rapid Response Team has been discussed. Patient/Family are encouraged to report perceived risks to care and to ask questions if they do not understand what they are told or what they should do.
[2020-03-01 17:22] LABS: Glucose Point of Care 80 (65-105)
[2020-03-01] MEDS: FERROUS SULFATE 324 MG TABLET PO (19:26)
[2020-03-01] MEDS: MIDODRINE HCL 2.5 MG TABLET 5 MG PO (19:26)
[2020-03-01] MEDS: AMIODARONE HCL 200 MG TABLET PO (19:26)
--- NOTE | 2020-03-01 20:00 | PM.IMHP ---
H&P: HPI History of Present Illness Date/Time: 03/01/20 20:00 Chief Complaint: Dizziness and fall. Narrative: This is an 84-year-old male with systolic congestive heart failure, paroxysmal atrial fibrillation and atrial flutter on long-term anticoagulation, coronary artery disease, hypertension, chronic kidney disease, type 2 diabetes mellitus, and history orthostatic hypotension who presented to the emergency department earlier this morning via EMS from home with reports of dizziness and a fall. He is known to the hospitalist service with a recent admission on 02/18/2020 at which time he was admitted with generalized weakness and near syncope, found to be in atrial fibrillation with rapid ventricular response. Throughout that hospitalization, he was orthostatic and in fact was recently started on midodrine. His volume status was optimized and he was able to be discharged home just yesterday and is my understanding that he had been doing well, up and about with physical therapy. Last night he got up a couple of times to urinate as per usual and did just fine. Unfortunately this morning when he stood to get out of bed he felt extremely lightheaded and before he could sit down he fell forward, striking his left side and forearm on the night stand. His main complaint is of discomfort in the left lower ribs and of course he is frustrated given continued orthostasis. He maintains that he dangles for a bit at bedside when he goes to stand up however this morning it sounds like he just got up too quickly. He denies head trauma and loss of consciousness. No chest pain, pleuritic pain, or palpitations. No cough or shortness of breath. He denies nausea, vomiting, diarrhea, and dysuria. He has not taken his Lasix since discharge yesterday. Review of Systems Review of Systems: All systems reviewed & are unremarkable except as noted in HPI and below PMFSH Past Medical History Medical History Anemia Arthritis Benign prostatic hyperplasia Cholelithiasis Chronic kidney disease, stage 3 Baseline creatinine is between 1.2 and 1.30. Coronary artery disease Status post bypass. Current use of terminal press operator anticoagulation Essential tremor Gastroesophageal reflux Hyperlipidemia Hypertension Kidney stones Left renal mass Pancreatitis In 2016, November 2018, and March 2019. Paroxysmal atrial fibrillation Renal mass Stable on imaging as of 2016. Systolic congestive heart failure Echocardiogram in January 2020 showed a moderately enlarged left ventricular chamber with moderately reduced systolic function and an estimated ejection fraction of 30 to 35%. Type 2 diabetes mellitus Hemoglobin A1c was 6.8% in 10/2019. Surgical History Surgical History History of cardiac cath In 2013 prior to CABG. History of coronary artery bypass graft x 2 (~2012) RODRÍGUEZ to the left anterior descending and radial artery to the OM. History of laparoscopic cholecystectomy History of removal of cyst Tracheostomy status As a young child when he had diptheria at the age of 2. Family History Family History Mother Cerebrovascular accident, Onset Age: 80 Patient's mother is Sibling Family history of diabetes mellitus in first degree relative Father Family history of lung cancer Patient's father is Sibling Gallbladder disease His brother just a couple days after having gallbladder surgery Social History Social History Social History: the patient lives with his , Aileen, in [place]. 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 They have a daughter who lives nearby and she helps out a lot at home. Retired from [employer]. He has a 10 pack year smoking hist
[2020-03-01] MEDS: FAMOTIDINE 20 MG/2 ML VIAL IV PUSH (21:47)
[2020-03-01] MEDS: DOXYCYCLINE HYCLATE 100 MG TABLET PO (21:47)
[2020-03-01 22:07] LABS: Glucose Point of Care 139 (65-105)
[2020-03-01 23:38] LABS: SARS-CoV-2 RNA PCR Positive
[2020-03-02] VITALS (7 sets, daily range): BP systolic 104–157; BP diastolic 49–86; PULSE 53–82; RESP 16–20; TEMP 36.1–36.7; O2SAT 97–100
[2020-03-02 06:40] LABS: Basophils Percent Auto 0.5 % (0.2-1.2); Eosinophils Percent Auto 0.7 % (0-4.4); Hematocrit 32.4 % (42.0-52.0); Immature Granulocyte Absolute 0.01 K/mm3 (0.00-0.031); Immature Granulocyte Percent A 0.2 % (0-0.5); Lymphocytes Absolute Auto 1.03 K/mm3 (0.9-3.2); Lymphocytes Percent Auto 23.6 % (18.3-44.2); Mean Corpuscular HGB Conc 30.9 g/dl (32-36); Mean Corpuscular Hemoglobin 24.7 pg (26-34); Mean Platelet Volume 8.8 fl (7.4-10.4); Monocytes Absolute Auto 0.5 K/mm3 (0.1-0.6); Monocytes Percent Auto 10.6 % (2.6-8.5); Neutrophils Absolute Auto 2.8 K/mm3 (1.3-6.7); Neutrophils Percent Auto 64.4 % (45.5-73.1); Platelet Count Result 273 k/mm3 (150-375); Red Blood Count 4.05 M/mm3 (4.6-6.20); White Blood Count 4.4 K/mm3 (4.5-10.0)
[2020-03-02 06:59] LABS: Lactate Dehydrogenase 357 U/L (313-618)
[2020-03-02 07:07] LABS: Anion Gap 3 mmol/L (8-16); Blood Urea Nitrogen 27 mg/dL (9-20); Calcium 8.4 mg/dL (8.4-10.2); Carbon Dioxide 32 mmol/L (22-30); Chloride 102 mmol/L (98-107); Estimated CRCL calculation 30 ml/min; Estimated Glomerular Filt Rate 41; Glucose 72 mg/dL (75-110); Potassium 4.4 mmol/L (3.4-5.0); Sodium 137 mmol/L (137-145)
[2020-03-02 07:22] LABS: Alanine Aminotransferase 20 U/L (4-50); Albumin Level 2.8 g/dL (3.5-5.1); Alkaline Phosphatase 99 U/L (38-126); Aspartate Amino Transferase 23 U/L (17-59); Bilirubin,Total 0.6 mg/dL (0.2-1.3); CRP 1.2 mg/dL (<1.0)
[2020-03-02 08:20] LABS: Glucose Point of Care 78 (65-105)
[2020-03-02] MEDS: MIDODRINE HCL 2.5 MG TABLET 5 MG PO ×2 (08:52→17:41)
[2020-03-02] MEDS: FERROUS SULFATE 324 MG TABLET PO ×2 (08:52→17:41)
[2020-03-02] MEDS: AMIODARONE HCL 200 MG TABLET PO ×2 (08:52→17:41)
[2020-03-02] MEDS: FINASTERIDE 5 MG TABLET PO (08:52)
[2020-03-02] MEDS: ASPIRIN 81 MG ENTERIC TABLET PO (08:53)
[2020-03-02] MEDS: FAMOTIDINE 20 MG/2 ML VIAL IV PUSH ×2 (08:53→21:23)
[2020-03-02] MEDS: DOXYCYCLINE HYCLATE 100 MG TABLET PO ×2 (08:53→21:24)
[2020-03-02] MEDS: PRAVASTATIN SODIUM 20 MG TABLET 40 MG PO (08:53)
[2020-03-02 12:06] LABS: Glucose Point of Care 180 (65-105)
--- NOTE | 2020-03-02 14:56 | PM.IMPN ---
Progress Note: A&P Assessment and Plan (1) UTI (urinary tract infection): Code(s): N39.0 - Urinary tract infection, site not specified Status: Acute Assessment and Plan: Patient's UA is suspicious for UTI and continues to have weakness -continue ceftriaxone -monitor cultures and adjust antibiotics accordingly -no signs of systemic infection, no fevers or elevated white blood cell count -he does, however, have DARLEEN which could be from the UTI -will bladder scan x1 (2) COVID-19: Code(s): U07.1 - COVID-19 Status: Acute Assessment and Plan: Patient is positive for COVID-19 -unclear how long he has had this since he is asymptomatic -most definitely could be contributing to his weakness -patient is on room air therefore does not qualify for Remdesivir or Decadron -will do Lovenox daily, as he is a fall risk (3) Orthostatic hypotension: Code(s): I95.1 - Orthostatic hypotension Status: Acute Assessment and Plan: Patient continues to be orthostatic -will continue midodrine t.i.d. -hopefully this improves with UTI treatment and COVID-19 resolution -continue to monitor every shift (4) Fall from ground level: Code(s): W18.30XA - Fall on same level, unspecified, initial encounter Status: Acute Assessment and Plan: Due to orthostatic hypotension -will likely discontinue Eliquis indefinitely -continue to treat orthostatics -continue to treat UTI -continue PT and OT (5) Chronic kidney disease, stage 3: Code(s): N18.30 - Chronic kidney disease, stage 3 unspecified Status: Acute Assessment and Plan: Acute on chronic, likely worse because of UTI -will do a postvoid bladder scan to ensure he is not retaining (6) Systolic congestive heart failure: Qualifiers: Heart failure chronicity: chronic Qualified Code(s): I50.22 - Chronic systolic (congestive) heart failure Code(s): I50.20 - Unspecified systolic (congestive) heart failure Status: Chronic Assessment and Plan: Euvolemic -he takes Lasix p.r.n. -will discontinue telemetry since he is a DNR with no cardiac concerns at this time (7) Paroxysmal atrial fibrillation: Code(s): I48.0 - Paroxysmal atrial fibrillation Status: Acute Assessment and Plan: Intermittent -currently normal sinus rhythm during my exam -high risk of fall, Eliquis discontinued -rate controlled Time Spent With Patient Time with patient: 25 - 35 minutes Subjective Date/time seen: 03/02/20 14:56 Interval history: Pt is a 84-year-old male here for COVID, UTI and orthostatic hypotension. Patient was seen today and states he was sitting up for lunch and felt okay. He feels a bit worse than he did yesterday overall. He claims he has lightheadedness when he sits up or stands and feels weak. We reviewed his events and he said he woke up in the middle night prior to admission and went to the bathroom 3 times without any issues. He then slept until 9:00 a.m. and got dizzy when he stood up at that time. We talked about maybe leaving some of his midodrine at bedside so he can take 1 prior to getting out of bed in the morning if he is able to do so. He denies cough, shortness of breath, chest pain, fevers, chills, nausea, vomiting, loss of smell or loss of taste. He has a decreased appetite Review of Systems Review of Systems: All systems reviewed & are unremarkable except as noted in HPI and below Exam Narrative: Exam Narrative: General: Well developed well nourished patient in NAD HEENT: normocephalic Neck: supple Neuro: Alert and oriented x4. Cranial nerves 2-12 intact. Equal strength in the upper and lower extremities 5/5 CV:RRR on exam today Resp: Mild crackles in the left base, overall clear. No wheezing or rhonchi Abd: Soft, non distended. No pain to palpation. Positive bowel sounds Extremities: No swelling, erythema, or pain to p
[2020-03-02 17:35] LABS: Glucose Point of Care 144 (65-105)
[2020-03-02] MEDS: ENOXAPARIN 30 MG/0.3 ML SYRINGE SUB-Q (17:42)
[2020-03-02 22:22] LABS: Glucose Point of Care 177 (65-105)
[2020-03-03] VITALS (12 sets, daily range): BP systolic 81–159; BP diastolic 49–72; PULSE 57–63; RESP 16–20; TEMP 36.1–36.8; O2SAT 98–100
[2020-03-03 06:47] LABS: Basophils Percent Auto 0.8 % (0.2-1.2); Eosinophils Absolute Auto 0.1 K/mm3 (0-0.3); Eosinophils Percent Auto 1.7 % (0-4.4); Hematocrit 31.9 % (42.0-52.0); Immature Granulocyte Absolute 0.01 K/mm3 (0.00-0.031); Immature Granulocyte Percent A 0.3 % (0-0.5); Lymphocytes Absolute Auto 0.82 K/mm3 (0.9-3.2); Lymphocytes Percent Auto 22.9 % (18.3-44.2); Mean Corpuscular HGB Conc 31.3 g/dl (32-36); Mean Corpuscular Hemoglobin 24.8 pg (26-34); Mean Corpuscular Volume 79.2 fl (80-100); Mean Platelet Volume 9.3 fl (7.4-10.4); Monocytes Absolute Auto 0.4 K/mm3 (0.1-0.6); Monocytes Percent Auto 10.3 % (2.6-8.5); Neutrophils Absolute Auto 2.3 K/mm3 (1.3-6.7); Platelet Count Result 261 k/mm3 (150-375); Red Blood Count 4.03 M/mm3 (4.6-6.20); Red Cell Distribution Width 19.1 % (11.5-14.5); White Blood Count 3.6 K/mm3 (4.5-10.0)
[2020-03-03 07:07] LABS: Anion Gap 2 mmol/L (8-16); Blood Urea Nitrogen 28 mg/dL (9-20); Calcium 8.1 mg/dL (8.4-10.2); Carbon Dioxide 29 mmol/L (22-30); Chloride 105 mmol/L (98-107); Estimated CRCL calculation 34 ml/min; Estimated Glomerular Filt Rate 48; Glucose 106 mg/dL (75-110); Potassium 4.6 mmol/L (3.4-5.0); Sodium 136 mmol/L (137-145)
[2020-03-03 08:28] LABS: Glucose Point of Care 100 (65-105)
[2020-03-03] MEDS: FINASTERIDE 5 MG TABLET PO (10:13)
[2020-03-03] MEDS: FERROUS SULFATE 324 MG TABLET PO ×2 (10:13→17:34)
[2020-03-03] MEDS: DOXYCYCLINE HYCLATE 100 MG TABLET PO ×2 (10:13→20:56)
[2020-03-03] MEDS: FAMOTIDINE 20 MG/2 ML VIAL IV PUSH ×2 (10:13→20:55)
[2020-03-03] MEDS: PRAVASTATIN SODIUM 20 MG TABLET 40 MG PO (10:14)
[2020-03-03] MEDS: AMIODARONE HCL 200 MG TABLET PO ×2 (10:15→17:34)
[2020-03-03] MEDS: ASPIRIN 81 MG ENTERIC TABLET PO (10:15)
[2020-03-03] MEDS: MIDODRINE HCL 2.5 MG TABLET 5 MG PO ×3 (10:16→17:34)
[2020-03-03 12:15] LABS: Glucose Point of Care 161 (65-105)
--- NOTE | 2020-03-03 13:39 | PM.IMPN ---
Progress Note: A&P Assessment and Plan (1) UTI (urinary tract infection): Code(s): N39.0 - Urinary tract infection, site not specified Status: Acute Assessment and Plan: Patient's UA is suspicious for UTI and continues to have weakness -continue ceftriaxone -monitor cultures and adjust antibiotics accordingly. They are still pending as of 03/03/20 -no signs of systemic infection, no fevers or elevated white blood cell count -he does, however, have DARLEEN which could be from the UTI. It is improving (2) COVID-19: Code(s): U07.1 - COVID-19 Status: Acute Assessment and Plan: Patient is positive for COVID-19 but asymptomatic -unclear how long he has had this since he is asymptomatic -most definitely could be contributing to his weakness -likely the cause of his leukopenia -patient is on room air therefore does not qualify for Remdesivir or Decadron -will do Lovenox daily, as he is a fall risk (3) Orthostatic hypotension: Code(s): I95.1 - Orthostatic hypotension Status: Acute Assessment and Plan: Patient continues to be orthostatic and has symptoms when standing -will reorder Parminder hose -will continue midodrine t.i.d. (started last stay just a few days ago) -consider cardiology consult if Parminder hose does not improve and patient continues to have symptoms -hopefully this improves with UTI treatment, Parminder hose and COVID-19 resolution -continue to monitor orthostatics every shift (4) Fall from ground level: Code(s): W18.30XA - Fall on same level, unspecified, initial encounter Status: Acute Assessment and Plan: Due to orthostatic hypotension -will likely discontinue Eliquis indefinitely -continue to treat orthostatics -continue to treat UTI -continue PT and OT (5) Chronic kidney disease, stage 3: Code(s): N18.30 - Chronic kidney disease, stage 3 unspecified Status: Acute Assessment and Plan: Acute on chronic, likely worse because of UTI -improving with treatment (6) Systolic congestive heart failure: Qualifiers: Heart failure chronicity: chronic Qualified Code(s): I50.22 - Chronic systolic (congestive) heart failure Code(s): I50.20 - Unspecified systolic (congestive) heart failure Status: Chronic Assessment and Plan: Euvolemic -he takes Lasix p.r.n. -will discontinue telemetry since he is a DNR with no cardiac concerns at this time (7) Paroxysmal atrial fibrillation: Code(s): I48.0 - Paroxysmal atrial fibrillation Status: Acute Assessment and Plan: Intermittent -currently normal sinus rhythm during my exam -high risk of fall, Eliquis discontinued -rate controlled Subjective Date/time seen: 03/03/20 13:39 Interval history: Pt is a 84-year-old male here for COVID, UTI and orthostatic hypotension. Patient was seen today and still has complaints of dizziness and lightheadedness when he stands. He has no signs or symptoms of COVID-19 which include shortness of breath, dyspnea on exertion, chest pain, loss of smell or taste, or fevers or chills. He has not been wearing his Parminder hose since he was admitted to the hospital. Exam Narrative: Exam Narrative: General: Well developed well nourished patient in NAD HEENT: normocephalic Neck: supple Neuro: Alert and oriented x4. Cranial nerves 2-12 intact. Equal strength in the upper and lower extremities 5/5 CV:RRR on exam today Resp: Mild crackles at the bases, no wheezing or rhonchi Abd: Soft, non distended. No pain to palpation. Positive bowel sounds Extremities: No swelling, erythema, or pain to palpation. Objective Data Vital Signs Vital Signs: Vital Signs - 24 hr 03/02/20 16:00 03/02/20 20:00 03/03/20 00:00 Temperature 98.1 F 97 F L 97 F L Pulse Rate 57 L 59 L 59 L Respiratory Rate 18 20 20 Blood Pressure 157/71 H 104/57 L 153/72 H Pulse Oximetry 100 99 99 03/03/20 04:00 03/03/20 08:00
[2020-03-03] MEDS: ENOXAPARIN 30 MG/0.3 ML SYRINGE SUB-Q (17:36)
[2020-03-03 17:43] LABS: Glucose Point of Care 165 (65-105)
[2020-03-04] VITALS (11 sets, daily range): BP systolic 76–162; BP diastolic 49–72; PULSE 54–86; RESP 16–20; TEMP 36.2–36.9; O2SAT 93–100
[2020-03-04 06:35] LABS: Hemoglobin 10.1 g/dL (14.0-18.0); Mean Corpuscular HGB Conc 30.6 g/dl (32-36); Mean Corpuscular Hemoglobin 24.5 pg (26-34); Mean Corpuscular Volume 79.9 fl (80-100); Mean Platelet Volume 9.1 fl (7.4-10.4); Platelet Count Result 261 k/mm3 (150-375); Red Blood Count 4.13 M/mm3 (4.6-6.20); Red Cell Distribution Width 19.2 % (11.5-14.5); White Blood Count 3.8 K/mm3 (4.5-10.0)
[2020-03-04 06:57] LABS: Anion Gap 3 mmol/L (8-16); Blood Urea Nitrogen 27 mg/dL (9-20); Calcium 8.2 mg/dL (8.4-10.2); Carbon Dioxide 29 mmol/L (22-30); Chloride 104 mmol/L (98-107); Estimated CRCL calculation 36 ml/min; Estimated Glomerular Filt Rate 48; Glucose 124 mg/dL (75-110); Magnesium 1.9 mg/dL (1.6-2.3); Phosphorus 3.6 mg/dL (2.5-4.5); Potassium 4.8 mmol/L (3.4-5.0); Sodium 136 mmol/L (137-145)
[2020-03-04 08:46] LABS: Glucose Point of Care 110 (65-105)
[2020-03-04] MEDS: PRAVASTATIN SODIUM 20 MG TABLET 40 MG PO (10:02)
[2020-03-04] MEDS: FERROUS SULFATE 324 MG TABLET PO ×2 (10:02→17:07)
[2020-03-04] MEDS: FINASTERIDE 5 MG TABLET PO (10:02)
[2020-03-04] MEDS: DOXYCYCLINE HYCLATE 100 MG TABLET PO ×2 (10:02→21:22)
[2020-03-04] MEDS: MIDODRINE HCL 2.5 MG TABLET 5 MG PO ×3 (10:02→17:07)
[2020-03-04] MEDS: ASPIRIN 81 MG ENTERIC TABLET PO (10:02)
[2020-03-04] MEDS: AMPICILLIN 2 GM/NS 100 ML 2 GM/100 ML BAG IVPB ×3 (10:03→21:20)
[2020-03-04] MEDS: FAMOTIDINE 20 MG/2 ML VIAL IV PUSH ×2 (10:04→21:21)
[2020-03-04] MEDS: AMIODARONE HCL 200 MG TABLET PO ×2 (10:04→17:11)
[2020-03-04 13:08] LABS: Glucose Point of Care 164 (65-105)
--- NOTE | 2020-03-04 16:34 | PM.IMPN ---
Progress Note: A&P Assessment and Plan (1) UTI (urinary tract infection): Code(s): N39.0 - Urinary tract infection, site not specified Status: Acute Assessment and Plan: Urine culture growing coag negative Staph as well as Enterococcus. Continue doxycycline, change Rocephin to Ampicillin. (2) COVID-19: Code(s): U07.1 - COVID-19 Status: Acute Assessment and Plan: Patient is positive for COVID-19 but asymptomatic. Unclear how long he has had it since he is asymptomatic. Certainly could be contributing to weakness, suspect this is the cause of his leukopenia also. Tolerating room air; steroids and antiviral therapy not indicated at this time. Lovenox for DVT ppx. (3) Orthostatic hypotension: Code(s): I95.1 - Orthostatic hypotension Status: Acute Assessment and Plan: Patient continues to be orthostatic and has symptoms when standing. Continue PARMINDER hose; Continue midodrine just started a few days ago last admission. Consider cardiology consult if Parminder hose does not improve and patient continues to have symptoms. Hopefully this improves with UTI treatment, Parminder hose and COVID-19 resolution. Continue to monitor orthostatic vitals every shift (4) Fall from ground level: Code(s): W18.30XA - Fall on same level, unspecified, initial encounter Status: Acute Assessment and Plan: Due to orthostatic hypotension. Eliquis is held at this time due to fall risk. Continue treatment for orthostasis and UTI as above. Continue PT/OT. Family wants him to consider SNF however he continues to decline such today. (5) Chronic kidney disease, stage 3: Code(s): N18.30 - Chronic kidney disease, stage 3 unspecified Status: Acute Assessment and Plan: Acute on chronic, likely worsened by UTI. Improving with treatment. Monitor renal function. (6) Systolic congestive heart failure: Qualifiers: Heart failure chronicity: chronic Qualified Code(s): I50.22 - Chronic systolic (congestive) heart failure Code(s): I50.20 - Unspecified systolic (congestive) heart failure Status: Chronic Assessment and Plan: Euvolemic. His Lasix was changed to PRN last discharge last week. (7) Paroxysmal atrial fibrillation: Code(s): I48.0 - Paroxysmal atrial fibrillation Status: Acute Assessment and Plan: Rate controlled on home amiodarone. Fall at home after recent discharge thus Eliquis is discontinued at this time. Discussed with patient the risk vs. benefit of systemic anticoagulation. Subjective Date/time seen: 03/04/20 1400 Interval history: Mr. Baker is an 84yo M admitted due to orthostatic hypotension, UTI, COVID positive. Continues to have dizziness with standing, orthostasis. Denies shortness of breath, chest pain, palpitations or cough. Review of Systems Review of Systems: All systems reviewed & are unremarkable except as noted in HPI and below Exam Narrative: Exam Narrative: General: Well developed well nourished patient in NAD HEENT: normocephalic Neck: supple Neuro: Alert and oriented x4. Cranial nerves 2-12 intact. Equal strength in the upper and lower extremities 5/5 CV:RRR on exam today Resp: Mild bibasilar rales, no wheezing or rhonchi. Tolerating room air. Abd: Soft, non distended. No pain to palpation. Positive bowel sounds Extremities: No swelling, erythema, or pain to palpation. Objective Data Vital Signs Vital Signs: Last Vital Signs Temp 98.0 F 03/04/20 16:00 Pulse 86 03/04/20 17:11 Resp 20 03/04/20 16:00 BP 152/61 H 03/04/20 16:00 Pulse Ox 100 03/04/20 16:00 Intake/Output
[2020-03-04] MEDS: ENOXAPARIN 30 MG/0.3 ML SYRINGE SUB-Q (17:07)
[2020-03-04 17:19] LABS: Glucose Point of Care 195 (65-105)
[2020-03-04 21:32] LABS: Glucose Point of Care 145 (65-105)
[2020-03-05] VITALS (13 sets, daily range): BP systolic 77–162; BP diastolic 48–69; PULSE 56–80; RESP 16–20; TEMP 36.1–36.6; O2SAT 95–100
[2020-03-05] MEDS: AMPICILLIN 2 GM/NS 100 ML 2 GM/100 ML BAG IVPB ×3 (05:50→22:34)
[2020-03-05 07:00] LABS: Anion Gap 2 mmol/L (8-16); Blood Urea Nitrogen 26 mg/dL (9-20); Calcium 8.1 mg/dL (8.4-10.2); Carbon Dioxide 29 mmol/L (22-30); Chloride 105 mmol/L (98-107); Estimated CRCL calculation 36 ml/min; Estimated Glomerular Filt Rate 48; Glucose 101 mg/dL (75-110); Magnesium 1.9 mg/dL (1.6-2.3); Potassium 4.7 mmol/L (3.4-5.0); Sodium 136 mmol/L (137-145)
[2020-03-05 08:03] LABS: Basophils Percent Auto 0.8 % (0.2-1.2); Eosinophils Absolute Auto 0.1 K/mm3 (0-0.3); Eosinophils Percent Auto 1.5 % (0-4.4); Hematocrit 32.7 % (42.0-52.0); Hemoglobin 10.1 g/dL (14.0-18.0); Immature Granulocyte Absolute 0.01 K/mm3 (0.00-0.031); Immature Granulocyte Percent A 0.3 % (0-0.5); Lymphocytes Absolute Auto 0.91 K/mm3 (0.9-3.2); Lymphocytes Percent Auto 23.2 % (18.3-44.2); Mean Corpuscular HGB Conc 30.9 g/dl (32-36); Mean Corpuscular Hemoglobin 25.3 pg (26-34); Mean Platelet Volume 9.3 fl (7.4-10.4); Monocytes Absolute Auto 0.4 K/mm3 (0.1-0.6); Monocytes Percent Auto 9.2 % (2.6-8.5); Neutrophils Absolute Auto 2.6 K/mm3 (1.3-6.7); Platelet Count Result 238 k/mm3 (150-375); Red Blood Count 3.99 M/mm3 (4.6-6.20); Red Cell Distribution Width 19.8 % (11.5-14.5); White Blood Count 3.9 K/mm3 (4.5-10.0)
[2020-03-05] MEDS: DOXYCYCLINE HYCLATE 100 MG TABLET PO ×2 (10:09→21:33)
[2020-03-05] MEDS: FAMOTIDINE 20 MG/2 ML VIAL IV PUSH ×2 (10:09→21:32)
[2020-03-05] MEDS: MIDODRINE HCL 2.5 MG TABLET 5 MG PO ×3 (10:09→17:35)
[2020-03-05] MEDS: FERROUS SULFATE 324 MG TABLET PO ×2 (10:10→17:35)
[2020-03-05] MEDS: ASPIRIN 81 MG ENTERIC TABLET PO (10:10)
[2020-03-05] MEDS: FINASTERIDE 5 MG TABLET PO (10:10)
[2020-03-05] MEDS: PRAVASTATIN SODIUM 20 MG TABLET 40 MG PO (10:10)
[2020-03-05] MEDS: AMIODARONE HCL 200 MG TABLET PO ×2 (10:10→17:35)
[2020-03-05 10:36] LABS: Glucose Point of Care 94 (65-105)
[2020-03-05 12:21] LABS: Glucose Point of Care 152 (65-105)
--- NOTE | 2020-03-05 15:32 | PM.IMPN ---
Progress Note: A&P Assessment and Plan (1) UTI (urinary tract infection): Code(s): N39.0 - Urinary tract infection, site not specified Status: Acute Assessment and Plan: Urine culture growing coag negative Staph as well as Enterococcus. Continue doxycycline (day 4), Ampicillin (day 2). (2) COVID-19: Code(s): U07.1 - COVID-19 Status: Acute Assessment and Plan: Patient is positive for COVID-19 but asymptomatic. Unclear how long he has had it since he is asymptomatic. Certainly could be contributing to weakness, suspect this is contributing to his leukopenia also. Tolerating room air; steroids and antiviral therapy not indicated at this time. Lovenox for DVT ppx. (3) Orthostatic hypotension: Code(s): I95.1 - Orthostatic hypotension Status: Acute Assessment and Plan: Patient continues to be orthostatic and has symptoms when standing. Continue PARMINDER hose; Continue midodrine just started a few days ago last admission. Hopefully this improves with UTI treatment, Parminder hose and COVID-19 resolution. Discussed with patient at length the importance of sitting for several minutes when changing positions prior to standing and taking precaution to avoid falls. We discussed that this may continue to be an issue for him even at discharge since not much change despite current treatment. Continue to monitor orthostatic vitals every shift (4) Fall from ground level: Code(s): W18.30XA - Fall on same level, unspecified, initial encounter Status: Acute Assessment and Plan: Due to orthostatic hypotension. Eliquis is held at this time due to fall risk. Continue treatment for orthostasis and UTI as above. Continue PT/OT. Family wants him to consider SNF however he continues to decline such today. (5) Chronic kidney disease, stage 3: Code(s): N18.30 - Chronic kidney disease, stage 3 unspecified Status: Acute Assessment and Plan: Acute on chronic, likely worsened by UTI. Avoid IV fluids as he is prone to fluid overload with low EF. Monitor renal function. (6) Systolic congestive heart failure: Qualifiers: Heart failure chronicity: chronic Qualified Code(s): I50.22 - Chronic systolic (congestive) heart failure Code(s): I50.20 - Unspecified systolic (congestive) heart failure Status: Chronic Assessment and Plan: Chronic systolic CHF with known EF 30-35%. Euvolemic. His Lasix was changed to PRN last discharge last week. (7) Paroxysmal atrial fibrillation: Code(s): I48.0 - Paroxysmal atrial fibrillation Status: Acute Assessment and Plan: Rate controlled on home amiodarone. Fall at home after recent discharge thus Eliquis is discontinued at this time. Discussed with patient the risk vs. benefit of systemic anticoagulation. HAS-BLED score indicates moderate bleeding risk. Subjective Date/time seen: 03/05/20 1430 Interval history: Mr. Baker is an 84yo M admitted due to orthostatic hypotension, UTI, COVID positive. He is sitting up in the bedside chair watching television and tells me he is feeling a little better than yesterday. Continues to have dizziness with standing, orthostatic +. Denies shortness of breath, chest pain, palpitations or cough. Review of Systems Review of Systems: All systems reviewed & are unremarkable except as noted in HPI and below Exam Narrative: Exam Narrative: General: Male resting comfortably sitting up in bedside chair in no acute distress. HEENT: Normocephalic, EOMI, oral mucosa moist. Cardiovascular: Rate and rhythm are regular. Respiratory: Faint crackles right base. R
[2020-03-05 17:31] LABS: Glucose Point of Care 135 (65-105)
[2020-03-05] MEDS: APIXABAN 2.5 MG TABLET PO (21:32)
[2020-03-05 22:55] LABS: Glucose Point of Care 103 (65-105)
[2020-03-06] VITALS (12 sets, daily range): BP systolic 85–157; BP diastolic 50–89; PULSE 56–68; RESP 18–20; TEMP 36.3–36.8; O2SAT 94–100
[2020-03-06] MEDS: AMPICILLIN 2 GM/NS 100 ML 2 GM/100 ML BAG IVPB ×3 (05:57→21:43)
[2020-03-06 06:40] LABS: Alanine Aminotransferase 19 U/L (4-50); Albumin Level 2.8 g/dL (3.5-5.1); Alkaline Phosphatase 87 U/L (38-126); Anion Gap 1 mmol/L (8-16); Aspartate Amino Transferase 20 U/L (17-59); Bilirubin,Total 0.7 mg/dL (0.2-1.3); Blood Urea Nitrogen 25 mg/dL (9-20); Calcium 8.2 mg/dL (8.4-10.2); Carbon Dioxide 29 mmol/L (22-30); Chloride 105 mmol/L (98-107); Estimated CRCL calculation 33 ml/min; Estimated Glomerular Filt Rate 45; Glucose 96 mg/dL (75-110); Magnesium 1.8 mg/dL (1.6-2.3); Potassium 4.8 mmol/L (3.4-5.0); Sodium 135 mmol/L (137-145)
[2020-03-06 06:42] LABS: Basophils Percent Auto 0.5 % (0.2-1.2); Eosinophils Absolute Auto 0.1 K/mm3 (0-0.3); Eosinophils Percent Auto 1.1 % (0-4.4); Hematocrit 32.4 % (42.0-52.0); Immature Granulocyte Absolute 0.01 K/mm3 (0.00-0.031); Immature Granulocyte Percent A 0.2 % (0-0.5); Lymphocytes Absolute Auto 0.93 K/mm3 (0.9-3.2); Lymphocytes Percent Auto 21.2 % (18.3-44.2); Mean Corpuscular HGB Conc 30.9 g/dl (32-36); Mean Corpuscular Hemoglobin 24.9 pg (26-34); Mean Corpuscular Volume 80.6 fl (80-100); Monocytes Absolute Auto 0.5 K/mm3 (0.1-0.6); Monocytes Percent Auto 10.3 % (2.6-8.5); Neutrophils Absolute Auto 2.9 K/mm3 (1.3-6.7); Neutrophils Percent Auto 66.7 % (45.5-73.1); Platelet Count Result 225 k/mm3 (150-375); Red Blood Count 4.02 M/mm3 (4.6-6.20); Red Cell Distribution Width 19.9 % (11.5-14.5); White Blood Count 4.4 K/mm3 (4.5-10.0)
[2020-03-06] MEDS: FERROUS SULFATE 324 MG TABLET PO ×2 (08:12→17:24)
[2020-03-06] MEDS: PRAVASTATIN SODIUM 20 MG TABLET 40 MG PO (08:12)
[2020-03-06] MEDS: FINASTERIDE 5 MG TABLET PO (08:12)
[2020-03-06] MEDS: MIDODRINE HCL 2.5 MG TABLET 5 MG PO ×3 (08:12→17:24)
[2020-03-06] MEDS: DOXYCYCLINE HYCLATE 100 MG TABLET PO ×2 (08:12→20:43)
[2020-03-06] MEDS: ASPIRIN 81 MG ENTERIC TABLET PO (08:12)
[2020-03-06] MEDS: FAMOTIDINE 20 MG/2 ML VIAL IV PUSH ×2 (08:13→20:43)
[2020-03-06] MEDS: APIXABAN 2.5 MG TABLET PO ×2 (08:13→20:43)
[2020-03-06 08:45] LABS: Glucose Point of Care 91 (65-105)
[2020-03-06] MEDS: AMIODARONE HCL 200 MG TABLET PO ×2 (12:33→17:23)
[2020-03-06 12:40] LABS: Glucose Point of Care 132 (65-105)
--- NOTE | 2020-03-06 13:28 | P.PNIM_ITS ---
Progress Note: A&P Assessment and Plan (1) UTI (urinary tract infection): Code(s): N39.0 - Urinary tract infection, site not specified Status: Acute Assessment and Plan: * Urine culture growing coag negative Staph as well as Enterococcus. * Continue doxycycline (day 5), Ampicillin (day 3). (2) COVID-19: Code(s): U07.1 - COVID-19 Status: Acute Assessment and Plan: * Patient is positive for COVID-19 but asymptomatic. Unclear how long he has had it since he is asymptomatic. Certainly could be contributing to weakness, suspect this is contributing to his leukopenia also. * Tolerating room air; steroids and antiviral therapy not indicated at this time. Lovenox for DVT ppx. (3) Orthostatic hypotension: Code(s): I95.1 - Orthostatic hypotension Status: Acute Assessment and Plan: * Patient continues to be orthostatic and has symptoms when standing but dizziness has improved a little. * Continue PARMINDER hose; Continue midodrine just started a few days ago last admission. Hopefully this improves with UTI treatment, Parminder hose and COVID-19 resolution. * Discussed with patient at length the importance of sitting for several minutes when changing positions prior to standing and taking precaution to avoid falls. We discussed that this may continue to be an issue for him even at discharge since not much change despite current treatment. * Continue to monitor orthostatic vitals every shift. Consider discharge tomorrow if he is stable and feeling well enough. (4) Fall from ground level: Code(s): W18.30XA - Fall on same level, unspecified, initial encounter Status: Acute Assessment and Plan: * Due to orthostatic hypotension. * Continue treatment for orthostasis and UTI as above. Continue PT/OT. Family wants him to consider SNF however he continues to decline such today. (5) Chronic kidney disease, stage 3: Code(s): N18.30 - Chronic kidney disease, stage 3 unspecified Status: Acute Assessment and Plan: * Acute on chronic, likely worsened by UTI. Avoid IV fluids as he is prone to fl uid overload with low EF. Monitor renal function. (6) Systolic congestive heart failure: Qualifiers: Heart failure chronicity: chronic Qualified Code(s): I50.22 - Chronic systolic (congestive) heart failure Code(s): I50.20 - Unspecified systolic (congestive) heart failure Status: Chronic Assessment and Plan: * Chronic systolic CHF with known EF 30-35%. * Euvolemic. His Lasix was changed to PRN last discharge last week. (7) Paroxysmal atrial fibrillation: Code(s): I48.0 - Paroxysmal atrial fibrillation Status: Acute Assessment and Plan: * Rate controlled on home amiodarone. Eliquis resumed, see below. 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 * Patient fell at home after discharge, thus Eliquis was held on admission due to fall risk and bleeding risk. Discussed with patient the risk vs. benefit of systemic anticoagulation. HAS-BLED score indicates moderate bleeding risk. *
--- NOTE | 2020-03-06 13:28 | PM.IMPN ---
Progress Note: A&P Assessment and Plan (1) UTI (urinary tract infection): Code(s): N39.0 - Urinary tract infection, site not specified Status: Acute Assessment and Plan: Urine culture growing coag negative Staph as well as Enterococcus. Continue doxycycline (day 5), Ampicillin (day 3). (2) COVID-19: Code(s): U07.1 - COVID-19 Status: Acute Assessment and Plan: Patient is positive for COVID-19 but asymptomatic. Unclear how long he has had it since he is asymptomatic. Certainly could be contributing to weakness, suspect this is contributing to his leukopenia also. Tolerating room air; steroids and antiviral therapy not indicated at this time. Lovenox for DVT ppx. (3) Orthostatic hypotension: Code(s): I95.1 - Orthostatic hypotension Status: Acute Assessment and Plan: Patient continues to be orthostatic and has symptoms when standing but dizziness has improved a little. Continue PARMINDER hose; Continue midodrine just started a few days ago last admission. Hopefully this improves with UTI treatment, Parminder hose and COVID-19 resolution. Discussed with patient at length the importance of sitting for several minutes when changing positions prior to standing and taking precaution to avoid falls. We discussed that this may continue to be an issue for him even at discharge since not much change despite current treatment. Continue to monitor orthostatic vitals every shift. Consider discharge tomorrow if he is stable and feeling well enough. (4) Fall from ground level: Code(s): W18.30XA - Fall on same level, unspecified, initial encounter Status: Acute Assessment and Plan: Due to orthostatic hypotension. Continue treatment for orthostasis and UTI as above. Continue PT/OT. Family wants him to consider SNF however he continues to decline such today. (5) Chronic kidney disease, stage 3: Code(s): N18.30 - Chronic kidney disease, stage 3 unspecified Status: Acute Assessment and Plan: Acute on chronic, likely worsened by UTI. Avoid IV fluids as he is prone to fluid overload with low EF. Monitor renal function. (6) Systolic congestive heart failure: Qualifiers: Heart failure chronicity: chronic Qualified Code(s): I50.22 - Chronic systolic (congestive) heart failure Code(s): I50.20 - Unspecified systolic (congestive) heart failure Status: Chronic Assessment and Plan: Chronic systolic CHF with known EF 30-35%. Euvolemic. His Lasix was changed to PRN last discharge last week. (7) Paroxysmal atrial fibrillation: Code(s): I48.0 - Paroxysmal atrial fibrillation Status: Acute Assessment and Plan: Rate controlled on home amiodarone. Eliquis resumed, see below. (8) custodial current use of anticoagulant: Code(s): Z79.01 - custodial (current) use of anticoagulants Status: Acute Assessment and Plan: Patient was previously anticoagulated with warfarin, switched to Eliquis during last admission earlier this month. Patient fell at home after discharge, thus Eliquis was held on admission due to fall risk and bleeding risk. Discussed with patient the risk vs. benefit of systemic anticoagulation. HAS-BLED score indicates moderate bleeding risk. Evidence of a small amount of nonocclusive DVT in distal left popliteal vein on US. This can be monitored with repeat dopplers but given his clotting risk we will resume his Eliquis. Subjective Date/time seen: 03/06/20 13:15 Interval history: Mr. Baker is an 84yo M admitted due to orthostatic hypotension, UTI, COVID posi
[2020-03-06] MEDS: ACETAMINOPHEN 325 MG TABLET 650 MG PO ×2 (14:49→20:44)
[2020-03-06 17:32] LABS: Glucose Point of Care 130 (65-105)
[2020-03-06 21:30] LABS: Glucose Point of Care 157 (65-105)
[2020-03-07] VITALS (10 sets, daily range): BP systolic 99–160; BP diastolic 55–81; PULSE 54–117; RESP 16–18; TEMP 36.1–36.9; O2SAT 98–100
[2020-03-07] MEDS: AMPICILLIN 2 GM/NS 100 ML 2 GM/100 ML BAG IVPB ×3 (05:13→22:52)
[2020-03-07 06:20] LABS: Basophils Percent Auto 0.7 % (0.2-1.2); Eosinophils Absolute Auto 0.1 K/mm3 (0-0.3); Eosinophils Percent Auto 1.6 % (0-4.4); Hematocrit 33.4 % (42.0-52.0); Hemoglobin 10.5 g/dL (14.0-18.0); Immature Granulocyte Absolute 0.01 K/mm3 (0.00-0.031); Immature Granulocyte Percent A 0.2 % (0-0.5); Lymphocytes Percent Auto 23.4 % (18.3-44.2); Mean Corpuscular HGB Conc 31.4 g/dl (32-36); Mean Corpuscular Hemoglobin 25.2 pg (26-34); Mean Corpuscular Volume 80.1 fl (80-100); Mean Platelet Volume 8.6 fl (7.4-10.4); Monocytes Absolute Auto 0.4 K/mm3 (0.1-0.6); Monocytes Percent Auto 9.8 % (2.6-8.5); Neutrophils Absolute Auto 2.7 K/mm3 (1.3-6.7); Neutrophils Percent Auto 64.3 % (45.5-73.1); Platelet Count Result 209 k/mm3 (150-375); Red Blood Count 4.17 M/mm3 (4.6-6.20); Red Cell Distribution Width 19.9 % (11.5-14.5); White Blood Count 4.3 K/mm3 (4.5-10.0)
[2020-03-07 06:39] LABS: Anion Gap 0 mmol/L (8-16); Blood Urea Nitrogen 26 mg/dL (9-20); Calcium 8.1 mg/dL (8.4-10.2); Carbon Dioxide 30 mmol/L (22-30); Chloride 106 mmol/L (98-107); Estimated CRCL calculation 31 ml/min; Estimated Glomerular Filt Rate 41; Glucose 99 mg/dL (75-110); Magnesium 1.9 mg/dL (1.6-2.3); Potassium 4.8 mmol/L (3.4-5.0); Sodium 136 mmol/L (137-145)
[2020-03-07 08:18] LABS: Glucose Point of Care 96 (65-105)
[2020-03-07] MEDS: APIXABAN 2.5 MG TABLET PO ×2 (09:27→20:30)
[2020-03-07] MEDS: AMIODARONE HCL 200 MG TABLET PO ×2 (09:27→18:11)
[2020-03-07] MEDS: PRAVASTATIN SODIUM 20 MG TABLET 40 MG PO (09:27)
[2020-03-07] MEDS: FINASTERIDE 5 MG TABLET PO (09:27)
[2020-03-07] MEDS: DOXYCYCLINE HYCLATE 100 MG TABLET PO ×2 (09:27→20:30)
[2020-03-07] MEDS: MIDODRINE HCL 2.5 MG TABLET 5 MG PO ×3 (09:27→18:11)
[2020-03-07] MEDS: FERROUS SULFATE 324 MG TABLET PO ×2 (09:28→18:11)
[2020-03-07] MEDS: ASPIRIN 81 MG ENTERIC TABLET PO (09:28)
[2020-03-07] MEDS: FAMOTIDINE 20 MG/2 ML VIAL IV PUSH ×2 (09:28→20:30)
[2020-03-07] MEDS: ACETAMINOPHEN 325 MG TABLET 650 MG PO ×2 (09:35→14:36)
[2020-03-07 12:24] LABS: Glucose Point of Care 166 (65-105)
--- NOTE | 2020-03-07 14:47 | PM.IMPN ---
Progress Note: A&P Assessment and Plan (1) Orthostatic hypotension: Code(s): I95.1 - Orthostatic hypotension Status: Acute Assessment and Plan: Patient continues to be orthostatic, improved today; and has symptoms when standing but dizziness has improved a little. Continue PARMINDER hose; Continue midodrine just started a few days ago last admission. Hopefully this improves with UTI treatment, Parminder hose and COVID-19 resolution. Discussed with patient at length the importance of sitting for several minutes when changing positions prior to standing and taking precaution to avoid falls. We discussed that this may continue to be an issue for him even at discharge since not much change despite current treatment. Continue to monitor orthostatic vitals every shift. Consider discharge tomorrow if he is stable and feeling well enough. (2) UTI (urinary tract infection): Qualifiers: Urinary tract infection type: acute cystitis Hematuria presence: without hematuria Qualified Code(s): N30.00 - Acute cystitis without hematuria Code(s): N39.0 - Urinary tract infection, site not specified Status: Acute Assessment and Plan: Urine culture growing coag negative Staph as well as Enterococcus. Continue doxycycline (day 6), Ampicillin (day 4). (3) COVID-19: Code(s): U07.1 - COVID-19 Status: Acute Assessment and Plan: Patient is positive for COVID-19 03/01/20 but without respiratory symptoms. Certainly could be contributing to weakness, suspect this is contributing to his leukopenia also. Tolerating room air; steroids and antiviral therapy not indicated at this time. Lovenox for DVT ppx. (4) Fall from ground level: Code(s): W18.30XA - Fall on same level, unspecified, initial encounter Status: Acute Assessment and Plan: Due to orthostatic hypotension. Continue treatment for orthostasis and UTI as above. Continue PT/OT. Family wants him to consider SNF however he continues to decline such today. (5) Chronic kidney disease, stage 3: Qualifiers: Chronic kidney disease stage 3 subtype: unspecified whether 3a or 3b Qualified Code(s): N18.30 - Chronic kidney disease, stage 3 unspecified Code(s): N18.30 - Chronic kidney disease, stage 3 unspecified Status: Acute Assessment and Plan: Acute on chronic, likely worsened by UTI. Avoid IV fluids as he is prone to fluid overload with low EF. Monitor renal function. (6) Systolic congestive heart failure: Qualifiers: Heart failure chronicity: chronic Qualified Code(s): I50.22 - Chronic systolic (congestive) heart failure Code(s): I50.20 - Unspecified systolic (congestive) heart failure Status: Chronic Assessment and Plan: Chronic systolic CHF with known EF 30-35%. Euvolemic. His Lasix was changed to PRN last discharge last week. (7) Paroxysmal atrial fibrillation: Code(s): I48.0 - Paroxysmal atrial fibrillation Status: Acute Assessment and Plan: Rate controlled on home amiodarone. Eliquis resumed, see below. 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 Patient fell at home after discharge, thus Eliquis was held on admission due to fall risk and bleeding risk. Discussed with patient the risk vs. benefit of systemic anticoagulation. HAS-BLED score indicates moderate bleeding risk. Evidence of a small amount of nonocclusive DVT in
[2020-03-07 20:50] LABS: Glucose Point of Care 166 (65-105)
[2020-03-08] VITALS (7 sets, daily range): BP systolic 82–154; BP diastolic 47–70; PULSE 56–60; RESP 16; TEMP 35.9–36.6; O2SAT 97–100
[2020-03-08 00:40] LABS: Glucose Point of Care 141 (65-105)
[2020-03-08] MEDS: AMPICILLIN 2 GM/NS 100 ML 2 GM/100 ML BAG IVPB ×2 (06:32→13:49)
[2020-03-08 07:25] LABS: Basophils Percent Auto 0.7 % (0.2-1.2); Eosinophils Absolute Auto 0.1 K/mm3 (0-0.3); Eosinophils Percent Auto 1.1 % (0-4.4); Hematocrit 35.2 % (42.0-52.0); Immature Granulocyte Absolute 0.01 K/mm3 (0.00-0.031); Immature Granulocyte Percent A 0.2 % (0-0.5); Lymphocytes Absolute Auto 0.94 K/mm3 (0.9-3.2); Lymphocytes Percent Auto 21.5 % (18.3-44.2); Mean Corpuscular HGB Conc 31.3 g/dl (32-36); Mean Corpuscular Hemoglobin 25.1 pg (26-34); Mean Corpuscular Volume 80.2 fl (80-100); Monocytes Absolute Auto 0.3 K/mm3 (0.1-0.6); Monocytes Percent Auto 7.6 % (2.6-8.5); Neutrophils Percent Auto 68.9 % (45.5-73.1); Platelet Count Result 217 k/mm3 (150-375); Red Blood Count 4.39 M/mm3 (4.6-6.20); Red Cell Distribution Width 20.4 % (11.5-14.5); White Blood Count 4.4 K/mm3 (4.5-10.0)
[2020-03-08 07:34] LABS: Anion Gap 1 mmol/L (8-16); Blood Urea Nitrogen 25 mg/dL (9-20); Calcium 8.4 mg/dL (8.4-10.2); Carbon Dioxide 28 mmol/L (22-30); Chloride 107 mmol/L (98-107); Estimated CRCL calculation 34 ml/min; Estimated Glomerular Filt Rate 45; Glucose 97 mg/dL (75-110); Magnesium 1.9 mg/dL (1.6-2.3); Potassium 4.8 mmol/L (3.4-5.0); Sodium 136 mmol/L (137-145)
[2020-03-08 08:07] LABS: Glucose Point of Care 83 (65-105)
[2020-03-08] MEDS: FERROUS SULFATE 324 MG TABLET PO ×2 (08:54→16:51)
[2020-03-08] MEDS: ASPIRIN 81 MG ENTERIC TABLET PO (08:54)
[2020-03-08] MEDS: AMIODARONE HCL 200 MG TABLET PO ×2 (08:54→16:51)
[2020-03-08] MEDS: FAMOTIDINE 20 MG/2 ML VIAL IV PUSH (08:54)
[2020-03-08] MEDS: PRAVASTATIN SODIUM 20 MG TABLET 40 MG PO (08:55)
[2020-03-08] MEDS: APIXABAN 2.5 MG TABLET PO (08:56)
[2020-03-08] MEDS: DOXYCYCLINE HYCLATE 100 MG TABLET PO (08:56)
[2020-03-08] MEDS: MIDODRINE HCL 2.5 MG TABLET 5 MG PO ×3 (08:56→16:50)
[2020-03-08] MEDS: FINASTERIDE 5 MG TABLET PO (08:56)
[2020-03-08] MEDS: ACETAMINOPHEN 500 MG TABLET 1000 MG PO (12:16)
[2020-03-08 12:35] LABS: Glucose Point of Care 112 (65-105)
[2020-03-08 17:40] LABS: Glucose Point of Care 129 (65-105)
--- NOTE | 2020-03-08 17:44 | PM.DS ---
DS: Admitting Diagnosis Admitting Diagnosis Admitting Diagnosis: Syncope DS: Discharge Diagnosis Discharge Diagnosis (1) Orthostatic hypotension: Code(s): I95.1 - Orthostatic hypotension Status: Acute Assessment and Plan: Date of Admission 03/01/20 Date of Discharge/DOS 03/08/20 Mr. Baker is a very pleasant 84yo M with history of paroxysmal atrial fib (with multiple recent admissions in last month for a fib RVR) and long-term anticoagulation for same, CHF with known EF 30-35%, chronic kidney disease who presented to the ED for evaluation after a fall at home. 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 His medications were adjusted during previous admission due to symptomatic orthostatic hypotension (started on midodrine and lisinopril held, lasix decreased) - and he was also transitioned from warfarin to Eliquis at that time due to age and renal function. Patient presents again to ED for evaluation after syncope and a fall at home, which is suspected to be related again to his symptomatic orthostasis. Also found to be COVID positive on arrival 03/01/20 with some mild patchy JOVITA pneumonia. Also found to have UTI noted below treated with ampicillin and doxycycline. This admission, he has remained in normal sinus rhythm with rates maintained on his amiodarone. His Eliquis was initially held on arrival due to fall risk, however Ed complained of some left lower leg pain which prompted US doppler. US venous doppler showed a central nonocclusive filling defect within partially compressible left distal popliteal vein, no other abnormalities through other left leg veins or through right leg. Given this finding and his risk for further clotting, the decision was made with my supervising physician to resume his Eliquis at his stroke-prophylaxis dose for a fib (2.5mg BID), and that this small early distal DVT could be monitored with follow up venous doppler in a few weeks. He continues to have symptomatic orthostatic hypotension despite addition of midodrine and PARMINDER hose. Patient has been educated on the fact that he is likely to still have these symptoms upon discharge. He has worked with PT/OT and done well however we continue to discuss the risk of him discharging home vs. rehab. He declines facility placement and wishes to discharge home with home health. He is educated at length about sitting for 5 minutes before standing and taking caution to avoid falls. He is hemodynamically stable for discharge with instructions to follow up with PCP in 1 week, cardiology as scheduled. Patient continues to be orthostatic, improved today; and has symptoms when standing but dizziness has improved a little. Continue PARMINDER hose; Continue midodrine just started last admission. Hopefully this improves with UTI treatment, Parminder hose and COVID-19 resolution. Discussed with patient at length the importance of sitting for several minutes when changing positions prior to standing and taking precaution to avoid falls. We discussed that this may continue to be an issue for him even at discharge since not much change despite current treatment. Home with home health. (2) UTI (urinary tract infection): Qualifiers: Urinary tract infection type: acute cystitis Hematuria presence: without hematuria Qualified Code(s): N30.00 - Acute cystitis without hematuria Code(s): N39.0 - Urinary tract infection, site not specified Status: Acute Assessment and Plan: Urine culture growing coag negative Staph as well as Enterococcus. Based on sensitivity
== END 2020-03-08 17:00 | disposition home health service (06) | DRG 177 ==
LOC: ANHED 13:07 → ANH3MEDSUR 14:00
PROVIDERS: Emergency Medicine Emergency Medical Services; Physician Assistant; Admitting Provider Internal Medicine; Emergency Provider Emergency Medicine; PCP Family Medicine; Visit Provider Internal Medicine
DX: U07.1 COVID-19 (principal); J12.82 Pneumonia due to coronavirus disease 2019; N39.0 Urinary tract infection, site not specified; I13.0 Hypertensive heart and chronic kidney disease with heart failure and stage 1 through stage 4 chronic kidney disease, or unspecified chronic kidney disease; I50.22 Chronic systolic (congestive) heart failure; N17.9 Acute kidney failure, unspecified; I82.432 Acute embolism and thrombosis of left popliteal vein; I95.1 Orthostatic hypotension; B95.2 Enterococcus as the cause of diseases classified elsewhere; E86.0 Dehydration; N18.30 Chronic kidney disease, stage 3 unspecified; I48.0 Paroxysmal atrial fibrillation; E11.22 Type 2 diabetes mellitus with diabetic chronic kidney disease; I25.10 Atherosclerotic heart disease of native coronary artery without angina pectoris; K21.9 Gastro-esophageal reflux disease without esophagitis; N40.0 Benign prostatic hyperplasia without lower urinary tract symptoms; M19.90 Unspecified osteoarthritis, unspecified site; D64.9 Anemia, unspecified; W18.30XA Fall on same level, unspecified, initial encounter; Z66 Do not resuscitate; Z95.1 Presence of aortocoronary bypass graft; Z79.01 Long term (current) use of anticoagulants; Z87.891 Personal history of nicotine dependence
CPT/HCPCS: 36415; 70450; 71046; 71100; 80048; 80053; 80076; 81001; 82550; 83615; 83735; 83880; 84100; 84484; 85025; 85027; 85610; 85730; 86140; 87077; 87086; 87088; 87186; 93005; 93970; 96365; 96367; 96372; 96375; 96376; 97110; 97116; 97161; 97165; 97530; 97535; 99285; A9270; C9803; G0378; J0290; J0696; J1650; U0003

== ENCOUNTER 2021-03-09 08:07 | Outpatient (CLI) | payer MEDICARE, SELFPAY ==
--- NOTE | ~2021-03-09 | US_ITS ---
EXAMINATION: US renal BI EXAM DATE: 03/09/2021 08:52 INDICATION: N18.4 - Chronic kidney disease, stage 4 (severe) Chronic kidney disease . TECHNIQUE: Multiple grayscale and Doppler images of the kidneys were obtained (by a technologist who performed the scan) and subsequently reviewed. Comparison is made to prior examination from 10/21/2019 . FINDINGS: Right kidney: There is normal contour and echogenicity. There is renal cortical thinning. It measures 9.5 x 4.6 x 5.7 centimeters. Again focal followed partially exophytic lobular soft tissue mass like region, measured at about 2.1 cm, suspicious for renal cell cancer. There is no hydronephrosis. Left kidney: There is normal contour and echogenicity. There is renal cortical thinning. It measures 11.2 x 6.2 x 5.4 centimeters. Hyperechoic regions with shadowing, calcification consistent with nephr olithiasis. There is no hydronephrosis. Mild bladder wall thickening, trabeculation could indicate chronic cystitis. IMPRESSION: 1. Probable left renal mass, RCC, size not significantly changed. 2. Bilateral renal cortical thinning, atrophy. 3. Mild diffuse bladder wall thickening, trabeculation could indicate chronic cystitis. Reviewed, dictated and finalized at location G. YNECOLOGY PHYSICIAN
== END 2021-03-09 08:08 | disposition home or self-care (01) ==
LOC: ANHIMG 08:11
PROVIDERS: PCP Family Medicine; Visit Provider Family Medicine
DX: R93.422 Abnormal radiologic findings on diagnostic imaging of left kidney (principal); R93.421 Abnormal radiologic findings on diagnostic imaging of right kidney; N28.81 Hypertrophy of kidney; R93.41 Abnormal radiologic findings on diagnostic imaging of renal pelvis, ureter, or bladder
CPT/HCPCS: 76775

== ENCOUNTER 2021-08-18 17:12 | Observation (INO) | payer MEDICARE, SELFPAY ==
--- NOTE | ~2021-08-18 | US_ITS ---
EXAMINATION: US renal BI DATE: 08/20/2021 16:10 INDICATION: Acute on chronic kidney disease TECHNIQUE: Multiple grayscale and Doppler ultrasound images of the kidneys were obtained. COMPARISON: 03/09/2021 FINDINGS: The right kidney measures 9.4 x 4.8 x 5 cm. There is a 3.3 x 1.5 x 2 cm hypervascular right kidney mass. The left kidney measures 11.9 x 5.9 x 4.8 cm. There are multiple nonobstructing stones of the kidneys. The kidneys demonstrate normal parenchymal echogenicity. There is no hydronephrosis. The bladder demonstrates circumferential wall thickening. IMPRESSION: 1. Right kidney mass, consistent with renal cell carcinoma. 2. Bilateral nephrolithiasis. 3. Wall thickening of the urinary bladder which could reflect cystitis versus chronic outlet obstruct ion. Reviewed, dictated and finalized at location F. IMPRESSION: 1. Right kidney mass, consistent with renal cell carcinoma. 2. Bilateral nephrolithiasis. 3. Wall thickening of the urinary bladder which could reflect cystitis versus c hronic outlet obstruction.
--- NOTE | ~2021-08-18 | CT_ITS ---
EXAMINATION: CT cervical spine wo con DATE: 08/18/2021 17:47 INDICATION: Head injury TECHNIQUE: Computed tomography (CT) of the cervical spine was performed without intravenous contrast. The dose-length product (DLP) was 417.10 mGy-cm. Automated exposure control and iterative reconstruc tion technique were employed. COMPARISON: None FINDINGS: There is no fracture. There are 2 mm of retrolisthesis of C3 on C4. The odontoid is intact. The prevertebral soft tissues are normal. The vertebral body heights are maintained. There is severe loss of intervertebral disc space height throughout the cervical spine. IMPRESSION: 1. Severe cervical spondylosis without acute findings. Reviewed, dictated and finalized at location A.
--- NOTE | ~2021-08-18 | XR_ITS ---
EXAMINATION: XR chest 2V 08/18/2021 17:53 INDICATION: Status post fall. Weakness. CHF. Hypertension. PROCEDURE: AP and lateral views of the chest COMPARISON: Comparison to multiple prior studies sequentially, with oldest reviewed study dated 10/19. FINDINGS: The lungs are clear. The cardiomediastinal silhouette is within normal limits. There are no pleural effusions. There is no pneumothorax suspected. Status post median sternotomy for CABG. T he lungs are hyperinflated which is consistent with, but not diagnostic of chronic obstructive pulmon franco disease. IMPRESSION: 1: NO ACUTE CARDIOPULMONARY DISEASE. Reviewed, dictated and finalized at location A.
--- NOTE | ~2021-08-18 | CT_ITS ---
EXAMINATION: CT brain wo con INDICATION: Head injury COMPARISON: 03/01/2020, 05/25/2011 TECHNIQUE: Standard unenhanced head CT. The dose-length product (DLP) was 605.33 mGy-cm. The mA was a djusted according to patient size. Iterative reconstruction technique was employed. FINDINGS: There is left frontal scalp soft tissue swelling and laceration. There is no acute intrapar enchymal hemorrhage. No evidence of mass lesion. No evidence of acute infarction. There is mild periv entricular and subcortical hypodensity probably related to small vessel ischemic disease. There is mi ld prominence of the sulci and ventricles related to cerebral atrophy. Intracranial calcified cerebra l atherosclerosis is noted. There are no extra-axial collections. There is a 1.8 x 0.9 cm area of flu id attenuation near the left adenoids which previously measured soft tissue attenuation, likely small benign developmental cyst. There is no mass effect or midline shift. The orbits and soft tissues are unremarkable. The visualized sinuses and mastoid air cells are well aerated. IMPRESSION: 1. Left frontal scalp hematoma and laceration without acute intracranial abnormality. 2. Age related findings. Reviewed, dictated and finalized at location A. IMPRESSION: 1. Left frontal scalp hematoma and laceration without acute intracranial abnorm ality. 2. Age related findings.
[2021-08-18 17:25] VITALS: BP 110/72; PULSE 79; RESP 16; TEMP 36.7; O2SAT 100
--- NOTE | 2021-08-18 17:30 | ECG_ITS ---
Measurements Intervals [place] Rate: 53 P: 91 DE: 212 QRS: -90 QRSD: 206 T: 61 QT: 540 QTc: 511 Interpretive Statements SINUS BRADYCARDIA WITH FIRST DEGREE AV BLOCK RIGHT BUNDLE BRANCH BLOCK [120+ ms QRS DURATION, UPRIGHT V1, 40+ ms S IN I/aVL/V4/V5/V6] POOR R-WAVE PROGRESSION SINUS BRADYCARDIA NOW PRESENT FIRST DEGREE AV BLOCK NOW PRESENT Electronically Signed On 08-19-2021 12:39:55 CDT by Elizabeth Higgins M.D.
[2021-08-18 17:44] LABS: Basophils Percent Auto 0.2 % (0.2-1.2); Eosinophils Absolute Auto 0.1 K/mm3 (0-0.3); Eosinophils Percent Auto 1.1 % (0-4.4); Hematocrit 27.5 % (42.0-52.0); Hemoglobin 8.9 g/dL (14.0-18.0); Immature Granulocyte Absolute 0.01 K/mm3 (0.00-0.031); Immature Granulocyte Percent A 0.2 % (0-0.5); Lymphocytes Absolute Auto 0.81 K/mm3 (0.9-3.2); Lymphocytes Percent Auto 15.5 % (18.3-44.2); Mean Corpuscular HGB Conc 32.4 g/dl (32-36); Mean Corpuscular Hemoglobin 34.5 pg (26-34); Mean Corpuscular Volume 106.6 fl (80-100); Mean Platelet Volume 9.7 fl (7.4-10.4); Monocytes Absolute Auto 0.3 K/mm3 (0.1-0.6); Monocytes Percent Auto 5.3 % (2.6-8.5); Neutrophils Absolute Auto 4.1 K/mm3 (1.3-6.7); Neutrophils Percent Auto 77.7 % (45.5-73.1); Platelet Count Result 139 k/mm3 (150-375); Red Blood Count 2.58 M/mm3 (4.6-6.20); Red Cell Distribution Width 12.9 % (11.5-14.5); White Blood Count 5.2 K/mm3 (4.5-10.0)
[2021-08-18 17:54] LABS: Prothrombin Time 21.7 Seconds (11.1-14.7)
[2021-08-18 17:55] LABS: Partial Thromboplastin Time 36.9 SECONDS (22.3-36.8)
[2021-08-18 17:57] LABS: Alanine Aminotransferase 11 U/L (6-50); Albumin Level 4.2 g/dL (3.5-5.1); Alkaline Phosphatase 70 U/L (38-126); Anion Gap 8 mmol/L (8-16); Aspartate Amino Transferase 35 U/L (17-59); Bilirubin,Total 1.2 mg/dL (0.2-1.3); Blood Urea Nitrogen 64 mg/dL (9-20); Calcium 8.6 mg/dL (8.4-10.2); Carbon Dioxide 23 mmol/L (22-30); Chloride 107 mmol/L (98-107); Estimated CRCL calculation 9 ml/min; Estimated Glomerular Filt Rate 12; Glucose 122 mg/dL (65-110); Potassium 4.8 mmol/L (3.4-5.0); Sodium 138 mmol/L (137-145)
[2021-08-18 18:42] LABS: Burr Cells 1+ (NORMAL); Macrocytosis 1+ (NORMAL); Ovalocytes 1+ (NORMAL); Platelet Estimate Decreased (Adequate)
--- NOTE | 2021-08-18 20:18 | ED.HEATRA ---
HPI - Head Injury General Chief complaint: Head Injury Stated complaint: FREQ FALLS, HEAD INJ ON THINNERS Time Seen by Provider: 08/18/21 19:56 History of Present Illness HPI Narrative: pt for last 4 days increasing weakness overall has fallen 2x at home-went to this weekend for a head injury/fall and then again today layed on floor few hours couldn't get up lac to head needs tdap and per daughter more confused. pt h/o chronic renal disease does still make urine no other issues no focal deficits outside window for tpa 4 days ago Related Data Home Medications Medication Instructions Recorded Confirmed blood sugar diagnostic (TuicoolTouch #10 ea 01/10/19 03/30/21 Ultra Blue Test Strip) lancets 33 gauge (OneTouch Delica #100 ea 01/10/19 03/30/21 Lancets) aspirin 81 mg tablet,delayed 81 mg PO DAILY 02/01/20 03/30/21 release glipizide 5 mg tablet 5 mg PO DAILY 02/01/20 03/30/21 nitroglycerin 0.4 mg sublingual 0.4 mg sublingual Q5M PRN Chest 02/01/20 03/30/21 tablet (Nitrostat) Pain Allergies Allergy/AdvReac Type Severity Reaction Status Date / Time No Known Allergies Allergy Verified 03/30/21 14:15 Review of Systems Constitutional: Comments: CONSTITUTIONAL: Denies fever, chills, or sweats. EYES: Denies visual changes, redness, or discharge. ENT: Denies rhinorrhea, congestion, sore throat, or otalgia. CARDIOVASCULAR: Denies chest pain, palpitations, or edema. RESPIRATORY: Denies cough or dyspnea. GASTROINTESTINAL: Denies abdominal pain, nausea, vomiting, or diarrhea. GENITOURINARY: Denies dysuria or hematuria. SKIN: Denies rash or itching. MUSCULOSKELETAL: Denies back pain, joint pain, or myalgia. NEUROLOGIC: Denies headache, numbness, has weakness and confusion for 4 days PSYCHIATRIC: Denies anxiety or depression. FOR[facility]LY [facility] Past Medical History Medical History Anemia Arthritis Benign prostatic hyperplasia Cholelithiasis Chronic kidney disease, stage 3 Baseline creatinine is between 1.2 and 1.30. Chronic kidney disease, stage 3 unspecified Chronic kidney disease, stage 4 (severe) Coronary artery disease Status post bypass. Essential tremor Gastroesophageal reflux Hyperlipidemia Hypertension Kidney stones Left renal mass Pancreatitis In 2016, November 2018, and March 2019. Parkinsonism Paroxysmal atrial fibrillation Renal mass Stable on imaging as of 2016. Systolic congestive heart failure Echocardiogram in January 2020 showed a moderately enlarged left ventricular chamber with moderately reduced systolic function and an estimated ejection fraction of 30 to 35%. Type 2 diabetes mellitus Hemoglobin A1c was 6.8% in 10/2019. Surgical History Surgical History History of cardiac cath In 2012 prior to CABG. History of coronary artery bypass graft x 2 (~2012) RODRÍGUEZ to the left anterior descending and radial artery to the OM. History of laparoscopic cholecystectomy History of removal of cyst Tracheostomy status As a young child when he had diptheria at the age of 2. Family History Family History Mother Cerebrovascular accident, Onset Age: 80 Patient's mother is Sibling Family history of diabetes mellitus in first degree relative Father Family history of lung cancer Patient's father is Sibling Gallbladder disease His brother just a couple days after having gallbladder surgery Social History Social History Social History: the patient lives with his , Aileen, in [place]. 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 They have a daughter who lives nearby and she helps out a lot at home. Retired from [employer]. He has a 10 pack year smoking history and quit greater than 50 years ago. No alcohol
[2021-08-18 20:57] LABS: Creatine Kinase 299 U/L (55-170); Magnesium 2.2 mg/dL (1.6-2.3)
[2021-08-18 21:11] VITALS: BP 162/81; PULSE 54; RESP 16; O2SAT 100
[2021-08-18 21:20] LABS: Appearance Urine Clear (Clear); Bilirubin Urine Negative (Negative); Blood Urine 1+ (Negative); Color Urine Yellow (Yellow); Glucose Urine UA Negative (Negative); Ketones Urine Negative (Negative); Leukocyte Esterase Ur 1+ LEU/UL (Negative); Nitrate Urine Negative (Negative); Protein Urine 1+ mg/dL (Negative); Specific Grav Ur 1.015 (1.001-1.035); Urobilinogen Urine 0.2 mg/dL (<2.0)
[2021-08-18 21:24] LABS: Mucus Urine Rare /lpf; Squamous Epithelial Cell Urine Rare /hpf (Few); WBC Urine 21-30 /hpf
[2021-08-18 21:27] LABS: Add Urine Microscopic? YES
[2021-08-18] MEDS: TETANUS,DIPHTHERIA,AC PERTUSSIS ADULT (0.5 ML) BOOSTRIX IM (22:16)
[2021-08-18 22:17] VITALS: BP 176/76; PULSE 59; RESP 12; O2SAT 98
[2021-08-18 22:22] LABS: Free T4 Free Thyroxine Reflex 0.26 ng/dL (0.78-2.19)
[2021-08-19] VITALS (13 sets, daily range): BP systolic 65–159; BP diastolic 39–92; PULSE 51–62; RESP 12–21; TEMP 36.1–36.4; O2SAT 94–100; BMI 27.2
[2021-08-19] MEDS: LEVOTHYROXINE SODIUM 150 MCG TABLET PO (05:52)
[2021-08-19 07:45] LABS: Glucose Point of Care 79 mg/dl (65-105)
--- NOTE | 2021-08-19 08:45 | PM.IMHP ---
H&P: HPI History of Present Illness Date/Time: 08/19/21 0989 Chief Complaint: frequent falls Narrative: patient is a 5-year-old male with a past medical history of Parkinson's, BPH, chronic kidney disease, hyperlipidemia, hypertension, diabetes who presented to the ED with frequent falls. Patient is a very poor historian and most of the story was taken from previous records. It is noted that the patient was taken to urgent care recently for fall. Patient had fallen again yesterday and he stated that he got up to go to the bathroom his feet got caught on something and he hit the corner of the bowel case with his head. after he fell he said he laid on the floor probably for couple hours and his was there however she very demented according to him and does not know if she is coming or going and could not help him as well. Patient stated that he probably laid on the floor for couple hours however he is unaware of the timing. He denies any recent chest pain, shortness of breath, nausea, vomiting, diarrhea, constipation, urinary dysfunction, fatigue. He did state that he has been a little bit weaker than lately but does not know why. He also stated that he is vision changes in hearing changes however he stated that he needs glasses for his eyes and his hearing he does not know why. He also stated that he has CVA in the past however I wonder if he is getting that information from when they told him yesterday. MRI of the brain did not show any of infarcts however did show a hematoma where the laceration is. Labs look okay today except for he does look a little knee make probably from the bleed. Will hold Eliquis due to frequent falls. the risk versus the benefit of anticoagulation for this patient is probably higher risk than benefit. Patient is also on carbidopa levodopa which indicates he also has Parkinson's. Upon arrival it was noted that his renal function has increased and is 4.40 today which his baseline is around 2. CK is also elevated however trending down is 222 today. patient is being admitted to hospitalist service under observation at this time Review of Systems Review of Systems: All systems reviewed & are unremarkable except as noted in HPI and below ROS unobtainable: Yes unobtainable due to mental status PMFSH Past Medical History Medical History Anemia Arthritis Benign prostatic hyperplasia Cholelithiasis Chronic kidney disease, stage 3 Baseline creatinine is between 1.2 and 1.30. Chronic kidney disease, stage 3 unspecified Chronic kidney disease, stage 4 (severe) Coronary artery disease Status post bypass. Essential tremor Gastroesophageal reflux Hyperlipidemia Hypertension Kidney stones Left renal mass Pancreatitis In 2016, November 2018, and March 2019. Parkinsonism Paroxysmal atrial fibrillation Renal mass Stable on imaging as of 2016. Systolic congestive heart failure Echocardiogram in January 2020 showed a moderately enlarged left ventricular chamber with moderately reduced systolic function and an estimated ejection fraction of 30 to 35%. Type 2 diabetes mellitus Hemoglobin A1c was 6.8% in 10/2019. Surgical History Surgical History History of cardiac cath In 2012 prior to CABG. History of coronary artery bypass graft x 2 (~2012) RODRÍGUEZ to the left anterior descending and radial artery to the OM. History of laparoscopic cholecystectomy History of removal of cyst Tracheostomy status As a young child when he had diptheria at the age of 2. Family History Family History Mother Cerebrovascular accident, Onset Age: 80 Patient's mother is Sibling Family history of diabetes mellitus in first degree relative Father Family history of lung cancer Patient's father is Sibling Gallbladder disea
[2021-08-19 08:48] LABS: Basophils Percent Auto 0.4 % (0.2-1.2); Eosinophils Absolute Auto 0.1 K/mm3 (0-0.3); Eosinophils Percent Auto 1.7 % (0-4.4); Hematocrit 26.5 % (42.0-52.0); Hemoglobin 8.7 g/dL (14.0-18.0); Immature Granulocyte Absolute 0.02 K/mm3 (0.00-0.031); Immature Granulocyte Percent A 0.4 % (0-0.5); Lymphocytes Absolute Auto 0.94 K/mm3 (0.9-3.2); Lymphocytes Percent Auto 19.6 % (18.3-44.2); Mean Corpuscular HGB Conc 32.8 g/dl (32-36); Mean Corpuscular Hemoglobin 34.3 pg (26-34); Mean Corpuscular Volume 104.3 fl (80-100); Mean Platelet Volume 9.9 fl (7.4-10.4); Monocytes Absolute Auto 0.2 K/mm3 (0.1-0.6); Neutrophils Absolute Auto 3.5 K/mm3 (1.3-6.7); Neutrophils Percent Auto 72.9 % (45.5-73.1); Platelet Count Result 131 k/mm3 (150-375); Red Blood Count 2.54 M/mm3 (4.6-6.20); Red Cell Distribution Width 12.8 % (11.5-14.5); White Blood Count 4.8 K/mm3 (4.5-10.0)
[2021-08-19 09:04] LABS: Alanine Aminotransferase 12 U/L (6-50); Albumin Level 3.9 g/dL (3.5-5.1); Alkaline Phosphatase 70 U/L (38-126); Anion Gap 10 mmol/L (8-16); Aspartate Amino Transferase 30 U/L (17-59); Bilirubin,Total 1.3 mg/dL (0.2-1.3); Blood Urea Nitrogen 63 mg/dL (9-20); Calcium 8.6 mg/dL (8.4-10.2); Carbon Dioxide 22 mmol/L (22-30); Chloride 107 mmol/L (98-107); Creatine Kinase 222 U/L (55-170); Estimated CRCL calculation 10 ml/min; Estimated Glomerular Filt Rate 13; Glucose 108 mg/dL (65-110); Magnesium 2.1 mg/dL (1.6-2.3); Potassium 4.7 mmol/L (3.4-5.0); Sodium 139 mmol/L (137-145)
[2021-08-19] MEDS: PRAVASTATIN SODIUM 20 MG TABLET 40 MG PO (09:14)
[2021-08-19] MEDS: AMIODARONE HCL 200 MG TABLET PO ×2 (09:14→20:52)
[2021-08-19] MEDS: FINASTERIDE 5 MG TABLET PO (09:14)
[2021-08-19] MEDS: FERROUS SULFATE 324 MG TABLET PO ×2 (09:16→17:15)
[2021-08-19] MEDS: ASPIRIN 81 MG ENTERIC TABLET PO (09:16)
[2021-08-19] MEDS: MEMANTINE 5 MG TABLET PO ×2 (09:16→20:52)
[2021-08-19] MEDS: MIDODRINE HCL 2.5 MG TABLET 7.5 MG PO (09:16)
[2021-08-19] MEDS: CARBIDOPA/LEVODOPA 25/100 MG TABLET 1 TABLET PO ×3 (09:16→17:14)
[2021-08-19 09:27] LABS: Hemoglobin A1C 5.8 % (<5.7)
[2021-08-19 09:53] LABS: Iron 71 ug/dL (49-181)
[2021-08-19 10:02] LABS: Percent Iron Saturation 23 % (20-50)
[2021-08-19 10:06] LABS: Transferrin 189 mg/dL (206-381)
[2021-08-19] MEDS: SODIUM CHLORIDE 0.9% IV 1,000 ML 100 ML IV CONT (10:18)
[2021-08-19 11:04] LABS: Folic Acid 13.1 ng/mL (2.76->20); Vitamin B12 < 159.0 pg/mL (239-931)
[2021-08-19 11:51] LABS: Glucose Point of Care 119 mg/dl (65-105)
--- NOTE | 2021-08-19 12:57 | PM.CNNEP ---
Assessment and Plan Assessment and plan (1) DARLEEN (acute kidney injury): Code(s): N17.9 - Acute kidney failure, unspecified Status: Acute Assessment and Plan: is this really DARLEEN or rather progression of chronic kidney disease(?) follow trend in creatinine with trial of IVFs recheck renal ultrasound and urine electrolytes follow repeat labs and UOP (2) Chronic kidney disease, stage 4 (severe): Code(s): N18.4 - Chronic kidney disease, stage 4 (severe) Status: Chronic Assessment and Plan: likely secondary to his diabetes, chronic systolic heart failure, vascular disease (coronary artery disease and hyperlipidemia), and age-related change. outpatient evaluation significant for renal ultrasound with CKD changes along with a right renal mass c/w renal cell carcinoma last creatinine in June 2021 was 3.93mg/dl ? (3) Frequent falls: Code(s): R29.6 - Repeated falls Status: Acute Assessment and Plan: as noted by history anticoagulation on hold for now PT/OT evaluation (4) Paroxysmal A-fib: Code(s): I48.0 - Paroxysmal atrial fibrillation Status: Chronic Assessment and Plan: continue rate control strategy on amiodarone telemetry holding anticoagulation given #3 (5) Anemia: Code(s): D64.9 - Anemia, unspecified Status: Acute Assessment and Plan: probably related to CKD along with acute blood loss (hematoma/bleeding) follow-up on anemia labs consider empiric Epogen PRBC transfusion per protocol follow trend of H/H (6) Diabetes: Code(s): E11.9 - Type 2 diabetes mellitus without complications Status: Acute Assessment and Plan: follow accuchekcs on SSICurrent glucose 122 Will continue to follow. History of Present Illness Reason for Consult Consult date: 08/19/21 Reason for consult: chronic renal failure Chief Complaint Chief complaint: weakness, head lac,uti,hypothyroid,frequent falls History of Present Illness Narrative: The patient is a 85-year-old male with a past medical history as outlined below who presented to [facility] Emergency room for further evaluation of frequent falls. Most of the information I have obtained is from review of the electronic medical record as well as my personal dealing as with the patient in the outpatient setting. Apparently, the patient was recently taken to urgent care for a fall. He apparently fell again yesterday when he started to get up and go to the bathroom and his feet apparently got caught on something and he fell and hit the corner of a table with his head which apparently caused a laceration to his head. He apparently was on the floor after the fall for a couple of hours until his found him. He does report that he does feel somewhat weaker than usual but he is unclear as to the etiology of this. In any case, given this history as well as the aforementioned laceration to his head, he presented to the ER for further evaluation Workup and evaluation emergency room demonstrated the patient to be hemodynamically stable. Routine blood test demonstrated labs consistent with his known history of chronic kidney disease but they appeared to be somewhat worse than on previous testing. His CPK was mildly elevated but has already trended down by labs done this morning. MRI of his brain was done due to concern for possible CVA but no acute pathology was noted other than a hematoma where his laceration was. The ER physician repair his laceration and given his issues with frequent falls, confusion, and acute kidney injury on top of his baseline kidney disease, he was admitted the hospital for further evaluation and therapy. Renal consultation was requested due to his acute kidney injury on top of chronic kidney disease. the patient is well known to me as I see him in clinic for management of his chronic kidney disease. When I last saw the patient i
[2021-08-19 16:24] LABS: Glucose Point of Care 121 mg/dl (65-105)
[2021-08-19] MEDS: SODIUM CHLORIDE 0.9% IV 1,000 ML 70 ML IV CONT (20:56)
[2021-08-20] VITALS (14 sets, daily range): BP systolic 72–157; BP diastolic 42–72; PULSE 50–63; RESP 16–21; TEMP 36.3–37.1; O2SAT 98–100
[2021-08-20] MEDS: LEVOTHYROXINE SODIUM 50 MCG TABLET PO (06:33)
[2021-08-20 06:39] LABS: Basophils Percent Auto 0.2 % (0.2-1.2); Eosinophils Absolute Auto 0.1 K/mm3 (0-0.3); Eosinophils Percent Auto 2.5 % (0-4.4); Hematocrit 24.6 % (42.0-52.0); Immature Granulocyte Absolute 0.02 K/mm3 (0.00-0.031); Immature Granulocyte Percent A 0.5 % (0-0.5); Lymphocytes Absolute Auto 0.89 K/mm3 (0.9-3.2); Mean Corpuscular HGB Conc 32.5 g/dl (32-36); Mean Corpuscular Hemoglobin 34.6 pg (26-34); Mean Corpuscular Volume 106.5 fl (80-100); Mean Platelet Volume 10.3 fl (7.4-10.4); Monocytes Absolute Auto 0.3 K/mm3 (0.1-0.6); Monocytes Percent Auto 6.7 % (2.6-8.5); Neutrophils Absolute Auto 2.8 K/mm3 (1.3-6.7); Neutrophils Percent Auto 68.1 % (45.5-73.1); Platelet Count Result 114 k/mm3 (150-375); Red Blood Count 2.31 M/mm3 (4.6-6.20); Red Cell Distribution Width 12.9 % (11.5-14.5)
[2021-08-20 06:57] LABS: Alanine Aminotransferase 12 U/L (6-50); Albumin Level 3.6 g/dL (3.5-5.1); Alkaline Phosphatase 53 U/L (38-126); Anion Gap 5 mmol/L (8-16); Aspartate Amino Transferase 28 U/L (17-59); Bilirubin,Total 0.9 mg/dL (0.2-1.3); Blood Urea Nitrogen 58 mg/dL (9-20); Calcium 8.2 mg/dL (8.4-10.2); Carbon Dioxide 23 mmol/L (22-30); Chloride 110 mmol/L (98-107); Creatine Kinase 151 U/L (55-170); Estimated CRCL calculation 11 ml/min; Estimated Glomerular Filt Rate 16; Glucose 98 mg/dL (65-110); Magnesium 2.1 mg/dL (1.6-2.3); Sodium 138 mmol/L (137-145)
[2021-08-20 08:16] LABS: Glucose Point of Care 102 mg/dl (65-105)
[2021-08-20] MEDS: AMIODARONE HCL 200 MG TABLET PO ×2 (08:17→20:54)
[2021-08-20] MEDS: FERROUS SULFATE 324 MG TABLET PO ×2 (08:17→16:44)
[2021-08-20] MEDS: PRAVASTATIN SODIUM 20 MG TABLET 40 MG PO (08:18)
[2021-08-20] MEDS: ASPIRIN 81 MG ENTERIC TABLET PO (08:18)
[2021-08-20] MEDS: FINASTERIDE 5 MG TABLET PO (08:18)
[2021-08-20] MEDS: MEMANTINE 5 MG TABLET PO ×2 (08:18→20:54)
[2021-08-20] MEDS: CARBIDOPA/LEVODOPA 25/100 MG TABLET 1 TABLET PO ×3 (08:18→16:44)
[2021-08-20 08:30] LABS: Vitamin D 25 Hydroxy 64.2 ng/mL
--- NOTE | 2021-08-20 10:07 | PCPTNOTE ---
Attempted to see patient for PT, however patient out of room for testing.
[2021-08-20 10:51] LABS: Creatinine Urine 113.5 mg/dL; Total Protein Urine Random 19 mg/dL; Ur Ttl Prot Creatinine Ratio 0.17 mg/mg (0-0.20)
[2021-08-20 10:54] LABS: Sodium Urine Random 66 meq/L
[2021-08-20 10:55] LABS: Eosinophil Urine None Seen % (None Seen)
[2021-08-20] MEDS: SODIUM CHLORIDE 0.9% IV 1,000 ML 70 ML IV CONT (11:38)
[2021-08-20] MEDS: CYANOCOBALAMIN INJ 1,000 MCG/ML VIAL 1000 MCG IM (11:39)
--- NOTE | 2021-08-20 11:45 | PM.IMPN ---
Progress Note: A&P Assessment and Plan (1) Acute on chronic renal failure: Code(s): N17.9 - Acute kidney failure, unspecified; N18.9 - Chronic kidney disease, unspecified Status: Acute Assessment and Plan: BUN/Cr 58/3.70 Baseline Creatinine 2.32-3.0 Fluids decreased to 70 ml/hr Avoid nephrotoxic medications Trend labs Nephrology consulted thank you for your help Seems to be progressive over the last year or so Trend urine output Urine studies ordered Renal ultrasound pending (2) Anemia: Code(s): D64.9 - Anemia, unspecified Status: Acute Assessment and Plan: hemoglobin and hematocrit are 8.0/24.6 most likely from acute blood loss anemia could also be secondary to anemia of chronic disease specially since he has worsening renal failure continue to trend labs anemia labs iron 71, TIBC 303,% saturation 23, transferrin 189, ferritin 108, B12 <159, folate 13.1 Vit B12 injections weekly Vitamin D normal at 64.2 continue home ferrous sulfate transfuse if less than 7 for hemoglobin (3) Frequent falls: Code(s): R29.6 - Repeated falls Status: Acute Assessment and Plan: ground level falls x2 Eliquis on hold laceration of the scalp with rossana PT and OT ordered (4) Paroxysmal A-fib: Code(s): I48.0 - Paroxysmal atrial fibrillation Status: Chronic Assessment and Plan: history of AFib currently in sinus bradycardia with a bundle branch block continue home amiodarone 200 mg p.o. b.i.d. tele monitor DANNY-VAS score is a 6, however HASBLED 4 which is high risk for bleed Hold anticoagulation due to frequent falls and the risks outweigh the benefits (5) Laceration of scalp: Code(s): S01.01XA - Laceration without foreign body of scalp, initial encounter Status: Acute Assessment and Plan: stable at this time rossana times 13 present no bleeding or open areas continue with wound care: clean with soap and water, watch for signs of infection (6) Diabetes: Code(s): E11.9 - Type 2 diabetes mellitus without complications Status: Acute Assessment and Plan: Current glucose 98 A1c 5.8 Hold oral home medications for now hypoglycemia protocol moderate sliding scale Accu-Cheks a.c. HS trend glucose adjust therapy as indicated (7) Hypothyroidism: Code(s): E03.9 - Hypothyroidism, unspecified Status: Acute Assessment and Plan: TSH elevated at 69.50 T4 is 0.26 initiate levothyroxine at 50mcg PO Recheck TSH in 6 weeks Time Spent With Patient Time with patient: Greater than 35 minutes Subjective Date/time seen: 08/20/21 11:45 Interval history: 08/20/21 1145 Patient is eating and is doing well. Renal function is also getting better. He denies any chest pain, shortness of breath, nausea, vomiting, diarrhea, or constipation. He looks to be doing well. Talked to his daughter and his about next steps and rehab. 08/19/21? 0845 ?patient is a 5-year-old male with a past medical history of Parkinson's, BPH, chronic kidney disease, hyperlipidemia, hypertension, diabetes who presented to the ED with frequent falls.? Patient is a very poor historian and most of the story was taken from previous records.? It is noted that the patient was taken to urgent care recently? for fall.? Patient had fallen again yesterday and he stated that he got up to go to the bathroom his feet got caught on something and he hit the corner of the bowel case with his head. after he fell he said he laid on the floor probably for couple hours and his was there however she very demented according to him and does not know if she is coming or going and could not help him as well.? Patient stated that he probably laid on the floor for couple hours however he is unaware of the timing.? He denie
--- NOTE | 2021-08-20 11:45 | P.PNIM_ITS ---
Progress Note: A&P Assessment and Plan (1) Acute on chronic renal failure: Code(s): N17.9 - Acute kidney failure, unspecified; N18.9 - Chronic kidney disease, unspecified Status: Acute Assessment and Plan: * BUN/Cr 58/3.70 * Baseline Creatinine 2.32-3.0 * Fluids decreased to 70 ml/hr * Avoid nephrotoxic medications * Trend labs * Nephrology consulted thank you for your help * Seems to be progressive over the last year or so * Trend urine output * Urine studies ordered * Renal ultrasound pending (2) Anemia: Code(s): D64.9 - Anemia, unspecified Status: Acute Assessment and Plan: * hemoglobin and hematocrit are 8.0/24.6 * most likely from acute blood loss anemia * could also be secondary to anemia of chronic disease specially since he has worsening renal failure * continue to trend labs * anemia labs iron 71, TIBC 303,% saturation 23, transferrin 189, ferritin 108, B12 <159, folate 13.1 * Vit B12 injections weekly * Vitamin D normal at 64.2 * continue home ferrous sulfate * transfuse if less than 7 for hemoglobin (3) Frequent falls: Code(s): R29.6 - Repeated falls Status: Acute Assessment and Plan: * ground level falls x2 * Eliquis on hold * laceration of the scalp with rossana * PT and OT ordered (4) Paroxysmal A-fib: Code(s): I48.0 - Paroxysmal atrial fibrillation Status: Chronic Assessment and Plan: * history of AFib * currently in sinus bradycardia with a bundle branch block * continue home amiodarone 200 mg p.o. b.i.d. * tele monitor * DANNY-VAS score is a 6, however HASBLED 4 which is high risk for bleed * Hold anticoagulation due to frequent falls and the risks outweigh the benefits (5) Laceration of scalp: Code(s): S01.01XA - Laceration without foreign body of scalp, initial encounter Status: Acute Assessment and Plan: * stable at this time * rossana times 13 present * no bleeding or open areas * continue with wound care: clean with soap and water, watch for signs of infection (6) Diabetes: Code(s): E11.9 - Type 2 diabetes mellitus without complications Status: Acute Assessment and Plan: * Current glucose 98 * A1c 5.8 * Hold oral home medications for now * hypoglycemia protocol * moderate sliding scale * Accu-Cheks a.c. HS * trend glucose * adjust therapy as indicated (7) Hypothyroidism: Code(s): E03.9 - Hypothyroidism, unspecified Status: Acute Assessment and Plan: * TSH elevated at 69.50 T4 is 0.26 * initiate levothyroxine at 50mcg PO * Recheck TSH in 6 weeks Time Spent With Patient Time with patient: Greater than 35 minutes Subjective Date/time seen: 08/20/21 11:45 Interval history: 08/20/21 1145 Patient is eating and is doing well. Renal function is also getting better. He denies any chest pain, shortness of breath, nausea, vomiting, diarrhea, or constipation. He looks to be doing well. Talked to his daughter and his about next steps and rehab. 08/19/21? 0845 ?patient is a 5-year-old male with a past medical history of Parkinson's, BPH, chronic kidney disease, hyperlipidemia, hypertension, diabetes who presented to the ED with frequent falls.? Patient is a very poor historian and most of the st
[2021-08-20 11:50] LABS: Glucose Point of Care 121 mg/dl (65-105)
--- NOTE | 2021-08-20 15:33 | PM.PNNEP ---
Progress Note: A&P Assessment and Plan (1) DARLEEN (acute kidney injury): Code(s): N17.9 - Acute kidney failure, unspecified Status: Acute Assessment and Plan: improvement noted with IVFs (arguing some degree of volume depletion) follow-up on renal ultrasound urine electrolytes suggest pre-renal azotemia since eating/drinking okay, will stop IVFs follow repeat labs and UOP (2) Chronic kidney disease, stage 4 (severe): Code(s): N18.4 - Chronic kidney disease, stage 4 (severe) Status: Chronic Assessment and Plan: likely secondary to his diabetes, chronic systolic heart failure, vascular disease (coronary artery disease and hyperlipidemia), and age-related change. outpatient evaluation significant for renal ultrasound with CKD changes along with a right renal mass c/w renal cell carcinoma last creatinine in June 2021 was 3.93mg/dl ? (3) Frequent falls: Code(s): R29.6 - Repeated falls Status: Acute Assessment and Plan: as noted by history anticoagulation on hold for now PT/OT evaluation (4) Paroxysmal A-fib: Code(s): I48.0 - Paroxysmal atrial fibrillation Status: Chronic Assessment and Plan: continue rate control strategy on amiodarone telemetry holding anticoagulation given #3 (5) Anemia: Code(s): D64.9 - Anemia, unspecified Status: Acute Assessment and Plan: probably related to CKD along with acute blood loss (hematoma/bleeding) follow-up on anemia labs consider empiric Epogen PRBC transfusion per protocol follow trend of H/H (6) Diabetes: Code(s): E11.9 - Type 2 diabetes mellitus without complications Status: Acute Assessment and Plan: follow accuchekcs on SSI Will continue to follow. Subjective Date/time seen: 08/20/21 15:33 Appears to be doing reasonably well since I last saw him; eating and drinking well and appears in no distress; no issues/events overnight or earlier this morning; no apparent distress to report at the time of my visit. Objective Data Vital Signs Vital Signs: Vital Signs Temp Pulse Resp BP Pulse Ox O2 Del Method 08/20/21 12:00 57 L 08/20/21 15:38 36.3 C L 53 L 16 157/72 H 98 08/20/21 15:08 72/42 L 08/20/21 15:05 98/58 L 08/20/21 15:00 118/56 L 08/20/21 08:00 Room Air 08/20/21 08:17 58 L 08/20/21 08:00 51 L 08/20/21 06:10 36.6 C 63 21 H 98/62 L 100 08/20/21 06:05 36.8 C 55 L 21 H 103/63 100 08/20/21 06:00 37.1 C 50 L 21 H 153/62 H 100 08/20/21 00:00 52 L 08/19/21 20:00 51 L 08/19/21 22:00 36.4 C 52 L 21 H 159/74 H 100 08/19/21 20:00 Room Air 08/19/21 20:52 56 L Intake/Output Intake/Output: Intake & Output 08/17/21 08/18/21 08/19/21 08/20/21 23:59 23:59 23:59 23:59 Intake Total 50 1950 2480 Output Total 200 1250 Balance 50 1750 1230 Meds/Results Medications: Active Medications Generic Name Dose Route Start Last Admin Trade Name Freq PRN Reason Stop Dose Admin Amiodarone HCl 200 mg 08/19/21 09:00 08/20/21 08:17 Amiodarone Hcl 200 Mg Tablet PO 200 mg Q12HR SUSIE Administration Aspirin 81 mg 08/19/21 09:00 08/20/21 08:18 Aspirin 81 Mg Enteric Tablet PO 81 mg DAILY SUSIE Administration Carbidopa/Levodopa 1 tablet 08/19/21 09:00 08/20/21 16:44 Carbidopa/Levodopa 25/100 Mg Tablet PO 1 tablet TID SUSIE Administration Cyanocobalamin 1,000 mcg 08/20/21 09:00 08/20/21 11:39 Cyanocobalamin Inj 1,000 Mcg/Ml Vial IM 1,000 mcg WEEKLY SUSIE Administration Dextrose 12.5 gm 08/19/21 07:48 Dextrose 50% 25 Gm/50 Ml Syringe IV PUSH PRN PRN Hypoglycemia Protocol Ferrous Sulfate 324 mg 08/19/21 08:00 08/20/21 16:44 Ferrous Sulfate 324 Mg Tablet PO 324 mg BIDWM SUSIE Administration Finasteride 5 mg 08/19/21 09:00 08/20/21 08:18 Finasteride 5 Mg Tabl
--- NOTE | 2021-08-20 15:33 | P.PNNP_ITS ---
Progress Note: A&P Assessment and Plan (1) DARLEEN (acute kidney injury): Code(s): N17.9 - Acute kidney failure, unspecified Status: Acute Assessment and Plan: * improvement noted with IVFs (arguing some degree of volume depletion) * follow-up on renal ultrasound * urine electrolytes suggest pre-renal azotemia * since eating/drinking okay, will stop IVFs * follow repeat labs and UOP (2) Chronic kidney disease, stage 4 (severe): Code(s): N18.4 - Chronic kidney disease, stage 4 (severe) Status: Chronic Assessment and Plan: * likely secondary to his diabetes, chronic systolic heart failure, vascular disease (coronary artery disease and hyperlipidemia), and age-related change. * outpatient evaluation significant for renal ultrasound with CKD changes along with a right renal mass c/w renal cell carcinoma * last creatinine in June 2021 was 3.93mg/dl ? (3) Frequent falls: Code(s): R29.6 - Repeated falls Status: Acute Assessment and Plan: * as noted by history * anticoagulation on hold for now * PT/OT evaluation (4) Paroxysmal A-fib: Code(s): I48.0 - Paroxysmal atrial fibrillation Status: Chronic Assessment and Plan: * continue rate control strategy * on amiodarone * telemetry * holding anticoagulation given #3 (5) Anemia: Code(s): D64.9 - Anemia, unspecified Status: Acute Assessment and Plan: * probably related to CKD along with acute blood loss (hematoma/bleeding) * follow-up on anemia labs * consider empiric Epogen * PRBC transfusion per protocol * follow trend of H/H (6) Diabetes: Code(s): E11.9 - Type 2 diabetes mellitus without complications Status: Acute Assessment and Plan: * follow accuchekcs * on SSI Will continue to follow. Subjective Date/time seen: 08/20/21 15:33 Appears to be doing reasonably well since I last saw him; eating and drinking well and appears in no distress; no issues/events overnight or earlier this morning; no apparent distress to report at the time of my visit. Objective Data Vital Signs Vital Signs: Vital Signs Temp Pulse Resp BP Pulse Ox O2 Del Method 08/20/21 12:00 57 L 08/20/21 15:38 36.3 C L 53 L 16 157/72 H 98 08/20/21 15:08 72/42 L 08/20/21 15:05 98/58 L 08/20/21 15:00 118/56 L 08/20/21 08:00 Room Air 08/20/21 08:17 58 L 08/20/21 08:00 51 L 08/20/21 06:10 36.6 C 63 21 H 98/62 L 100 08/20/21 06:05 36.8 C 55 L 21 H 103/63 100 08/20/21 06:00 37.1 C 50 L 21 H 153/62 H 100 08/20/21 00:00 52 L 08/19/21 20:00 51 L 08/19/21 22:00 36.4 C 52 L 21 H 159/74 H 100 08/19/21 20:00 Room Air 08/19/21 20:52 56 L Intake/Output Intake/Output: Intake & Output 08/17/21 08/18/21 08/19/21 08/20/21 23:59 23:59 23:59 23:59 Intake Total 50 1950 2480 Output Total 200 1250 Balance 50 1750 1230 Meds/Results Medications: Active Medications Generic Name Dose Route Start Last Admin Trade Name Medq PRN Reason Stop Dose Admin Amiodarone HCl 200 mg 08/19/21 09:00 08/20/21
[2021-08-20 16:40] LABS: Glucose Point of Care 128 mg/dl (65-105)
[2021-08-21] VITALS (8 sets, daily range): BP systolic 85–156; BP diastolic 54–71; PULSE 52–56; RESP 16; TEMP 36.8–36.9; O2SAT 94–100
[2021-08-21 05:32] LABS: Basophils Percent Auto 0.2 % (0.2-1.2); Eosinophils Absolute Auto 0.1 K/mm3 (0-0.3); Eosinophils Percent Auto 2.9 % (0-4.4); Hematocrit 24.1 % (42.0-52.0); Hemoglobin 7.8 g/dL (14.0-18.0); Immature Granulocyte Absolute 0.01 K/mm3 (0.00-0.031); Immature Granulocyte Percent A 0.2 % (0-0.5); Lymphocytes Absolute Auto 0.88 K/mm3 (0.9-3.2); Lymphocytes Percent Auto 19.6 % (18.3-44.2); Mean Corpuscular HGB Conc 32.4 g/dl (32-36); Mean Corpuscular Hemoglobin 34.4 pg (26-34); Mean Corpuscular Volume 106.2 fl (80-100); Mean Platelet Volume 9.7 fl (7.4-10.4); Monocytes Absolute Auto 0.3 K/mm3 (0.1-0.6); Monocytes Percent Auto 6.9 % (2.6-8.5); Neutrophils Absolute Auto 3.1 K/mm3 (1.3-6.7); Neutrophils Percent Auto 70.2 % (45.5-73.1); Platelet Count Result 108 k/mm3 (150-375); Red Blood Count 2.27 M/mm3 (4.6-6.20); White Blood Count 4.5 K/mm3 (4.5-10.0)
[2021-08-21 05:47] LABS: Alanine Aminotransferase 11 U/L (6-50); Albumin Level 3.1 g/dL (3.5-5.1); Alkaline Phosphatase 56 U/L (38-126); Anion Gap 5 mmol/L (8-16); Aspartate Amino Transferase 22 U/L (17-59); Bilirubin,Total 0.6 mg/dL (0.2-1.3); Blood Urea Nitrogen 45 mg/dL (9-20); Carbon Dioxide 22 mmol/L (22-30); Chloride 110 mmol/L (98-107); Estimated CRCL calculation 12 ml/min; Estimated Glomerular Filt Rate 17; Glucose 95 mg/dL (65-110); Magnesium 1.9 mg/dL (1.6-2.3); Potassium 4.9 mmol/L (3.4-5.0); Sodium 137 mmol/L (137-145)
[2021-08-21] MEDS: LEVOTHYROXINE SODIUM 50 MCG TABLET PO (06:15)
[2021-08-21 07:59] LABS: Glucose Point of Care 102 mg/dl (65-105)
--- NOTE | 2021-08-21 08:30 | P.DS_ITS ---
DS: Admitting Diagnosis Discharge Date 08/21/21829 Admitting Diagnosis Fall, acute on chronic renal failure DS: Discharge Diagnosis Discharge Diagnosis (1) Acute on chronic renal failure: Code(s): N17.9 - Acute kidney failure, unspecified; N18.9 - Chronic kidney disease, unspecified Status: Acute Assessment and Plan: * BUN/Cr 58/3.70 * Baseline Creatinine 2.32-3.0 * Fluids decreased to 70 ml/hr * Avoid nephrotoxic medications * Trend labs * Nephrology consulted thank you for your help * Seems to be progressive over the last year or so * Trend urine output * Urine studies ordered * Renal ultrasound found a mass that was present on the ultrasound from February, cystitis vs renal outlet obstruction with bladder wall thickening (also seen on the ultrasound from February), bilateral nephrolithiasis * Get post residual void (2) Anemia: Code(s): D64.9 - Anemia, unspecified Status: Acute Assessment and Plan: * hemoglobin and hematocrit are 8.0/24.6 * ?most likely from acute blood loss anemia * ?could also be secondary to anemia of chronic disease specially since he has worsening renal failure * ?continue to trend labs * ?anemia labs? iron 71, TIBC 303,% saturation 23, transferrin 189, ferritin 108 , B12 <159, folate 13.1 * ?Vit B12 injections weekly * ?Vitamin D normal at 64.2 * ?continue home ferrous sulfate * ?transfuse if less than 7 for hemoglobin (3) Frequent falls: Code(s): R29.6 - Repeated falls Status: Acute Assessment and Plan: * ground level falls x2 * ?Eliquis on hold * ?laceration of the scalp with rossana * ?PT and OT ordered (4) Paroxysmal A-fib: Code(s): I48.0 - Paroxysmal atrial fibrillation Status: Chronic Assessment and Plan: * ?history of AFib * ?currently in sinus? bradycardia with a bundle branch block * ?continue home amiodarone 200 mg p.o. b.i.d. * ?tele monitor * ?DANNY-VAS score is a 6, however HASBLED 4 which is high risk for bleed * ?Hold anticoagulation due to frequent falls and the risks outweigh the benefits (5) Laceration of scalp: Code(s): S01.01XA - Laceration without foreign body of scalp, initial encounter Status: Acute Assessment and Plan: * ?stable at this time * ?rossana? times 13 present * ?no bleeding or open areas * ?continue with wound care: clean with soap and water, watch for signs of infection * Rossana can be removed on 08/29/21 (6) Diabetes: Code(s): E11.9 - Type 2 diabetes mellitus without complications Status: Acute Assessment and Plan: * Current glucose 95 * ?A1c 5.8 * Hold oral home medications for now * hypoglycemia protocol * moderate sliding scale * ?Accu-Cheks a.c. HS * ? trend glucose * ?adjust therapy as indicated (7) Hypothyroidism: Code(s): E03.9 - Hypothyroidism, unspecified Status: Acute Assessment and Plan: * TSH elevated at 69.50 T4 is 0.26 * ?initiate levothyroxine at 50mcg PO * ?Recheck TSH in 6 weeks (8) Right kidney mass: Code(s): N28.89 - Other specified disorders of kidney and ureter Status: Acute Assessment and Plan: * Kidney mass noted on the ultrasound * Will need outpatient follow up DS: Summary Hospital Course H
--- NOTE | 2021-08-21 08:30 | PM.DS ---
DS: Admitting Diagnosis Discharge Date 08/21/21829 Admitting Diagnosis Fall, acute on chronic renal failure DS: Discharge Diagnosis Discharge Diagnosis (1) Acute on chronic renal failure: Code(s): N17.9 - Acute kidney failure, unspecified; N18.9 - Chronic kidney disease, unspecified Status: Acute Assessment and Plan: BUN/Cr 58/3.70 Baseline Creatinine 2.32-3.0 Fluids decreased to 70 ml/hr Avoid nephrotoxic medications Trend labs Nephrology consulted thank you for your help Seems to be progressive over the last year or so Trend urine output Urine studies ordered Renal ultrasound found a mass that was present on the ultrasound from February, cystitis vs renal outlet obstruction with bladder wall thickening (also seen on the ultrasound from February), bilateral nephrolithiasis Get post residual void (2) Anemia: Code(s): D64.9 - Anemia, unspecified Status: Acute Assessment and Plan: hemoglobin and hematocrit are 8.0/24.6 ?most likely from acute blood loss anemia ?could also be secondary to anemia of chronic disease specially since he has worsening renal failure ?continue to trend labs ?anemia labs? iron 71, TIBC 303,% saturation 23, transferrin 189, ferritin 108, B12 <159, folate 13.1 ?Vit B12 injections weekly ?Vitamin D normal at 64.2 ?continue home ferrous sulfate ?transfuse if less than 7 for hemoglobin (3) Frequent falls: Code(s): R29.6 - Repeated falls Status: Acute Assessment and Plan: ground level falls x2 ?Eliquis on hold ?laceration of the scalp with rossana ?PT and OT ordered (4) Paroxysmal A-fib: Code(s): I48.0 - Paroxysmal atrial fibrillation Status: Chronic Assessment and Plan: ?history of AFib ?currently in sinus? bradycardia with a bundle branch block ?continue home amiodarone 200 mg p.o. b.i.d. ?tele monitor ?DANNY-VAS score is a 6, however HASBLED 4 which is high risk for bleed ?Hold anticoagulation due to frequent falls and the risks outweigh the benefits (5) Laceration of scalp: Code(s): S01.01XA - Laceration without foreign body of scalp, initial encounter Status: Acute Assessment and Plan: ?stable at this time ?rossana? times 13 present ?no bleeding or open areas ?continue with wound care: clean with soap and water, watch for signs of infection Rossana can be removed on 08/29/21 (6) Diabetes: Code(s): E11.9 - Type 2 diabetes mellitus without complications Status: Acute Assessment and Plan: Current glucose 95 ?A1c 5.8 Hold oral home medications for now hypoglycemia protocol moderate sliding scale ?Accu-Cheks a.c. HS ? trend glucose ?adjust therapy as indicated (7) Hypothyroidism: Code(s): E03.9 - Hypothyroidism, unspecified Status: Acute Assessment and Plan: TSH elevated at 69.50 T4 is 0.26 ?initiate levothyroxine at 50mcg PO ?Recheck TSH in 6 weeks (8) Right kidney mass: Code(s): N28.89 - Other specified disorders of kidney and ureter Status: Acute Assessment and Plan: Kidney mass noted on the ultrasound Will need outpatient follow up DS: Summary Hospital Course Hospital Course: patient is an 85-year-old male with past medical history of AFib, anemia, BPH, chronic kidney disease, and Parkinson's who presented to the ED after a fall. It was noted that patient was recently in urgent care for fall as well. Upon arrival patient was noted to have an elevated CK and elevated BUN creatinine. IV fluids worse initiated and Nephrology was consulted. Baseline does look to be around 2.3-3. BUN and creatinine are getting better and her currently 45/3.40 today. FENa score was 1.4% indicating intrinsic disease Patient was also noted to be anemic and anemia labs were drawn. Renal ultrasound was also performed and did s
--- NOTE | 2021-08-21 10:04 | PM.PNNEP ---
Progress Note: A&P Assessment and Plan (1) DARLEEN (acute kidney injury): Code(s): N17.9 - Acute kidney failure, unspecified Status: Acute Assessment and Plan: improvement noted with IVFs (arguing some degree of volume depletion) renal ultrasound results noted urine electrolytes suggest pre-renal azotemia follow repeat labs and UOP (2) Chronic kidney disease, stage 4 (severe): Code(s): N18.4 - Chronic kidney disease, stage 4 (severe) Status: Chronic Assessment and Plan: likely secondary to his diabetes, chronic systolic heart failure, vascular disease (coronary artery disease and hyperlipidemia), and age-related change. outpatient evaluation significant for renal ultrasound with CKD changes along with a right renal mass c/w renal cell carcinoma last creatinine in June 2021 was 3.93mg/dl (baseline around 3.5 - 4.0mg/dl) interested in in-center hemodialysis so was referred to Vascular Surgery for outpatient AVF placement ? (3) Frequent falls: Code(s): R29.6 - Repeated falls Status: Acute Assessment and Plan: as noted by history anticoagulation on hold for now PT/OT as tolerated - rehab on discharge (4) Paroxysmal A-fib: Code(s): I48.0 - Paroxysmal atrial fibrillation Status: Chronic Assessment and Plan: continue rate control strategy on amiodarone telemetry holding anticoagulation given #3 (5) Anemia: Code(s): D64.9 - Anemia, unspecified Status: Acute Assessment and Plan: probably related to CKD along with acute blood loss (hematoma/bleeding) empirically dose with Epogen today suspect may need outpatient FABIÁN as well follow trend of H/H (6) Diabetes: Code(s): E11.9 - Type 2 diabetes mellitus without complications Status: Acute Assessment and Plan: follow accuchekcs on SSI Not opposed to discharge from renal perspective if otherwise medically stable; he has follow-up with me in clinic already scheduled. Will continue to follow. Subjective Date/time seen: 08/21/21 10:04 Appears to be doing well; renal function back to baseline (and off IVFs) with good oral intake; no apparent distress voiced at this time of my visit; no issues/events to report overnight or earlier this morning; no other complaints to report. Objective Data Vital Signs Vital Signs: Vital Signs Temp Pulse Resp BP Pulse Ox O2 Del Method 08/21/21 10:00 54 L 16 94 Room Air 08/21/21 11:04 121/62 08/21/21 10:40 54 L 85/54 L 08/21/21 10:38 53 L 152/71 H 08/21/21 00:00 53 L 08/21/21 04:00 52 L 08/21/21 03:54 36.8 C 52 L 16 156/68 H 100 08/20/21 20:00 52 L 08/20/21 20:54 53 L 08/20/21 20:54 36.3 C L 54 L 18 127/71 100 08/20/21 19:48 Room Air 08/20/21 16:00 53 L 08/20/21 15:38 36.3 C L 53 L 16 157/72 H 98 08/20/21 15:08 72/42 L 08/20/21 15:05 98/58 L 08/20/21 15:00 118/56 L Intake/Output Intake/Output: Intake & Output 08/18/21 08/19/21 08/20/21 08/21/21 23:59 23:59 23:59 23:59 Intake Total 50 1950 2480 1770 Output Total 200 1250 500 Balance 50 1750 1230 1270 Meds/Results Medications: Active Medications Generic Name Dose Route Start Last Admin Trade Name Caitie PRN Reason Stop Dose Admin Amiodarone HCl 200 mg 08/19/21 09:00 08/21/21 10:05 Amiodarone Hcl 200 Mg Tablet PO 200 mg Q12HR SUSIE Administration Aspirin 81 mg 08/19/21 09:00 08/21/21 10:06 Aspirin 81 Mg Enteric Tablet PO 81 mg DAILY SUSIE Administration Carbidopa/Levodopa 1 tablet 08/19/21 09:00 08/21/21 10:05 Carbidopa/Levodopa 25/100 Mg Tablet PO 1 tablet TID SUSIE Administration Cyanocobalamin 1,000 mcg 08/20/21 09:00 08/20/21 11:39 Cyanocobalamin Inj 1,000 Mcg/Ml Vial IM 1,000 mcg WEEKLY SUSIE Administration Dextrose 12.5 gm 08/19/21 07:48 Dextrose 50% 25 Gm/50 Ml Syringe I
--- NOTE | 2021-08-21 10:04 | P.PNNP_ITS ---
Progress Note: A&P Assessment and Plan (1) DARLEEN (acute kidney injury): Code(s): N17.9 - Acute kidney failure, unspecified Status: Acute Assessment and Plan: * improvement noted with IVFs (arguing some degree of volume depletion) * renal ultrasound results noted * urine electrolytes suggest pre-renal azotemia * follow repeat labs and UOP (2) Chronic kidney disease, stage 4 (severe): Code(s): N18.4 - Chronic kidney disease, stage 4 (severe) Status: Chronic Assessment and Plan: * likely secondary to his diabetes, chronic systolic heart failure, vascular disease (coronary artery disease and hyperlipidemia), and age-related change. * outpatient evaluation significant for renal ultrasound with CKD changes along with a right renal mass c/w renal cell carcinoma * last creatinine in June 2021 was 3.93mg/dl (baseline around 3.5 - 4.0mg/dl) * interested in in-center hemodialysis so was referred to Vascular Surgery for outpatient AVF placement ? (3) Frequent falls: Code(s): R29.6 - Repeated falls Status: Acute Assessment and Plan: * as noted by history * anticoagulation on hold for now * PT/OT as tolerated - rehab on discharge (4) Paroxysmal A-fib: Code(s): I48.0 - Paroxysmal atrial fibrillation Status: Chronic Assessment and Plan: * continue rate control strategy * on amiodarone * telemetry * holding anticoagulation given #3 (5) Anemia: Code(s): D64.9 - Anemia, unspecified Status: Acute Assessment and Plan: * probably related to CKD along with acute blood loss (hematoma/bleeding) * empirically dose with Epogen today * suspect may need outpatient FABIÁN as well * follow trend of H/H (6) Diabetes: Code(s): E11.9 - Type 2 diabetes mellitus without complications Status: Acute Assessment and Plan: * follow accuchekcs * on SSI Not opposed to discharge from renal perspective if otherwise medically stable; he has follow-up with me in clinic already scheduled. Will continue to follow. Subjective Date/time seen: 08/21/21 10:04 Appears to be doing well; renal function back to baseline (and off IVFs) with good oral intake; no apparent distress voiced at this time of my visit; no issues/events to report overnight or earlier this morning; no other complaints to report. Objective Data Vital Signs Vital Signs: Vital Signs Temp Pulse Resp BP Pulse Ox O2 Del Method 08/21/21 10:00 54 L 16 94 Room Air 08/21/21 11:04 121/62 08/21/21 10:40 54 L 85/54 L 08/21/21 10:38 53 L 152/71 H 08/21/21 00:00 53 L 08/21/21 04:00 52 L 08/21/21 03:54 36.8 C 52 L 16 156/68 H 100 08/20/21 20:00 52 L 08/20/21 20:54 53 L 08/20/21 20:54 36.3 C L 54 L 18 127/71 100 08/20/21 19:48 Room Air 08/20/21 16:00 53 L 08/20/21 15:38 36.3 C L 53 L 16 157/72 H 98 08/20/21 15:08 72/42 L 08/20/21 15:05 98/58 L 08/20/21 15:00 118/56 L Intake/Output Intake/Output: Intake & Output 08/18/21 08/19/21 08/20/21 08/21/21 23:59 23:59 23:59 23:59 Intake Total 50 1950 2480 1770 Output Total 200 1250 500 Balance 50 1750 1230 1270
[2021-08-21] MEDS: CARBIDOPA/LEVODOPA 25/100 MG TABLET 1 TABLET PO ×3 (10:05→17:07)
[2021-08-21] MEDS: AMIODARONE HCL 200 MG TABLET PO (10:05)
[2021-08-21] MEDS: FINASTERIDE 5 MG TABLET PO (10:05)
[2021-08-21] MEDS: MEMANTINE 5 MG TABLET PO (10:05)
[2021-08-21] MEDS: PRAVASTATIN SODIUM 20 MG TABLET 40 MG PO (10:06)
[2021-08-21] MEDS: ASPIRIN 81 MG ENTERIC TABLET PO (10:06)
[2021-08-21] MEDS: FERROUS SULFATE 324 MG TABLET PO ×2 (10:06→17:06)
[2021-08-21] MEDS: EPOETIN ALFA-EPBX 20,000 UNITS/ML VIAL 20000 UNITS SUB-Q (10:07)
[2021-08-21 12:05] LABS: Glucose Point of Care 113 mg/dl (65-105)
[2021-08-21 13:05] LABS: EDCOVIDSCREEN Negative (Negative)
--- NOTE | 2021-08-21 14:44 | PCOTNOTE ---
Patient not seen for OT this date. Will continue per plan of care.
[2021-08-21 16:40] LABS: Glucose Point of Care 124 mg/dl (65-105)
[2021-08-25 16:06] LABS: Chloride Rand Ur 50 mmol/L (32-290); Chloride/Creatinine Rand Ur 64 (23-275); Creatinine Random Urine 78 mg/dL (20-320)
== END 2021-08-21 19:23 ==
LOC: ANHED 21:40 → ANH2MED 08-19 03:40
PROVIDERS: Emergency Medicine; Internal Medicine Nephrology; Admitting Provider Internal Medicine; Emergency Provider Emergency Medicine; PCP Family Medicine; Visit Provider Nurse Practitioner
DX: N17.9 Acute kidney failure, unspecified (principal); S01.01XA Laceration without foreign body of scalp, initial encounter; W18.30XA Fall on same level, unspecified, initial encounter; Z91.81 History of falling; N18.4 Chronic kidney disease, stage 4 (severe); K21.9 Gastro-esophageal reflux disease without esophagitis; I25.10 Atherosclerotic heart disease of native coronary artery without angina pectoris; Z95.1 Presence of aortocoronary bypass graft; E78.5 Hyperlipidemia, unspecified; G20 Parkinson's disease; I50.20 Unspecified systolic (congestive) heart failure; I13.0 Hypertensive heart and chronic kidney disease with heart failure and stage 1 through stage 4 chronic kidney disease, or unspecified chronic kidney disease; E11.22 Type 2 diabetes mellitus with diabetic chronic kidney disease; Z87.891 Personal history of nicotine dependence; I48.0 Paroxysmal atrial fibrillation; Z79.01 Long term (current) use of anticoagulants; D63.1 Anemia in chronic kidney disease; E03.9 Hypothyroidism, unspecified
CPT/HCPCS: 12002; 36415; 70450; 71046; 72125; 76775; 80053; 81001; 81050; 82306; 82436; 82550; 82570; 82607; 82728; 82746; 82948; 83036; 83540; 83550; 83735; 84156; 84300; 84439; 84443; 84466; 85025; 85610; 85730; 85999; 87086; 87088; 87426; 90471; 90715; 93005; 96361; 96365; 96372; 97110; 97161; 97166; 97530; 97535; 99285; A9270; C9803; G0378; J0696; J3420; J7030; Q5105

== ENCOUNTER 2021-09-29 20:36 | Emergency (ER) | payer MEDICARE, SELFPAY ==
--- NOTE | ~2021-09-29 | XR_ITS ---
EXAMINATION: XR chest 2V Exam Date/Time: 09/29/2021 21:00 CDT HISTORY: left chest wall pain Comparison: 08/10/2021. RESULT: Lines, tubes, and devices: Intact sternotomy wires. Mediastinal vascular clips. Cholecystectomy clip s. Abandoned epicardial pacing wires. Lungs and pleura: Senescent change. Bilateral posterior costophrenic angle blunting. Cardiomediastinal silhouette: Stable. Other: No acute osseous or upper abdominal finding. IMPRESSION: Small bilateral pleural effusions. Reviewed, dictated and finalized at location K.
--- NOTE | ~2021-09-29 | CT_ITS ---
EXAMINATION: CT cervical spine wo con DATE: 09/29/2021 21:02 INDICATION: head injury TECHNIQUE: Computed tomography (CT) of the cervical spine was performed without intravenous contrast. Automated exposure control and iterative reconstruction technique were employed. The dose-length pro duct was 430.78 mGy-cm. COMPARISON: 08/18/2021 FINDINGS: Vertebral Body Alignment: Intact. Craniocervical and atlantoaxial alignment: Moderate degenerative change. Alignment intact. Osseous structures/fracture: No evidence of a lytic or blastic process in the visualized spine. No e vidence of acute fracture. Cervical soft tissues: The paraspinal soft tissues planes are maintained. Degenerative changes: Degenerative changes, without severe neural foraminal or central canal narrowin g. IMPRESSION: No acute fracture or traumatic malalignment in the cervical spine. Reviewed, dictated and finalized at location K.
--- NOTE | ~2021-09-29 | CT_ITS ---
EXAMINATION: CT brain wo con DATE: 09/29/2021 20:57 INDICATION: fall with hematoma . TECHNIQUE: Computed tomography (CT) of the head was performed without intravenous contrast. The mA wa s adjusted according to patient size. Iterative reconstruction technique was employed. The dose-lengt h product was 605.33 mGy-cm. COMPARISON: 08/18/2021 FINDINGS: No acute intracranial hemorrhage or extra-axial fluid collection. No hydrocephalus, mass, or herniation. No acute ischemic infarct. Unremarkable dural venous sinus attenuation. No acute osseous abnormality. Large right posterior parietal scalp contusion/hematoma. Small volume left mastoid fluid, otherwise the aerated spaces are clear. Atherosclerotic intracranial calcification. Moderate atrophy and chronic white matter change. Stable likely developmental cyst in the left nasopharynx. IMPRESSION: No acute intracranial process. Reviewed, dictated and finalized at location K.
--- NOTE | 2021-09-29 20:44 | ED.FALL ---
HPI - Fall General Chief Complaint: Fall Stated Complaint: FALL HEMATOMA TO BACK OF HEAD History of Present Illness HPI Narrative: 86-year-old male presenting to the emergency department for evaluation after having a ground-level fall resulting in a posterior hematoma. Patient states he was walking and missed his footing. Patient states he fell back and struck his head. Patient denies any loss of consciousness. Related Data Home Medications Medication Instructions Recorded Confirmed blood sugar diagnostic (AerospikeTouch #10 ea 01/10/19 08/19/21 Ultra Blue Test Strip) lancets 33 gauge (AerospikeTouch Delica #100 ea 01/10/19 08/19/21 Lancets) aspirin 81 mg tablet,delayed 81 mg PO DAILY 02/01/20 08/19/21 release nitroglycerin 0.4 mg sublingual 0.4 mg sublingual Q5M PRN Chest 02/01/20 08/19/21 tablet (Nitrostat) Pain Allergies Allergy/AdvReac Type Severity Reaction Status Date / Time No Known Allergies Allergy Verified 08/19/21 03:39 Review of Systems Review of Systems: CONSTITUTIONAL: Denies fever, chills, or sweats. EYES: Denies visual changes, redness, or discharge. ENT: Denies rhinorrhea, congestion, sore throat, or otalgia. CARDIOVASCULAR: Denies chest pain, palpitations, or edema. RESPIRATORY: Denies cough or dyspnea. GASTROINTESTINAL: Denies abdominal pain, nausea, vomiting, or diarrhea. GENITOURINARY: Denies dysuria or hematuria. SKIN: Head injury with hematoma MUSCULOSKELETAL: Denies back pain, joint pain, or myalgia. NEUROLOGIC: Denies headache, numbness, or weakness. [facility] Past Medical History Medical History Anemia Arthritis Benign prostatic hyperplasia Cholelithiasis Chronic kidney disease, stage 3 Baseline creatinine is between 1.2 and 1.30. Chronic kidney disease, stage 3 unspecified Chronic kidney disease, stage 4 (severe) Coronary artery disease Status post bypass. Essential tremor Gastroesophageal reflux Hyperlipidemia Hypertension Kidney stones Left renal mass Pancreatitis In 2016, November 2018, and March 2019. Parkinsonism Paroxysmal atrial fibrillation Renal mass Stable on imaging as of 2016. Systolic congestive heart failure Echocardiogram in January 2020 showed a moderately enlarged left ventricular chamber with moderately reduced systolic function and an estimated ejection fraction of 30 to 35%. Type 2 diabetes mellitus Hemoglobin A1c was 6.8% in 10/2019. Surgical History Surgical History History of cardiac cath In 2013 prior to CABG. History of coronary artery bypass graft x 2 (~2012) RODRÍGUEZ to the left anterior descending and radial artery to the OM. History of laparoscopic cholecystectomy History of removal of cyst Tracheostomy status As a young child when he had diptheria at the age of 2. Family History Family History Mother Cerebrovascular accident, Onset Age: 80 Patient's mother is Sibling Family history of diabetes mellitus in first degree relative Father Family history of lung cancer Patient's father is Sibling Gallbladder disease His brother just a couple days after having gallbladder surgery Social History Social History (Updated 08/19/21 @ 09:37 by FIOR Joshi) Social History: the patient lives with his , Aileen, in [place]. He is her primary river rat as she suffers from Alzheimer's dementia. They have a daughter who lives nearby and she helps out a lot at home her name is Deb and is his surrogate. Retired from [employer]. He has a 10 pack year smoking history and quit greater than 50 years ago. No alcohol or illicit substance abuse. His daughter, Deb Baker, is his healthcare power of loss prevention auditor and he wishes to be a do not resuscitate. Smoking packs per day: 1 Smoking cigarettes per day: 20.0
[2021-09-29 20:45] VITALS: BP 159/76; PULSE 53; RESP 16; TEMP 36.4; O2SAT 98
[2021-09-29 23:30] VITALS: PULSE 53; RESP 18; O2SAT 97
== END 2021-09-29 23:32 ==
LOC: ANHED 21:48
PROVIDERS: Emergency Provider Emergency Medicine; PCP Family Medicine
DX: S00.03XA Contusion of scalp, initial encounter (principal); E11.22 Type 2 diabetes mellitus with diabetic chronic kidney disease; I13.0 Hypertensive heart and chronic kidney disease with heart failure and stage 1 through stage 4 chronic kidney disease, or unspecified chronic kidney disease; N18.4 Chronic kidney disease, stage 4 (severe); I50.20 Unspecified systolic (congestive) heart failure; N40.0 Benign prostatic hyperplasia without lower urinary tract symptoms; K21.9 Gastro-esophageal reflux disease without esophagitis; E78.5 Hyperlipidemia, unspecified; Z87.442 Personal history of urinary calculi; G20 Parkinson's disease; I48.0 Paroxysmal atrial fibrillation; Z95.1 Presence of aortocoronary bypass graft; Z87.891 Personal history of nicotine dependence; Z79.82 Long term (current) use of aspirin; W01.0XXA Fall on same level from slipping, tripping and stumbling without subsequent striking against object, initial encounter
CPT/HCPCS: 70450; 71046; 72125; 99284

== ENCOUNTER 2021-10-19 19:01 | Emergency (ER) | payer MEDICARE, SELFPAY ==
--- NOTE | ~2021-10-19 | XR_ITS ---
EXAM: XR shoulder RT min 2V DATE: 10/19/2021 22:34 HISTORY: right shoulder pain, fall . COMPARISON: 01/15/2019. FINDINGS: Normal mineralization. No fracture or dislocation. No lytic or blastic lesion. Degenerativ e change in the acromioclavicular and glenohumeral joints. Superior humeral head migration as can be seen with rotator cuff pathology. No erosion or periosteal change. Soft tissues within normal limits. IMPRESSION: No acute osseous finding in the right shoulder. Reviewed, dictated and finalized at location K.
--- NOTE | ~2021-10-19 | XR_ITS ---
EXAMINATION: XR chest 1V Exam Date/Time: 10/19/2021 22:25 CDT HISTORY: fall; hx of CAD, HTN, chronic kidney disease Comparison: 09/29/2021. RESULT: Lines, tubes, and devices: Intact sternotomy wires. Mediastinal surgical clips. Cholecystectomy clip s. Abandoned epicardial pacing wires. Lungs and pleura: Senescent changes and bibasilar scarring. Cardiomediastinal silhouette: Stable. Other: No acute osseous or upper abdominal finding. IMPRESSION: No acute cardiopulmonary process. Reviewed, dictated and finalized at location K.
--- NOTE | ~2021-10-19 | CT_ITS ---
EXAMINATION: CT cervical spine wo con DATE: 10/19/2021 22:35 INDICATION: head injury TECHNIQUE: Computed tomography (CT) of the cervical spine was performed without intravenous contrast. Automated exposure control and iterative reconstruction technique were employed. The dose-length pro duct was 463.64 mGy-cm. COMPARISON: 09/29/2021 FINDINGS: Vertebral Body Alignment: Intact. Craniocervical and atlantoaxial alignment: Moderate degenerative change. Alignment intact. Osseous structures/fracture: No evidence of a lytic or blastic process in the visualized spine. No e vidence of acute fracture. Cervical soft tissues: The paraspinal soft tissues planes are maintained. Fossa of Rosenmuller cyst. Senescent changes in the lungs. Left posterior medial atelectasis/scar. Degenerative changes: Degenerative changes, without severe neural foraminal or central canal narrowin g. IMPRESSION: No acute fracture or traumatic malalignment in the cervical spine. Reviewed, dictated and finalized at location K.
--- NOTE | ~2021-10-19 | XR_ITS ---
EXAM: XR pelvis 1-2V DATE: 10/19/2021 22:33 HISTORY: fall, Rt shoulder pain . COMPARISON: None available. FINDINGS: Normal mineralization. No fracture or dislocation. No lytic or blastic lesion. Degenerativ e change in the lower lumbar spine. No erosion or periosteal change. Vascular calcifications. IMPRESSION: No acute osseous finding in the pelvis. Reviewed, dictated and finalized at location K.
--- NOTE | ~2021-10-19 | CT_ITS ---
EXAMINATION: CT brain wo con DATE: 10/19/2021 22:32 INDICATION: head injury . TECHNIQUE: Computed tomography (CT) of the head was performed without intravenous contrast. The mA wa s adjusted according to patient size. Iterative reconstruction technique was employed. The dose-lengt h product was 605.33 mGy-cm. COMPARISON: 09/29/2021 FINDINGS: No acute intracranial hemorrhage or extra-axial fluid collection. No hydrocephalus, mass, or herniation. No acute ischemic infarct. Unremarkable dural venous sinus attenuation. No acute osseous abnormality. Trace left mastoid fluid, otherwise the aerated spaces are clear. Moderate atrophy and chronic white matter change. Atherosclerotic intracranial calcification. Stable left nasopharyngeal cyst. IMPRESSION: No acute intracranial process. Reviewed, dictated and finalized at location K.
[2021-10-19 19:16] VITALS: BP 124/50; PULSE 51; RESP 20; TEMP 36.6; O2SAT 100
--- NOTE | 2021-10-19 21:54 | ED.FALL ---
HPI - Fall General Chief Complaint: Fall Stated Complaint: FALL Time Seen by Provider: 10/19/21 21:39 Source: patient and family Mode of arrival: wheelchair Limitations: dementia History of Present Illness HPI Narrative: This is a 86 year old male that presents to the ER after a fall today with head injury. Reportedly had a witnessed fall at his facility. He was ambulating with his walker and turned and fell. Reports hitting his head. He did not lose consciousness. Reports pain in his right shoulder. No other complaints. Patient is up to date on tetanus. Denies vomiting, numbness or weakness. Related Data Home Medications Medication Instructions Recorded Confirmed blood sugar diagnostic (Multispectral ImagingTouch #10 ea 01/10/19 08/19/21 Ultra Blue Test Strip) lancets 33 gauge (Multispectral ImagingTouch Delica #100 ea 01/10/19 08/19/21 Lancets) aspirin 81 mg tablet,delayed 81 mg PO DAILY 02/01/20 08/19/21 release nitroglycerin 0.4 mg sublingual 0.4 mg sublingual Q5M PRN Chest 02/01/20 08/19/21 tablet (Nitrostat) Pain Allergies Allergy/AdvReac Type Severity Reaction Status Date / Time No Known Allergies Allergy Verified 10/19/21 19:20 Review of Systems Review of Systems: CONSTITUTIONAL: Denies fever CARDIOVASCULAR: Reports edema. Denies chest pain GASTROINTESTINAL: Denies vomiting MUSCULOSKELETAL: Reports joint pain, and myalgia. NEUROLOGIC: Denies numbness, or weakness. All systems reviewed & are unremarkable except as noted in HPI and below PMFSH Past Medical History Medical History Anemia Arthritis Benign prostatic hyperplasia Cholelithiasis Chronic kidney disease, stage 3 Baseline creatinine is between 1.2 and 1.30. Chronic kidney disease, stage 3 unspecified Chronic kidney disease, stage 4 (severe) Coronary artery disease Status post bypass. Essential tremor Gastroesophageal reflux Hyperlipidemia Hypertension Kidney stones Left renal mass Pancreatitis In 2016, November 2018, and March 2019. Parkinsonism Paroxysmal atrial fibrillation Renal mass Stable on imaging as of 2016. Systolic congestive heart failure Echocardiogram in January 2020 showed a moderately enlarged left ventricular chamber with moderately reduced systolic function and an estimated ejection fraction of 30 to 35%. Type 2 diabetes mellitus Hemoglobin A1c was 6.8% in 10/2019. Surgical History Surgical History History of cardiac cath In 2013 prior to CABG. History of coronary artery bypass graft x 2 (~2012) RODRÍGUEZ to the left anterior descending and radial artery to the OM. History of laparoscopic cholecystectomy History of removal of cyst Tracheostomy status As a young child when he had diptheria at the age of 2. Family History Family History Mother Cerebrovascular accident, Onset Age: 80 Patient's mother is Sibling Family history of diabetes mellitus in first degree relative Father Family history of lung cancer Patient's father is Sibling Gallbladder disease His brother just a couple days after having gallbladder surgery Social History Social History (Updated 08/19/21 @ 09:37 by FIOR Joshi) Social History: the patient lives with his , Aileen, in [place]. 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 They have a daughter who lives nearby and she helps out a lot at home her name is Deb and is his surrogate. Retired from [employer]. He has a 10 pack year smoking history and quit greater than 50 years ago. No alcohol or illicit substance abuse. His daughter, Deb Baker, is his healthcare power of bumper straightener and he wishes to be a do not resuscitate. Smoking packs per day: 1 Smoking cigarettes per day: 20.0 Years smoked: 20 Smoking pack-years: 20.00 Kimberly
--- NOTE | 2021-10-19 23:28 | PC.NURSE ---
Assumed care of pt at this time. Pt supine on stretcher, alert per baseline. Pt and family updated on POC
[2021-10-19 23:30] VITALS: BP 171/70; PULSE 52; RESP 14; O2SAT 98
[2021-10-20 00:04] VITALS: BP 163/70
[2021-10-20 00:49] VITALS: BP 162/69; PULSE 52; RESP 16; O2SAT 98
== END 2021-10-20 00:53 ==
PROVIDERS: Emergency Provider Emergency Medicine; PCP Family Medicine
DX: S01.111A Laceration without foreign body of right eyelid and periocular area, initial encounter (principal); S49.91XA Unspecified injury of right shoulder and upper arm, initial encounter; E11.22 Type 2 diabetes mellitus with diabetic chronic kidney disease; N18.4 Chronic kidney disease, stage 4 (severe); I13.0 Hypertensive heart and chronic kidney disease with heart failure and stage 1 through stage 4 chronic kidney disease, or unspecified chronic kidney disease; I50.23 Acute on chronic systolic (congestive) heart failure; I25.10 Atherosclerotic heart disease of native coronary artery without angina pectoris; E78.5 Hyperlipidemia, unspecified; G20 Parkinson's disease; N40.0 Benign prostatic hyperplasia without lower urinary tract symptoms; I48.0 Paroxysmal atrial fibrillation; K21.9 Gastro-esophageal reflux disease without esophagitis; M19.90 Unspecified osteoarthritis, unspecified site; Z95.1 Presence of aortocoronary bypass graft; Z86.2 Personal history of diseases of the blood and blood-forming organs and certain disorders involving the immune mechanism; Z87.442 Personal history of urinary calculi; Z79.82 Long term (current) use of aspirin; Z87.891 Personal history of nicotine dependence; W18.39XA Other fall on same level, initial encounter
CPT/HCPCS: 12011; 70450; 71045; 72125; 72170; 73030; 99284

== ENCOUNTER 2021-11-05 20:32 | Inpatient (IN) | payer MEDICARE, SELFPAY ==
--- NOTE | ~2021-11-05 | XR_ITS ---
EXAMINATION: XR hip LT 2V w AP pelvis DATE: 11/05/2021 20:58 INDICATION: Left hip pain. Fall. TECHNIQUE: An anteroposterior view of the pelvis and 2 views of left hip were obtained. COMPARISON: Pelvis radiograph 10/19/2021 FINDINGS: There is a subcapital fracture of left femoral neck. The distal fracture fragment demonstra kojo impaction and 24 degrees valgus angulation. There is mild osteoarthritis of the hips. There is kira mbar dextrocurvature and severe spondylosis. IMPRESSION: 1. Subcapital fracture of left femoral neck. 2. Mild osteoarthritis of the hips. Reviewed, dictated and finalized at location A.
--- NOTE | ~2021-11-05 | XR_ITS ---
EXAMINATION: XR knee LT 3V DATE: 11/05/2021 20:58 INDICATION: Left knee pain. Fall. TECHNIQUE: 3 views of left knee on 4 radiographs were obtained. COMPARISON: None. FINDINGS: Bone alignment is normal. No fracture. There is moderate osteoarthritis of medial compartme nt and mild osteoarthritis of lateral and patellofemoral compartments. No knee joint effusion. IMPRESSION: 1. Moderate left knee osteoarthritis. Reviewed, dictated and finalized at location A.
--- NOTE | ~2021-11-05 | XR_ITS ---
XR hip LT min 2V DATE: 11/06/2021 16:16 INDICATION: Postoperative examination TECHNIQUE: AP and crosstable lateral views of left hip COMPARISON: 11/05/2021 left hip FINDINGS: There is resection of the left femoral head and neck and placement of a bipolar hip prosthe sis in normal position. Mild expected postoperative subcutaneous emphysema. IMPRESSION: Left bipolar hip replacement Reviewed, dictated and finalized at location A.
--- NOTE | ~2021-11-05 | XR_ITS ---
EXAMINATION: XR chest 2V DATE: 11/07/2021 13:33 INDICATION: Hypoxia. TECHNIQUE: Frontal and lateral views of the chest were obtained. COMPARISON: Chest single view 10/19/2021, CT abdomen and pelvis 04/10/2019 FINDINGS: There are small pleural effusions. There is mild atelectasis at left lung base. No pneumoth orax. Cardiomegaly is noted. Median sternotomy wires and mediastinal surgical clips are seen, likely from prior coronary artery bypass grafting. IMPRESSION: 1. Small pleural effusions. 2. Mild atelectasis at left lung base. 3. Cardiomegaly. Reviewed, dictated and finalized at location A.
--- NOTE | ~2021-11-05 | CT_ITS ---
EXAMINATION: CT brain wo con DATE: 11/05/2021 21:09 INDICATION: Head injury. TECHNIQUE: Computed tomography (CT) of the head was performed without intravenous contrast. The mA wa s adjusted according to patient size. Iterative reconstruction technique was employed. The dose-lengt h product was 605.33 mGy-cm. COMPARISON: Head CT 10/19/2021 FINDINGS: There is no intracranial hemorrhage, acute infarction, or abnormal intracranial mass lesion . There is a small old infarct in left cerebellum. There are scattered areas of low attenuation in th e cerebral white matter. The ventricles are normal in size. The orbits are normal. The mastoid air ce lls are normal. The paranasal sinuses are clear. IMPRESSION: 1. Mild nonspecific cerebral white matter disease, which likely represents chronic small vessel ische chriss disease. 2. Small old infarct in left cerebellum. Reviewed, dictated and finalized at location A. IMPRESSION: 1. Mild nonspecific cerebral white matter disease, which likely represents manufacturing controls engineer aftab small vessel ischemic disease. 2. Small old infarct in left cerebellum.
--- NOTE | ~2021-11-05 | CT_ITS ---
EXAMINATION: CT cervical spine wo con DATE: 11/05/2021 21:09 INDICATION: Head injury. TECHNIQUE: Computed tomography (CT) of the cervical spine was performed without intravenous contrast. Automated exposure control and iterative reconstruction technique were employed. The dose-length pro duct was 369.00 mGy-cm. COMPARISON: CT cervical spine 10/19/2021 FINDINGS: There is a small left pleural effusion. There is 9 degrees dextrocurvature of cervical spin e. There is kyphosis of lower cervical spine. There is mild chronic anterior wedging of T1 vertebral body. There is severely decreased disc height from C2-C3 through C7-T1. The following disc levels are specifically discussed: C2-C3: There is mild right and severe left uncovertebral joint osteoarthritis. There is severe left f acet joint osteoarthritis. There is mild left neural foraminal stenosis. There is no central canal st enosis. C3-C4: There is severe bilateral uncovertebral joint osteoarthritis. There is severe left facet joint osteoarthritis. There is mild right and moderate left neural foraminal stenosis. There is mild centr al canal stenosis. C4-C5: There is severe bilateral uncovertebral joint osteoarthritis. There is moderate right and mild left facet joint osteoarthritis. There is mild bilateral neural foraminal stenosis. There is mild ce ntral canal stenosis. C5-C6: There is severe right and moderate left uncovertebral joint osteoarthritis. There is moderate bilateral facet joint osteoarthritis. There is mild bilateral neural foraminal stenosis. There is mil d central canal stenosis. C6-C7: There is severe bilateral uncovertebral joint osteoarthritis. There is mild right and moderate left facet joint osteoarthritis. There is mild bilateral neural foraminal stenosis. There is mild ce ntral canal stenosis. C7-T1: There is severe bilateral uncovertebral joint osteoarthritis. There is severe bilateral facet joint osteoarthritis. There is mild bilateral neural foraminal stenosis. There is no central canal st enosis. IMPRESSION: 1. No fracture. 2. Severe cervical spondylosis. 3. Small left pleural effusion. Reviewed, dictated and finalized at location A.
[2021-11-05 20:31] VITALS: BP 188/78; PULSE 57; RESP 16; TEMP 36.8; O2SAT 100
--- NOTE | 2021-11-05 20:41 | ECG_ITS ---
Measurements Intervals [place] Rate: 53 P: 60 NC: 223 QRS: -77 QRSD: 214 T: 63 QT: 558 QTc: 527 Interpretive Statements SINUS BRADYCARDIA WITH FIRST DEGREE AV BLOCK LEFT AXIS DEVIATION RIGHT BUNDLE BRANCH BLOCK LEFT ANTERIOR FASCICULAR BLOCK BASELINE ARTIFACT- I, II, III, AVF ABNORMAL ECG COMPARED TO ECG 08/18/2021 20:35:13 NO SIGNIFICANT CHANGES Electronically Signed On 11-05-2021 21:44:03 CDT by Beck Lopez D.O.
[2021-11-05 21:44] LABS: Basophils Percent Auto 0.6 % (0.2-1.2); Eosinophils Absolute Auto 0.2 K/mm3 (0-0.3); Eosinophils Percent Auto 3.4 % (0-4.4); Hematocrit 27.2 % (42.0-52.0); Hemoglobin 8.8 g/dL (14.0-18.0); Immature Granulocyte Absolute 0.03 K/mm3 (0.00-0.031); Immature Granulocyte Percent A 0.6 % (0-0.5); Lymphocytes Absolute Auto 0.68 K/mm3 (0.9-3.2); Lymphocytes Percent Auto 13.8 % (18.3-44.2); Mean Corpuscular HGB Conc 32.4 g/dl (32-36); Mean Corpuscular Hemoglobin 34.1 pg (26-34); Mean Corpuscular Volume 105.4 fl (80-100); Monocytes Absolute Auto 0.3 K/mm3 (0.1-0.6); Monocytes Percent Auto 6.7 % (2.6-8.5); Neutrophils Absolute Auto 3.7 K/mm3 (1.3-6.7); Neutrophils Percent Auto 74.9 % (45.5-73.1); Platelet Count Result 131 k/mm3 (150-375); Red Blood Count 2.58 M/mm3 (4.6-6.20); Red Cell Distribution Width 13.3 % (11.5-14.5); White Blood Count 4.9 K/mm3 (4.5-10.0)
--- NOTE | 2021-11-05 21:53 | ED.GENADULT ---
HPI - General Adult General Chief complaint: Fall Stated complaint: FALLS, HIP PAIN Time Seen by Provider: 11/05/21 20:36 History of Present Illness HPI narrative: Patient is a 86-year-old gentleman who presents emergency department with chief complaint of left hip pain. Patient reports he was at the shelter fell struck his head and also had pain in the left hip. The patient reports no loss of consciousness reports that he has pain with movement of his lower extremity. The patient denies laceration. The patient reports that he had no loss of consciousness. Per EMS they noticed a very short run of V. tach in the field they were unable to catch a rhythm strip for this and the patient was asymptomatic. Related Data Home Medications Medication Instructions Recorded Confirmed blood sugar diagnostic (SimplificareTouch #10 ea 01/10/19 08/19/21 Ultra Blue Test Strip) lancets 33 gauge (SimplificareTouch Delica #100 ea 01/10/19 08/19/21 Lancets) aspirin 81 mg tablet,delayed 81 mg PO DAILY 02/01/20 08/19/21 release nitroglycerin 0.4 mg sublingual 0.4 mg sublingual Q5M PRN Chest 02/01/20 08/19/21 tablet (Nitrostat) Pain Allergies Allergy/AdvReac Type Severity Reaction Status Date / Time No Known Allergies Allergy Verified 11/05/21 20:41 Review of Systems Review of Systems: A 10 system review of systems was completed on the patient and is negative except for what is stated in the HPI. Nursing and ancillary documentation was reviewed. [facility] Past Medical History Medical History Anemia Arthritis Benign prostatic hyperplasia Cholelithiasis Chronic kidney disease, stage 3 Baseline creatinine is between 1.2 and 1.30. Chronic kidney disease, stage 3 unspecified Chronic kidney disease, stage 4 (severe) Coronary artery disease Status post bypass. Essential tremor Gastroesophageal reflux Hyperlipidemia Hypertension Kidney stones Left renal mass Pancreatitis In 2016, November 2018, and March 2019. Parkinsonism Paroxysmal atrial fibrillation Renal mass Stable on imaging as of 2016. Systolic congestive heart failure Echocardiogram in January 2020 showed a moderately enlarged left ventricular chamber with moderately reduced systolic function and an estimated ejection fraction of 30 to 35%. Type 2 diabetes mellitus Hemoglobin A1c was 6.8% in 10/2019. Surgical History Surgical History History of cardiac cath In 2013 prior to CABG. History of coronary artery bypass graft x 2 (~2012) RODRÍGUEZ to the left anterior descending and radial artery to the OM. History of laparoscopic cholecystectomy History of removal of cyst Tracheostomy status As a young child when he had diptheria at the age of 2. Family History Family History Mother Cerebrovascular accident, Onset Age: 80 Patient's mother is Sibling Family history of diabetes mellitus in first degree relative Father Family history of lung cancer Patient's father is Sibling Gallbladder disease His brother just a couple days after having gallbladder surgery Social History Social History Social History: the patient lives with his , Aileen, in [place]. 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 They have a daughter who lives nearby and she helps out a lot at home her name is Deb and is his surrogate. Retired from [employer]. He has a 10 pack year smoking history and quit greater than 50 years ago. No alcohol or illicit substance abuse. His daughter, Deb Baker, is his healthcare power of air sampler and he wishes to be a do not resuscitate. Smoking packs per day: 1 Smoking cigarettes per day: 20.0 Years smoked: 20 Smoking pac
[2021-11-05 21:54] LABS: Lactic Acid Reflex 1.3 mmol/L (0.7-2.0)
[2021-11-05 21:55] LABS: Alanine Aminotransferase 13 U/L (6-50); Albumin Level 3.4 g/dL (3.5-5.1); Alkaline Phosphatase 103 U/L (38-126); Anion Gap 9 mmol/L (8-16); Aspartate Amino Transferase 24 U/L (17-59); Bilirubin,Total 0.5 mg/dL (0.2-1.3); Blood Urea Nitrogen 32 mg/dL (9-20); Carbon Dioxide 25 mmol/L (22-30); Chloride 101 mmol/L (98-107); Estimated CRCL calculation 15 ml/min; Estimated Glomerular Filt Rate 22; Glucose 123 mg/dL (65-110); Magnesium 1.9 mg/dL (1.6-2.3); Potassium 4.6 mmol/L (3.4-5.0); Sodium 135 mmol/L (137-145)
[2021-11-05 21:58] LABS: INR 1.3; Prothrombin Time 15.8 Seconds (11.1-14.7)
[2021-11-05 21:59] LABS: Partial Thromboplastin Time 30.9 SECONDS (22.3-36.8)
[2021-11-05 22:01] LABS: Macrocytosis 1+ (NORMAL); Ovalocytes 1+ (NORMAL); Platelet Estimate Decreased (Adequate)
[2021-11-05 22:07] LABS: NT Pro B Type Natriuretic Pept 9330 pg/mL (5-100); Troponin I < 0.012 ng/mL (0.000-0.034)
[2021-11-05 22:29] VITALS: BP 168/87; PULSE 55; RESP 18; O2SAT 97
[2021-11-05] MEDS: MORPHINE SULFATE (*CRX) 4 MG/ML INJ IV PUSH (22:40)
[2021-11-05 23:07] LABS: Appearance Urine Clear (Clear); Bilirubin Urine Negative (Negative); Blood Urine Negative (Negative); Color Urine Yellow (Yellow); Glucose Urine UA Negative (Negative); Ketones Urine Negative (Negative); Leukocyte Esterase Ur 3+ LEU/UL (Negative); Nitrate Urine Negative (Negative); Protein Urine Trace mg/dL (Negative); Specific Grav Ur 1.015 (1.001-1.035)
[2021-11-05 23:17] VITALS: BP 125/59; PULSE 52; RESP 18; O2SAT 98
[2021-11-05 23:30] VITALS: BP 180/68; PULSE 56; RESP 20; TEMP 36.7; O2SAT 95; BMI 28.5
--- NOTE | 2021-11-05 23:45 | ADMGEN ---
This patient, Alex Baker, was admitted to Medical Room 246-01. Patient/family oriented to hospital policies and general routines including ID bracelet, bed and alarms, visiting hours, pain management, procedures, bathroom and other care routines, personal items, smoking policy, room service/diet, and visiting hours. Information on how to activate the Rapid Response Team has been discussed. Patient/Family are encouraged to report perceived risks to care and to ask questions if they do not understand what they are told or what they should do.
[2021-11-06] VITALS (20 sets, daily range): BP systolic 109–159; BP diastolic 45–75; PULSE 55–73; RESP 12–20; TEMP 36.6–37.1; O2SAT 93–100
[2021-11-06 00:01] LABS: Add Urine Microscopic? YES; RBC Urine 0-2 /hpf (0-2)
[2021-11-06 00:30] LABS: Troponin I < 0.012 ng/mL (0.000-0.034)
[2021-11-06] MEDS: MORPHINE SULFATE (*CRX) 4 MG/ML INJ IV PUSH ×2 (00:34→05:51)
--- NOTE | 2021-11-06 03:59 | PM.IMHP ---
H&P: HPI History of Present Illness Date/Time: 11/06/21 03:59 Chief Complaint: Fall with left hip pain Narrative: 86-year-old male with a past medical history of dementia, type 2 diabetes mellitus, Parkinson's, chronic kidney disease stage IV orthostatic hypotension, systolic congestive heart failure and paroxysmal atrial fibrillation who presented to the ER from [place] after having an unwitnessed fall. The patient reports that he was ambulating with a walker when his feet slipped out from under him and he fell. He hit his head but does not think he lost any consciousness. He denies having any prodrome will symptoms or lightheadedness. He fell onto his left side and had immediate left hip pain. He has pain with any movement of his left lower extremity. His pain is currently a 10/10 in intensity. Per EMS the patient had a short run of V-tach in the field and they were unable to catch on rhythm strip. In the ER the patient had a 7 run beat of V-tach. The patient was asymptomatic with these. He denies any orthopnea, paroxysmal nocturnal dyspnea or dyspnea on exertion. He has chronic lower extremity swelling. He was alert and oriented x3 at the time of my evaluation but was commenced to that we had a metal plate laying over his genital region. Review of Systems Review of Systems: 12 systems were reviewed with pertinent positives and negatives per HPI. Except as documented in the HPI, all other systems were reviewed and are negative. [facility] Past Medical History Medical History (Updated 11/06/21 @ 06:26 by Elizabeth Aguiar DO) Anemia Arthritis Benign prostatic hyperplasia Chronic kidney disease, stage 4 (severe) Coronary artery disease Status post bypass. Gastroesophageal reflux Hyperlipidemia Hypertension Kidney stones Left renal mass Pancreatitis In 2016, November 2018, and March 2019. Parkinsonism Parkinsons disease Paroxysmal atrial fibrillation Renal mass Stable on imaging as of 2016. Systolic congestive heart failure Echocardiogram in January 2020 showed a moderately enlarged left ventricular chamber with moderately reduced systolic function and an estimated ejection fraction of 30 to 35%. Type 2 diabetes mellitus Hemoglobin A1c was 6.8% in 10/2019. Surgical History Surgical History (Updated 11/06/21 @ 06:08 by Elizabeth Aguiar DO) History of cardiac cath In 2012 prior to CABG. And February 2020 demonstrating severe 2 vessel coronary artery disease with modest left main stenosis but high-grade ostial LAD and high-grade proximal circumflex lesions that are unchanged from catheterization in 2013. Patent internal mammary graft to LAD, patent radial artery graft to circumflex, relatively severe left ventricular systolic dysfunction with EF of 25-30% History of coronary artery bypass graft x 2 (~2012) RODRÍGUEZ to the left anterior descending and radial artery to the OM. History of laparoscopic cholecystectomy History of removal of cyst Tracheostomy status As a young child when he had diptheria at the age of 2. Family History Family History Mother Cerebrovascular accident, Onset Age: 80 Sibling Diabetes mellitus Father Family history of lung cancer Sibling Gallbladder disease His brother just a couple days after having gallbladder surgery Social History Social History (Updated 11/06/21 @ 06:15 by Elizabeth Aguiar DO) Social History: The patient lives with his who has Alzheimer's. Until recent hospitalization in July 2021 when it sounds like they are now residing at [facility]. He is retired from [employer]. He has a 10 pack year smoking history and quit greater than 50 years ago. No alcohol or illicit substance abuse. Healthcare power of tax attorney: Deb Baker (daughter) Code status: DNR/DNI Smoking packs per day: 1 Smoking cigarettes per day: 20.0 Years s
[2021-11-06] MEDS: LEVOTHYROXINE SODIUM 50 MCG TABLET PO (05:41)
[2021-11-06 08:03] LABS: Hematocrit 25.8 % (42.0-52.0); Hemoglobin 8.4 g/dL (14.0-18.0); Mean Corpuscular HGB Conc 32.6 g/dl (32-36); Mean Corpuscular Volume 104.5 fl (80-100); Mean Platelet Volume 9.1 fl (7.4-10.4); Platelet Count Result 109 k/mm3 (150-375); Red Blood Count 2.47 M/mm3 (4.6-6.20); Red Cell Distribution Width 13.2 % (11.5-14.5); White Blood Count 6.3 K/mm3 (4.5-10.0)
[2021-11-06 08:31] LABS: Anion Gap 11 mmol/L (8-16); Blood Urea Nitrogen 34 mg/dL (9-20); Calcium 7.6 mg/dL (8.4-10.2); Carbon Dioxide 25 mmol/L (22-30); Chloride 103 mmol/L (98-107); Estimated CRCL calculation 15 ml/min; Estimated Glomerular Filt Rate 23; Glucose 122 mg/dL (65-110); Magnesium 1.9 mg/dL (1.6-2.3); Potassium 4.9 mmol/L (3.4-5.0); Sodium 139 mmol/L (137-145)
--- NOTE | 2021-11-06 08:58 | PM.CNCAR ---
Assessment and Plan Assessment and plan (1) Chronic systolic CHF (congestive heart failure): Code(s): I50.22 - Chronic systolic (congestive) heart failure Status: Acute (2) Paroxysmal A-fib: Code(s): I48.0 - Paroxysmal atrial fibrillation Status: Chronic (3) Ischemic cardiomyopathy: Code(s): I25.5 - Ischemic cardiomyopathy Status: Acute Plan This is an 86-year-old gentleman who unfortunately sustained a fall and has a left subcapital femoral neck fracture. He is at very high risk for noncardiac surgery given his advanced age, previous bypass surgery, poor left ventricular systolic function and inability to tolerate any medical therapy for this. He also has a history of atrial fibrillation fortunately is in sinus rhythm but does not tolerate recurrences of atrial fibrillation well. Despite his cardiac risks he also has poor renal function and significant anemia. Obviously this unfortunate gentleman is at high risk for noncardiac surgery I do not see any way we can mitigate those risks. Severiano Garcia MD [facility] History of Present Illness History of Present Illness Consult date/time: 11/06/21 08:58 Reason For Visit: Left hip fracture Narrative: This is an 86-year-old man with history of coronary disease and significant ischemic cardiomyopathy as well as atrial fibrillation who I am seeing at the request of the hospitalist to render an opinion regarding cardiac risk for noncardiac surgery. The patient unfortunately is hospitalized because he sustained a fall in his residence and has a subcapital fracture of his left femur. He I believe is in a assisted living facility of some sort and was in his bathroom and lost his balance with his walker and sustained a fall. He did not fall because of syncope. The patient reports no active cardiac symptoms such as chest pain dyspnea palpitations accumulating edema or syncope. He is known to Dr. Martin of our practice with a history of coronary artery disease, previous bypass surgery and atrial fibrillation. He previously underwent coronary bypass surgery for treatment of left main coronary disease. He was hospitalized a couple of years ago here frequently with congestive heart failure decompensations. In 2020 he did undergo follow-up catheterization here which demonstrated poor left ventricular systolic function with LV dilation and ejection fraction of about 30%. He has high-grade ostial LAD and proximal circumflex stenoses and no significant right coronary disease. His left internal mammary graft to his LAD was found to be patent as well as his vein graft to the circumflex system. He was felt to be optimally revascularized but had poor left ventricular systolic function. He also has a history of atrial fibrillation which has resulted in hemodynamic decompensation is a for which he has been maintained on amiodarone. Recently he has been in sinus rhythm and he remains in sinus rhythm. His electrocardiogram shows also a bifascicular block pattern. This is a chronically abnormal EKG without any new findings. He is not systemically anticoagulated because of weakness, frequent falling and orthostatic hypotension. Despite his poor left ventricular function he cannot tolerate any guideline directed heart failure medication because of orthostasis and falling. He is being treated with midodrine 7.5 mg t.i.d. for this. He is lying in his bed in room 246 without any complaints other than significant left hip pain with any sort of movement. He was sleeping without distress when I entered the room to see him this morning. His chart indicates that he does have a history of slowly worsening dementia and it is to be noted that he has DNR orders on his chart. He also has significant chronic kidney disease and anemia. Review of Systems Review of Systems: ROS unobtainable: Yes unobtainable due to mental status [facility] Past Medical History Medical History (Updated 11/06/21
[2021-11-06] MEDS: CLOBETASOL PROPIONATE 0.05% CREAM 30 GM 1 APPLIC TOPICAL (09:33)
[2021-11-06] MEDS: MIDODRINE HCL 2.5 MG TABLET 7.5 MG PO ×2 (09:33→18:15)
[2021-11-06] MEDS: ASPIRIN 81 MG ENTERIC TABLET PO (09:34)
[2021-11-06] MEDS: AMIODARONE HCL 200 MG TABLET PO ×2 (09:34→18:15)
[2021-11-06] MEDS: FINASTERIDE 5 MG TABLET PO (09:34)
[2021-11-06] MEDS: CARBIDOPA/LEVODOPA 25/100 MG TABLET 1 TABLET PO ×2 (09:34→18:15)
[2021-11-06] MEDS: FERROUS SULFATE 324 MG TABLET PO ×2 (09:34→18:15)
[2021-11-06] MEDS: MEMANTINE 5 MG TABLET PO ×2 (09:35→18:15)
--- NOTE | 2021-11-06 11:43 | PM.CNOR ---
Assessment and Plan Assessment and plan (1) Closed subcapital fracture of left femur: Qualifiers: Encounter type: initial encounter Qualified Code(s): S72.012A - Unspecified intracapsular fracture of left femur, initial encounter for closed fracture Code(s): S72.012A - Unspecified intracapsular fracture of left femur, initial encounter for closed fracture Status: Acute Assessment and Plan: Displaced femoral neck fracture. Despite his significant medical comorbidities, surgical treatment of the fracture is indicated. I reviewed the proposed procedure. I spoke with his daughter, the power of assistant county attorney. She has reasonable expectations. Will likely need a fci in the early postoperative period. Risks, benefits, and alternatives discussed. Proceed with bipolar hemiarthroplasty left hip. History of Present Illness HPI Consult date: 11/06/21 Chief complaint: Left hip fracture Narrative: Patient complains of acute left hip pain. Fell from standing height. Has had a history of several falls. Admitted through the emergency room for definitive management. No previous hip pain. Comfortable at rest. No numbness, tingling, or other associated symptoms. Moderate dementia. Lives in Memory Care. He is oriented to person and place. He understands that he broke his hip with prompting. He uses a walker but gets very tired after several steps. Complex medical history with severe heart disease, congestive heart failure. Here cerebral open heart surgery. Ejection fraction 25-30%. Chronic kidney disease. Parkinson's disease. BPH. Knee arthritis. Review of Systems Review of Systems: Denies loss of consciousness. All systems reviewed & are unremarkable except as noted in HPI and below PMFSH Past Medical History Medical History Anemia Arthritis Benign prostatic hyperplasia Chronic kidney disease, stage 4 (severe) Coronary artery disease Status post bypass. Gastroesophageal reflux Hyperlipidemia Hypertension Kidney stones Left renal mass Pancreatitis In 2016, November 2018, and March 2019. Parkinsonism Parkinsons disease Paroxysmal atrial fibrillation Renal mass Stable on imaging as of 2016. Systolic congestive heart failure Echocardiogram in January 2020 showed a moderately enlarged left ventricular chamber with moderately reduced systolic function and an estimated ejection fraction of 30 to 35%. Type 2 diabetes mellitus Hemoglobin A1c was 6.8% in 10/2019. Surgical History Surgical History History of cardiac cath In 2012 prior to CABG. And February 2020 demonstrating severe 2 vessel coronary artery disease with modest left main stenosis but high-grade ostial LAD and high-grade proximal circumflex lesions that are unchanged from catheterization in 2013. Patent internal mammary graft to LAD, patent radial artery graft to circumflex, relatively severe left ventricular systolic dysfunction with EF of 25-30% History of coronary artery bypass graft x 2 (~2012) RODRÍGUEZ to the left anterior descending and radial artery to the OM. History of laparoscopic cholecystectomy History of removal of cyst Tracheostomy status As a young child when he had diptheria at the age of 2. Family History Family History Mother Cerebrovascular accident, Onset Age: 80 Sibling Diabetes mellitus Father Family history of lung cancer Sibling Gallbladder disease His brother just a couple days after having gallbladder surgery Social History Social History Social History: The patient lives with his who has Alzheimer's. Until recent hospitalization in July 2021 when it sounds like they are now residing at [facility]. He is re
--- NOTE | 2021-11-06 12:53 | WPDHPUPDATE1 ---
History and Physical Update Update Date/Time: 11/06/21 12:53 History and Physical has been reviewed, including an updated exam of the patient. There are NO changes in the patient's condition. Risks, benefits, and alternatives have been discussed and questions answered. Patient agrees to proceed with procedure.
[2021-11-06] MEDS: LACTATED RINGERS 1,000 ML 30 ML IV CONT (12:55)
--- NOTE | 2021-11-06 13:00 | WPDANESEPPF ---
Anes - Initial Pre Proc Eval Procedure: Operation Date: 11/06/21 13:30 Proposed Procedures p Left Bipolar Hip Replacement - Oscar Garcia MD Date/Time: 11/06/21 13:00 Surgeon: Rach Pappas PA-C Pre Op Diagnosis: Left hip fracture Patient Data Age: 86 Gender: M Height: 1.63 m Weight: 75.6 kg Last Vital Signs Temp 36.7 C 11/06/21 05:21 Pulse 57 L 11/06/21 05:21 Resp 18 11/06/21 05:21 BP 159/64 H 11/06/21 05:21 Pulse Ox 97 11/06/21 05:21 O2 Del Method Room Air 11/06/21 00:02 Allergies Allergy/AdvReac Type Severity Reaction Status Date / Time No Known Allergies Allergy Verified 11/05/21 20:41 Home Medications Medication Instructions Recorded Confirmed Type blood sugar diagnostic (OneTouch #10 ea 01/10/19 11/05/21 History Ultra Blue Test Strip) lancets 33 gauge (OneTouch Delica #100 ea 01/10/19 11/05/21 History Lancets) aspirin 81 mg tablet,delayed 81 mg PO DAILY 02/01/20 11/05/21 History release nitroglycerin 0.4 mg sublingual 0.4 mg sublingual Q5M PRN Chest 02/01/20 11/05/21 History tablet (Nitrostat) Pain amiodarone 200 mg tablet (Pacerone) 200 mg PO BID #60 tabs 02/28/20 11/05/21 Rx midodrine 2.5 mg tablet 7.5 mg PO TID #90 tabs 04/17/20 11/05/21 Rx clobetasol 0.05 % shampoo 1 applic topical DAILY #118 mL 01/05/21 11/05/21 Rx finasteride 5 mg tablet 5 mg PO DAILY #90 tabs 02/04/21 11/05/21 Rx memantine 5 mg tablet 5 mg PO BID #60 tabs 03/30/21 11/05/21 Rx levothyroxine 50 mcg tablet 50 mcg PO DAILY@0630 #30 tabs 08/21/21 11/05/21 Rx (Synthroid) carbidopa 25 mg-levodopa 100 mg 1 tablet PO TID 11/05/21 11/05/21 History tablet ferrous sulfate 325 mg (65 mg 325 mg PO BID 11/05/21 11/05/21 History iron) tablet (FeroSul) pravastatin 40 mg tablet 40 mg PO .NAT 11/05/21 History Laboratory Tests 11/05/21 11/05/21 11/05/21 21:28 21:28 21:28 WBC 4.9 K/mm3 K/mm3 (4.5-10.0) RBC 2.58 M/mm3 L M/mm3 (4.6-6.20) Hgb 8.8 g/dL L g/dL (14.0-18.0) Hct 27.2 % L % (42.0-52.0) MCV 105.4 fl H fl (80-100) MCH 34.1 pg H pg (26-34) MCHC 32.4 g/dl g/dl (32-36) RDW 13.3 % % (11.5-14.5) Plt Count 131 k/mm3 L k/mm3 (150-375) MPV 9.0 fl fl (7.4-10.4) Immature Gran % (Auto) 0.6 % H % (0-0.5) Neut % (Auto) 74.9 % H % (45.5-73.1) Lymph % (Auto) 13.8 % L % (18.3-44.2) [place] % (Auto) 6.7 % % (2.6-8.5) Eos % (Auto) 3.4 % % (0-4.4) Baso % (Auto) 0.6 % % (0.2-1.2) Lymph # (Auto) 0.68 K/mm3 L K/mm3 (0.9-3.2) [place] # (Auto) 0.3 K/mm3 K/mm3 (0.1-0.6) Eos # (Auto) 0.2 K/mm3 K/mm3 (0-0.3) Baso # (Auto) 0.0 K/mm3 K/mm3 (0.0-0.1) Abs Immat Gran (auto) 0.03 K/mm3 K/mm3 (0.00-0.031) Absolute Neuts (auto) 3.7 K/mm3 K/mm3 (1.3-6.7) Absolute Nucleated RBC 0.0 K/mm3 K/mm3 (0.0-0.012) Nucleated RBC % 0.0 % % (0.0-0.2) Platelet Estimate Decreased (Adequate) Macrocytosis 1+ (NORMAL) Ovalocytes 1+ (NORMAL) Schistocytes (NORMAL) PT 15.8 Seconds H Seconds (11.1-14.7) INR 1.3 APTT 30.9 SECONDS SECONDS (22.3-36.8) Sodium 135 mmol/L L mmol/L (137-145) Potassium 4.6 mmol/L mmol/L (3.4-5.0) Chloride 101 mmol/L mmol/L (98-107) Carbon Dioxide 25 mmol/L mmol/L (22-30) Anion Gap 9 mmol/L mmol/L (8-16) BUN 32 mg/dL H D mg/dL (9-20) Creatinine 2.80 mg/dL H mg/dL (0.7-1.3) Estim Creat Clear Calc 15 ml/min ml/min Estimated GFR 22 L (59 - ) Glucose 123 mg/dL H mg/dL (65-110) Lactic Acid Calcium 8.0 mg/dL L mg/dL (8.4-10.2) Magnesium 1.9 mg/dL mg/dL (1.6-2.3) Total Bilirubin 0.5 mg
[2021-11-06] MEDS: TRANEXAMIC ACID 1,000MG/ISO100 1,000 MG/100 ML BAG 200 MG IVPB (13:05)
--- NOTE | 2021-11-06 13:34 | W.PM.PROC2 ---
Procedure Note - Detailed Date of Procedure 11/06/21 Pre-op Diagnosis Left hip displaced femoral neck fracture Post-op Diagnosis Same Procedure Performed Left hip bipolar hemiarthroplasty. Surgeon Oscar Garcia MD Anesthesia General Description of Procedure The patient was given preoperative antibiotics. A general anesthetic was administered. The patient was carefully placed in the lateral decubitus position on the PEG board. The shoulders and hips were carefully positioned for component and leg length positioning reference. The hip was prepped and draped in the usual sterile fashion. A longitudinal incision was created over the posterior aspect of the greater trochanter. Careful dissection was brought down through the deep fascia with electrocautery. A minimally invasive optimized posterior approach to the hip was performed. The short external rotators and capsule were taken down in an L-shaped capsulotomy. The tissue was tagged for later repair using number 2 high strength suture. The femoral neck was measured and taken in situ. The femoral head was removed. The hip was broached sequentially. Excellent press-fit was obtained with the broach. The hip was trialed. Measurements were utilized, including the lesser trochanter as well as the center of the femoral head and the tip of the trochanter, and excellent assessment of the offset and leg lengths were confirmed. The real component was impacted into position. The hip was copiously irrigated with pulsatile lavage antibiotic solution periodically throughout the procedure. The real components were then assembled and reduced. The hip was stable throughout typical maneuvers, including extension, external rotation to 70 degrees, the position of sleep as well as flexion to 90 degrees with internal rotation past 45 degrees. Osteophytes were removed as necessary. The short external rotators and capsule were repaired back to the posterior trochanter through drill holes. The deep fascia was repaired with running number 2 Quill suture, followed by 0 Stratafix suture and 2-0 Stratafix suture in the dermis. Steri-Strips were placed on the skin, followed by a sterile silver occlusive dressing. There were no complications. The patient was brought to the recovery room in stable condition. There were no complications. Implants The Accolade II hip stem, 132 degree size 7 , was utilized with excellent press-fit. The +0, 28 mm metal femoral head was utilized. 54 mm bipolar head component. Estimated Blood Loss 200 Urine Output 100 Drains No Packing No Pathology None sent Complications No immediate complications Condition Stable Disposition PACU [facility] Billing Surgery - Charge Forward: Surgery Billing
--- NOTE | 2021-11-06 13:45 | PM.IMPN ---
Progress Note: A&P Assessment and Plan (1) Closed subcapital fracture of left femur: Qualifiers: Encounter type: initial encounter Qualified Code(s): S72.012A - Unspecified intracapsular fracture of left femur, initial encounter for closed fracture Code(s): S72.012A - Unspecified intracapsular fracture of left femur, initial encounter for closed fracture Status: Acute Assessment and Plan: secondary to fall. Underwent left hip bipolar hemiarthroplasty today appreciate orthopedic surgery evaluation will need PT/OT postoperatively supportive care. Analgesics available as needed (2) Fall: Qualifiers: Encounter type: initial encounter Qualified Code(s): W19.XXXA - Unspecified fall, initial encounter Code(s): W19.XXXA - Unspecified fall, initial encounter Status: Acute Assessment and Plan: Family reports recent falls patient had witnessed mechanical fall. Family states no report of hitting his head or loss of consciousness fall precautions implemented head CT and cervical spine CT with no acute findings (3) Chronic kidney disease, stage IV (severe): Code(s): N18.4 - Chronic kidney disease, stage 4 (severe) Status: Acute Assessment and Plan: Creatinine is actually little bit better than recent baseline. continue to monitor renal function and avoid nephrotoxic agents (4) Nonsustained ventricular tachycardia: Code(s): I47.2 - Ventricular tachycardia Status: Acute Assessment and Plan: Although not unexpected in patient with severe systolic dysfunction and history of cardiac arrhythmia he was evaluated by Cardiology preoperatively Subjective Date/time seen: 11/06/21 13:45 Interval history: Date of service: 11/06/2021 Alex Baker is an 86-year-old male with a history of CKD, CAD, hypertension, hyperlipidemia, Parkinson's disease, paroxysmal atrial fibrillation, CHF, dementia, and type 2 diabetes mellitus who is seen in follow-up for left hip fracture. Patient states he is doing well today. he is a somewhat poor historian due to his dementia. He endorses 5/10 pain in the left hip. He denies shortness breath, cough, chest pain, abdominal pain, nausea vomiting. His and daughter are at the bedside. His daughter, who is his medical POA, states he is mostly at his baseline at this time. Review of Systems Review of Systems: All systems reviewed & are unremarkable except as noted in HPI and below Exam Narrative: General: Well-nourished, well-appearing 86-year-old male, semi recumbent in bed, comfortable, NARD Neuro: awake, alert and oriented x4, speech clear, no focal neuro deficits noted HEENMT: normocephalic, atraumatic, EOMI, sclerae anicteric, moist oral mucosa Respiratory: clear to auscultation bilaterally, nonlabored breathing Cardio: regular rate, regular rhythm with S1-S2 Abdomen: nondistended, normoactive bowel sounds, soft, nontender to palpation Extremities: no edema, erythema, or tenderness to palpation, DP pulses 2+ bilaterally Skin: no rashes or lesions, warm and dry Psych: appropriate mood and affect, judgment and insight intact Objective Data Vital Signs Vital Signs: Vital Signs - 24 hr 11/05/21 20:31 11/05/21 22:29 11/05/21 23:17 Temperature 98.3 F Pulse Rate 57 L 55 L 52 L Respiratory Rate 16 18 18 Blood Pressure 188/78 H 168/87 H 125/59 L Pulse Oximetry 100 97 98 Oxygen Delivery 11/05/21 23:30 11/06/21 00:00 11/06/21 00:02 Temperature 98.0 F Pulse Rate 56 L 55 L Respiratory Rate 20 Blood Pressure 180/68 H Pulse Oximetry 95 Oxygen Delivery Room Air 11/06/21 04:00 11/06/21 05:21 11/06/21 13:01 Temperature 98.1 F 98.2 F Pulse Rate 55 L 57 L 59 L Respiratory Rate 18 20 Blood Pressure 159/64 H 138/53 L Pulse Oximetry 97 97 Oxygen Delivery Room Air Intake/Output Intake/Output: Intake & Output
[2021-11-06] MEDS: ceFAZolin 2 GM/D5W 50 ML 2 GM/50 ML BAG IVPB (13:47)
[2021-11-06] MEDS: SENNA/DOCUSATE SODIUM TABLET 2 TAB PO (18:14)
[2021-11-07] VITALS (15 sets, daily range): BP systolic 106–140; BP diastolic 50–75; PULSE 58–100; RESP 14–20; TEMP 36.4–37.2; O2SAT 90–95
[2021-11-07] MEDS: HYDROcodone/acetaminophen (*CRX) 5-325 MG TABLET 1 TAB PO (04:59)
[2021-11-07] MEDS: LEVOTHYROXINE SODIUM 50 MCG TABLET PO (05:00)
[2021-11-07 05:50] LABS: Basophils Percent Auto 0.3 % (0.2-1.2); Eosinophils Percent Auto 0.6 % (0-4.4); Hematocrit 26.7 % (42.0-52.0); Hemoglobin 8.1 g/dL (14.0-18.0); Immature Granulocyte Absolute 0.04 K/mm3 (0.00-0.031); Immature Granulocyte Percent A 0.6 % (0-0.5); Immature Platelet Fraction Pct 1.9 % (0.9-11.2); Lymphocytes Percent Auto 10.1 % (18.3-44.2); Mean Corpuscular HGB Conc 30.3 g/dl (32-36); Mean Corpuscular Hemoglobin 33.6 pg (26-34); Mean Corpuscular Volume 110.8 fl (80-100); Mean Platelet Volume 9.6 fl (7.4-10.4); Monocytes Absolute Auto 0.7 K/mm3 (0.1-0.6); Monocytes Percent Auto 10.4 % (2.6-8.5); Neutrophils Absolute Auto 5.4 K/mm3 (1.3-6.7); Platelet Count Result 111 k/mm3 (150-375); Red Blood Count 2.41 M/mm3 (4.6-6.20); Red Cell Distribution Width 13.4 % (11.5-14.5); White Blood Count 6.9 K/mm3 (4.5-10.0)
[2021-11-07 06:04] LABS: Anion Gap 13 mmol/L (8-16); Blood Urea Nitrogen 37 mg/dL (9-20); Calcium 7.6 mg/dL (8.4-10.2); Carbon Dioxide 23 mmol/L (22-30); Chloride 104 mmol/L (98-107); Estimated CRCL calculation 14 ml/min; Estimated Glomerular Filt Rate 20; Glucose 87 mg/dL (65-110); Potassium 5.2 mmol/L (3.4-5.0); Sodium 140 mmol/L (137-145)
[2021-11-07 07:08] LABS: Anisocytosis 1+ (NORMAL); Microcytosis 1+ (NORMAL); Ovalocytes 1+ (NORMAL); Platelet Estimate Decreased (Adequate); Poikilocytosis 1+ (NORMAL)
--- NOTE | 2021-11-07 07:41 | WPDANESPN ---
Anes - Prog Note Post-Op Date/Time: 11/07/21 07:41 Cardiovascular status: normal Respiratory status: normal Airway patency: baseline Mental status: baseline Post-Op hydration status: normal Vital Signs: Last Vital Signs Temp 36.4 C 11/07/21 07:11 Pulse 63 11/07/21 07:11 Resp 16 11/07/21 07:11 BP 126/62 11/07/21 07:11 Pulse Ox 94 11/07/21 07:11 O2 Del Method Nasal Cannula 11/06/21 16:19 O2 Flow Rate 2 11/06/21 16:19 Pain Score (VAS): 03/02 I/O: Intake & Output 11/06/21 11/06/21 11/07/21 15:59 23:59 07:59 Intake Total 50 150 250 Output Total 100 100 400 Balance -50 50 -150 Laboratory Tests 11/07/21 05:15 11/07/21 05:15 11/06/21 11/06/21 11/06/21 07:45 07:45 11:46 WBC 6.3 RBC 2.47 L Hgb 8.4 L Hct 25.8 L MCV 104.5 H MCH 34.0 MCHC 32.6 RDW 13.2 Plt Count 109 L MPV 9.1 Immature Gran % (Auto) Neut % (Auto) Lymph % (Auto) [place] % (Auto) Eos % (Auto) Baso % (Auto) Lymph # (Auto) [place] # (Auto) Eos # (Auto) Baso # (Auto) Abs Immat Gran (auto) Absolute Neuts (auto) Absolute Nucleated RBC Nucleated RBC % Platelet Estimate % Immature Plt Fraction Poikilocytosis Anisocytosis Microcytosis Ovalocytes Schistocytes Sodium 139 Potassium 4.9 Chloride 103 Carbon Dioxide 25 Anion Gap 11 BUN 34 H Creatinine 2.70 H Estim Creat Clear Calc 15 Estimated GFR 23 L Glucose 122 H Calcium 7.6 L Magnesium 1.9 Blood Type A Positive Antibody Screen Negative 11/07/21 11/07/21 05:15 05:15 WBC 6.9 RBC 2.41 L Hgb 8.1 L Hct 26.7 L MCV 110.8 H D MCH 33.6 MCHC 30.3 L RDW 13.4 Plt Count 111 L MPV 9.6 Immature Gran % (Auto) 0.6 H Neut % (Auto) 78.0 H Lymph % (Auto) 10.1 L [place] % (Auto) 10.4 H Eos % (Auto) 0.6 Baso % (Auto) 0.3 Lymph # (Auto) 0.70 L [place] # (Auto) 0.7 H Eos # (Auto) 0.0 Baso # (Auto) 0.0 Abs Immat Gran (auto) 0.04 H Absolute Neuts (auto) 5.4 Absolute Nucleated RBC 0.0 Nucleated RBC % 0.0 Platelet Estimate Decreased % Immature Plt Fraction 1.9 Poikilocytosis 1+ Anisocytosis 1+ Microcytosis 1+ Ovalocytes 1+ Schistocytes Not Reportable Sodium 140 Potassium 5.2 H Chloride 104 Carbon Dioxide 23 Anion Gap 13 BUN 37 H Creatinine 3.00 H Estim Creat Clear Calc 14 Estimated GFR 20 L Glucose 87 Calcium 7.6 L Magnesium Blood Type Antibody Screen Microbiology 11/05/21 22:37 Urine-Clean Catch Urine Culture - Preliminary Post-procedural complaints: none Patient Feedback: Patient satisfied with anesthetic care.
[2021-11-07 09:38] LABS: Albumin Level 3.2 g/dL (3.5-5.1)
[2021-11-07] MEDS: polyethylene glycoL 3350 17 GM POWD.PACK PO (09:43)
[2021-11-07] MEDS: EUCERIN CREAM 120 GM JAR 1 APPLIC TOPICAL (09:43)
[2021-11-07] MEDS: AMIODARONE HCL 200 MG TABLET PO ×2 (09:44→16:49)
[2021-11-07] MEDS: FINASTERIDE 5 MG TABLET PO (09:44)
[2021-11-07] MEDS: MEMANTINE 5 MG TABLET PO ×2 (09:44→16:50)
[2021-11-07] MEDS: CARBIDOPA/LEVODOPA 25/100 MG TABLET 1 TABLET PO ×3 (09:44→16:48)
[2021-11-07] MEDS: FERROUS SULFATE 324 MG TABLET PO ×2 (09:44→16:48)
[2021-11-07] MEDS: ASPIRIN 81 MG ENTERIC TABLET PO (09:45)
[2021-11-07] MEDS: SENNA/DOCUSATE SODIUM TABLET 2 TAB PO ×2 (09:45→16:49)
[2021-11-07] MEDS: MIDODRINE HCL 2.5 MG TABLET 7.5 MG PO ×3 (09:45→16:48)
[2021-11-07] MEDS: CLOBETASOL PROPIONATE 0.05% CREAM 30 GM 1 APPLIC TOPICAL (09:45)
--- NOTE | 2021-11-07 10:10 | PM.PNCARD ---
Progress Note: A&P Assessment and Plan (1) Ischemic cardiomyopathy: Code(s): I25.5 - Ischemic cardiomyopathy Status: Acute Plan 86-year-old man with chronic coronary artery disease ischemic cardiomyopathy lower ejection fraction and history of atrial fibrillation. Despite these high-risk features he was able to tolerate hip replacement yesterday without any significant cardiovascular perioperative issues. His medical therapy should be continued and we will see him p.r.n. during the remainder of his hospitalization Severiano Garcia MD [facility] Subjective Date/time seen: date of service:11/07/21 10:10 Interval history: Follow-up visit in this 86-year-old man with: Significant ischemic cardiomyopathy with low ejection fraction and history of atrial fibrillation quiescent on amiodarone treatment. Patient is postop day 1. Following hip arthroplasty because of fall and hip fracture. He had said no perioperative cardiac complications. Much more comfortable today with much less pain of course. Exam Const: General: comfortable and no acute distress Other: Pleasant elderly man sleeping in bed when I came into see him offers no complaints upon awakening other than mild surgical pain. HENMT: Mouth: Yes moist mucous membranes Eyes: Sclera: sclerae normal Neck: Neck: supple and no JVD Resp: Auscultation: clear to auscultation bilaterally Cardio: Rate: regular rate Rhythm: regular rhythm Other: PMI is enlarged laterally displaced otherwise no murmur GI: GI Palp: Yes Soft to palpation Auscultation: normal bowel sounds Skin: General skin exam: normal color Neuro: Other: patient is alert and oriented and appropriate. Extrem: General: normal to inspection Objective Data Vital Signs Vital Signs: Vital Signs - 24 hr 11/06/21 13:01 11/06/21 15:20 11/06/21 15:08 Temperature 36.8 C 37.1 C Pulse Rate 59 L 70 70 Respiratory Rate 20 12 14 Blood Pressure 138/53 L 138/53 L 132/57 L Pulse Oximetry 97 99 100 Oxygen Delivery Room Air Simple Face Mask Simple Face Mask Oxygen Flow Rate 8 8 11/06/21 15:35 11/06/21 15:50 11/06/21 15:54 Temperature Pulse Rate 67 65 Respiratory Rate 18 16 Blood Pressure 132/75 133/62 Pulse Oximetry 100 100 98 Oxygen Delivery Simple Face Mask Simple Face Mask Room Air Oxygen Flow Rate 8 4 11/06/21 16:05 11/06/21 16:00 11/06/21 16:19 Temperature Pulse Rate 65 64 Respiratory Rate 16 20 Blood Pressure 137/65 120/68 Pulse Oximetry 96 95 93 Oxygen Delivery Nasal Cannula Nasal Cannula Nasal Cannula Oxygen Flow Rate 2 2 2 11/06/21 16:25 11/06/21 16:40 11/06/21 12:00 Temperature 36.7 C 36.8 C Pulse Rate 62 63 58 L Respiratory Rate 12 18 Blood Pressure 116/47 L 110/45 L Pulse Oximetry 98 96 Oxygen Delivery Oxygen Flow Rate 11/06/21 17:10 11/06/21 18:20 11/06/21 20:07 Temperature 36.8 C 36.7 C 36.6 C Pulse Rate 62 73 62 Respiratory Rate 18 16 16 Blood Pressure 109/56 L 111/52 L 133/74 Pulse Oximetry 96 100 98 Oxygen Delivery Oxygen Flow Rate 11/06/21 20:00 11/07/21 00:59 11/07/21 00:00 Temperature 36.8 C Pulse Rate 63 100 69 Respiratory Rate 16 Blood Pressure 140/75 Pulse Oximetry 95 Oxygen Delivery Oxygen Flow Rate 11/07/21 04:00 11/07/21 07:11 11/07/21 08:11 Temperature 36.4 C Pulse Rate 65 63 Respiratory Rate 16 Blood Pressure 126/62 Pulse Oximetry 94 Oxygen Delivery Nasal Cannula Oxygen Flow Rate 2 11/07/21 07:55 11/07/21 08:01 11/07/21 09:44 Temperature Pulse Rate 61 64 Respiratory Rate Blood Pressure Pulse Oximetry Oxygen Delivery Nasal Cannula Oxygen Flow Rate 2 Intake/Output Intake/Output: Intake & Output 11/04/21 11/05/21 11/06/21 11/07/21 23:59 23:59 23:59 23:59 Intake Total 300 730 Output Total 100 200 400 Balance -100 100 330 Meds/Results Medications: Active Medications Generic Name Dose Route Start
--- NOTE | 2021-11-07 11:29 | PM.IMPN ---
Progress Note: A&P Assessment and Plan (1) Closed subcapital fracture of left femur: Qualifiers: Encounter type: initial encounter Qualified Code(s): S72.012A - Unspecified intracapsular fracture of left femur, initial encounter for closed fracture Code(s): S72.012A - Unspecified intracapsular fracture of left femur, initial encounter for closed fracture Status: Acute Assessment and Plan: Secondary to fall. underwent left hip bipolar hemiarthroplasty on 11/[address] Garcia. Tolerated procedure well appreciate orthopedic surgery evaluation. DVT prophylaxis deferred to surgery. PT/OT postoperatively supportive care. Analgesics available as needed (2) Fall: Qualifiers: Encounter type: initial encounter Qualified Code(s): W19.XXXA - Unspecified fall, initial encounter Code(s): W19.XXXA - Unspecified fall, initial encounter Status: Acute Assessment and Plan: Family reports recent falls patient had witnessed mechanical fall. Family states no report of hitting his head or loss of consciousness fall precautions implemented head CT and cervical spine CT with no acute findings (3) Chronic kidney disease, stage IV (severe): Code(s): N18.4 - Chronic kidney disease, stage 4 (severe) Status: Acute Assessment and Plan: Renal function remaining stable, consistent with baseline continue to monitor renal function and avoid nephrotoxic agents (4) Nonsustained ventricular tachycardia: Code(s): I47.2 - Ventricular tachycardia Status: Acute Assessment and Plan: Not unexpected in patient with severe systolic dysfunction and history of cardiac arrhythmia he was evaluated by Cardiology preoperatively no further intervention/evaluation needed (5) Hypoxia: Code(s): R09.02 - Hypoxemia Status: Acute Assessment and Plan: Patient requiring 2 L supplemental O2 postoperatively. Likely due to recent anesthesia Noted that BNP elevated on admission, however clinically patient is euvolemic Obtain CXR Monitor O2 sats (6) Hyperkalemia: Code(s): E87.5 - Hyperkalemia Status: Acute Assessment and Plan: Potassium mildly elevated at 5.2 today Likely related to CKD Initiate low potassium diet Monitor potassium levels closely Subjective Date/time seen: 11/07/21 11:29 Interval history: date of service: 11/07/2021 Alex Baker is an 86-year-old male with a history of CKD, CAD, hypertension, hyperlipidemia, Parkinson's disease, paroxysmal atrial fibrillation, CHF,? dementia, and type 2 diabetes mellitus who is seen in follow-up for left hip fracture. he is s/p left hip bipolar hemiarthroplasty. Tolerated the procedure well. His pain is fairly well controlled at this time. He currently endorses 5/10 pain. He states that he was able to get up and walk with a walker today. Per RN, patient was not able to get out of bed with therapy earlier today due to drowsiness and will reattempt later. Confirms that patient did not get out of bed with walker. Patient denies shortness of breath. States he has a little cough. Denies chest pain. Not able to provide any additional reliable history. Review of Systems Review of Systems: All systems reviewed & are unremarkable except as noted in HPI and below Exam Narrative: General: Well-nourished, well-appearing 86-year-old male, semi recumbent in bed, comfortable, NARD Neuro: awake, alert and oriented xto self and location only, speech clear, no focal neuro deficits noted, resting tremor of right upper extremity HEENMT: normocephalic, atraumatic, EOMI, sclerae anicteric Respiratory: clear to auscultation bilaterally, nonlabored breathing Cardio: regular rate, regular rhythm with S1-S2 Abdomen: nondistended, normoactive bowel sounds, soft, nontender to palpation Extremities: left hip incision covered with dressing misael
[2021-11-08] VITALS (13 sets, daily range): BP systolic 98–148; BP diastolic 43–60; PULSE 55–65; RESP 16–20; TEMP 36.2–36.6; O2SAT 93–99
[2021-11-08] MEDS: LEVOTHYROXINE SODIUM 50 MCG TABLET PO (05:57)
[2021-11-08 08:14] LABS: Anion Gap 7 mmol/L (8-16); Blood Urea Nitrogen 40 mg/dL (9-20); Calcium 7.9 mg/dL (8.4-10.2); Carbon Dioxide 26 mmol/L (22-30); Chloride 104 mmol/L (98-107); Estimated CRCL calculation 14 ml/min; Estimated Glomerular Filt Rate 21; Glucose 69 mg/dL (65-110); Potassium 4.6 mmol/L (3.4-5.0); Sodium 137 mmol/L (137-145)
[2021-11-08 08:32] LABS: Hemoglobin 7.5 g/dL (14.0-18.0); Immature Platelet Fraction Pct 1.7 % (0.9-11.2); Mean Corpuscular HGB Conc 31.3 g/dl (32-36); Mean Corpuscular Hemoglobin 33.6 pg (26-34); Mean Corpuscular Volume 107.6 fl (80-100); Mean Platelet Volume 9.6 fl (7.4-10.4); Platelet Count Result 101 k/mm3 (150-375); Red Blood Count 2.23 M/mm3 (4.6-6.20); Red Cell Distribution Width 13.2 % (11.5-14.5); White Blood Count 5.1 K/mm3 (4.5-10.0)
[2021-11-08] MEDS: AMIODARONE HCL 200 MG TABLET PO ×2 (09:29→16:53)
[2021-11-08] MEDS: polyethylene glycoL 3350 17 GM POWD.PACK PO (09:29)
[2021-11-08] MEDS: CARBIDOPA/LEVODOPA 25/100 MG TABLET 1 TABLET PO ×3 (09:30→16:54)
[2021-11-08] MEDS: ASPIRIN 81 MG ENTERIC TABLET PO (09:30)
[2021-11-08] MEDS: EUCERIN CREAM 120 GM JAR 1 APPLIC TOPICAL (09:30)
[2021-11-08] MEDS: FINASTERIDE 5 MG TABLET PO (09:31)
[2021-11-08] MEDS: CLOBETASOL PROPIONATE 0.05% CREAM 30 GM 1 APPLIC TOPICAL (09:31)
[2021-11-08] MEDS: MIDODRINE HCL 2.5 MG TABLET 7.5 MG PO ×3 (09:31→16:52)
[2021-11-08] MEDS: MEMANTINE 5 MG TABLET PO ×2 (09:31→16:53)
[2021-11-08] MEDS: SENNA/DOCUSATE SODIUM TABLET 2 TAB PO ×2 (09:31→16:53)
[2021-11-08] MEDS: FERROUS SULFATE 324 MG TABLET PO ×2 (09:31→16:53)
[2021-11-08] MEDS: ACETAMINOPHEN 325 MG TABLET 650 MG PO (09:32)
--- NOTE | 2021-11-08 11:15 | PM.IMPN ---
Progress Note: A&P Assessment and Plan (1) Closed subcapital fracture of left femur: Qualifiers: Encounter type: initial encounter Qualified Code(s): S72.012A - Unspecified intracapsular fracture of left femur, initial encounter for closed fracture Code(s): S72.012A - Unspecified intracapsular fracture of left femur, initial encounter for closed fracture Status: Acute Assessment and Plan: Secondary to fall. underwent left hip bipolar hemiarthroplasty on 11/[address] Garcia. Tolerated procedure well appreciate orthopedic surgery evaluation. DVT prophylaxis deferred to surgery. PT/OT postoperatively supportive care. Analgesics available as needed (2) Fall: Qualifiers: Encounter type: initial encounter Qualified Code(s): W19.XXXA - Unspecified fall, initial encounter Code(s): W19.XXXA - Unspecified fall, initial encounter Status: Acute Assessment and Plan: Family reports recent falls patient had witnessed mechanical fall. Family states no report of hitting his head or loss of consciousness fall precautions implemented head CT and cervical spine CT with no acute findings (3) Chronic kidney disease, stage IV (severe): Code(s): N18.4 - Chronic kidney disease, stage 4 (severe) Status: Acute Assessment and Plan: Renal function remaining stable, consistent with baseline continue to monitor renal function and avoid nephrotoxic agents (4) Nonsustained ventricular tachycardia: Code(s): I47.2 - Ventricular tachycardia Status: Acute Assessment and Plan: Not unexpected in patient with severe systolic dysfunction and history of cardiac arrhythmia he was evaluated by Cardiology preoperatively no further intervention/evaluation needed (5) Hypoxia: Code(s): R09.02 - Hypoxemia Status: Acute Assessment and Plan: Resolved. Patient requiring 2 L supplemental O2 postoperatively. Likely due to recent anesthesia CXR showed small effusions and atelectasis. Incentive spirometry. Pt will likely need reminders and assistance with this. Now on room air. Monitor O2 sats (6) Hyperkalemia: Code(s): E87.5 - Hyperkalemia Status: Acute Assessment and Plan: Resolved. Potassium mildly elevated at 4.6 today Likely related to CKD Low potassium diet Monitor potassium levels closely (7) Anemia: Code(s): D64.9 - Anemia, unspecified Status: Acute Assessment and Plan: Acute on chronic. Decline in H&H postoperatively. Likely due to surgical blood loss. Hgb 7.5 today. Recheck this afternoon and this evening to ensure remaining stable. Subjective Date/time seen: 11/08/21 11:15 Interval history: date of service: 11/08/2021 Alex Baker is an 86-year-old male with a history of CKD, CAD, hypertension, hyperlipidemia, Parkinson's disease, paroxysmal atrial fibrillation, CHF,? dementia, and type 2 diabetes mellitus who is seen in follow-up for left hip fracture. he is s/p left hip bipolar hemiarthroplasty. he is a little bit drowsy today. He had just completed OT who also reported some very mild drowsiness. The patient tells me that his left hip pain is about 5/10 any time he moves. If he is sitting still he has no hip pain at all. He denies any other pain. No shortness of breath. No abdominal pain. Tolerating his diet. Denies chest pain. Review of Systems Review of Systems: All systems reviewed & are unremarkable except as noted in HPI and below Exam Narrative: General: Well-nourished, well-appearing 86-year-old male, sitting up in a chair, comfortable, NARD Neuro: awake, alert and oriented to self and location only, speech clear, no focal neuro deficits noted, resting tremor of right upper extremity HEENMT: normocephalic, atraumatic, EOMI, sclerae anicteric Respiratory: clear to auscultation bilaterally, nonlabored b
[2021-11-08 14:15] LABS: Hemoglobin 7.9 g/dL (14.0-18.0)
[2021-11-09] VITALS (8 sets, daily range): BP systolic 108–169; BP diastolic 53–72; PULSE 54–62; RESP 14–18; TEMP 36.2–36.5; O2SAT 93–99
[2021-11-09] MEDS: LEVOTHYROXINE SODIUM 50 MCG TABLET PO (05:25)
[2021-11-09 06:12] LABS: Hemoglobin 7.7 g/dL (14.0-18.0); Mean Corpuscular HGB Conc 32.1 g/dl (32-36); Mean Corpuscular Hemoglobin 33.8 pg (26-34); Mean Corpuscular Volume 105.3 fl (80-100); Mean Platelet Volume 9.7 fl (7.4-10.4); Platelet Count Result 121 k/mm3 (150-375); Red Blood Count 2.28 M/mm3 (4.6-6.20); Red Cell Distribution Width 13.2 % (11.5-14.5); White Blood Count 5.2 K/mm3 (4.5-10.0)
[2021-11-09 06:23] LABS: Anion Gap 7 mmol/L (8-16); Blood Urea Nitrogen 45 mg/dL (9-20); Calcium 7.8 mg/dL (8.4-10.2); Carbon Dioxide 25 mmol/L (22-30); Chloride 103 mmol/L (98-107); Estimated CRCL calculation 16 ml/min; Estimated Glomerular Filt Rate 25; Glucose 91 mg/dL (65-110); Potassium 4.7 mmol/L (3.4-5.0); Sodium 135 mmol/L (137-145)
[2021-11-09] MEDS: CARBIDOPA/LEVODOPA 25/100 MG TABLET 1 TABLET PO ×3 (09:07→17:27)
[2021-11-09] MEDS: ASPIRIN 81 MG ENTERIC TABLET PO (09:07)
[2021-11-09] MEDS: AMIODARONE HCL 200 MG TABLET PO ×2 (09:07→17:28)
[2021-11-09] MEDS: SENNA/DOCUSATE SODIUM TABLET 2 TAB PO ×2 (09:07→17:27)
[2021-11-09] MEDS: MEMANTINE 5 MG TABLET PO ×2 (09:08→17:27)
[2021-11-09] MEDS: MIDODRINE HCL 2.5 MG TABLET 7.5 MG PO ×3 (09:08→17:29)
[2021-11-09] MEDS: FERROUS SULFATE 324 MG TABLET PO ×2 (09:08→17:27)
[2021-11-09] MEDS: FINASTERIDE 5 MG TABLET PO (09:08)
[2021-11-09] MEDS: CLOBETASOL PROPIONATE 0.05% CREAM 30 GM 1 APPLIC TOPICAL (09:09)
[2021-11-09] MEDS: EUCERIN CREAM 120 GM JAR 1 APPLIC TOPICAL (09:09)
--- NOTE | 2021-11-09 15:01 | PM.IMPN ---
Progress Note: A&P Assessment and Plan (1) Closed subcapital fracture of left femur: Qualifiers: Encounter type: initial encounter Qualified Code(s): S72.012A - Unspecified intracapsular fracture of left femur, initial encounter for closed fracture Code(s): S72.012A - Unspecified intracapsular fracture of left femur, initial encounter for closed fracture Status: Acute Assessment and Plan: Secondary to fall. underwent left hip bipolar hemiarthroplasty on 11/[address] Garcia. Tolerated procedure well appreciate orthopedic surgery evaluation. continue aspirin for DVT prophylaxis supportive care. Analgesics available as needed PT/OT postoperatively planning for SNF. Hopeful discharge tomorrow (2) Fall: Qualifiers: Encounter type: initial encounter Qualified Code(s): W19.XXXA - Unspecified fall, initial encounter Code(s): W19.XXXA - Unspecified fall, initial encounter Status: Acute Assessment and Plan: Family reports recent falls patient had witnessed mechanical fall. Family states no report of hitting his head or loss of consciousness fall precautions implemented head CT and cervical spine CT with no acute findings (3) Chronic kidney disease, stage IV (severe): Code(s): N18.4 - Chronic kidney disease, stage 4 (severe) Status: Acute Assessment and Plan: Renal function remaining stable, consistent with baseline continue to monitor renal function and avoid nephrotoxic agents (4) Nonsustained ventricular tachycardia: Code(s): I47.2 - Ventricular tachycardia Status: Acute Assessment and Plan: Not unexpected in patient with severe systolic dysfunction and history of cardiac arrhythmia he was evaluated by Cardiology preoperatively no further intervention/evaluation needed (5) Hypoxia: Code(s): R09.02 - Hypoxemia Status: Acute Assessment and Plan: Resolved. Patient required 2 L supplemental O2 postoperatively. Likely due to anesthesia CXR showed small effusions and atelectasis. Incentive spirometry. Pt will need reminders and assistance with this. Promptly weaned to room air. Maintaining adequate O2 sats (6) Hyperkalemia: Code(s): E87.5 - Hyperkalemia Status: Acute Assessment and Plan: Resolved. Likely related to CKD Low potassium diet Monitor potassium levels closely (7) Anemia: Code(s): D64.9 - Anemia, unspecified Status: Acute Assessment and Plan: Acute on chronic. Decline in H&H postoperatively. Likely due to surgical blood loss. Hgb remaining stable. 7.7 today Subjective Date/time seen: 11/09/21 15:01 Interval history: date of service: 11/09/2021 Alex Baker is an 86-year-old male with a history of CKD, CAD, hypertension, hyperlipidemia, Parkinson's disease, paroxysmal atrial fibrillation, CHF,? dementia, and type 2 diabetes mellitus who is seen in follow-up for left hip fracture. he is s/p left hip bipolar hemiarthroplasty. He is feeling well today. He has hip pain rest. He does have discomfort if he gets up or tries to move. States he got up with therapy today and felt he did all right with this. no bowel movement today. Denies any issues with urination. Denies shortness of breath or chest pain. Review of Systems Review of Systems: All systems reviewed & are unremarkable except as noted in HPI and below Exam Narrative: General: Well-nourished, well-appearing 86-year-old male, sitting up in a chair, comfortable, NARD Neuro: awake, alert, answering questions appropriately, exhibits confusion, speech clear, no focal neuro deficits noted, resting tremor of right upper extremity HEENMT: normocephalic, atraumatic, EOMI, sclerae anicteric Respiratory: clear to auscultation bilaterally, nonlabored breathing Cardio: regular rate, regular rhythm with S1-S2 Abdomen: n
--- NOTE | 2021-11-09 16:02 | PM.PNORT ---
Progress Note: A&P Assessment and Plan (1) Closed subcapital fracture of left femur: Qualifiers: Encounter type: initial encounter Qualified Code(s): S72.012A - Unspecified intracapsular fracture of left femur, initial encounter for closed fracture Code(s): S72.012A - Unspecified intracapsular fracture of left femur, initial encounter for closed fracture Status: Acute (2) History of left hip hemiarthroplasty: Code(s): Z96.642 - Presence of left artificial hip joint Status: Acute Plan Patient pleasantly confused. Mobilizing appropriately with physical therapy. Daughter present. Discussed care plan. His dementia has progressed. Examination Wound healing well. No drainage. Dressing intact. Thigh soft. Moderate swelling. No hematoma. Wiggles toes. No distal edema. Diagnostics Postoperative radiographs show intact bipolar hemiarthroplasty. Implants are in appropriate position. Impression Satisfactory progress status post left hip bipolar hemiarthroplasty for fracture. Discussed care plan with hospitalist. He may be transferred to rehab tomorrow. Continue with his previous medications and aspirin for DVT prophylaxis. Routine follow-up in clinic 4-6 weeks postoperatively. Alternatively, he may send an x-ray for virtual visit. Subjective Subjective Date/Time Seen: 11/09/21 16:02 Objective Data Vital Signs Vital Signs: Vital Signs - 24 hr 11/08/21 16:53 11/08/21 18:46 11/08/21 21:00 Temperature 36.3 C L 36.5 C Pulse Rate 64 55 L 55 L Respiratory Rate 16 18 Blood Pressure 121/60 148/58 H Pulse Oximetry 98 99 Oxygen Delivery 11/09/21 02:00 11/09/21 05:11 11/09/21 09:07 Temperature 36.4 C 36.4 C L Pulse Rate 54 L 61 62 Respiratory Rate 18 18 Blood Pressure 139/62 151/68 H Pulse Oximetry 98 97 Oxygen Delivery 11/09/21 08:00 11/09/21 10:00 11/09/21 14:00 Temperature 36.5 C 36.2 C L Pulse Rate 57 L 61 Respiratory Rate 14 16 Blood Pressure 118/53 L 108/60 Pulse Oximetry 93 99 Oxygen Delivery Room Air Intake/Output Intake/Output: Intake & Output 11/06/21 11/07/21 11/08/21 11/09/21 23:59 23:59 23:59 23:59 Intake Total 300 1470 586 480 Output Total 200 600 Balance 100 870 586 480 Meds/Results Medications: Active Medications Generic Name Dose Route Start Last Admin Trade Name Caitie PRN Reason Stop Dose Admin Acetaminophen 650 mg 11/06/21 16:05 11/08/21 09:32 Acetaminophen 325 Mg Tablet PO 650 mg Q4H PRN Administration Pain 1-3 Hydrocodone Bitart/Acetaminophen 1 tab 11/06/21 16:05 11/07/21 04:59 Hydrocodone/Acetaminophen (*Crx) 5-325 Mg Tablet PO 1 tab Q6H PRN Administration Pain Rated 4-6 Amiodarone HCl 200 mg 11/06/21 09:00 11/09/21 09:07 Amiodarone Hcl 200 Mg Tablet PO 200 mg BID SUSIE Administration Aspirin 81 mg 11/06/21 09:00 11/09/21 09:07 Aspirin 81 Mg Enteric Tablet PO 81 mg DAILY SUSIE Administration Carbidopa/Levodopa 1 tablet 11/06/21 09:00 11/09/21 12:29 Carbidopa/Levodopa 25/100 Mg Tablet PO 1 tablet TID SUSIE Administration Clobetasol Propionate 1 applic 11/06/21 09:00 11/09/21 09:09 Clobetasol Propionate 0.05% Cream 30 Gm TOPICAL 12/06/21 08:59 1 applic DAILY SUSIE Administration Ferrous Sulfate 324 mg 11/06/21 09:00 11/09/21 09:08 Ferrous Sulfate 324 Mg Tablet PO 324 mg BID SUSIE Administration Finasteride 5 mg 11/06/21 09:00 11/09/21 09:08 Finasteride 5 Mg Tablet PO 5 mg DAILY SUSIE Administration Levothyroxine Sodium 50 mcg 11/06/21 06:30 11/09/21 05:25 Levothyroxine Sodium 50 Mcg Tablet PO 50 mcg DAILY@0630 SUSIE Administration Memantine 5 mg 11/06/21 09:00 11/09/21 09:08 Memantine 5 Mg Tablet PO 5 mg BID SUSIE Administration Midodrine 7.5 mg 11/06/21 09:00 11/09/21 12:29 Midodrine Hcl 2.5 Mg Tablet PO 7.5 mg TID SUSIE Administration Morphine Sulfate 4 mg 11/05/21 22:31
[2021-11-10 00:22] VITALS: BP 161/74; PULSE 54; RESP 16; TEMP 36.3; O2SAT 97
[2021-11-10 05:06] VITALS: BP 147/62; PULSE 55; RESP 18; TEMP 36.3; O2SAT 95
[2021-11-10 05:43] LABS: Hematocrit 22.5 % (42.0-52.0); Hemoglobin 7.2 g/dL (14.0-18.0); Mean Corpuscular Hemoglobin 33.6 pg (26-34); Mean Corpuscular Volume 105.1 fl (80-100); Mean Platelet Volume 9.6 fl (7.4-10.4); Platelet Count Result 126 k/mm3 (150-375); Red Blood Count 2.14 M/mm3 (4.6-6.20); White Blood Count 4.2 K/mm3 (4.5-10.0)
[2021-11-10 06:01] LABS: Anion Gap 9 mmol/L (8-16); Blood Urea Nitrogen 44 mg/dL (9-20); Calcium 7.8 mg/dL (8.4-10.2); Carbon Dioxide 25 mmol/L (22-30); Chloride 101 mmol/L (98-107); Estimated CRCL calculation 16 ml/min; Estimated Glomerular Filt Rate 24; Glucose 80 mg/dL (65-110); Potassium 4.4 mmol/L (3.4-5.0); Sodium 135 mmol/L (137-145)
[2021-11-10] MEDS: LEVOTHYROXINE SODIUM 50 MCG TABLET PO (06:06)
[2021-11-10] MEDS: CLOBETASOL PROPIONATE 0.05% CREAM 30 GM 1 APPLIC TOPICAL (08:58)
[2021-11-10] MEDS: EUCERIN CREAM 120 GM JAR 1 APPLIC TOPICAL (08:58)
[2021-11-10] MEDS: polyethylene glycoL 3350 17 GM POWD.PACK PO (08:58)
[2021-11-10] MEDS: CARBIDOPA/LEVODOPA 25/100 MG TABLET 1 TABLET PO ×3 (08:59→17:04)
[2021-11-10] MEDS: ASPIRIN 81 MG ENTERIC TABLET PO (08:59)
[2021-11-10] MEDS: SENNA/DOCUSATE SODIUM TABLET 2 TAB PO ×2 (08:59→17:04)
[2021-11-10] MEDS: FERROUS SULFATE 324 MG TABLET PO ×2 (08:59→17:03)
[2021-11-10] MEDS: FINASTERIDE 5 MG TABLET PO (09:00)
[2021-11-10] MEDS: MIDODRINE HCL 2.5 MG TABLET 7.5 MG PO ×3 (09:01→17:03)
[2021-11-10] MEDS: MEMANTINE 5 MG TABLET PO ×2 (09:01→17:05)
[2021-11-10 09:02] VITALS: PULSE 60
[2021-11-10] MEDS: AMIODARONE HCL 200 MG TABLET PO (09:02)
[2021-11-10 10:55] LABS: Hematocrit 23.2 % (42.0-52.0); Hemoglobin 7.3 g/dL (14.0-18.0)
--- NOTE | 2021-11-10 12:56 | PM.DS ---
DS: Admitting Diagnosis Discharge Date 11/10/2021 Admitting Diagnosis left hip fracture DS: Discharge Diagnosis Discharge Diagnosis (1) Closed subcapital fracture of left femur: Qualifiers: Encounter type: initial encounter Qualified Code(s): S72.012A - Unspecified intracapsular fracture of left femur, initial encounter for closed fracture Code(s): S72.012A - Unspecified intracapsular fracture of left femur, initial encounter for closed fracture Status: Acute Assessment and Plan: Secondary to fall. underwent left hip bipolar hemiarthroplasty on 11/[address] Garcia. Tolerated procedure well continue home aspirin for DVT prophylaxis supportive care provided will continue p.o. Tylenol on discharge. Patient has not used any narcotic pain medication in >3 days, therefore known prescription provided on discharge to decreased risk for confusion in light of his history of dementia. If his pain is not controlled with Tylenol at SNF, will need to consider addition of narcotic pain medication. participated in PT / OT during admission and will continue therapy at SNF outpatient follow-up with Orthopedic surgery in 4-6 weeks (2) Fall: Qualifiers: Encounter type: initial encounter Qualified Code(s): W19.XXXA - Unspecified fall, initial encounter Code(s): W19.XXXA - Unspecified fall, initial encounter Status: Acute Assessment and Plan: Patient had witnessed mechanical fall. Family states no report of hitting his head or loss of consciousness. family reports he has been having more frequent falls. Fall precautions implemented. Head CT and cervical spine CT with no acute findings. (3) Anemia: Code(s): D64.9 - Anemia, unspecified Status: Acute Assessment and Plan: Acute on chronic. Decline in H&H postoperatively But remained stable with no evidence of active blood loss. Patient will have repeat H&H on 11/13 to ensure remaining stable. Continue p.o. ferrous sulfate b.i.d. (4) Nonsustained ventricular tachycardia: Code(s): I47.2 - Ventricular tachycardia Status: Acute Assessment and Plan: Not unexpected in patient with severe systolic dysfunction and history of cardiac arrhythmia. He was evaluated by Cardiology preoperatively. No further intervention/ evaluation needed. (5) Hypoxia: Code(s): R09.02 - Hypoxemia Status: Acute Assessment and Plan: Resolved. Patient required 2 L supplemental O2 postoperatively But was able to be quickly weaned to room air. Likely due to anesthesia. CXR showed small effusions and atelectasis. Incentive spirometry provided, patient does need assistance with using this. Maintain adequate O2 sats on room air throughout remainder of admission (6) Chronic kidney disease, stage IV (severe): Code(s): N18.4 - Chronic kidney disease, stage 4 (severe) Status: Acute Assessment and Plan: Renal function remained stable, consistent with baseline (7) Hyperkalemia: Code(s): E87.5 - Hyperkalemia Status: Acute Assessment and Plan: Resolved. Likely related to CKD. low-potassium diet initiated but not continued. Patient to have repeat potassium as an outpatient on 11/13 to reassess. DS: Summary Hospital Course Hospital Course: Date of admission: 11/05/2021 date of discharge: 11/10/2021 Alex Baker is an 86-year-old male with a history of CKD, CAD, hypertension, hyperlipidemia, Parkinson's disease, paroxysmal atrial fibrillation not on anticoagulation presumably due to fall/bleeding risk, CHF,? dementia, and type 2 diabetes mellitus who presented to the emergency department on 11/05/2021 after suffering a fall at his nursing facility with left hip pain. On presentation to the ED, his vital signs were stable, he was afebrile, head CT was negative for acute findings and hip/pelvis x-ray revealed subcapital fracture of le
[2021-11-10 14:08] VITALS: BP 146/64; PULSE 54; RESP 14; TEMP 36.6; O2SAT 96
[2021-11-10 14:21] LABS: EDCOVIDSCREEN Negative (Negative)
[2021-11-10 17:05] VITALS: PULSE 50
== END 2021-11-10 18:36 | DRG 522 ==
LOC: ANHED 22:07 → ANH2MED 23:08
PROVIDERS: Orthopaedic Surgery; Admitting Provider Internal Medicine; Emergency Provider Emergency Medicine; PCP Family Medicine; Visit Provider Physician Assistant
PROC: 0SRS01A Replacement of Left Hip Joint, Femoral Surface with Metal Synthetic Substitute, Uncemented, Open Approach (ICD-10-PCS; CPT 27125; principal; 2021-11-06 13:30)
DX: S72.012A Unspecified intracapsular fracture of left femur, initial encounter for closed fracture (principal); I47.2 Ventricular tachycardia; I13.0 Hypertensive heart and chronic kidney disease with heart failure and stage 1 through stage 4 chronic kidney disease, or unspecified chronic kidney disease; N18.4 Chronic kidney disease, stage 4 (severe); I50.22 Chronic systolic (congestive) heart failure; Z20.822 Contact with and (suspected) exposure to COVID-19; S51.812A Laceration without foreign body of left forearm, initial encounter; S51.811A Laceration without foreign body of right forearm, initial encounter; W19.XXXA Unspecified fall, initial encounter; D63.1 Anemia in chronic kidney disease; E87.5 Hyperkalemia; E11.22 Type 2 diabetes mellitus with diabetic chronic kidney disease; E78.5 Hyperlipidemia, unspecified; F02.80 Dementia in other diseases classified elsewhere, unspecified severity, without behavioral disturbance, psychotic disturbance, mood disturbance, and anxiety; G20 Parkinson's disease; I25.10 Atherosclerotic heart disease of native coronary artery without angina pectoris; I25.5 Ischemic cardiomyopathy; I48.0 Paroxysmal atrial fibrillation; I95.1 Orthostatic hypotension; K21.9 Gastro-esophageal reflux disease without esophagitis; M19.90 Unspecified osteoarthritis, unspecified site; N28.89 Other specified disorders of kidney and ureter; N40.0 Benign prostatic hyperplasia without lower urinary tract symptoms; R09.02 Hypoxemia; T41.205A Adverse effect of unspecified general anesthetics, initial encounter; Z91.81 History of falling; Z95.1 Presence of aortocoronary bypass graft; Z90.49 Acquired absence of other specified parts of digestive tract; Z66 Do not resuscitate; Z87.891 Personal history of nicotine dependence; Z79.82 Long term (current) use of aspirin
CPT/HCPCS: 36415; 51701; 70450; 71046; 72125; 73502; 73562; 80048; 80053; 81001; 82040; 83605; 83735; 83880; 84484; 85014; 85018; 85025; 85027; 85055; 85610; 85730; 86850; 86900; 86901; 87086; 87088; 87426; 93005; 97110; 97161; 97165; 97530; 97535; 99285; A9270; C1776; C9803; J0131; J0171; J0330; J0690; J2270; J2405; J2704; J2795; J7120

== ENCOUNTER 2021-12-01 12:27 | Emergency (ER) | payer MEDICARE, SELFPAY ==
--- NOTE | ~2021-12-01 | XR_ITS ---
EXAMINATION: XR hip LT 2V w AP pelvis DATE: 12/01/2021 13:23 INDICATION: Left hip pain. TECHNIQUE: An anteroposterior view of the pelvis and 2 views of left hip were obtained. COMPARISON: Left hip radiographs 11/06/2021 FINDINGS: There is bipolar left hip hemiarthroplasty in near-anatomic alignment. No fracture. No roosevelt prosthetic lucencies to suggest loosening or infection. There is moderate right hip osteoarthritis. T here is severe lumbar spondylosis. IMPRESSION: 1. Bipolar left hip hemiarthroplasty in near-anatomic alignment. 2. Moderate right hip osteoarthritis. Reviewed, dictated and finalized at location A.
[2021-12-01 12:29] VITALS: BP 126/68; PULSE 58; RESP 14; TEMP 36.6; O2SAT 97
--- NOTE | 2021-12-01 12:33 | PC.NURSE ---
Pt placed on bed alarm
--- NOTE | 2021-12-01 12:54 | ED.FALL ---
HPI - Fall General Chief Complaint: Fall Stated Complaint: found on floor Time Seen by Provider: 12/01/21 12:53 Source: patient and EMS Mode of arrival: ambulatory Limitations: no limitations History of Present Illness HPI Narrative: Patient is a 86-year-old male with a history of hypertension, hyperlipidemia, Parkinson's dementia, coronary artery disease, diabetes mellitus, systolic heart failure, paroxysmal atrial fibrillation, recent left total hip arthroplasty, presenting to the emergency department for evaluation following a fall from a near sitting position. Patient states that he has been using a wheelchair but does ambulate to get to the restroom. Patient was receiving help from staff at the facility in which he resides when he is set up, losing his footing, causing him to fall onto his bottom. Patient denies any pain. He denies any hip pain. He denies any head trauma or loss of consciousness. Patient denies headache, neck pain, back pain or pelvic pain. Denies any new weakness or numbness. This was witnessed by the staff at the facility. He has a small skin tear to his left elbow which was bandaged by EMS. Patient was transferred here due to the nature of the recent hip replacement for evaluation. Patient denies any prodromal symptoms to his fall. Denies palpitations, chest pain, dyspnea. Patient has no complaints at this time. Related Data Home Medications Medication Instructions Recorded Confirmed blood sugar diagnostic (OneTouch #10 ea 01/10/19 11/05/21 Ultra Blue Test Strip) lancets 33 gauge (OneTouch Delica #100 ea 01/10/19 11/05/21 Lancets) aspirin 81 mg tablet,delayed 81 mg PO DAILY 02/01/20 11/05/21 release nitroglycerin 0.4 mg sublingual 0.4 mg sublingual Q5M PRN Chest 02/01/20 11/05/21 tablet (Nitrostat) Pain carbidopa 25 mg-levodopa 100 mg 1 tablet PO TID 11/05/21 11/05/21 tablet ferrous sulfate 325 mg (65 mg 325 mg PO BID 11/05/21 11/05/21 iron) tablet (FeroSul) pravastatin 40 mg tablet 40 mg PO HS 11/05/21 11/06/21 Allergies Allergy/AdvReac Type Severity Reaction Status Date / Time No Known Allergies Allergy Verified 12/01/21 12:31 Review of Systems Review of Systems: CONSTITUTIONAL: Denies fever, chills, or sweats. EYES: Denies visual changes, redness, or discharge. ENT: Denies rhinorrhea, congestion, sore throat, or otalgia. CARDIOVASCULAR: Denies chest pain, palpitations, or edema. RESPIRATORY: Denies cough or dyspnea. GASTROINTESTINAL: Denies abdominal pain, nausea, vomiting, or diarrhea. GENITOURINARY: Denies dysuria or hematuria. SKIN: Denies rash or itching. MUSCULOSKELETAL: Denies any back pain, joint pain, or myalgia. NEUROLOGIC: Denies headache, numbness, or weakness. [facility] Past Medical History Medical History Anemia Arthritis Benign prostatic hyperplasia Chronic kidney disease, stage 4 (severe) Coronary artery disease Status post bypass. Gastroesophageal reflux Hyperlipidemia Hypertension Kidney stones Left renal mass Pancreatitis In 2016, November 2018, and March 2019. Parkinsonism Parkinsons disease Paroxysmal atrial fibrillation Renal mass Stable on imaging as of 2016. Systolic congestive heart failure Echocardiogram in January 2020 showed a moderately enlarged left ventricular chamber with moderately reduced systolic function and an estimated ejection fraction of 30 to 35%. Type 2 diabetes mellitus Hemoglobin A1c was 6.8% in 10/2019. Surgical History Surgical History History of cardiac cath In 2012 prior to CABG. And February 2020 demonstrating severe 2 vessel coronary artery disease with modest left main stenosis but high-grade ostial LAD and high-grade proximal circumflex lesions that are unchanged from catheterization in 2012. Patent internal mammary graft to LAD, patent radial artery graft to circumflex, relatively severe left v
[2021-12-01] MEDS: TETANUS,DIPHTHERIA,AC PERTUSSIS ADULT (0.5 ML) BOOSTRIX IM (13:37)
[2021-12-01 13:43] LABS: Glucose Point of Care 65 mg/dl (65-105)
== END 2021-12-01 15:04 ==
PROVIDERS: Emergency Provider Emergency Medicine; PCP Family Medicine
DX: S51.012A Laceration without foreign body of left elbow, initial encounter (principal); D64.9 Anemia, unspecified; M19.90 Unspecified osteoarthritis, unspecified site; N40.0 Benign prostatic hyperplasia without lower urinary tract symptoms; Z95.1 Presence of aortocoronary bypass graft; K21.9 Gastro-esophageal reflux disease without esophagitis; E78.5 Hyperlipidemia, unspecified; G20 Parkinson's disease; I48.91 Unspecified atrial fibrillation; I11.0 Hypertensive heart disease with heart failure; I50.9 Heart failure, unspecified; E11.9 Type 2 diabetes mellitus without complications; Z79.82 Long term (current) use of aspirin; W05.0XXA Fall from non-moving wheelchair, initial encounter; Z23 Encounter for immunization
CPT/HCPCS: 73502; 82948; 90471; 90715; 99283

== ENCOUNTER 2021-12-08 13:27 | Emergency (ER) | payer MEDICARE, SELFPAY ==
[2021-12-08] VITALS (12 sets, daily range): BP systolic 143–169; BP diastolic 66–103; PULSE 50–69; RESP 10–18; TEMP 36.5; O2SAT 77–100
--- NOTE | ~2021-12-08 | XR_ITS ---
EXAM: XR pelvis 1-2V DATE: 12/08/2021 15:59 HISTORY: Fall, GENERAL PAIN, . COMPARISON: 12/01/2021. CT 04/10/2019 FINDINGS: Left hip arthroplasty, in stable and good position without complication. Decreased mineral ization. No fracture or dislocation. No lytic or blastic lesion. Lumbar degenerative disc disease. No erosion or periosteal change. Extensive vascular calcification. IMPRESSION: No acute osseous finding in the pelvis. Reviewed, dictated and finalized at location K.
--- NOTE | ~2021-12-08 | CT_ITS ---
EXAMINATION: CT brain wo con DATE: 12/08/2021 15:56 INDICATION: Head injury. TECHNIQUE: Computed tomography (CT) of the head was performed without intravenous contrast. The mA wa s adjusted according to patient size. Iterative reconstruction technique was employed. The dose-lengt h product was 605.33 mGy-cm. COMPARISON: Head CT 11/05/2021 FINDINGS: There are scattered areas of low attenuation in the cerebral white matter. There is a small old infarct in left cerebellum. There is no intracranial hemorrhage, acute infarction, or abnormal i ntracranial mass lesion. The ventricles are normal in size. There is mild mucosal thickening in the p aranasal sinuses. The orbits are normal. The mastoid air cells are normal. IMPRESSION: 1. Stable mild nonspecific cerebral white matter disease, which likely represents chronic small vesse l ischemic disease. 2. Small old infarct in left cerebellum. Reviewed, dictated and finalized at location A. IMPRESSION: 1. Stable mild nonspecific cerebral white matter disease, which likely represen ts chronic small vessel ischemic disease. 2. Small old infarct in left cerebellum.
--- NOTE | ~2021-12-08 | CT_ITS ---
EXAMINATION: CT facial & cervical spine wo DATE: 12/08/2021 15:56 INDICATION: Fall, left side orbital bruise TECHNIQUE: Computed tomography (CT) of the maxillofacial region and cervical spine was performed with out intravenous contrast. Automated exposure control and iterative reconstruction technique were empl oyed. The dose-length product was 270.21 mGy-cm. COMPARISON: 11/05/2021 FINDINGS: CERVICAL: Vertebral Body Alignment: Intact. Cervical straightening as can occur with positioning or spasm. Craniocervical and atlantoaxial alignment: Severe degenerative change with pannus. Alignment intact. Osseous structures/fracture: No evidence of a lytic or blastic process in the visualized spine. No e vidence of acute fracture. Cervical soft tissues: The paraspinal soft tissues planes are maintained. Small left pleural effusion . Right apical scar/inflammatory change. Degenerative changes: Degenerative changes, without severe central canal narrowing. Severe left C3-4 neural foraminal narrowing. FACE: Soft Tissues: Forehead soft tissue swelling. Facial bones: No acute fracture. No lytic or blastic process. Eyes: The globes are intact. The soft tissue planes of the orbits are maintained. Paranasal Sinuses: The visualized aerated spaces are clear. Foreign Bodies: No radiopaque foreign bodies. Other Findings: Periodontal disease. IMPRESSION: No acute fracture or traumatic malalignment in the cervical spine. No acute facial bone fracture. Reviewed, dictated and finalized at location K. IMPRESSION: No acute fracture or traumatic malalignment in the cervical spine. No acute fac ial bone fracture.
--- NOTE | 2021-12-08 15:38 | ECG_ITS ---
Measurements Intervals [place] Rate: 53 P: -28 ID: [id number] QRS: -31 QRSD: 158 T: 119 QT: 512 QTc: 482 Interpretive Statements SINUS BRADYCARDIA RIGHT BUNDLE BRANCH BLOCK [120+ ms QRS DURATION, UPRIGHT V1, 40+ ms S IN I/aVL/V4/V5/V6] MINIMAL VOLTAGE CRITERIA FOR LVH, CONSIDER NORMAL VARIANT [MEETS CRITERIA IN ONE OF: R(aVL), S(V1), R(V5), R(V5/V6)+S(V1)] POSSIBLE ANTERIOR MYOCARDIAL INFARCTION , PROBABLY OLD [30 ms Q WAVE IN V3/V4, OR R < 0.2 mV IN V4] INFERIOR MYOCARDIAL INFARCTION , PROBABLY OLD [40+ ms Q WAVE AND/OR ST/T ABNORMALITY IN II/aVF] ABNORMAL ECG COMPARED TO ECG 11/05/2021 21:14:24 MYOCARDIAL INFARCT FINDING NOW PRESENT Electronically Signed On 12-09-2021 10:16:39 CDT by Yeyo Martin M.D.
--- NOTE | 2021-12-08 15:50 | PC.NURSE ---
pt to CT
--- NOTE | 2021-12-08 15:51 | ED.FALL ---
HPI - Fall General Chief Complaint: Fall Stated Complaint: Fall Time Seen by Provider: 12/08/21 15:05 History of Present Illness HPI Narrative: This is an 86-year-old male with past medical history of hypothyroidism, kidney failure, A. fib, brought in by EMS from the senior care after a ground-level fall. Patient states he was in the shower when he tripped falling on his bottom. He denies hitting his head or losing consciousness. He denies preceding chest pain or shortness of breath. He denies similar symptoms thereafter. He is concerned that he would like to go home (senior care) to take care of his . Related Data Home Medications Medication Instructions Recorded Confirmed blood sugar diagnostic (OneTouch #10 ea 01/10/19 11/05/21 Ultra Blue Test Strip) lancets 33 gauge (OneTouch Delica #100 ea 01/10/19 11/05/21 Lancets) aspirin 81 mg tablet,delayed 81 mg PO DAILY 02/01/20 11/05/21 release nitroglycerin 0.4 mg sublingual 0.4 mg sublingual Q5M PRN Chest 02/01/20 11/05/21 tablet (Nitrostat) Pain carbidopa 25 mg-levodopa 100 mg 1 tablet PO TID 11/05/21 11/05/21 tablet ferrous sulfate 325 mg (65 mg 325 mg PO BID 11/05/21 11/05/21 iron) tablet (FeroSul) pravastatin 40 mg tablet 40 mg PO HS 11/05/21 11/06/21 Allergies Allergy/AdvReac Type Severity Reaction Status Date / Time No Known Allergies Allergy Verified 12/01/21 12:31 Review of Systems Review of Systems: CONSTITUTIONAL: Denies fever, chills, or sweats. EYES: Denies visual changes, redness, or discharge. ENT: Denies rhinorrhea, congestion, sore throat, or otalgia. CARDIOVASCULAR: Denies chest pain, palpitations, or edema. RESPIRATORY: Denies cough or dyspnea. GASTROINTESTINAL: Denies abdominal pain, nausea, vomiting, or diarrhea. GENITOURINARY: Denies dysuria or hematuria. SKIN: Denies rash or itching. MUSCULOSKELETAL: Denies back pain, joint pain, or myalgia. NEUROLOGIC: Denies headache, numbness, dizziness, or weakness. PSYCHIATRIC: Denies anxiety or depression. [facility] Past Medical History Medical History Anemia Arthritis Benign prostatic hyperplasia Chronic kidney disease, stage 4 (severe) Coronary artery disease Status post bypass. Gastroesophageal reflux Hyperlipidemia Hypertension Kidney stones Left renal mass Pancreatitis In 2016, November 2018, and March 2019. Parkinsonism Parkinsons disease Paroxysmal atrial fibrillation Renal mass Stable on imaging as of 2016. Systolic congestive heart failure Echocardiogram in January 2020 showed a moderately enlarged left ventricular chamber with moderately reduced systolic function and an estimated ejection fraction of 30 to 35%. Type 2 diabetes mellitus Hemoglobin A1c was 6.8% in 10/2019. Surgical History Surgical History History of cardiac cath In 2012 prior to CABG. And February 2020 demonstrating severe 2 vessel coronary artery disease with modest left main stenosis but high-grade ostial LAD and high-grade proximal circumflex lesions that are unchanged from catheterization in 2012. Patent internal mammary graft to LAD, patent radial artery graft to circumflex, relatively severe left ventricular systolic dysfunction with EF of 25-30% History of coronary artery bypass graft x 2 (~2012) RODRÍGUEZ to the left anterior descending and radial artery to the OM. History of laparoscopic cholecystectomy History of left hip hemiarthroplasty History of removal of cyst Tracheostomy status As a young child when he had diptheria at the age of 2. Family History Family History Mother Cerebrovascular accident, Onset Age: 80 Sibling Diabetes mellitus Father Family history of lung cancer Sibling Gallbladder disease His brother just a couple days after having gallbladder surgery Soc
[2021-12-08 16:39] LABS: Basophils Percent Auto 0.5 % (0.2-1.2); Eosinophils Absolute Auto 0.3 K/mm3 (0-0.3); Eosinophils Percent Auto 5.9 % (0-4.4); Hematocrit 25.8 % (42.0-52.0); Hemoglobin 8.3 g/dL (14.0-18.0); Immature Granulocyte Absolute 0.01 K/mm3 (0.00-0.031); Immature Granulocyte Percent A 0.2 % (0-0.5); Lymphocytes Absolute Auto 0.78 K/mm3 (0.9-3.2); Lymphocytes Percent Auto 17.8 % (18.3-44.2); Mean Corpuscular HGB Conc 32.2 g/dl (32-36); Mean Corpuscular Hemoglobin 33.2 pg (26-34); Mean Corpuscular Volume 103.2 fl (80-100); Mean Platelet Volume 8.6 fl (7.4-10.4); Monocytes Absolute Auto 0.2 K/mm3 (0.1-0.6); Monocytes Percent Auto 5.5 % (2.6-8.5); Neutrophils Absolute Auto 3.1 K/mm3 (1.3-6.7); Neutrophils Percent Auto 70.1 % (45.5-73.1); Platelet Count Result 181 k/mm3 (150-375); Red Cell Distribution Width 13.5 % (11.5-14.5); White Blood Count 4.4 K/mm3 (4.5-10.0)
[2021-12-08 16:49] LABS: Alanine Aminotransferase 14 U/L (6-50); Albumin Level 3.3 g/dL (3.5-5.1); Alkaline Phosphatase 108 U/L (38-126); Anion Gap 9 mmol/L (8-16); Aspartate Amino Transferase 25 U/L (17-59); Bilirubin,Total 0.5 mg/dL (0.2-1.3); Blood Urea Nitrogen 33 mg/dL (9-20); Calcium 8.2 mg/dL (8.4-10.2); Carbon Dioxide 25 mmol/L (22-30); Chloride 102 mmol/L (98-107); Estimated Glomerular Filt Rate 22; Glucose 86 mg/dL (65-110); Potassium 4.8 mmol/L (3.4-5.0); Sodium 136 mmol/L (137-145)
[2021-12-08] MEDS: TETANUS,DIPHTHERIA,AC PERTUSSIS ADULT (0.5 ML) BOOSTRIX IM (17:38)
--- NOTE | 2021-12-08 17:59 | PC.NURSE ---
Report called to [facility]. Ambulance ETA [id number]
== END 2021-12-08 20:20 ==
PROVIDERS: Emergency Provider Preventive Medicine Aerospace Medicine; PCP Family Medicine
DX: S05.12XA Contusion of eyeball and orbital tissues, left eye, initial encounter (principal); S41.111A Laceration without foreign body of right upper arm, initial encounter; Z23 Encounter for immunization; E11.22 Type 2 diabetes mellitus with diabetic chronic kidney disease; I13.0 Hypertensive heart and chronic kidney disease with heart failure and stage 1 through stage 4 chronic kidney disease, or unspecified chronic kidney disease; N18.4 Chronic kidney disease, stage 4 (severe); I50.20 Unspecified systolic (congestive) heart failure; G20 Parkinson's disease; D64.9 Anemia, unspecified; I48.0 Paroxysmal atrial fibrillation; E03.9 Hypothyroidism, unspecified; E78.5 Hyperlipidemia, unspecified; N40.0 Benign prostatic hyperplasia without lower urinary tract symptoms; M19.90 Unspecified osteoarthritis, unspecified site; K21.9 Gastro-esophageal reflux disease without esophagitis; Z87.442 Personal history of urinary calculi; Z96.642 Presence of left artificial hip joint; Z95.1 Presence of aortocoronary bypass graft; Z87.891 Personal history of nicotine dependence; R00.1 Bradycardia, unspecified; I45.10 Unspecified right bundle-branch block; R94.31 Abnormal electrocardiogram [ECG] [EKG]; R90.82 White matter disease, unspecified; Z79.82 Long term (current) use of aspirin; W18.2XXA Fall in (into) shower or empty bathtub, initial encounter
CPT/HCPCS: 36415; 70450; 70486; 72125; 72170; 80053; 85025; 90471; 90715; 93005; 99284

== ENCOUNTER 2021-12-11 12:42 | Emergency (ER) | payer MEDICARE, SELFPAY ==
--- NOTE | ~2021-12-11 | XR_ITS ---
EXAMINATION: XR shoulder LT min 2V DATE: 12/11/2021 13:07 INDICATION: Left shoulder pain post fall TECHNIQUE: AP internally and externally rotated, AP oblique externally rotated and transscapular Y vi ews of the left shoulder were obtained. COMPARISON: None FINDINGS: Normal alignment. No fracture.Moderate acromioclavicular osteoarthritis. Small subacromial spur. Mil d osteoarthritis at the glenohumeral joint with small marginal osteophytes along the glenoid and mini mal joint space narrowing. Cystic changes are seen along the lesser and greater tuberosities which ca n be seen with rotator cuff disease. Small calcified nodules in the left lower lung zone and calcifie d left hilar lymph nodes consistent with old granulomatous disease. Cardiomegaly. Atherosclerotic aor ta. Median sternotomy wires and mediastinal surgical clips are seen, likely from prior coronary arter y bypass grafting. There are also retained epicardial pacemaker leads. Moderate to severe cervical an d thoracic spondylosis. IMPRESSION: 1. 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 No acute oss eous abnormality. 2. Cystic changes at the lesser and greater tuberosities which can be seen with rotator cuff disease. Reviewed, dictated and finalized at location A. IMPRESSION: 1. 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 No acute osseous abnormality. 2. Cystic changes at the lesser and greater tuberosities which can be seen with rotator cuff disease.
[2021-12-11 12:43] VITALS: BP 110/64; PULSE 53; RESP 13; TEMP 37.1; O2SAT 97
--- NOTE | 2021-12-11 12:57 | ED.FALL ---
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 Patient states he was sitting in a reclining chair and attempted to get up to his walker. Patient states that he lost his footing and fell landing on his left shoulder. Denies any other injuries at this time. Patient was recently seen in the emergency room for injury sustained another ground-level fall. Presently patient is alert and oriented x3. Patient presented from local rehab facility via EMS. Related Data Home Medications Medication Instructions Recorded Confirmed blood sugar diagnostic (OneTouch #10 ea 01/10/19 11/05/21 Ultra Blue Test Strip) lancets 33 gauge (VIDDIXTouch Delica #100 ea 01/10/19 11/05/21 Lancets) aspirin 81 mg tablet,delayed 81 mg PO DAILY 02/01/20 11/05/21 release nitroglycerin 0.4 mg sublingual 0.4 mg sublingual Q5M PRN Chest 02/01/20 11/05/21 tablet (Nitrostat) Pain carbidopa 25 mg-levodopa 100 mg 1 tablet PO TID 11/05/21 11/05/21 tablet ferrous sulfate 325 mg (65 mg 325 mg PO BID 11/05/21 11/05/21 iron) tablet (FeroSul) pravastatin 40 mg tablet 40 mg PO HS 11/05/21 11/06/21 Allergies Allergy/AdvReac Type Severity Reaction Status Date / Time No Known Allergies Allergy Verified 12/01/21 12:31 Review of Systems Review of Systems: CONSTITUTIONAL: Denies fever, chills, or sweats. EYES: Denies visual changes, redness, or discharge. ENT: Denies rhinorrhea, congestion, sore throat, or otalgia. CARDIOVASCULAR: Denies chest pain, palpitations, or edema. RESPIRATORY: Denies cough or dyspnea. GASTROINTESTINAL: Denies abdominal pain, nausea, vomiting, or diarrhea. GENITOURINARY: Denies dysuria or hematuria. SKIN: Denies rash or itching. MUSCULOSKELETAL: Left shoulder pain NEUROLOGIC: Denies headache, numbness, dizziness, or weakness. PSYCHIATRIC: Denies anxiety or depression. [facility] Past Medical History Medical History Anemia Arthritis Benign prostatic hyperplasia Chronic kidney disease, stage 4 (severe) Coronary artery disease Status post bypass. Gastroesophageal reflux Hyperlipidemia Hypertension Kidney stones Left renal mass Pancreatitis In 2016, November 2018, and March 2019. Parkinsonism Parkinsons disease Paroxysmal atrial fibrillation Renal mass Stable on imaging as of 2016. Systolic congestive heart failure Echocardiogram in January 2020 showed a moderately enlarged left ventricular chamber with moderately reduced systolic function and an estimated ejection fraction of 30 to 35%. Type 2 diabetes mellitus Hemoglobin A1c was 6.8% in 10/2019. Surgical History Surgical History History of cardiac cath In 2012 prior to CABG. And February 2020 demonstrating severe 2 vessel coronary artery disease with modest left main stenosis but high-grade ostial LAD and high-grade proximal circumflex lesions that are unchanged from catheterization in 2013. Patent internal mammary graft to LAD, patent radial artery graft to circumflex, relatively severe left ventricular systolic dysfunction with EF of 25-30% History of coronary artery bypass graft x 2 (~2012) RODRÍGUEZ to the left anterior descending and radial artery to the OM. History of laparoscopic cholecystectomy History of left hip hemiarthroplasty History of removal of cyst Tracheostomy status As a young child when he had diptheria at the age of 2. Family History Family History Mother Cerebrovascular accident, Onset Age: 80 Sibling Diabetes mellitus Father Family history of lung cancer Sibling Dani
--- NOTE | 2021-12-11 14:01 | PC.NURSE ---
Awaiting PT evaluation due to patient's frequent falls.
[2021-12-11 14:32] VITALS: BP 123/71; PULSE 65; RESP 18; O2SAT 98
--- NOTE | 2021-12-11 14:54 | PC.NURSE ---
Per [facility] Rik, no PT evaluation needed at this time.
--- NOTE | 2021-12-11 15:23 | PC.NURSE ---
Attempted to contact patient's POADeb. Patient reports [place] of the [place].
[2021-12-11 16:43] VITALS: BP 117/81; PULSE 60; RESP 19; O2SAT 98
--- NOTE | 2021-12-11 17:01 | PC.NURSE ---
Attempted to call [facility] for report, awaiting for phone call back for report and potential transport back to facility. Patient resting comfortably in bed.
--- NOTE | 2021-12-11 17:53 | PC.NURSE ---
Contacted SAFIA Boyd and she reports she is unable to pick patient up because she is currently in [place]. Patient unsure if he usually returns home in ambulance.
--- NOTE | 2021-12-11 18:10 | PC.NURSE ---
Report given to SHAKEEL Mayo. Still awaiting transportation at this time.
[2021-12-11 18:37] VITALS: BP 120/67; PULSE 89; RESP 18; O2SAT 98
[2021-12-11 19:45] VITALS: BP 111/58; PULSE 53; RESP 14; O2SAT 99
[2021-12-11 23:31] VITALS: BP 138/82; PULSE 53; RESP 16; O2SAT 98
--- NOTE | 2021-12-11 23:37 | PC.NURSE ---
Called [facility] at this time. And spoke with Larissa to update that pt has left facility at this time for d/c.
== END 2021-12-11 23:39 ==
PROVIDERS: Emergency Provider Nurse Practitioner Family; PCP Family Medicine
DX: S40.022A Contusion of left upper arm, initial encounter (principal); W19.XXXA Unspecified fall, initial encounter; Z79.82 Long term (current) use of aspirin; N18.4 Chronic kidney disease, stage 4 (severe); I25.10 Atherosclerotic heart disease of native coronary artery without angina pectoris; E78.5 Hyperlipidemia, unspecified; I50.20 Unspecified systolic (congestive) heart failure; G20 Parkinson's disease; I13.0 Hypertensive heart and chronic kidney disease with heart failure and stage 1 through stage 4 chronic kidney disease, or unspecified chronic kidney disease; E11.22 Type 2 diabetes mellitus with diabetic chronic kidney disease; K21.9 Gastro-esophageal reflux disease without esophagitis; Z87.891 Personal history of nicotine dependence
CPT/HCPCS: 73030; 99283